=== PATIENT | female | born 1935 | race African-American/Black ===

== ENCOUNTER 2017-12-17 14:36 | Outpatient (CLI) | payer MEDICARE | END 2017-12-17 14:37 | disposition home or self-care (01) | LOC: BICULT 14:36 | PROVIDERS: ATTEND Internal Medicine Geriatric Medicine | DX: R60.0 Localized edema (principal); R06.02 Shortness of breath; I70.0 Atherosclerosis of aorta; I77.819 Aortic ectasia, unspecified site; I82.411 Acute embolism and thrombosis of right femoral vein | CPT/HCPCS: 71046; 93970 ==

== ENCOUNTER 2017-12-17 15:36 | Emergency (ER) | payer MEDICARE ==
[2017-12-17 18:22] LABS: INR-International Normal Ratio 1.1; Prothrombin Time 14.4 SEC (12.0-14.7)
[2017-12-17 18:40] LABS: Chloride 102 mmol/L (98-107); Potassium 4.6 mmol/L (3.5-5.1); Sodium 142 mmol/L (136-145)
[2017-12-17 18:41] LABS: Calcium 9.3 mg/dL (7.8-10.44); Glucose 89 mg/dL (83-110)
[2017-12-17 18:43] LABS: Anion Gap 20 mmol/L (10-20); Carbon Dioxide 25 mmol/L (23-31)
[2017-12-17 18:44] LABS: Calc. Creatinine Clearance 0 mL/min (70-130); Estimated GFR-MDRD 77
[2017-12-17 18:45] LABS: BUN (Urea Nitrogen) 25 mg/dL (9.8-20.1)
[2017-12-17] MEDS ORDERED: Rivaroxaban 15 MG TAB PO SCH (19:30)
== END 2017-12-17 19:51 | disposition home or self-care (01) ==
LOC: ERS 15:36
DX: I82.4Z1 Acute embolism and thrombosis of unspecified deep veins of right distal lower extremity (principal); J44.9 Chronic obstructive pulmonary disease, unspecified; I10 Essential (primary) hypertension; F03.90 Unspecified dementia, unspecified severity, without behavioral disturbance, psychotic disturbance, mood disturbance, and anxiety; E78.00 Pure hypercholesterolemia, unspecified; Z87.891 Personal history of nicotine dependence; Z79.82 Long term (current) use of aspirin; Z79.899 Other long term (current) drug therapy
CPT/HCPCS: 36415; 80048; 81003; 81015; 85610; 87086

== ENCOUNTER 2017-12-18 09:30 | Inpatient (IN) | payer MEDICARE ==
[2017-12-18 09:59] LABS: Bilirubin Negative (Negative); Blood, Urine Large (Negative); Clarity TURBID (Clear); Glucose, Urine (Dipstick) Negative (Negative); Leukocyte Large (Negative); Nitrite Positive (Negative); Protein, Urine (Dipstick) 100 mg/dL (Neg-Trace); Specific Gravity, Urine 1.016 (1.002-1.036); pH, Urine 5.5 (5.0-9.0)
[2017-12-18 10:04] LABS: Bacteria/HPF 4+ HPF (None Seen); Hyaline Casts/LPF 4-6 HYALINE CAST LPF (0-3 Hyaline); Pathc Cast-AUWi Flag 1.87 (0-2.49); Squamous Epithelial 0-3 HPF (0-3)
--- NOTE | 2017-12-18 10:10 | RAD ---
SINGLE VIEW CHEST: Date: 12/18/17 COMPARISON: 12/15/17. HISTORY: Weakness and fever. FINDINGS: Single view of the chest shows a normal sized cardiomediastinal silhouette. Increased interstitial jona ng markings are present. Atelectasis is seen in the lung bases. There is no evidence of consolidation , mass, or pleural effusion. IMPRESSION: Bibasilar atelectasis. POS: [facility]
[2017-12-18 10:23] LABS: #Lymphocytes 0.9 thou/uL (1.20-3.40); #Monocytes 1.1 thou/uL (0.11-0.59); #Neutrophils 10.3 thou/uL (1.40-6.50); %Basophils 0.2 % (0.0-1.0); %Eosinophils 0.1 % (0.0-10.0); %Lymphocytes 7.6 % (21.0-51.0); %Monocytes 8.6 % (0.0-10.0); %Neutrophils 83.5 % (42.0-75.0); Hemoglobin 10.3 g/dL (12.0-16.0); Mean Corpuscular HGB CONC 31.3 g/dL (32.0-36.0); Mean Corpuscular Volume 83.1 fl (81.0-99.0); Mean Platelet Volume 7.7 fL (7.4-10.4); Platelet Count 172 thou/uL (130-400); RBC Distribution Width 13.2 % (11.5-14.5); Red Blood Cell (RBC) Count 3.98 mill/uL (4.20-5.40); White Blood Cell (WBC) Count 12.4 thou/uL (4.8-10.8)
[2017-12-18 10:39] LABS: ALT (SGPT) 20 U/L (8-55); AST (SGOT) 36 U/L (5-34); Albumin 3.2 g/dL (3.4-4.8); Alkaline Phosphatase 71 U/L (40-150); Anion Gap 12 mmol/L (10-20); BUN (Urea Nitrogen) 22 mg/dL (9.8-20.1); Bilirubin, Total 0.9 mg/dL (0.2-1.2); Calc. Creatinine Clearance 0 mL/min (70-130); Calcium 8.5 mg/dL (7.8-10.44); Carbon Dioxide 27 mmol/L (23-31); Chloride 102 mmol/L (98-107); Estimated GFR-MDRD 71; Globulin 3.1 g/dL (2.4-3.5); Glucose 108 mg/dL (83-110); Lipase 13 U/L (8-78); Potassium 3.3 mmol/L (3.5-5.1); Protein, Total 6.3 g/dL (6.0-8.3); Sodium 138 mmol/L (136-145)
[2017-12-18 10:44] LABS: CKMB 1.7 ng/mL (0-6.6); Troponin I 0.162 ng/mL (< 0.028)
[2017-12-18] MEDS ORDERED: ISOVUE-370 76%-LOCM 1 ML ONE (11:07)
[2017-12-18] MEDS ORDERED: Ondansetron ODT 4 MG TAB PO PRN (11:36)
[2017-12-18] MEDS ORDERED: Enoxaparin Sodium 80 MG/0.8 ML SYRINGE ONE (11:47)
--- NOTE | 2017-12-18 12:19 | CT ---
CTA THORAX WITH AND WITHOUT IV CONTRAST WITH 3D REFORMATTED IMAGING: HISTORY: DVT with weakness and altered mental status. The patient had a fever to 100.4. FINDINGS: No cysts or segmental pulmonary embolus is evident. There are small bilateral pleural effusions and a small pericardial effusion. There is bibasilar int erstitial and mild ground glass opacity. There is mild interstitial opacity within the lower lingula . Some of this may be related to accentuated fibrosis, as there is prominent paraseptal and central lobular emphysema throughout the lungs. This could also be related to interstitial edema. Pneumonia within the lower lobes and lingula cannot be entirely excluded. The visualized upper abdomen demons trates calcified granulomas involving the liver and spleen. The left kidney is slightly atrophic com pared to the right. There is diffuse osteopenia. No definite acute osseous abnormality is evident. IMPRESSION: 1. No central or segmental pulmonary embolus demonstrated. 2. Scattered emphysema. 3. Small bilateral pleural effusion and pericardial effusion. 4. Interstitial and mild ground glass opacity involving both lower lobes and lingula may reflect bobby ma or pneumonia. This is likely superimposed on fibrotic change throughout the lungs. 5. Findings of prior granulomatous disease. POS: [facility]
--- NOTE | 2017-12-18 12:37 | HP ---
PRIMARY CARE PHYSICIAN: Dr. Kuo. Referred to the [facility] Service by [facility]. HISTORY OF PRESENT ILLNESS: The patient has had off and on pains in her legs. She is "walking due t o leg discomfort approximately a week ago." Patient has severe dementia and the history was obtained from the daughter, she lives with. Yesterday, she had a venous Doppler in her legs done which I am told by the daughter shows right deep vein thrombosis. I am unfortunately unable to find the report in the computer. She was sent home yesterday on Xarelto. The patient's daughter states she was weak with shortness of breath, decreased activity. She was sent home on Xarelto as mentioned before. Th e prescription was not filled. She got a dose in the ER and has none since. Family called Dr. Alejandre i again today saying she was not doing well. She was sent back to the ER. In the ER found to have p yuria and elevated white count and referred her for admission for sepsis and a urinary tract infectio n. PAST MEDICAL HISTORY: Pertinent for heart failure, unspecified; hypertension; severe dementia. CURRENT MEDICATIONS: Including the Xarelto, which she is not taking; atenolol 25 mg a day; aspirin 8 1 mg a day; Lasix 40 mg a day; losartan 12.5 mg twice a day; olanzapine 5 mg on 1/2 tablet at night; vitamin D3; Keppra 1000 mg twice a day. ALLERGIES: CODEINE and LISINOPRIL. PAST SURGICAL HISTORY: She had a right mastectomy for cancer in 2013, had no radiation or chemothera py. She has had a hysterectomy in the distant past. FAMILY HISTORY: Really pertinent for breast cancer. The patient's mother of breast cancer and her daughter with her has had breast cancer. SOCIAL HISTORY: , quit smoking in 2013. No alcohol. DNR status, has medical directive, disc ussed with daughter. REVIEW OF SYSTEMS: Really not obtainable from the patient. The only thing she says is doing pretty well. PHYSICAL EXAMINATION: GENERAL: Awake, lethargic. VITAL SIGNS: Her vital signs done in the emergency room today: Blood pressure 137/60, pulse 77, res pirations 21, O2 sat 99 on room air, temperature 99. Her emergency room note done yesterday reveals a pulse ranging from 74-115 with blood pressure 188/123, 159/102, 167/92. HEAD, EYES, EARS, NOSE and THROAT: Reveals pupils equal and round. Extraocular movements are intact . Sclerae are white. She has bilateral arcus senilis. Tympanic membranes clear. Nose is clear. O ral mucous membranes are wet. Dental hygiene is good. NECK: No jugular venous distention, adenopathy or thyromegaly. CHEST: Clear to auscultation and percussion. CARDIAC: Heart had an irregular rhythm, split S2 over the left precordial area and a 2/6 systolic mu rmur. ABDOMEN: Soft, bowel sounds normal. No hepatosplenomegaly, no mass, no rebound. EXTREMITIES: Reveal 1+ edema with no definite calf tenderness. PULSES: Carotid, radial, femoral, and dorsalis pedis pulses intact. SKIN: Warm and dry. HEME/LYMPH: Reveals no tender or swollen lymph nodes in axilla, inguinal or cervical area. No petec hial lesions. NEUROLOGICAL: Cranial nerves II-XII are intact. Moves all extremities. Deep tendon reflexes grossl y symmetric. IMAGING: EKG sinus tachycardia with nonspecific ST abnormality. EKG was read by me. Chest x-ray is also read by me. Question of scarring versus infiltrate over the right lower lobe and some increase d markings over the left lower lobe. LABORATORY DATA: Comp metabolic profile: Potassium 3.3, BUN 22, AST 36, otherwise normal. Troponin 9.162. Lactic acid 1.4. White count elevated at 12.4 with a left shift, hemoglobin 10.3, platelet count 172. Urine with too many to count white cells, positive nitrite, large esterase. ADMITTING DIAGNOSES: 1. Pulmonary embolus with tachycardia split S2 and deep vein thrombosis. 2. Deep vein thrombosis by imaging. 3. Evidence for pneumonia with an infiltrate in the right middle lobe area, elevated white count, sh ortness of breath. 4. Urinary tract infection. 5. Hypertension. 6. History of heart failure. 7. Severe dementia. PLAN: 1. Stat CT scan, pulmonary embolus protocol, Lovenox 1 mg/kg q.12 hours has been ordered. 2. Blood cultures. 3. Urine culture. 4. Antibiotics with Rocephin and Zithromax. 5. Selected home medications. The patient will be placed on inpatient basis because of the high deg ree of suspicion for pulmonary emboli and pneumonia. She will need at least 2 overnights for culture s. She will most likely need 5 days of Lovenox before resuming the Xarelto.
[2017-12-18] MEDS: Azithromycin 500 MG in Sodium Chloride 0.9% 250 ML 250 ML IVPB SCH (13:30)
[2017-12-18 13:44] LABS: Troponin I 0.101 ng/mL (< 0.028)
[2017-12-18 16:41] LABS: Troponin I 0.096 ng/mL (< 0.028)
[2017-12-18 19:34] VITALS: BMI 24.9
[2017-12-18] MEDS: Enoxaparin Sodium 80 MG/0.8 ML SYRINGE SC SCH (21:18)
[2017-12-18] MEDS: OLANZapine 5 MG TAB PO SCH (21:19)
[2017-12-18] MEDS: Losartan 25 MG TAB PO SCH (21:19)
[2017-12-18] MEDS: Gabapentin 100 MG CAP PO SCH (21:19)
[2017-12-18] MEDS: levETIRAcetam 500 MG TAB PO SCH (21:20)
[2017-12-19 05:24] LABS: #Eosinphils 0.1 thou/uL (0.0-0.7); #Lymphocytes 1.2 thou/uL (1.20-3.40); #Monocytes 1.1 thou/uL (0.11-0.59); %Basophils 0.4 % (0.0-1.0); %Eosinophils 0.5 % (0.0-10.0); %Lymphocytes 10.5 % (21.0-51.0); %Monocytes 9.9 % (0.0-10.0); %Neutrophils 78.7 % (42.0-75.0); Hemoglobin 10.9 g/dL (12.0-16.0); Mean Corpuscular HGB CONC 31.9 g/dL (32.0-36.0); Mean Corpuscular Hemoglobin 26.4 pg (27.0-31.0); Mean Corpuscular Volume 82.8 fl (81.0-99.0); Mean Platelet Volume 8.1 fL (7.4-10.4); Platelet Count 167 thou/uL (130-400); RBC Distribution Width 13.2 % (11.5-14.5); Red Blood Cell (RBC) Count 4.12 mill/uL (4.20-5.40); White Blood Cell (WBC) Count 11.4 thou/uL (4.8-10.8)
[2017-12-19 05:46] LABS: Anion Gap 10 mmol/L (10-20); BUN (Urea Nitrogen) 17 mg/dL (9.8-20.1); Calc. Creatinine Clearance 62 mL/min (70-130); Calcium 8.2 mg/dL (7.8-10.44); Carbon Dioxide 24 mmol/L (23-31); Chloride 105 mmol/L (98-107); Estimated GFR-MDRD Greater than 90; Glucose 78 mg/dL (83-110); Potassium 3.3 mmol/L (3.5-5.1); Sodium 136 mmol/L (136-145)
[2017-12-19] MEDS ORDERED: Atenolol 25 MG TAB PO SCH (09:00)
[2017-12-19] MEDS: levETIRAcetam 500 MG TAB PO SCH ×2 (10:06→20:52)
[2017-12-19] MEDS: Losartan 25 MG TAB PO SCH ×2 (10:07→20:52)
[2017-12-19] MEDS: Atorvastatin Calcium 20 MG TAB PO SCH (10:07)
[2017-12-19] MEDS: Gabapentin 100 MG CAP PO SCH ×3 (10:07→20:52)
[2017-12-19] MEDS: Acetaminophen 325 MG TAB PO PRN (10:08)
[2017-12-19] MEDS: Enoxaparin Sodium 80 MG/0.8 ML SYRINGE SC SCH (10:10)
--- NOTE | 2017-12-19 10:24 | PDOC.PN ---
- Subjective Encounter Start Date: 12/19/17 Encounter Start Time: 10:23 Subjective: much more alert - Objective Resuscitation Status: Resuscitation Status DNR:Do Not Resuscitate MAR Reviewed: Yes Vital Signs & Weight: Vital Signs (12 hours) Temp Pulse Resp BP Pulse Ox 12/19/17 04:02 99.1 F 84 18 155/73 H 99 Weight Weight 149 lb 14.629 oz I&O: 12/18/17 12/19/17 12/20/17 06:59 06:59 06:59 Intake Total 100 Balance 100 Result Diagrams: 12/19/17 05:06 12/19/17 05:06 Phys Exam - Physical Examination Neck: no nodes scant rales RLL Cardiovascular: RRR, no significant murmur Gastrointestinal: soft, non-tender, positive bowel sounds Musculoskeletal: no edema Dx/Plan (1) DVT (deep venous thrombosis) Code(s): I82.409 - ACUTE EMBOLISM AND THOMBOS UNSP DEEP VN UNSP LOWER EXTREMITY Status: Acute Qualifiers: DVT location: lower extremity Chronicity: acute Laterality: left (2) PNA (pneumonia) Code(s): J18.9 - PNEUMONIA, UNSPECIFIED ORGANISM Status: Acute Qualifiers: Laterality: right Lung location: middle lobe of lung (3) UTI (urinary tract infection), bacterial Code(s): N39.0 - URINARY TRACT INFECTION, SITE NOT SPECIFIED; A49.9 - BACTERIAL INFECTION, UNSPECIFIED Status: Acute (4) HTN (hypertension) Code(s): I10 - ESSENTIAL (PRIMARY) HYPERTENSION Status: Acute - Plan no evedence PE on CT- DC loveox, reinstitute xarelto -: urine C&S E coli -: cont rocephine and zithramax iv -: selected home meds * .
[2017-12-19] MEDS: OLANZapine 5 MG TAB PO SCH ×2 (10:30→20:52)
--- NOTE | 2017-12-19 10:52 | PDOC.EVN ---
Event Note - Event Note Event Note: in atrial fib, will start po metopolol
[2017-12-19 11:15] LABS: Hemoglobin 10.2 g/dL (12.0-16.0); Platelet Count 164 thou/uL (130-400)
[2017-12-19 11:34] LABS: Calc. Creatinine Clearance 65 mL/min (70-130); Estimated GFR-MDRD Greater than 90
--- NOTE | 2017-12-19 11:50 | PQF ---
DATE: 12-19-17 ATTN: DR. LIZ TABARES Please exercise your independent, professional judgment in responding to the clarification form. Clinical indicators are provided on the bottom of this form for your review Please check appropriate box(s) to clarify if the following diagnosis has been ruled in or ruled out: SEPSIS [ ] Ruled in diagnosis [ ] Continue to treat [ ] Resolved [ ] Other diagnosis [ ] Unable to determine In addition, please specify: Present on Admission (POA): [ ] Yes [ ] No [ ] Unable to determine For continuity of documentation, please document condition throughout progress notes and discharge summary. Thank You. CLINICAL INDICATORS - SIGNS / SYMPTOMS / LABS H&P: IN THE ER FOUND TO HAVE PYURIA AND ELEVATED WHITE COUNT AND REFERRED HER FOR ADMISSION FOR SEPSIS AND A URINARY TRACT INFECTION. H&P: PE, DVT, EVIDENCE FOR PNEUMONIA WITH AN INFILTRATE IN THE RIGHT MIDDLE LOBE AREA, ELEVATED WHITE COUNT, SOB, UTI WBC: 12-18-17: 12.4 12-19-17: 11.4 TEMP (ER) : REPORT OF TEMP 100.4 RISK FACTORS: H&P: PE, DVT, EVIDENCE FOR PNEUMONIA WITH AN INFILTRATE IN THE RIGHT MIDDLE LOBE AREA, ELEVATED WHITE COUNT, SOB, UTI (ER): HX OF DEMENTIA, HYPERLIPIDEMIA, HTN, COPD , FORMER SMOKER TREATMENTS: (MAR) ROCEPHIN, ZITHROMAX, (ER) VANCOMYCIN (This form is maintained as a part of the permanent medical record) 2014 [employer]. All Rights Reserved CARSON [email or web address] Office: [phone] [facility]
[2017-12-19] MEDS: cefTRIAXone\\ROCEPHIN 2 GM in Sodium Chloride 0.9% 100 ML IVPB SCH (12:05)
--- NOTE | 2017-12-19 12:07 | PQF ---
DATE: 12-19-17 ATTN : DR. LIZ TABARES Please exercise your independent, professional judgment in responding to the clarification form. Clinical indicators are provided on the bottom of this form for your review Please check appropriate box(s): [ x ] Demand Ischemia [ ] VT (Type: ) [ ] Other diagnosis [ ] Unable to determine In addition, please specify: Present on Admission (POA): [ ] Yes [ ] No [ ] Unable to determine CLINICAL INDICATORS - SIGNS / SYMPTOMS / LABS TROPONIN I: 12-18-17: 0.162 12-18-17: 0.101 12-18-17: 0.096 H&P: PAST MEDICAL HISTORY: PERTINENT FOR HEART FAILURE, UNSPECIFIED, HTN RISKS: H&P: PAST MEDICAL HISTORY: PERTINENT FOR HEART FAILURE, UNSPECIFIED, HTN ER: HX OF HYPERLIPIDEMIA, HTN, COPD, FORMER SMOKER TREATMENTS: H&P: (ER) LOVENOX CARDIAC MONITORING (This form is maintained as a part of the permanent medical record) 2014 [employer] All Rights Reserved CARSON [email or web address] Office: [phone] [facility]ITAL[facility]
[2017-12-19] MEDS: Azithromycin 500 MG in Sodium Chloride 0.9% 250 ML 250 ML IVPB SCH (12:30)
[2017-12-19] MEDS: Metoprolol Tartrate 25 MG TAB PO SCH (20:52)
[2017-12-19] MEDS: Rivaroxaban 15 MG TAB PO SCH (20:52)
[2017-12-20] MEDS: Acetaminophen 325 MG TAB PO PRN (05:25)
[2017-12-20] MEDS: levETIRAcetam 500 MG TAB PO SCH ×2 (08:22→21:16)
[2017-12-20] MEDS: Gabapentin 100 MG CAP PO SCH ×3 (08:22→21:16)
[2017-12-20] MEDS: OLANZapine 5 MG TAB PO SCH ×2 (08:22→21:17)
[2017-12-20] MEDS: Metoprolol Tartrate 25 MG TAB PO SCH ×2 (08:22→21:16)
[2017-12-20] MEDS: Rivaroxaban 15 MG TAB PO SCH ×2 (08:22→21:17)
[2017-12-20] MEDS: Atorvastatin Calcium 20 MG TAB PO SCH (08:22)
[2017-12-20] MEDS: Losartan 25 MG TAB PO SCH ×2 (08:22→21:16)
--- NOTE | 2017-12-20 09:53 | PDOC.PN ---
- Subjective Encounter Start Date: 12/20/17 Encounter Start Time: 09:51 Subjective: alert, stable confusion - Objective Resuscitation Status: Resuscitation Status DNR:Do Not Resuscitate MAR Reviewed: Yes Vital Signs & Weight: Vital Signs (12 hours) Temp Pulse Resp BP Pulse Ox 12/20/17 08:20 98.5 F 89 16 125/58 L 93 L 12/20/17 05:34 98.2 F 67 18 152/67 H 94 L Weight Weight 149 lb 14.629 oz I&O: 12/19/17 12/20/17 12/21/17 06:59 06:59 06:59 Intake Total 100 300 Balance 100 300 Result Diagrams: 12/19/17 11:07 12/19/17 11:07 Phys Exam - Physical Examination Neck: no JVD Respiratory: clear to auscultation bilateral Cardiovascular: RRR, no significant murmur Gastrointestinal: soft, non-tender, positive bowel sounds Musculoskeletal: no edema Dx/Plan (1) DVT (deep venous thrombosis) Code(s): I82.409 - ACUTE EMBOLISM AND THOMBOS UNSP DEEP VN UNSP LOWER EXTREMITY Status: Acute Qualifiers: DVT location: lower extremity Chronicity: acute Laterality: left (2) PNA (pneumonia) Code(s): J18.9 - PNEUMONIA, UNSPECIFIED ORGANISM Status: Acute Qualifiers: Pneumonia type: due to unspecified organism Laterality: right Lung location: middle lobe of lung Qualified Code(s): J18.1 - Lobar pneumonia, unspecified organism (3) UTI (urinary tract infection), bacterial Code(s): N39.0 - URINARY TRACT INFECTION, SITE NOT SPECIFIED; A49.9 - BACTERIAL INFECTION, UNSPECIFIED Status: Acute (4) HTN (hypertension) Code(s): I10 - ESSENTIAL (PRIMARY) HYPERTENSION Status: Chronic Qualifiers: Hypertension type: essential hypertension Qualified Code(s): I10 - Essential (primary) hypertension (5) Atrial fib/flutter, transient Code(s): [id number] - Status: Acute - Plan xarelto for DVT -: uti E coli pansensitive will trasition to po omnicef -: now in RSR , cont metoprolol -: PT consult, rehab screen * .
[2017-12-20] MEDS: cefTRIAXone\\ROCEPHIN 2 GM in Sodium Chloride 0.9% 100 ML IVPB SCH (12:00)
[2017-12-20] MEDS: Azithromycin 500 MG in Sodium Chloride 0.9% 250 ML 250 ML IVPB SCH (12:28)
[2017-12-20] MEDS: Cefdinir 300 MG CAP PO SCH (21:16)
[2017-12-21] MEDS: Acetaminophen 325 MG TAB PO PRN (00:28)
[2017-12-21] MEDS: Cefdinir 300 MG CAP PO SCH ×2 (09:53→21:10)
[2017-12-21] MEDS: levETIRAcetam 500 MG TAB PO SCH ×2 (09:53→21:12)
[2017-12-21] MEDS: Atorvastatin Calcium 20 MG TAB PO SCH (09:53)
[2017-12-21] MEDS: Losartan 25 MG TAB PO SCH ×2 (09:54→21:09)
[2017-12-21] MEDS: Rivaroxaban 15 MG TAB PO SCH ×2 (09:54→21:09)
[2017-12-21] MEDS: Metoprolol Tartrate 25 MG TAB PO SCH ×2 (09:54→21:10)
[2017-12-21] MEDS: Gabapentin 100 MG CAP PO SCH ×3 (09:54→21:09)
[2017-12-21] MEDS: OLANZapine 5 MG TAB PO SCH ×2 (10:26→21:09)
--- NOTE | 2017-12-21 14:56 | PDOC.PN ---
- Subjective Encounter Start Date: 12/21/17 Encounter Start Time: 14:54 Patient seen and examined, no new issues or complaints, no issues overnight per nursing staff. No family at bedside, all questions answered. - Objective Resuscitation Status: Resuscitation Status DNR:Do Not Resuscitate Vital Signs & Weight: Vital Signs (12 hours) Temp Pulse Resp Pulse Ox 12/21/17 07:49 98.6 F 81 18 95 Weight Weight 149 lb 14.629 oz I&O: 12/20/17 12/21/17 12/22/17 06:59 06:59 06:59 Intake Total 300 690 Balance 300 690 Result Diagrams: 12/19/17 11:07 12/19/17 11:07 Phys Exam - Physical Examination Constitutional: NAD HEENT: PERRLA, moist MMs, sclera anicteric Neck: no nodes, no JVD, supple Respiratory: no wheezing, no rales, no rhonchi Cardiovascular: RRR, no significant murmur, no rub Gastrointestinal: soft, non-tender, no distention Musculoskeletal: no edema, pulses present Neurological: non-focal, normal sensation Psychiatric: normal affect Deviation from normal: AAO x person only Dx/Plan (1) Dementia Code(s): F03.90 - UNSPECIFIED DEMENTIA WITHOUT BEHAVIORAL DISTURBANCE Status: Acute (2) Atrial fib/flutter, transient Code(s): OLF8002 - Status: Acute (3) DVT (deep venous thrombosis) Code(s): I82.409 - ACUTE EMBOLISM AND THOMBOS UNSP DEEP VN UNSP LOWER EXTREMITY Status: Acute Qualifiers: DVT location: lower extremity Chronicity: acute Laterality: left (4) PNA (pneumonia) Code(s): J18.9 - PNEUMONIA, UNSPECIFIED ORGANISM Status: Acute Qualifiers: Pneumonia type: due to unspecified organism Laterality: right Lung location: middle lobe of lung Qualified Code(s): J18.1 - Lobar pneumonia, unspecified organism (5) UTI (urinary tract infection), bacterial Code(s): N39.0 - URINARY TRACT INFECTION, SITE NOT SPECIFIED; A49.9 - BACTERIAL INFECTION, UNSPECIFIED Status: Acute (6) HTN (hypertension) Code(s): I10 - ESSENTIAL (PRIMARY) HYPERTENSION Status: Chronic Qualifiers: Hypertension type: essential hypertension Qualified Code(s): I10 - Essential (primary) hypertension - Plan * rehab placement pending * continue current plan of care w/o changes for now * DC to rehab once placement available. * No family at bedisde
[2017-12-21] MEDS ORDERED: Haloperidol Lactate 5 MG/ML VIAL IM SCH (19:45)
[2017-12-22] MEDS: OLANZapine 5 MG TAB PO SCH ×2 (09:14→21:25)
[2017-12-22] MEDS: levETIRAcetam 500 MG TAB PO SCH ×2 (09:15→21:03)
[2017-12-22] MEDS: Metoprolol Tartrate 25 MG TAB PO SCH ×2 (09:15→21:03)
[2017-12-22] MEDS: Losartan 25 MG TAB PO SCH ×2 (09:15→21:03)
[2017-12-22] MEDS: Acetaminophen 325 MG TAB PO PRN ×2 (09:15→15:52)
[2017-12-22] MEDS: Atorvastatin Calcium 20 MG TAB PO SCH (09:16)
[2017-12-22] MEDS: Cefdinir 300 MG CAP PO SCH ×2 (09:16→21:03)
[2017-12-22] MEDS: Gabapentin 100 MG CAP PO SCH ×3 (09:16→21:03)
[2017-12-22] MEDS: Rivaroxaban 15 MG TAB PO SCH ×2 (09:16→21:03)
--- NOTE | 2017-12-22 10:15 | PQF ---
ELIAZAR SOUSA ROHAN MD [id number] [id number] CLINICAL DOCUMENTATION IMPROVEMENT CLARIFICATION FORM: ICD-10 Updated PLEASE DO AN ADDENDUM TO THE PROGRESS NOTE WITH ANY DOCUMENTATION UPDATES OR ADDITIONS AND CARRY THROUGH TO DC SUMMARY. THANK YOU. DATE: 12-19-17 ATTN: DR. LIZ TABARES / DR. MCDOWELL Please exercise your independent, professional judgment in responding to the clarification form. Clinical indicators are provided on the bottom of this form for your review Please check appropriate box(s) to clarify if the following diagnosis has been ruled in or ruled out: SEPSIS [ x ] Ruled in diagnosis [ x ] Continue to treat [ ] Resolved [ ] Other diagnosis [ ] Unable to determine In addition, please specify: Present on Admission (POA): [ x ] Yes [ ] No [ ] Unable to determine For continuity of documentation, please document condition throughout progress notes and discharge summary. Thank You. CLINICAL INDICATORS - SIGNS / SYMPTOMS / LABS H&P: IN THE ER FOUND TO HAVE PYURIA AND ELEVATED WHITE COUNT AND REFERRED HER FOR ADMISSION FOR SEPSIS AND A URINARY TRACT INFECTION. H&P: PE, DVT, EVIDENCE FOR PNEUMONIA WITH AN INFILTRATE IN THE RIGHT MIDDLE LOBE AREA, ELEVATED WHITE COUNT, SOB, UTI WBC: 12-18-17: 12.4 12-19-17: 11.4 TEMP (ER) : REPORT OF TEMP 100.4 RISK FACTORS: H&P: PE, DVT, EVIDENCE FOR PNEUMONIA WITH AN INFILTRATE IN THE RIGHT MIDDLE LOBE AREA, ELEVATED WHITE COUNT, SOB, UTI (ER): HX OF DEMENTIA, HYPERLIPIDEMIA, HTN, COPD, FORMER SMOKER TREATMENTS: (MAR) ROCEPHIN, ZITHROMAX, (ER) VANCOMYCIN THANK YOU, FILI (This form is maintained as a part of the permanent medical record) 2015 [employer]. All Rights Reserved CARSON [email or web address] Office: [phone] [facility]
--- NOTE | 2017-12-22 14:13 | ULT ---
BILATERAL CAROTID DUPLEX ULTRASOUND WITH SPECTRAL ANALYSIS AND COLOR FLOW EVALUATION: Date: 12/22/17 HISTORY: Patient with altered mental status on 12/18/17. Weakness. TIA. Evaluate for possibility of CVA. FINDINGS: Maldonado scale, color flow, Doppler evaluation, and spectral analysis of the bilateral carotid arteries i s performed with 2D imaging. There is calcified atherosclerotic plaque seen within the bilateral common carotid arteries, as well as involving the bilateral internal carotid arteries. There is less than 50% maximal stenosis in the bilateral internal carotid arteries according to the p eak systolic velocities and the ICA/CCA ratios. Peak systolic velocity in the right ICA is 61.6 cm/se cond, with an ICA/CCA ratio of 0.73. Peak systolic velocity in the left ICA is 66.9 cm/second, with a n ICA/CCA ratio of 0.97. Antegrade flow is demonstrated in the left vertebral artery, but there is bidirectional flow present in the right vertebral artery. However, provided Doppler evaluation does not adequately demonstrate t his finding. IMPRESSION: 1. Bidirectional flow in the right vertebral artery. A subclavian steal phenomenon could not be excl uded. CTA exam of the neck may be helpful for further evaluation. 2. Antegrade flow in the left vertebral artery. 3. Atherosclerotic plaque in bilateral internal carotid arteries, but no hemodynamically significant stenosis is present based on velocity measurements. POS: [facility]
--- NOTE | 2017-12-22 14:26 | CT ---
NONCONTRAST CT OF THE BRAIN: Date: 12/22/17 INDICATION: TIA, rule out CVA. COMPARISON: None. FINDINGS: There is generalized cerebral and cerebellar atrophy. Septum pellucidum and third ventricle are midli ne. There is remote lacunar infarction involving both caudate heads and left globus pallidus. There i s mild chronic small vessel white matter ischemic change. No definite acute infarct, hemorrhage, or h ydrocephalus present. IMPRESSION: 1. No acute intracranial abnormality. 2. Chronic ischemic changes. POS: [facility]
--- NOTE | 2017-12-22 14:47 | PDOC.PN ---
- Subjective Encounter Start Date: 12/22/17 Encounter Start Time: 11:00 Patient seen and examined, daughter at bedside, off note patient's PCP informed me today that the patient was admitted for symptoms concerning for stroke. Patient currently is at baseline functional status per daughter, no new issues or concerns, seen and examined at bedside all questions answered. - Objective Resuscitation Status: Resuscitation Status DNR:Do Not Resuscitate Vital Signs & Weight: Vital Signs (12 hours) Temp Pulse Resp BP Pulse Ox 12/22/17 07:37 97.4 F L 91 17 188/85 H 98 12/22/17 06:55 97.6 F 87 18 186/95 H 97 Weight Weight 149 lb 14.629 oz I&O: 12/21/17 12/22/17 12/23/17 06:59 06:59 06:59 Intake Total 690 480 Balance 690 480 Result Diagrams: 12/19/17 11:07 12/19/17 11:07 Phys Exam - Physical Examination Constitutional: NAD HEENT: PERRLA, moist MMs Neck: no nodes, no JVD, supple Respiratory: no wheezing, no rales, no rhonchi Cardiovascular: RRR, no significant murmur, no rub Gastrointestinal: soft, non-tender, no distention Musculoskeletal: pulses present, edema present (trace) Neurological: non-focal, normal sensation, moves all 4 limbs Psychiatric: normal affect Deviation from normal: AAO x person only Skin: no rash, normal turgor, cap refill <2 seconds Dx/Plan (1) Dementia Code(s): F03.90 - UNSPECIFIED DEMENTIA WITHOUT BEHAVIORAL DISTURBANCE Status: Acute (2) Atrial fib/flutter, transient Code(s): VBC0997 - Status: Acute (3) DVT (deep venous thrombosis) Code(s): I82.409 - ACUTE EMBOLISM AND THOMBOS UNSP DEEP VN UNSP LOWER EXTREMITY Status: Acute Qualifiers: DVT location: lower extremity Chronicity: acute Laterality: left (4) PNA (pneumonia) Code(s): J18.9 - PNEUMONIA, UNSPECIFIED ORGANISM Status: Acute Qualifiers: Pneumonia type: due to unspecified organism Laterality: right Lung location: middle lobe of lung Qualified Code(s): J18.1 - Lobar pneumonia, unspecified organism (5) UTI (urinary tract infection), bacterial Code(s): N39.0 - URINARY TRACT INFECTION, SITE NOT SPECIFIED; A49.9 - BACTERIAL INFECTION, UNSPECIFIED Status: Acute (6) HTN (hypertension) Code(s): I10 - ESSENTIAL (PRIMARY) HYPERTENSION Status: Chronic Qualifiers: Hypertension type: essential hypertension Qualified Code(s): I10 - Essential (primary) hypertension - Plan * obtain carotid US and CT head to r/o any possible intracranial abnormality * continue with current plan of care otherwise * case management consult for SNF vs rehab, patient may not be able to do long hours of PT at rehab and may benefit form SNF placement * continue PT/OT * DC plans in AM to SNF vs rehab * case and plan d/w patient's daughter at length, she understands and agrees with this plan
[2017-12-23] MEDS: cloNIDine 0.1 MG TAB PO PRN ×2 (05:41→11:35)
[2017-12-23 05:55] LABS: Hemoglobin 9.1 g/dL (12.0-16.0); Platelet Count 283 thou/uL (130-400)
[2017-12-23 06:19] LABS: Calc. Creatinine Clearance 74 mL/min (70-130); Estimated GFR-MDRD Greater than 90
[2017-12-23] MEDS: Metoprolol Tartrate 25 MG TAB PO SCH ×2 (09:58→20:52)
[2017-12-23] MEDS: Cefdinir 300 MG CAP PO SCH ×2 (09:58→20:50)
[2017-12-23] MEDS: Gabapentin 100 MG CAP PO SCH ×3 (09:58→20:50)
[2017-12-23] MEDS: Losartan 25 MG TAB PO SCH ×2 (09:58→20:51)
[2017-12-23] MEDS: Atorvastatin Calcium 20 MG TAB PO SCH (09:58)
[2017-12-23] MEDS: levETIRAcetam 500 MG TAB PO SCH ×2 (09:58→20:51)
[2017-12-23] MEDS: OLANZapine 5 MG TAB PO SCH ×2 (11:35→20:52)
[2017-12-23] MEDS: Rivaroxaban 15 MG TAB PO SCH ×2 (11:35→20:53)
--- NOTE | 2017-12-23 12:33 | PDOC.PN ---
- Subjective Encounter Start Date: 12/23/17 Encounter Start Time: 12:31 Patient seen and examined, patient requiring sitter as without the sitter yesterday she was becoming agitated. No family at bedside. - Objective Resuscitation Status: Resuscitation Status DNR:Do Not Resuscitate Vital Signs & Weight: Vital Signs (12 hours) Temp Pulse Resp BP BP Pulse Ox 12/23/17 11:35 171/92 H 12/23/17 11:19 97.5 F L 70 16 171/92 H 97 12/23/17 09:00 98.5 F 76 16 157/78 H 95 12/23/17 05:41 186/80 H 12/23/17 04:00 98.3 F 92 18 186/80 H 96 Weight Weight 157 lb 1.6 oz I&O: 12/22/17 12/23/17 12/24/17 06:59 06:59 06:59 Intake Total 480 360 Output Total 300 Balance 480 60 Result Diagrams: 12/23/17 04:56 12/23/17 04:56 Phys Exam - Physical Examination Constitutional: NAD HEENT: PERRLA, moist MMs, sclera anicteric Neck: no nodes, no JVD, supple Respiratory: no wheezing, no rales, no rhonchi Cardiovascular: RRR, no significant murmur, no rub Gastrointestinal: soft, non-tender, no distention, positive bowel sounds Musculoskeletal: pulses present, edema present (trace) Neurological: non-focal, normal sensation, moves all 4 limbs Psychiatric: normal affect Deviation from normal: Following some commands, disoriented Skin: no rash, normal turgor Dx/Plan (1) Dementia Code(s): F03.90 - UNSPECIFIED DEMENTIA WITHOUT BEHAVIORAL DISTURBANCE Status: Acute (2) Atrial fib/flutter, transient Code(s): [id number] - Status: Acute (3) DVT (deep venous thrombosis) Code(s): I82.409 - ACUTE EMBOLISM AND THOMBOS UNSP DEEP VN UNSP LOWER EXTREMITY Status: Acute Qualifiers: DVT location: lower extremity Chronicity: acute Laterality: left (4) PNA (pneumonia) Code(s): J18.9 - PNEUMONIA, UNSPECIFIED ORGANISM Status: Acute Qualifiers: Pneumonia type: due to unspecified organism Laterality: right Lung location: middle lobe of lung Qualified Code(s): J18.1 - Lobar pneumonia, unspecified organism (5) UTI (urinary tract infection), bacterial Code(s): N39.0 - URINARY TRACT INFECTION, SITE NOT SPECIFIED; A49.9 - BACTERIAL INFECTION, UNSPECIFIED Status: Acute (6) HTN (hypertension) Code(s): I10 - ESSENTIAL (PRIMARY) HYPERTENSION Status: Chronic Qualifiers: Hypertension type: essential hypertension Qualified Code(s): I10 - Essential (primary) hypertension - Plan * Continue current plan of care for now * patient requiring sitter, if patient requires sitter she may not qualify for SNF or rehab and may need to pursue home health care * no family at bedside, d/w employment case manager about this issue * DC plans to home with C or SNF/rehab if sitter arranged * no other changes in plan for now
[2017-12-24] MEDS: Acetaminophen 325 MG TAB PO PRN ×2 (00:23→11:50)
[2017-12-24] MEDS: Losartan 25 MG TAB PO SCH ×3 (08:00→20:23)
[2017-12-24] MEDS: Metoprolol Tartrate 25 MG TAB PO SCH ×3 (08:00→20:24)
[2017-12-24] MEDS: Amlodipine 5 MG TAB PO SCH ×2 (08:00→08:05)
[2017-12-24] MEDS: Cefdinir 300 MG CAP PO SCH ×2 (08:01→20:23)
[2017-12-24] MEDS: levETIRAcetam 500 MG TAB PO SCH ×2 (08:01→20:23)
[2017-12-24] MEDS: Atorvastatin Calcium 20 MG TAB PO SCH (08:01)
[2017-12-24] MEDS: Gabapentin 100 MG CAP PO SCH ×3 (08:01→20:23)
[2017-12-24] MEDS: OLANZapine 5 MG TAB PO SCH ×2 (08:28→20:24)
[2017-12-24] MEDS: Rivaroxaban 15 MG TAB PO SCH ×2 (08:28→20:24)
--- NOTE | 2017-12-24 14:06 | PDOC.PN ---
- Subjective Encounter Start Date: 12/24/17 Encounter Start Time: 14:04 Patient seen and examined, daughter not at bedside, requiring sitter still, no other issues. - Objective Resuscitation Status: Resuscitation Status DNR:Do Not Resuscitate Vital Signs & Weight: Vital Signs (12 hours) Temp Pulse Resp BP BP Pulse Ox 12/24/17 08:05 87 147/78 H 12/24/17 08:00 97.8 F 87 16 95 12/24/17 07:50 97.8 F 87 16 147/78 H 95 12/24/17 04:00 97.9 F 84 16 150/74 H 97 Weight Weight 157 lb 1.6 oz I&O: 12/23/17 12/24/17 12/25/17 06:59 06:59 06:59 Intake Total 360 340 Output Total 300 Balance 60 340 Result Diagrams: 12/23/17 04:56 12/23/17 04:56 Phys Exam - Physical Examination Constitutional: NAD HEENT: PERRLA, moist MMs, sclera anicteric, oral pharynx no lesions Neck: no nodes, no JVD, supple Respiratory: no wheezing, no rales, no rhonchi Cardiovascular: RRR, no significant murmur, no rub Gastrointestinal: soft, non-tender, no distention, positive bowel sounds Musculoskeletal: no edema, pulses present Neurological: non-focal, normal sensation Deviation from normal: disoriented Skin: no rash, normal turgor Dx/Plan (1) Dementia Code(s): F03.90 - UNSPECIFIED DEMENTIA WITHOUT BEHAVIORAL DISTURBANCE Status: Acute (2) Atrial fib/flutter, transient Code(s): WQH7135 - Status: Acute (3) DVT (deep venous thrombosis) Code(s): I82.409 - ACUTE EMBOLISM AND THOMBOS UNSP DEEP VN UNSP LOWER EXTREMITY Status: Acute Qualifiers: DVT location: lower extremity Chronicity: acute Laterality: left (4) PNA (pneumonia) Code(s): J18.9 - PNEUMONIA, UNSPECIFIED ORGANISM Status: Acute Qualifiers: Pneumonia type: due to unspecified organism Laterality: right Lung location: middle lobe of lung Qualified Code(s): J18.1 - Lobar pneumonia, unspecified organism (5) UTI (urinary tract infection), bacterial Code(s): N39.0 - URINARY TRACT INFECTION, SITE NOT SPECIFIED; A49.9 - BACTERIAL INFECTION, UNSPECIFIED Status: Acute (6) HTN (hypertension) Code(s): I10 - ESSENTIAL (PRIMARY) HYPERTENSION Status: Chronic Qualifiers: Hypertension type: essential hypertension Qualified Code(s): I10 - Essential (primary) hypertension - Plan * pending placeent * continue PT * no other changes in plan * DC once placement arranged, patient still requiring sitter. * The patient daughter was not at bedside, if patient requires a sitter then the patient will need to either go home with home health care or the family will need to find some way to pay for a sitter at a SNF/rehab, disease case manager following as well
[2017-12-25 04:38] LABS: Hemoglobin 8.2 g/dL (12.0-16.0); Platelet Count 338 thou/uL (130-400)
[2017-12-25 04:46] LABS: Calc. Creatinine Clearance 81 mL/min (70-130); Estimated GFR-MDRD Greater than 90
[2017-12-25] MEDS: levETIRAcetam 500 MG TAB PO SCH (08:43)
[2017-12-25] MEDS: Cefdinir 300 MG CAP PO SCH (08:44)
[2017-12-25] MEDS: Atorvastatin Calcium 20 MG TAB PO SCH (08:44)
[2017-12-25] MEDS: Losartan 25 MG TAB PO SCH (08:44)
[2017-12-25] MEDS: Metoprolol Tartrate 25 MG TAB PO SCH (08:45)
[2017-12-25] MEDS: Gabapentin 100 MG CAP PO SCH ×2 (08:45→14:13)
[2017-12-25] MEDS: Rivaroxaban 15 MG TAB PO SCH (08:45)
[2017-12-25] MEDS: Amlodipine 5 MG TAB PO SCH (08:45)
[2017-12-25] MEDS: OLANZapine 5 MG TAB PO SCH (08:46)
[2017-12-25] MEDS: Acetaminophen 325 MG TAB PO PRN (11:19)
--- NOTE | 2017-12-25 13:39 | PDOC.PN ---
- Subjective Encounter Start Date: 12/25/17 Encounter Start Time: 10:20 Patient seen and examined, no new issues, no changes in last 24 hours. No family at bedside. - Objective Resuscitation Status: Resuscitation Status DNR:Do Not Resuscitate Vital Signs & Weight: Vital Signs (12 hours) Temp Pulse Resp BP BP Pulse Ox 12/25/17 08:45 87 149/68 H 12/25/17 08:00 98.0 F 87 20 12/25/17 07:42 98.0 F 87 20 149/68 H 96 Weight Weight 157 lb 1.6 oz I&O: 12/24/17 12/25/17 12/26/17 06:59 06:59 06:59 Intake Total 340 360 360 Balance 340 360 360 Result Diagrams: 12/25/17 03:50 12/25/17 03:50 Phys Exam - Physical Examination Constitutional: NAD HEENT: PERRLA, moist MMs, sclera anicteric Neck: no nodes, no JVD, supple, full ROM Respiratory: no wheezing, no rales, no rhonchi Cardiovascular: RRR, no significant murmur, no rub Gastrointestinal: soft, non-tender, no distention, positive bowel sounds Musculoskeletal: no edema, pulses present Neurological: non-focal, normal sensation Deviation from normal: confused, disoriented Skin: no rash, normal turgor Dx/Plan (1) Dementia Code(s): F03.90 - UNSPECIFIED DEMENTIA WITHOUT BEHAVIORAL DISTURBANCE Status: Acute (2) Atrial fib/flutter, transient Code(s): PNR2601 - Status: Acute (3) DVT (deep venous thrombosis) Code(s): I82.409 - ACUTE EMBOLISM AND THOMBOS UNSP DEEP VN UNSP LOWER EXTREMITY Status: Acute Qualifiers: DVT location: lower extremity Chronicity: acute Laterality: left (4) PNA (pneumonia) Code(s): J18.9 - PNEUMONIA, UNSPECIFIED ORGANISM Status: Acute Qualifiers: Pneumonia type: due to unspecified organism Laterality: right Lung location: middle lobe of lung Qualified Code(s): J18.1 - Lobar pneumonia, unspecified organism (5) UTI (urinary tract infection), bacterial Code(s): N39.0 - URINARY TRACT INFECTION, SITE NOT SPECIFIED; A49.9 - BACTERIAL INFECTION, UNSPECIFIED Status: Acute (6) HTN (hypertension) Code(s): I10 - ESSENTIAL (PRIMARY) HYPERTENSION Status: Chronic Qualifiers: Hypertension type: essential hypertension Qualified Code(s): I10 - Essential (primary) hypertension - Plan * pending placement * no changes in plan otherwise * DC plans once placement arranged.
--- NOTE | 2017-12-25 14:24 | PDOC.EVN ---
Event Note - Event Note Event Note: DC SUMMARY #[id number]
[2017-12-25 18:40] VITALS: BP 144/73; TEMP 98.9
--- NOTE | 2017-12-26 01:53 | DIS ---
DATE OF ADMISSION: 12/18/2017 DATE OF DISCHARGE: 12/25/2017 ADMITTING COMPLAINT: Leg pain and antalgic gait. ADMITTING DIAGNOSES: 1. Leg pain. 2. History of dementia. 3. History of heart failure. 4. History of hypertension. 5. History of anxiety. DISCHARGE DIAGNOSES: 1. Pulmonary embolus with deep vein thrombosis. 2. History of heart failure, stable. 3. History of hypertension, stable. 4. History of dementia, stable. 4. History of anxiety, stable. HOSPITAL COURSE: This is an 82-year-old female who was admitted to the hospital because of leg pain, was admitted to Internal Medicine team, had imaging studies done, was found to have a DVT. The harmony ent was followed very closely by Internal Medicine team throughout her hospitalization stay; was star tavia on Xarelto 15 mg to be taken p.o. b.i.d., also had her seizure medications adjusted. The patient was deemed stable for discharge from medical perspective. At point in time of discharge, the patifallon t was back to her baseline, was to be discharged to a facility. telephonic nurse case manager had worked closely with the daughter to be able to get to her . The patient at point in time of discharge did have a b ed confirmed by the sample case porter, was back to her baseline. No complaints from her family. The harmony ent did have dementia, so review of systems at point in time of discharge was not very possible to be done; however, daughter states that the patient appeared to be back at her baseline minus the diffic ulty walking; however, she probably will get into physical therapy at the facility that she is going to. Dispositions to an outside facility mentioned earlier. Follow up with PCP within 1 week. MEDICATIONS: See MAR. ACTIVITY: As tolerated with assistance as needed as appropriate. DIET: Low fat, low calorie, high fiber diet. CONDITION: Stable. PROGNOSIS: Guarded. Case and plan discussed with daughter at length. She understands and agrees with this plan.
== END 2017-12-25 17:30 | DRG 299 ==
LOC: ERS 09:30 → 2NO 11:10 → T4-B 12-23 09:12
PROVIDERS: ADMIT Internal Medicine; ATTEND Internal Medicine
DX: I82.402 Acute embolism and thrombosis of unspecified deep veins of left lower extremity (principal); A41.9 Sepsis, unspecified organism; I26.99 Other pulmonary embolism without acute cor pulmonale; J18.9 Pneumonia, unspecified organism; N39.0 Urinary tract infection, site not specified; I24.8 Other forms of acute ischemic heart disease; F03.90 Unspecified dementia, unspecified severity, without behavioral disturbance, psychotic disturbance, mood disturbance, and anxiety; F41.9 Anxiety disorder, unspecified; Z79.01 Long term (current) use of anticoagulants; Z79.82 Long term (current) use of aspirin; Z88.5 Allergy status to narcotic agent; Z88.8 Allergy status to other drugs, medicaments and biological substances; Z90.11 Acquired absence of right breast and nipple; Z90.710 Acquired absence of both cervix and uterus; Z87.891 Personal history of nicotine dependence; Z66 Do not resuscitate; I48.91 Unspecified atrial fibrillation; B96.20 Unspecified Escherichia coli [E. coli] as the cause of diseases classified elsewhere; E78.5 Hyperlipidemia, unspecified; J44.9 Chronic obstructive pulmonary disease, unspecified; I11.0 Hypertensive heart disease with heart failure; I50.9 Heart failure, unspecified
CPT/HCPCS: 36415; 51701; 70450; 71045; 71275; 80048; 80053; 80177; 81003; 81015; 82553; 82565; 83605; 83690; 83880; 84443; 84484; 85014; 85018; 85025; 85049; 85610; 87040; 87077; 87086; 87186; 93005; 93880; 96365; 96372; 96375; 99284; A4353; G8978-GP-CM; G8979-GP-CK; G8987-GO-CL; G8988-GO-CJ; J0456; J0696; J1630; J1650; J3370; J7050

== ENCOUNTER 2018-01-02 15:52 | Emergency (ER) | payer MEDICARE ==
[2018-01-02 17:10] LABS: #Eosinphils 0.2 thou/uL (0.0-0.7); #Lymphocytes 1.7 thou/uL (1.20-3.40); #Monocytes 0.4 thou/uL (0.11-0.59); #Neutrophils 4.4 thou/uL (1.40-6.50); %Basophils 0.1 % (0.0-1.0); %Eosinophils 2.6 % (0.0-10.0); %Lymphocytes 25.4 % (21.0-51.0); %Monocytes 6.5 % (0.0-10.0); %Neutrophils 65.3 % (42.0-75.0); Hemoglobin 8.1 g/dL (12.0-16.0); Mean Corpuscular HGB CONC 31.2 g/dL (32.0-36.0); Mean Corpuscular Volume 83.4 fl (81.0-99.0); Mean Platelet Volume 6.1 fL (7.4-10.4); Platelet Count 494 thou/uL (130-400); RBC Distribution Width 14.7 % (11.5-14.5); Red Blood Cell (RBC) Count 3.12 mill/uL (4.20-5.40); White Blood Cell (WBC) Count 6.8 thou/uL (4.8-10.8)
[2018-01-02 17:16] LABS: INR-International Normal Ratio 1.7; PTT 35.4 SEC (22.9-36.1); Prothrombin Time 20.5 SEC (12.0-14.7)
[2018-01-02 17:26] LABS: ALT (SGPT) 13 U/L (8-55); AST (SGOT) 12 U/L (5-34); Albumin 3.6 g/dL (3.4-4.8); Alkaline Phosphatase 74 U/L (40-150); Anion Gap 12 mmol/L (10-20); BUN (Urea Nitrogen) 18 mg/dL (9.8-20.1); Bilirubin, Total 0.5 mg/dL (0.2-1.2); Calc. Creatinine Clearance 0 mL/min (70-130); Calcium 8.7 mg/dL (7.8-10.44); Carbon Dioxide 26 mmol/L (23-31); Chloride 105 mmol/L (98-107); Estimated GFR-MDRD 82; Globulin 3.4 g/dL (2.4-3.5); Glucose 107 mg/dL (83-110); Potassium 4.1 mmol/L (3.5-5.1); Sodium 139 mmol/L (136-145)
== END 2018-01-02 19:17 | disposition home or self-care (01) ==
LOC: ERS 15:52
DX: R79.89 Other specified abnormal findings of blood chemistry (principal); E78.5 Hyperlipidemia, unspecified; I10 Essential (primary) hypertension; J44.9 Chronic obstructive pulmonary disease, unspecified; F03.90 Unspecified dementia, unspecified severity, without behavioral disturbance, psychotic disturbance, mood disturbance, and anxiety; Z87.891 Personal history of nicotine dependence
CPT/HCPCS: 36415; 80053; 85025; 85610; 85730; 86850; 86900; 86901; 93005

== ENCOUNTER 2018-03-08 08:58 | Inpatient (IN) | payer MEDICARE ==
[2018-03-08 10:06] LABS: INR-International Normal Ratio 1.7; PTT 29.7 SEC (22.9-36.1); Prothrombin Time 20.2 SEC (12.0-14.7)
[2018-03-08 10:18] LABS: ALT (SGPT) 21 U/L (8-55); AST (SGOT) 16 U/L (5-34); Albumin 3.6 g/dL (3.4-4.8); Alkaline Phosphatase 68 U/L (40-150); Anion Gap 13 mmol/L (10-20); BUN (Urea Nitrogen) 27 mg/dL (9.8-20.1); Bilirubin, Total 0.4 mg/dL (0.2-1.2); CK (CPK) 82 U/L (29-168); Calc. Creatinine Clearance 0 mL/min (70-130); Calcium 8.6 mg/dL (7.8-10.44); Carbon Dioxide 24 mmol/L (23-31); Chloride 109 mmol/L (98-107); Estimated GFR-MDRD 77; Globulin 2.5 g/dL (2.4-3.5); Glucose 119 mg/dL (83-110); Potassium 3.2 mmol/L (3.5-5.1); Protein, Total 6.1 g/dL (6.0-8.3); Sodium 143 mmol/L (136-145)
[2018-03-08 10:21] LABS: Hemoglobin 4.3 g/dL (12.0-16.0); Mean Corpuscular HGB CONC 29.5 g/dL (32.0-36.0); Mean Corpuscular Hemoglobin 20.9 pg (27.0-31.0); Mean Corpuscular Volume 70.8 fL (78.0-98.0); Mean Platelet Volume 8.3 fL (7.4-10.4); Platelet Count 278 thou/uL (130-400); RBC Distribution Width 18.8 % (11.5-14.5); Red Blood Cell (RBC) Count 2.06 mill/uL (4.20-5.40); White Blood Cell (WBC) Count 6.2 thou/uL (4.8-10.8)
[2018-03-08 10:23] LABS: CKMB 1.7 ng/mL (0-6.6); Troponin I 0.234 ng/mL (< 0.028)
[2018-03-08 10:43] LABS: Acanthocytes SLIGHT = 1-5 cells (100X) (None Seen); Burr Cells SLIGHT = 2-5 cells (100X) (0-1/hpf); Hypochromia MODERATE=16-30 cells (100X) (0-5/hpf); Lymphocytes 22 % (21-51); MDiff Complete? YES; Microcytosis SLIGHT = 6-15 cells (100X) (0-5/hpf); Monocytes 8 % (0-10); Neutrophil 70 % (42-75); Nucleated RBC 1 % (0); PLT Morphology Comment Appears Adequate; Polychromasia MODERATE = 3-4 cells (100X) (0-2/hpf); Target Cells SLIGHT = 2-5 cells (100X) (0-1/hpf)
--- NOTE | 2018-03-08 11:29 | RAD ---
CHEST 1 VIEW: HISTORY: An 82-year-old female with a history of dyspnea, prior DVT, now with shortness of breath and bilatera l leg swelling. FINDINGS: Heart size is minimally enlarged. Linear and interstitial increased markings bilaterally with some r eticulonodular parenchymal changes more prominent in the bases but stable from 12/18/17. No new confl uent process. No significant pleural effusion. IMPRESSION: Stable chronic-appearing interstitial and reticulonodular parenchymal changes, particularly in the ba ses. Atherosclerosis of the aorta with ectasia. No new process. POS: [facility]
[2018-03-08 11:46] LABS: Bilirubin Negative (Negative); Blood, Urine Large (Negative); Clarity CLOUDY (Clear); Glucose, Urine (Dipstick) Negative (Negative); Leukocyte Small (Negative); Nitrite Negative (Negative); Protein, Urine (Dipstick) 30 mg/dL (Neg-Trace); Specific Gravity, Urine 1.016 (1.002-1.036); Urobilinogen 0.2 mg/dL (0.2-1.0); pH, Urine 5.5 (5.0-9.0)
[2018-03-08 11:47] LABS: Bacteria/HPF None Seen HPF (None Seen); Hyaline Casts/LPF 4-6 HYALINE CAST LPF (0-3 Hyaline); Pathc Cast-AUWi Flag 1.29 (0-2.49); RBC/HPF GREATER THAN 50-TNTC HPF (0-3); Squamous Epithelial 0-3 HPF (0-3)
--- NOTE | 2018-03-08 12:34 | ULT ---
BILATERAL LOWER EXTREMITY VENOUS DUPLEX ULTRASOUND INCLUDING COLOR AND SPECTRAL DOPPLER IMAGING: HISTORY: An 82-year-old female with a history of prior deep venous thrombosis in the right lower extremity. T he patient is on Xarelto. FINDINGS: Right left lower extremities are evaluated from groin to ankle including visualized greater saphenous , common femoral, superficial femoral, profunda femoral, popliteal, trifurcation, and posterior tibia l vein regions. There is phasic flow at all levels with normal compressibility and normal augmentati on. No intraluminal thrombus. IMPRESSION: No evidence for deep venous thrombosis. No evidence for a significant residual thrombus. POS: [facility]
[2018-03-08 13:46] LABS: Troponin I 0.209 ng/mL (< 0.028)
[2018-03-08] MEDS ORDERED: Lorazepam 2 MG/ML VIAL ONE (14:19)
[2018-03-08 15:08] LABS: #Basophils 0.1 thou/uL (0.0-0.2); #Eosinphils 0.1 thou/uL (0.0-0.7); #Lymphocytes 1.6 thou/uL (1.20-3.40); #Monocytes 0.5 thou/uL (0.11-0.59); #Neutrophils 4.8 thou/uL (1.40-6.50); %Basophils 1.1 % (0.0-1.0); %Eosinophils 0.8 % (0.0-10.0); %Lymphocytes 23.2 % (21.0-51.0); %Monocytes 6.7 % (0.0-10.0); %Neutrophils 68.2 % (42.0-75.0); Hemoglobin 5.4 g/dL (12.0-16.0); Mean Corpuscular HGB CONC 31.2 g/dL (32.0-36.0); Mean Corpuscular Hemoglobin 23.2 pg (27.0-31.0); Mean Corpuscular Volume 74.4 fL (78.0-98.0); Mean Platelet Volume 7.9 fL (7.4-10.4); Platelet Count 290 thou/uL (130-400); RBC Distribution Width 19.7 % (11.5-14.5); Red Blood Cell (RBC) Count 2.33 mill/uL (4.20-5.40); White Blood Cell (WBC) Count 7.1 thou/uL (4.8-10.8)
[2018-03-08 15:40] LABS: Troponin I 0.184 ng/mL (< 0.028)
[2018-03-08] MEDS ORDERED: Furosemide 40 MG/4 ML VIAL ONE (18:41)
[2018-03-08 19:50] VITALS: BMI 22.1
--- NOTE | 2018-03-08 20:05 | HP ---
CHIEF COMPLAINT: Shortness of breath. HISTORY OF PRESENT ILLNESS: The patient is an 82-year-old female who was previously admitted to this facility in the middle of December. At that time, the patient had been diagnosed with lower extremity DV T as an outpatient with report coming from the [facility]. The patient was subsequent ly started on Eliquis and was discharged to home. The patient was apparently doing well at home unti l she began experiencing increasing shortness of breath and was subsequently [facility] by family members. The patient has some history of dementia and tells me right now she cannot remember why she actually came in to the hospital. The information is obtained from the E R staff who states that was the primary driving force for her to come in. It is unknown if the patie nt has been having any melena or hematochezia. Unfortunately, the family members are not here at the moment; however, ER records indicate that the patient's daughter reports that the patient was having some generalized weakness with difficulty getting up to the bathroom where as in the past she has be en able to do that fairly normally. They also report that she had been having some emesis for 1 week , but no related diarrhea. REVIEW OF SYSTEMS: Not possible given the patient's dementia. PAST MEDICAL HISTORY: Notable for the above-mentioned Alzheimer type dementia and the previously ricardo gnosed DVT. She also has a history of heart failure and hypertension. PAST SURGICAL HISTORY: Includes right mastectomy for cancer in 2013 with no XRT or chemo and a remot e history of hysterectomy. FAMILY HISTORY: Pertinent for breast cancer. Mother of breast cancer and her daughter has had breast cancer as well. SOCIAL HISTORY: The patient is a . Quit smoking in 2013. No alcohol use. She has been made D NR previously. ALLERGIES: CODEINE AND LISINOPRIL. MEDICATIONS: Keppra 1000 mg b.i.d., Xarelto 15 b.i.d., Zyprexa 10 mg q.a.m. and 5 mg at bedtime, Lop ressor 25 b.i.d., losartan 12.5 b.i.d., gabapentin 100 t.i.d., Lasix 40 daily, calcium with vitamin D 1 p.o. b.i.d., and aspirin 81 mg every day. PHYSICAL EXAMINATION: VITAL SIGNS: BP 140/70, pulse 102, respirations 22, temperature 97.4, O2 sat 100% on room air. GENERAL APPEARANCE: Age appropriate female. She is in no distress. She is awake, alert, pleasant, and cooperative. She is somewhat confused and is not fully aware of the situation or have any memory of why she is here. HEENT: PERRL. She has no OP lesions, but her oral mucosa is very pale. NECK: Supple, without lymphadenopathy. CARDIOVASCULAR: Has a 1-2/6 holosystolic murmur heard best at the right upper sternal border. Regul ar rhythm; however. LUNGS: Clear bilaterally with the exception of very faint crackles at the very bases. ABDOMEN: Soft, nontender, nondistended, positive bowel sounds, no masses, no organomegaly. EXTREMITIES: Warm and dry with trace to 1+ pretibial pitting edema. LABORATORY DATA: White count 6.2, hemoglobin 4.3, MCV is 70.8. RDW is 18.8. She has smattering of hypochromia, polychromasia, microcytosis, target cells, damaris cells and acanthocytes. PT is 28.2, INR 1.7, PTT 27.9. Sodium 143, potassium 3.2, chloride 109, CO2 of 24, BUN 27, creatinine 0.85, glucose 119. Liver function normal. Troponin 0.23. BNP 797. Urinalysis shows 7-10 white cells, greater t mercer 50 red cells. Stool occult blood is positive. Lower extremity venogram is negative. Chest x-ra y shows chronic appearing interstitial and reticular nodular parenchymal changes, particularly at the bases with atherosclerosis of the aorta with ectasia, but no new processes. ASSESSMENT AND PLAN: 1. Severe anemia. This patient presented with weakness and shortness of breath. Two months after arin hughes started on anticoagulation for a DVT, she now has a substantial drop in her hemoglobin, which is profoundly low. She was given an initial unit of red blood cells. The ER physician initially hesit ated on the 2nd, given her evidence of heart failure, but I believe this is high output failure mandyon suzanne to the anemia and recommended a second dose, which has been ordered. The Xarelto will be discon tinued as the patient is almost 2-1/2 months into her treatment and now is having evidence of some GI bleeding with severe anemia. 2. Gastrointestinal bleed. The patient's stool was positive and she has microcytic indices, suggest ing that she has had a fairly steady loss which would almost surely be attributable to the GI tract. We will consult GI. We will have the patient on a PPI. 3. Alzheimer's type dementia. We will discuss further with the patient's daughter, which she return s which I believe will be soon. 4. Hypertension. We will continue the patient's usual home medication regimen once her medications have been entered into the system.
[2018-03-08] MEDS ORDERED: Furosemide 40 MG/4 ML VIAL SLOW IVP SCH (20:15)
[2018-03-08 20:25] LABS: Hemoglobin 7.1 g/dL (12.0-16.0)
[2018-03-09] MEDS: Lorazepam 2 MG/ML VIAL SLOW IVP PRN (01:29)
[2018-03-09 06:22] LABS: Anion Gap 14 mmol/L (10-20); BUN (Urea Nitrogen) 17 mg/dL (9.8-20.1); Calc. Creatinine Clearance 61 mL/min (70-130); Calcium 8.5 mg/dL (7.8-10.44); Carbon Dioxide 24 mmol/L (23-31); Chloride 107 mmol/L (98-107); Estimated GFR-MDRD Greater than 90; Glucose 113 mg/dL (83-110); Sodium 142 mmol/L (136-145)
[2018-03-09 07:07] LABS: Hemoglobin 6.6 g/dL (12.0-16.0); Mean Corpuscular HGB CONC 32.1 g/dL (32.0-36.0); Mean Corpuscular Hemoglobin 23.9 pg (27.0-31.0); Mean Corpuscular Volume 74.3 fL (78.0-98.0); Mean Platelet Volume 9.6 fL (7.4-10.4); Platelet Count 241 thou/uL (130-400); RBC Distribution Width 20.1 % (11.5-14.5); Red Blood Cell (RBC) Count 2.77 mill/uL (4.20-5.40)
[2018-03-09] MEDS: Atenolol 25 MG TAB PO SCH (08:30)
[2018-03-09] MEDS: Losartan 25 MG TAB PO SCH ×2 (08:31→20:35)
[2018-03-09] MEDS: Furosemide 40 MG TAB PO SCH (08:32)
--- NOTE | 2018-03-09 08:37 | PDOC.PN ---
- Subjective Encounter Start Date: 03/09/18 Encounter Start Time: 08:35 Sleeping, but awakens easily. Says she still feels sleepy. No other complaint. - Objective Resuscitation Status: Resuscitation Status DNR:Do Not Resuscitate Vital Signs & Weight: Vital Signs (12 hours) Temp Pulse Resp BP BP BP Pulse Ox 03/09/18 08:30 125 H 121/78 03/09/18 08:00 99.7 F H 22 H 121/78 100 03/09/18 04:00 98.6 F 125 H 20 150/89 H 100 03/09/18 00:00 98.5 F 99 20 138/78 95 03/08/18 21:00 97.6 F 95 20 2 L I&O: 03/08/18 03/09/18 03/10/18 06:59 06:59 06:59 Intake Total 650 0 Balance 650 0 Result Diagrams: 03/09/18 05:35 03/09/18 05:35 Phys Exam - Physical Examination A little somnolent, but appears appropriate when awakened. Neck: no JVD Mild tachypnea. Scattered rales. End expiratory wheezes. Tachycardic. Sounds irregular more than resp variation. Gastrointestinal: soft, non-tender, no distention 1+ pretib edema. Dx/Plan (1) Anemia Code(s): D64.9 - ANEMIA, UNSPECIFIED Status: Acute Qualifiers: Anemia type: iron deficiency Iron deficiency anemia type: chronic blood loss Qualified Code(s): D50.0 - Iron deficiency anemia secondary to blood loss (chronic) Comment: Has had two units PRBC's. Still at 6.6. Additional two units. (2) GIB (gastrointestinal bleeding) Code(s): K92.2 - GASTROINTESTINAL HEMORRHAGE, UNSPECIFIED Status: Acute Comment: Microcytic anemia, heme positive. GI consulted. PPI. (3) Dementia Code(s): F03.90 - UNSPECIFIED DEMENTIA WITHOUT BEHAVIORAL DISTURBANCE Status: Acute Qualifiers: Dementia type: Alzheimer's disease Alzheimer's disease onset: late-onset (4) HTN (hypertension) Code(s): I10 - ESSENTIAL (PRIMARY) HYPERTENSION Status: Chronic Qualifiers: Hypertension type: essential hypertension Qualified Code(s): I10 - Essential (primary) hypertension (5) Atrial fib/flutter, transient Code(s): XRQ9423 - Status: Acute Comment: Sounds like she is back in afib. Will obtain EKG to confirm. Will need rate control. (6) Interstitial lung disease Code(s): J84.9 - INTERSTITIAL PULMONARY DISEASE, UNSPECIFIED Status: Acute Comment: Appears to have chronic interstitial lung disease on CXR. Has some wheezing. Also had evidence of CHF. Will repeat CXR. Continue nebs, oxygen. (7) CHF (congestive heart failure) Code(s): I50.9 - HEART FAILURE, UNSPECIFIED Status: Acute Comment: Suspect high output failure due to the anemia. Had lasix yesterday. Repeat CXR. (8) Elevated troponin Code(s): R74.8 - ABNORMAL LEVELS OF OTHER SERUM ENZYMES Status: Acute Comment: Demand ischemia related to the severe anemia. Stable. - Plan * .
[2018-03-09] MEDS ORDERED: levETIRAcetam 500 MG TAB PO SCH (09:00)
[2018-03-09 09:24] LABS: Anisocytosis SLIGHT = 6-15 cells (100X) (0-5/hpf); Band 1 % (5-11); Elliptocytes SLIGHT = 2-5 cells (100X) (0-1/hpf); Hypochromia SLIGHT = 6-15 cells (100X) (0-5/hpf); Lymphocytes 13 % (21-51); MDiff Complete? YES; Microcytosis SLIGHT = 6-15 cells (100X) (0-5/hpf); Monocytes 10 % (0-10); Neutrophil 76 % (42-75); PLT Morphology Comment Appears Adequate; Polychromasia MODERATE = 3-4 cells (100X) (0-2/hpf)
[2018-03-09] MEDS ORDERED: Furosemide 40 MG/4 ML VIAL SLOW IVP SCH ×2 (09:45→15:30)
--- NOTE | 2018-03-09 09:45 | PDOC.EVN ---
Event Note - Event Note Event Note: EKG confirms aflutter with RVR. BP remains stable. CXR looks like worsening pulmonary edema. Sats are good on 2-4 liters. She is on atenolol at home, but her daughter reports she did not get her meds yesterday. It was reordered here. Will give additional IV lasix now. Will continue with transfusion. Transfer to tele and give IV Cardizem for better rate control. May not need gtt if the po atenolol works.
--- NOTE | 2018-03-09 10:59 | RAD ---
PORTABLE UPRIGHT CHEST ONE VIEW: History: 82-year-old female with history of hypoxia and tachycardia. Comparison: 03-08-18 FINDINGS: Poor inspiratory effort, decreased from the prior study, with interval development of bilateral inter stitial and reticular nodular and diffuse alveolar parenchymal changes concerning for pulmonary edema or bilateral atypical pneumonia or pneumonitis. More chronic appearing linear changes in the bases w ith slight blunting of the costophrenic angles. Bony demineralization. IMPRESSION: Interval development of fairly extensive bilateral interstitial and reticular nodule parenchymal soto ges, evidence for bilateral pulmonary edema versus symmetric atypical pneumonia or pneumonitis. Darrion nued short term follow up for clearing or stability. Atherosclerosis of the aorta with ectasia. POS: [facility]
[2018-03-09] MEDS ORDERED: Amiodarone HCl 150 MG, Admixture Fee 1 EACH in Dextrose 5% in Water 100 ML IVPB SCH (12:45)
[2018-03-09 13:08] LABS: Hemoglobin 8.4 g/dL (12.0-16.0)
[2018-03-09] MEDS: Potassium Chloride 20 MEQ in Premix Bag 1 BAG IVPB SCH ×2 (13:24→15:29)
[2018-03-09 13:58] LABS: ALT (SGPT) 17 U/L (8-55); AST (SGOT) 13 U/L (5-34); Albumin 3.7 g/dL (3.4-4.8); Alkaline Phosphatase 82 U/L (40-150); Bilirubin, Direct 0.7 mg/dL (0.1-0.3); Bilirubin, Total 1.6 mg/dL (0.2-1.2); Magnesium 2.2 mg/dL (1.6-2.6); Protein, Total 6.3 g/dL (6.0-8.3)
[2018-03-09] MEDS: Amiodarone HCl 450 MG, Admixture Fee 1 EACH in Dextrose 5% in Water 250 ML IVPB SCH ×2 (14:45→23:01)
[2018-03-09] MEDS: levETIRAcetam 500 MG TAB PO SCH (20:35)
[2018-03-09] MEDS: OLANZapine 5 MG TAB PO SCH (20:35)
--- NOTE | 2018-03-09 22:38 | EKG ---
Test Reason : Blood Pressure : / mmHG Vent. Rate : 130 BPM Atrial Rate : 322 BPM P-R Int : 000 ms QRS Dur : 094 ms QT Int : 324 ms P-R-T Axes : 000 018 -35 degrees QTc Int : 476 ms Atrial flutter with variable A-V block Nonspecific ST and T wave abnormality Abnormal ECG When compared with ECG of 08-MAR-2018 10:52, (Unconfirmed) Atrial flutter has replaced Sinus rhythm Vent. rate has increased BY 52 BPM Confirmed by Pasha TAI ([id number]) on 03/09/2018 10:37:49 PM Referred By: BRIDGER Confirmed By:Pasha TAI
--- NOTE | 2018-03-09 22:47 | PDOC.EVN ---
Event Note - Event Note Event Note: Patient responded to the diuresis and addition of amiodarone. Respiratory status improved and HR improved. No anticoagulation added for Aflutter because of the GIB. Hgb >8. Will not give more blood at this time. Check levels in am. Time spent in critical care 40 min.
--- NOTE | 2018-03-10 05:21 | CON ---
DATE OF CONSULTATION: 03/09/2018 REFERRING PHYSICIAN: Dr. Scott Hardy, [facility]. REASON FOR CONSULTATION: Severe anemia, occult gastrointestinal bleeding. HISTORY OF PRESENT ILLNESS: Ms. Carl is an -[place]namese female hospitalized yesterday with acut e shortness of breath and generalized weakness and not able to walk for now. The patient was brought to the ER by the family because of difficulty breathing. In the ER, the patient had a CBC done and was found to have severe anemia. She was here in 12/2017 and at that time, she had normal hemoglobin of 12.8. When last time she came to the ER, her blood count was 4.3. Since admission, the patient was transfused. She was given 2 units of packed RBCs yesterday and 1 unit today. The patient is res tless and trying to get out of bed. She is moaning at the same time. The patient's daughter tells m e that she is actually better today than how she was yesterday. Her daughter tells me that she has b een having some dark stools for several days. There is no history of nausea or vomiting. No history of hematochezia, but stools are very dark. Her history is somewhat confusing as the patient's daugh ter tells me that she has had this black stool for a long time. The patient is also restless and try ing to get out of bed. Upon questioning, she says that she is having and apparently she said she has had abdominal pain. However, on palpation of abdomen, she is really nontender. The patient has had no stool today. The patient had no vomiting today. The patient is basically n.p.o. She got Xarelt o on Friday, but she has no Xarelto on yesterday and today. A stool guaiac done came back positive for occult blood. The patient never had a colonoscopy or EGD in the past. No prior history of pept ic ulcer or any GI disorder. No relevant history. ALLERGIES: CODEINE, LISINOPRIL. SOCIAL HISTORY: Patient is a . She quit smoking in 2013. No alcohol or drug abuse. The patie ricardo lives with her daughter. MEDICAL ILLNESSES: 1. Alzheimer dementia. 2. DVT in 12/2017 and was on Xarelto. 3. Hypertension. 4. Heart failure. SURGERIES: 1. Status post left mastectomy for breast cancer. 2. Status post hysterectomy. FAMILY HISTORY: Mother of breast cancer and a daughter has had breast cancer. HOME MEDICATIONS: Include; 1. Keppra 1000 mg twice a day. 2. Xarelto 50 mg p.o. twice a day. 3. Zyprexa 10 mg in a.m. and 5 mg at bedtime. 4. Lopressor 25 mg p.o. twice a day. 5. Losartan 12.5 mg twice a day. 6. Gabapentin 100 mg p.o. 3 times a day. 7. Lasix 40 once a day. 8. Calcium with vitamin D supplements. 9. Aspirin. REVIEW OF SYSTEMS: Unobtainable as the patient was moaning and groaning and cannot get any system re view. PHYSICAL EXAMINATION: GENERAL: Patient is restless and trying to get out of bed. Does complain of abdominal pain, but abd omen is very benign on examination. VITAL SIGNS: Temperature 98.3 degrees Fahrenheit, pulse is 125, blood pressure 137/88. HEENT: Conjunctivae clear. NECK: Supple. No adenitis or thyromegaly noted. CARDIOVASCULAR: First and second heart sounds normal. The patient has a systolic murmur. LUNGS: She has a basilar rales and expiratory wheezing. ABDOMEN: Soft. Abdomen is nondistended. Abdomen is nontender. No organomegaly or masses. EXTREMITIES: Reveal no edema. LABORATORY DATA: Shows a profound anemia on admission with hemoglobin of 4.3, hematocrit 14.6, MCV 7 0.8, platelet count 258,000, polymorphs 70, lymphocytes 22, monocytes 8. The most recent blood count after transfusion is 8.4, hematocrit 27.5. The chemistry panel shows sodium 142, potassium 3, chlor nayely 107, bicarbonate 24, BUN is 17, creatinine 0.72, glucose 113, calcium 8.5, magnesium 2.2, bilirub in 1.6. Her direct bilirubin 0.7, AST 13, ALT 17, alkaline phosphatase 82. Troponin on admission wa s slightly high at 0.209. The stool guaiac came back positive for occult blood. CLINICAL IMPRESSION: 1. An 82-year-old -Vietnamese female with and placed on Xarelto. A recent venogram done yesterday showed no more blood clots. The patient, however, is severely anemic. While admission, he r WBC count was 6200, her hemoglobin 4.3, hematocrit 14.6, MCV 70.8. After transfusion came up to 8. 4 hemoglobin and hematocrit 27.5. Her BUN is slightly at 27. The patient appears to have microcytic anemia, indicator of chronic blood loss. However, she has normal CBC in 12/2017. I believe she has acute blood loss anemia most likely from the anticoagulation. She was on Xarelto and aspirin. She is not actively bleeding at the present time. 2. Dementia. 3. Hypertension. No history of heart failure. Mastectomy for breast cancer before. I had a long talk with the livan queen's daughter and I explained to her that she probably has some medicine study. restless or emmanuel tated, I would probably hold off anything until hopefully tomorrow or day after tomorrow. An IV Jessie scan has been ordered and she just got IV Lasix yesterday. She appears to have fluid overload, possi edgar congestive heart failure. RECOMMENDATIONS: 1. Diuresis. 2. Follow up H&H. 3. Possible EGD tomorrow or Friday. I will reassess the patient again tomorrow morning.
[2018-03-10 06:27] LABS: #Eosinphils 0.1 thou/uL (0.0-0.7); #Lymphocytes 1.4 thou/uL (1.20-3.40); #Monocytes 0.8 thou/uL (0.11-0.59); #Neutrophils 5.6 thou/uL (1.40-6.50); %Basophils 0.2 % (0.0-1.0); %Eosinophils 0.9 % (0.0-10.0); %Lymphocytes 17.8 % (21.0-51.0); %Neutrophils 71.2 % (42.0-75.0); Hemoglobin 6.9 g/dL (12.0-16.0); Mean Corpuscular HGB CONC 32.7 g/dL (32.0-36.0); Mean Corpuscular Hemoglobin 25.1 pg (27.0-31.0); Mean Corpuscular Volume 76.7 fL (78.0-98.0); Mean Platelet Volume 8.7 fL (7.4-10.4); Platelet Count 233 thou/uL (130-400); RBC Distribution Width 20.1 % (11.5-14.5); Red Blood Cell (RBC) Count 2.75 mill/uL (4.20-5.40); White Blood Cell (WBC) Count 7.8 thou/uL (4.8-10.8)
[2018-03-10 06:44] LABS: Anion Gap 11 mmol/L (10-20); BUN (Urea Nitrogen) 12 mg/dL (9.8-20.1); Calc. Creatinine Clearance 63 mL/min (70-130); Calcium 8.4 mg/dL (7.8-10.44); Carbon Dioxide 31 mmol/L (23-31); Chloride 103 mmol/L (98-107); Estimated GFR-MDRD Greater than 90; Glucose 117 mg/dL (83-110); Sodium 142 mmol/L (136-145)
[2018-03-10 06:47] LABS: Potassium 2.9 mmol/L (3.5-5.1)
[2018-03-10] MEDS ORDERED: Potassium Chloride 20 MEQ TAB PO SCH (07:15)
--- NOTE | 2018-03-10 07:45 | CON ---
DATE OF CONSULTATION: 03/09/2018 HISTORY: The patient is an 82-year-old woman who was admitted with a GI hemorrhage and found to have a rapid irregular heart rate. The patient has suffered from severe dementia. She is unable to give any coherent history. The patient was recently diagnosed with deep venous thrombosis. She was plac ed on Xarelto. The patient presented with marked weakness and dyspnea. She was found to be severely anemic and admitted for further evaluation. The patient today developed a rapid irregular heart rat e. The patient at this time is unable to give any coherent history. PAST MEDICAL HISTORY: 1. Dementia. 2. Deep venous thrombosis. 3. Hypertension. PAST SURGICAL HISTORY: 1. Mastectomy. 2. Hysterectomy. FAMILY HISTORY: SOCIAL HISTORY: ALLERGIES: She is allergic to CODEINE and LISINOPRIL. MEDICATIONS: See nursing list. REVIEW OF SYSTEMS: Not obtainable. PHYSICAL EXAMINATION: GENERAL: This is an ill-appearing woman who is confused. VITAL SIGNS: Blood pressure 121/78, heart rate 120, irregular. NECK: Showed no jugular venous distention. LUNGS: Coarse breath sounds bilateral. HEART: Irregular rate and rhythm, normal S1, S2. ABDOMEN: Nondistended. EXTREMITIES: Showed trace edema. LABORATORY RESULTS: Sodium 142, potassium 3.0, chloride 107, bicarbonate 24, BUN 17, creatinine 0.72 . Her white blood cell count was 10.0, hemoglobin 8.4, hematocrit 27.5, platelets 241. EKG revealed atrial fibrillation with a rapid ventricular response with a nonspecific ST abnormality. IMPRESSION: 1. New onset paroxysmal atrial fibrillation. 2. Gastrointestinal bleed. 3. History of deep venous thrombosis. 4. Hypertension. 5. Dementia. This is an unfortunate woman with severe dementia, developed rapid atrial fibrillation. The patient will be treated with IV amiodarone. This will hopefully convert her back to normal sinus rhythm. Th e patient will be unable to be anticoagulated with her GI hemorrhage. We will follow this patient wi th you through her hospitalization.
[2018-03-10] MEDS: Furosemide 40 MG TAB PO SCH (09:19)
[2018-03-10] MEDS: Atenolol 25 MG TAB PO SCH (09:19)
[2018-03-10] MEDS: levETIRAcetam 500 MG TAB PO SCH ×2 (09:20→22:48)
[2018-03-10] MEDS: Losartan 25 MG TAB PO SCH ×2 (09:20→22:48)
--- NOTE | 2018-03-10 09:54 | RAD ---
PORTABLE UPRIGHT FRONTAL CHEST RADIOGRAPH: 03/10/2018 HISTORY: Pulmonary edema. COMPARISON: 03/09/2018 FINDINGS: There is no pneumothorax. Mild blunting of bilateral costophrenic angles noted. Mild pulmonary vasc ular congestion present. There is mild increased linear interstitial density in the perihilar regions, the right upper lobe re gion, and both lung bases, similar when compared to 03/09/2018. IMPRESSION: Nonspecific stable increased linear interstitial density. This may be chronic in nature but superimp osed inflammatory interstitial opacity or mild interstitial edema is a possibility. POS: [facility]
--- NOTE | 2018-03-10 11:00 | PDOC.PN ---
- Subjective Encounter Start Date: 03/10/18 Encounter Start Time: 10:58 Patient seen and examined, family at bedside, no major changes in last 24 hours. All questions answered. - Objective Resuscitation Status: Resuscitation Status DNR:Do Not Resuscitate Vital Signs & Weight: Vital Signs (12 hours) Temp Pulse Resp BP Pulse Ox 03/10/18 09:19 83 03/10/18 08:05 97.3 F L 83 22 H 03/10/18 07:56 97.3 F L 83 22 H 119/59 L 98 03/10/18 04:20 98.4 F 83 18 123/58 L 97 03/10/18 00:20 111 H 20 103/59 L 97 Weight Weight 148 lb 1.6 oz Most Recent Monitor Data NIBP 137/88 I&O: 03/09/18 03/10/18 03/11/18 06:59 06:59 06:59 Intake Total 650 697 Output Total 2150 Balance 650 -1453 Result Diagrams: 03/10/18 05:24 03/10/18 05:24 Phys Exam - Physical Examination Constitutional: NAD HEENT: PERRLA, moist MMs, sclera anicteric Neck: no nodes, no JVD, supple Respiratory: no wheezing, no rales, no rhonchi Cardiovascular: RRR, no rub systolic ejection murmur appreciated Gastrointestinal: soft, non-tender, no distention Musculoskeletal: no edema, pulses present Dx/Plan (1) Anemia Code(s): D64.9 - ANEMIA, UNSPECIFIED Status: Acute Qualifiers: Anemia type: iron deficiency Iron deficiency anemia type: chronic blood loss Qualified Code(s): D50.0 - Iron deficiency anemia secondary to blood loss (chronic) Comment: Has had two units PRBC's. Still at 6.6. Additional two units. (2) CHF (congestive heart failure) Code(s): I50.9 - HEART FAILURE, UNSPECIFIED Status: Acute Comment: Suspect high output failure due to the anemia. Had lasix yesterday. Repeat CXR. (3) GIB (gastrointestinal bleeding) Code(s): K92.2 - GASTROINTESTINAL HEMORRHAGE, UNSPECIFIED Status: Acute Comment: Microcytic anemia, heme positive. GI consulted. PPI. (4) Atrial fib/flutter, transient Code(s): [id number] - Status: Acute Comment: Sounds like she is back in afib. Will obtain EKG to confirm. Will need rate control. (5) Dementia Code(s): F03.90 - UNSPECIFIED DEMENTIA WITHOUT BEHAVIORAL DISTURBANCE Status: Acute Qualifiers: Dementia type: Alzheimer's disease Alzheimer's disease onset: late-onset - Plan * Hgb dropped to 6.9 from 8.4, will transfuse 2 more units of blood * GI following, likely to get EGD today or tmrw * D/W family that if EGD is negative and culprit bleeding vessel is not found that they would benefit from hospice care as the patient is a very poor candidate for any further surgical intervention * no other changes in plan for now, labs q12hrs x 4 * case and plan d/w patient's family at length, they understand and agree with this plan
[2018-03-10] MEDS ORDERED: PROPOFOL 200 MG/20 ML VIAL ONE (13:07)
[2018-03-10] MEDS ORDERED: Lidocaine 1% PF 5 ML VIAL ONE (13:07)
--- NOTE | 2018-03-10 13:42 | PRG ---
DATE OF SERVICE: 03/10/2018 HISTORY OF PRESENT ILLNESS: This is an 82-year-old black female hospitalized with severe anemia and history of black tarry stool. She has been transfused. She was found to be in CHF and was diuresed. Yesterday she was very restless, agitated. Today, she appears very comfortable. She is not short- winded. However, she is not eating anything. She has had no stool since admission. However, her bl ood count is drifting down. After transfusion, her hemoglobin came up to 8.4, hematocrit 27.5. Toda y hemoglobin dropping to 6.9, hematocrit 21.1. The family does say she has had no nausea or vomiting , no melena stool. PHYSICAL EXAMINATION: GENERAL: She appears very comfortable in no distress. She is not short of breath. VITAL SIGNS: Afebrile. Pulse is 89, blood pressure 100/52. CARDIOVASCULAR: First and second heart sounds normal. LUNGS: Clear to auscultation. ABDOMEN: The abdomen is soft. Abdomen is nontender. ASSESSMENT AND PLAN: I discussed with the patient's family and they are willing for the patient to u ndergo an EGD. I will keep her n.p.o. now and plan for an EGD later on this evening.
[2018-03-10] MEDS: D5 1/2 NS w/20 mEq KCL 1,000 ML IV SCH (13:53)
--- NOTE | 2018-03-10 14:32 | PQF ---
CLINICAL DOCUMENTATION IMPROVEMENT CLARIFICATION FORM: ICD-10 Updated PLEASE DO AN ADDENDUM TO THE PROGRESS NOTE WITH ANY DOCUMENTATION UPDATES OR ADDITIONS AND CARRY THROUGH TO DC SUMMARY. THANK YOU. DATE: 03/10/18 ATTN: Dr. Jefferson Please exercise your independent, professional judgment in responding to the clarification form. Clinical indicators are provided on the bottom of this form for your review Please check appropriate box(s): Conflicting documentation was noted in the Medical Record, please clarify if patient is being treated/monitored for: [ ] Iron deficiency anemia secondary to chronic blood loss. [ ] Acute blood loss anemia most likely from the anticoagulation. [ x ] Other diagnosis ____acute blood loss anemia secondary to GI bleed [ ] Unable to determine In addition, please specify: Present on Admission (POA): [ ] Yes [ ] No [ x ] Unable to determine For continuity of documentation, please document condition throughout progress notes and discharge summary. Thank You. CLINICAL INDICATORS - SIGNS / SYMPTOMS/ LABS PN 03/10: IRON DEFICIENCY ANEMIA SECONDARY TO BLOOD LOSS (CHRONIC) GI CONSULT 03/09: HEMOGLOBIN 4.3, HEMATOCRIT 14.6, MCV 70.8 I BELIEVE SHE HAS ACUTE BLOOD LOSS ANEMIA MOST LIKELY FROM THE ANTICOAGULATION. SHE WAS ON XARELTO & ASPIRIN. RISKS: H&P 03/08: SEVERE ANEMIA. TWO MONTHS AFTER BEING STARTED ON ANTICOAGULATION FOR A DVT. TREATMENT: CPOE 03/09: TRANSFUSE 2 UNITS PRBC'S Thank you, Delicia (This form is maintained as a part of the permanent medical record) 2014 [employer] All Rights Reserved Delicia Spence RN, BSN [email or web address] Office: [phone] [facility]
[2018-03-10] MEDS ORDERED: D5 1/2 NS w/20 mEq KCL 1,000 ML ONE (18:47)
[2018-03-10 19:53] LABS: Hemoglobin 8.9 g/dL (12.0-16.0)
[2018-03-10] MEDS: Amiodarone 200 MG TAB PO SCH (22:47)
[2018-03-10] MEDS: OLANZapine 5 MG TAB PO SCH (22:48)
--- NOTE | 2018-03-11 03:40 | OP ---
DATE OF PROCEDURE: 03/10/2018 OPERATIVE PROCEDURES: 1. Esophagogastroduodenoscopy. 2. Balloon dilation of the pyloric stenosis with I believe a balloon dilator size of 15-18 mm. PREOPERATIVE DIAGNOSES: Anemia, history of melena, occult gastrointestinal bleeding. POSTOPERATIVE DIAGNOSES: 1. Esophagitis, distal esophagus. 2. Small hiatus hernia. 3. Gastric atrophy with prominent submucosal veins in the proximal stomach and gastric body. 4. Gastric erosions, gastric antrum. 5. Pyloric stenosis. The scope could not be advanced passed the pyloric opening. After balloon dilation to 15 mm, the scope advanced into descending duodenum. No pathology seen. PROCEDURE IN DETAIL: The patient was placed on her left lateral position and the throat was anesthet ized with Cetacaine spray and the patient was given sedation by the Anesthesia Department. A Pentax video gastroscope under direct vision was passed down the oropharynx, past the GE junction, into the stomach and subsequently into gastric antrum. The patient had couple of erosions over the distal eso phagus. She also had a hiatus hernia, small. Retroflexion failed to show any pathology in the fundu s, cardia. The patient had gastric atrophy . The gastric antrum shows few erosions which I bel ieve is shallow and superficial. The pylorus was very tight and the scope could not be advanced pass ed into the duodenal bulb. A ball balloon size 15-18 mm placed over the GI pyloric opening . A fter dilation, I was able to advance the scope into the duodenal bulb, descending duodenum. There is no pathology seen. The stomach decompressed and the scope removed. RECOMMENDATIONS: 1. Serial H&H. 2. Transfuse. 3. PPI. 4. Diet: As tolerated. I did speak to the patient's family about the colonoscopy and it does not appear that the patient lito l be able to take the GoLYTELY. One option is doing a tagged RBC scan to see if she continues to bl eed.
[2018-03-11] MEDS: D5 1/2 NS w/20 mEq KCL 1,000 ML IV SCH ×2 (08:27→17:25)
[2018-03-11] MEDS: levETIRAcetam 500 MG TAB PO SCH ×2 (08:28→20:20)
[2018-03-11] MEDS: Amiodarone 200 MG TAB PO SCH ×2 (08:28→20:20)
[2018-03-11] MEDS: Losartan 25 MG TAB PO SCH ×2 (08:29→20:21)
--- NOTE | 2018-03-11 09:24 | PDOC.PN ---
- Subjective Encounter Start Date: 03/11/18 Encounter Start Time: 09:25 Subjective: Complaining of abd pain - Objective Resuscitation Status: Resuscitation Status DNR:Do Not Resuscitate MAR Reviewed: Yes Vital Signs & Weight: Vital Signs (12 hours) Temp Pulse Resp BP Pulse Ox 03/11/18 07:55 98.2 F 78 18 149/68 H 96 03/11/18 04:32 98.3 F 75 16 170/74 H 97 03/11/18 00:00 98.2 F 73 23 H 141/67 H 98 Weight Weight 148 lb 1.6 oz Most Recent Monitor Data NIBP 137/88 I&O: 03/10/18 03/11/18 03/12/18 06:59 06:59 06:59 Intake Total 697 1460 Output Total 2150 150 Balance -1453 1310 Result Diagrams: 03/11/18 11:57 03/11/18 11:57 Phys Exam - Physical Examination HEENT: PERRLA, moist MMs, sclera anicteric, TM's clear, oral pharynx no lesions , 2+ tonsils Neck: no nodes, no JVD, supple, full ROM Respiratory: no wheezing, no rales, no rhonchi, wheezing present, clear to auscultation bilateral Cardiovascular: RRR, no significant murmur, no rub, gallop, irregular Gastrointestinal: soft, no distention, positive bowel sounds + Epigastric tenderness Musculoskeletal: no edema, pulses present Dx/Plan (1) Acute GI bleeding Code(s): K92.2 - GASTROINTESTINAL HEMORRHAGE, UNSPECIFIED Status: Acute (2) GIB (gastrointestinal bleeding) Code(s): K92.2 - GASTROINTESTINAL HEMORRHAGE, UNSPECIFIED Status: Acute Qualifiers: GI bleed type/associated pathology: unspecified gastrointestinal hemorrhage type Qualified Code(s): K92.2 - Gastrointestinal hemorrhage, unspecified Comment: Microcytic anemia, heme positive. GI consulted. PPI. s/p egd WITH EROSIVE GASTRITIS and esophagitis. Colonoscopy deferred as patient will not tolerate [place]. (3) Anemia Code(s): D64.9 - ANEMIA, UNSPECIFIED Status: Acute Qualifiers: Anemia type: other cause Other causes of anemia: acute posthemorrhagic Qualified Code(s): D62 - Acute posthemorrhagic anemia Comment: Total of 4 units of blood. Stopped Xarelto and aspirn due to GI Bleed. Hb is stable now (4) Dementia Code(s): F03.90 - UNSPECIFIED DEMENTIA WITHOUT BEHAVIORAL DISTURBANCE Status: Acute Qualifiers: Dementia type: Alzheimer's disease Alzheimer's disease onset: late-onset (5) Atrial fib/flutter, transient Code(s): [id number] - Status: Acute Comment: Patient in Sinus now (6) DVT (deep venous thrombosis) Code(s): I82.409 - ACUTE EMBOLISM AND THOMBOS UNSP DEEP VN UNSP LOWER EXTREMITY Status: Acute Qualifiers: DVT location: lower extremity Chronicity: acute Laterality: left Plan: DVT 2 months ago. Will hold Xarelto and Aspirin due to acute GI Bleed Comment: DVT 2 months ago. Will hold Xarelto and Aspirin due to acute GI Bleed - Plan cont current plan of care (Ready for DC either Hospice or homehealth, unable to reach family member) * .
[2018-03-11 12:16] LABS: Hemoglobin 9.5 g/dL (12.0-16.0)
[2018-03-11 12:22] LABS: Potassium 3.8 mmol/L (3.5-5.1)
--- NOTE | 2018-03-11 16:13 | PQF ---
CLINICAL DOCUMENTATION IMPROVEMENT CLARIFICATION FORM: ICD-10 Updated PLEASE DO AN ADDENDUM TO THE PROGRESS NOTE WITH ANY DOCUMENTATION UPDATES OR ADDITIONS AND CARRY THROUGH TO DC SUMMARY. THANK YOU. DATE: 03/11/18; 03/12/18 ATTN: Dr. Newton/ Dr. Sharp Please exercise your independent, professional judgment in responding to the clarification form. Clinical indicators are provided on the bottom of this form for your review Please check appropriate box(s): HEART FAILURE: A. TYPE: [ ] Systolic / HFrEF [ ] Diastolic / HFpEF [ ] Combined Systolic / Diastolic [ ] Other diagnosis [ x ] Unable to determine In addition, please specify: Present on Admission (POA): [ ] Yes [ ] No [ x ] Unable to determine For continuity of documentation, please document condition throughout progress notes and discharge summary. Thank You. CLINICAL INDICATORS - SIGNS / SYMPTOMS / LABS H&P 03/08: BNP 797 ECHO 03/10: EF 37.6% PN 03/09-: CHF. ACUTE . SUSPECT HIGH OUTPUT FAILURE D/T THE ANEMIA. EVENT NOTE 03/09 0946: CXR LOOKS LIKE WORSENING PULMONARY EDEMA. WILL GIVE ADDITIONAL IV LASIX NOW RISKS: H&P 03/08: SHE HAS A HISTORY OF HEART FAILURE AND HYPERTENSION. TREATMENT: ECHO ORDERED 03/10 CPOE 03/09: LASIX 40 MG IV @ 1109 CPOE 03/09: LASIX 40 MG IV NOW @ 1819 Thank you, Delicia (This form is maintained as a part of the permanent medical record) 2015 [employer] All Rights Reserved Delicia Spence RN, BSN [email or web address] Office: [phone] [facility]
[2018-03-11] MEDS: Acetaminophen 325 MG TAB PO PRN (18:46)
[2018-03-11] MEDS: OLANZapine 5 MG TAB PO SCH (20:20)
--- NOTE | 2018-03-11 22:20 | PRG ---
DATE OF SERVICE: 03/11/2018 This is an 82-year-old female hospitalized because of profound anemia, which is symp tomatic. She underwent an EGD yesterday, which revealed hiatus hernia, esophagitis and gastric erosi on. No active bleeding seen. She has been transfused 4 units of packed RBCs. This morning, the blo od count is back to almost close to being normal. The CBC done today this morning shows hemoglobin 1 0, hematocrit 31.5. The patient has no recurrence of bleeding. Clinically, she is much better. She is awake, alert, and communicative. She is not short-winded. Offers no complaints. OBJECTIVE: VITAL SIGNS: Temperature 98.5 degrees Fahrenheit, pulse is 86, blood pressure 137/63. LUNGS: Within normal limits. CARDIOVASCULAR: Within normal limits. ABDOMEN: Soft. No organomegaly. No tenderness. No masses. ADMITTING DIAGNOSES: History of melena, anemia due to blood loss. The EGD showed very minimal findi ngs. The patient has dementia and I believe she GoLYTELY. RECOMMENDATIONS: 1. Continue PPI. 2. Follow up H&H. 3. We will sign off from today and if new problems, please call me back.
[2018-03-11 22:56] LABS: Hemoglobin 9.2 g/dL (12.0-16.0)
[2018-03-12] MEDS: Amiodarone 200 MG TAB PO SCH ×2 (08:53→20:56)
[2018-03-12] MEDS: Losartan 25 MG TAB PO SCH ×2 (08:53→20:55)
[2018-03-12] MEDS: levETIRAcetam 500 MG TAB PO SCH ×2 (08:53→20:55)
--- NOTE | 2018-03-12 12:14 | PDOC.PN ---
- Subjective Encounter Start Date: 03/12/18 Encounter Start Time: 12:00 Subjective: f/u for GI bleed and acute anemia with 4u PRBC's. Pt denies any new -: complaints but grimacing and stating her back is stiff. - Objective Resuscitation Status: Resuscitation Status DNR:Do Not Resuscitate MAR Reviewed: Yes Vital Signs & Weight: Vital Signs (12 hours) Temp Pulse Resp BP BP Pulse Ox 03/12/18 11:50 97.6 F 75 18 169/83 H 95 03/12/18 08:15 97.8 F 98 18 03/12/18 03:44 97.8 F 98 18 158/78 H 92 L Weight Weight 153 lb Most Recent Monitor Data NIBP 137/88 I&O: 03/11/18 03/12/18 03/13/18 06:59 06:59 06:59 Intake Total 1460 840 Output Total 150 875 Balance 1310 -35 Result Diagrams: 03/11/18 22:48 03/11/18 11:57 Additional Labs: Laboratory Tests 03/08/18 03/08/18 03/08/18 09:48 09:48 09:48 Hgb Potassium 3.2 L Troponin I 0.234 H B-Natriuretic Peptide 979.1 H 03/08/18 03/08/18 03/09/18 13:02 14:59 13:01 Hgb 8.4 L Potassium Troponin I 0.209 H 0.184 H B-Natriuretic Peptide 03/10/18 03/10/18 03/10/18 05:24 19:46 22:53 Hgb 6.9 L 8.9 L 10.0 L Potassium Troponin I B-Natriuretic Peptide 03/11/18 11:57 Hgb 9.5 L Potassium Troponin I B-Natriuretic Peptide Radiology Reviewed by me: Yes (2D echo - EF 30-35%, diast dysfxn, mod-severe TR) EKG Reviewed by me: Yes (Tele - SR) Phys Exam - Physical Examination mild-mod distress, moaning HEENT: PERRLA, sclera anicteric, oral pharynx no lesions Neck: no nodes, no JVD, supple, full ROM Respiratory: no wheezing, no rales, no rhonchi, clear to auscultation bilateral S1, S2 Cardiovascular: RRR, no significant murmur, no rub, gallop Gastrointestinal: soft, non-tender, no distention, positive bowel sounds Musculoskeletal: no edema, pulses present Neurological: moves all 4 limbs A X O X 1 Skin: no rash, normal turgor, cap refill <2 seconds Dx/Plan (1) Acute GI bleeding Code(s): K92.2 - GASTROINTESTINAL HEMORRHAGE, UNSPECIFIED Status: Acute Comment: s/p EGD showing erosive gastritis/esophagitis on current PPI, continue supportive mgmt, off anticoagulation (2) Anemia due to blood loss, acute Code(s): D62 - ACUTE POSTHEMORRHAGIC ANEMIA Status: Acute Comment: s/p 4u PRBC's, serial H/H stable (3) Atrial fib/flutter, transient Code(s): [id number] - Status: Acute Comment: SR currently, continue Amiodarone (4) DVT (deep venous thrombosis) Code(s): I82.409 - ACUTE EMBOLISM AND THOMBOS UNSP DEEP VN UNSP LOWER EXTREMITY Status: Acute Qualifiers: DVT location: lower extremity Chronicity: acute Laterality: left Comment: DVT 2 months ago. Will hold Xarelto and Aspirin due to acute GI Bleed (5) Dementia Code(s): F03.90 - UNSPECIFIED DEMENTIA WITHOUT BEHAVIORAL DISTURBANCE Status: Chronic Qualifiers: Dementia type: Alzheimer's disease Alzheimer's disease onset: late-onset Comment: Continue supportive mgmt, Seroquel and Zyprexa - Plan plan discussed w/ family, PT/OT, social work assistant, DVT proph w/SCDs Stable overall -: PT evaluation for functional assessment -: Decrease Keppra 1000mg BID -: Code status DNR -: Continue Protonix 40mg daily * Hold Xarelto and ASA * CM for SNF options * AM lab: H/H with platelets
[2018-03-12] MEDS: Acetaminophen 325 MG TAB PO PRN (18:32)
[2018-03-12] MEDS: OLANZapine 5 MG TAB PO SCH (21:00)
[2018-03-13 04:00] LABS: Hemoglobin 9.1 g/dL (12.0-16.0); Platelet Count 251 thou/uL (130-400)
[2018-03-13] MEDS: Losartan 25 MG TAB PO SCH ×2 (09:08→20:00)
[2018-03-13] MEDS: Amiodarone 200 MG TAB PO SCH ×2 (09:09→20:00)
[2018-03-13] MEDS: levETIRAcetam 500 MG TAB PO SCH ×2 (09:09→20:00)
--- NOTE | 2018-03-13 16:17 | PDOC.PN ---
- Subjective Encounter Start Date: 03/13/18 Encounter Start Time: 15:55 Subjective: f/u GI bleed s/p 4u PRBC's and somnolence. Feeling ok. No new complaints. -: Nsg reports no new issues. - Objective Resuscitation Status: Resuscitation Status DNR:Do Not Resuscitate MAR Reviewed: Yes Vital Signs & Weight: Vital Signs (12 hours) Temp Pulse Resp BP Pulse Ox 03/13/18 08:00 97.6 F 78 18 97 03/13/18 07:51 97.6 F 78 18 164/87 H 97 Weight Weight 140 lb 9 oz Most Recent Monitor Data NIBP 137/88 I&O: 03/12/18 03/13/18 03/14/18 06:59 06:59 06:59 Intake Total 840 210 Output Total 875 250 Balance -35 -40 Result Diagrams: 03/13/18 03:16 03/11/18 11:57 Additional Labs: Laboratory Tests 03/08/18 03/08/18 03/08/18 09:48 09:48 09:48 Hgb Potassium 3.2 L Troponin I 0.234 H B-Natriuretic Peptide 979.1 H 03/08/18 03/08/18 03/09/18 13:02 14:59 13:01 Hgb 8.4 L Potassium Troponin I 0.209 H 0.184 H B-Natriuretic Peptide 03/10/18 03/10/18 03/10/18 05:24 19:46 22:53 Hgb 6.9 L 8.9 L 10.0 L Potassium Troponin I B-Natriuretic Peptide 03/11/18 11:57 Hgb 9.5 L Potassium Troponin I B-Natriuretic Peptide Phys Exam - Physical Examination Constitutional: NAD HEENT: PERRLA, sclera anicteric, oral pharynx no lesions Neck: no nodes, no JVD, supple, full ROM Respiratory: no wheezing, no rales, no rhonchi, clear to auscultation bilateral S1, S2 Cardiovascular: RRR, no significant murmur, no rub, gallop Gastrointestinal: soft, non-tender, no distention, positive bowel sounds Musculoskeletal: no edema, pulses present A x O x 1 Skin: no rash, normal turgor, cap refill <2 seconds Deviation from normal: Bautista with gia urine Dx/Plan (1) Acute GI bleeding Code(s): K92.2 - GASTROINTESTINAL HEMORRHAGE, UNSPECIFIED Status: Acute Comment: s/p EGD showing erosive gastritis/esophagitis on current PPI, continue supportive mgmt, off anticoagulation (2) Anemia due to blood loss, acute Code(s): D62 - ACUTE POSTHEMORRHAGIC ANEMIA Status: Acute Comment: s/p 4u PRBC's, serial H/H stable (3) Atrial fib/flutter, transient Code(s): [id number] - Status: Acute Comment: SR currently, continue Amiodarone (4) DVT (deep venous thrombosis) Code(s): I82.409 - ACUTE EMBOLISM AND THOMBOS UNSP DEEP VN UNSP LOWER EXTREMITY Status: Acute Qualifiers: DVT location: lower extremity Chronicity: acute Laterality: left Comment: DVT 2 months ago. Will hold Xarelto and Aspirin due to acute GI Bleed (5) Dementia Code(s): F03.90 - UNSPECIFIED DEMENTIA WITHOUT BEHAVIORAL DISTURBANCE Status: Chronic Qualifiers: Dementia type: Alzheimer's disease Alzheimer's disease onset: late-onset Comment: Continue supportive mgmt, Seroquel and Zyprexa (6) Physical deconditioning Code(s): R53.81 - OTHER MALAISE Status: Chronic Comment: PT for mobilization , SNF options - Plan PT/OT, social work nurse, DVT proph w/SCDs Stable overall -: Hold all anticoagulation -: CM for SNF options -: Continue Amiodarone 400mg BID -: AM lab: H/H * .
[2018-03-13] MEDS: OLANZapine 5 MG TAB PO SCH (20:00)
[2018-03-14] MEDS: levETIRAcetam 500 MG TAB PO SCH ×2 (08:32→20:06)
[2018-03-14] MEDS: Losartan 25 MG TAB PO SCH ×2 (08:33→20:07)
[2018-03-14] MEDS: Amiodarone 200 MG TAB PO SCH ×2 (08:33→20:07)
[2018-03-14] MEDS: Lorazepam 2 MG/ML VIAL SLOW IVP PRN (08:34)
--- NOTE | 2018-03-14 12:59 | PDOC.PN ---
- Subjective Encounter Start Date: 03/14/18 Encounter Start Time: 12:58 - Objective Resuscitation Status: Resuscitation Status DNR:Do Not Resuscitate MAR Reviewed: Yes Vital Signs & Weight: Vital Signs (12 hours) Temp Pulse Resp BP BP Pulse Ox 03/14/18 12:00 98.4 F 91 18 131/75 99 03/14/18 08:00 98.7 F 90 18 96 03/14/18 07:32 98.7 F 90 18 157/88 H 96 03/14/18 04:20 98.3 F 93 18 125/77 95 Weight Weight 141 lb 4.8 oz Most Recent Monitor Data NIBP 137/88 I&O: 03/13/18 03/14/18 03/15/18 06:59 06:59 06:59 Intake Total 210 1150 Output Total 250 775 Balance -40 375 Result Diagrams: 03/13/18 03:16 03/11/18 11:57 Phys Exam - Physical Examination Constitutional: NAD HEENT: sclera anicteric Neck: supple Respiratory: no wheezing, no rales Gastrointestinal: soft Musculoskeletal: no edema Neurological: non-focal, moves all 4 limbs Psychiatric: normal affect Deviation from normal: lethargic somnolent Skin: no rash Dx/Plan (1) Acute GI bleeding Code(s): K92.2 - GASTROINTESTINAL HEMORRHAGE, UNSPECIFIED Status: Acute Comment: s/p EGD showing erosive gastritis/esophagitis on current PPI, continue supportive mgmt, off anticoagulation (2) Anemia Code(s): D64.9 - ANEMIA, UNSPECIFIED Status: Acute Qualifiers: Anemia type: other cause Other causes of anemia: acute posthemorrhagic Qualified Code(s): D62 - Acute posthemorrhagic anemia Comment: Total of 4 units of blood. Stopped Xarelto and aspirn due to GI Bleed. Hb is stable now (3) CHF (congestive heart failure) Code(s): I50.9 - HEART FAILURE, UNSPECIFIED Status: Acute Comment: Suspect high output failure due to the anemia. Had lasix yesterday. Repeat CXR. (4) Physical deconditioning Code(s): R53.81 - OTHER MALAISE Status: Chronic Comment: PT for mobilization , SNF options (5) Atrial fib/flutter, transient Code(s): NWC9476 - Status: Acute Comment: SR currently, continue Amiodarone (6) DVT (deep venous thrombosis) Code(s): I82.409 - ACUTE EMBOLISM AND THOMBOS UNSP DEEP VN UNSP LOWER EXTREMITY Status: Acute Qualifiers: DVT location: lower extremity Chronicity: acute Laterality: left Comment: DVT 2 months ago. Will hold Xarelto and Aspirin due to acute GI Bleed (7) Dementia Code(s): F03.90 - UNSPECIFIED DEMENTIA WITHOUT BEHAVIORAL DISTURBANCE Status: Chronic Qualifiers: Dementia type: Alzheimer's disease Alzheimer's disease onset: late-onset Comment: Continue supportive mgmt, Seroquel and Zyprexa (8) HTN (hypertension) Code(s): I10 - ESSENTIAL (PRIMARY) HYPERTENSION Status: Chronic Qualifiers: Hypertension type: essential hypertension Qualified Code(s): I10 - Essential (primary) hypertension - Plan cont current plan of care * . continue amiodarone per cardiology Monitor H&H f/u with CM for placement AM labs.
[2018-03-14] MEDS: Acetaminophen 325 MG TAB PO PRN ×2 (16:43→20:06)
[2018-03-14] MEDS: OLANZapine 5 MG TAB PO SCH (20:06)
[2018-03-15] MEDS: Losartan 25 MG TAB PO SCH ×2 (08:54→20:00)
[2018-03-15] MEDS: levETIRAcetam 500 MG TAB PO SCH ×2 (08:54→20:01)
[2018-03-15] MEDS: Amiodarone 200 MG TAB PO SCH ×2 (08:55→20:01)
[2018-03-15] MEDS: Lorazepam 2 MG/ML VIAL SLOW IVP PRN (08:56)
--- NOTE | 2018-03-15 14:04 | PDOC.PN ---
- Subjective Encounter Start Date: 03/15/18 Encounter Start Time: 14:01 Patient is emotional about something related to her grandmother. Confused. Denies specific complaints. - Objective Resuscitation Status: Resuscitation Status DNR:Do Not Resuscitate Vital Signs & Weight: Vital Signs (12 hours) Temp Pulse Resp BP BP Pulse Ox 03/15/18 11:03 97.7 F 82 30 H 165/93 H 96 03/15/18 08:42 98.0 F 81 20 162/82 H 97 03/15/18 08:00 98.0 F 81 20 97 03/15/18 04:03 98.5 F 83 18 156/69 H 96 Weight Weight 141 lb 1.6 oz Most Recent Monitor Data NIBP 137/88 I&O: 03/14/18 03/15/18 03/16/18 06:59 06:59 06:59 Intake Total 1150 1420 Output Total 775 250 Balance 375 1170 Result Diagrams: 03/13/18 03:16 03/11/18 11:57 Phys Exam - Physical Examination Constitutional: NAD Respiratory: no wheezing, no rales, no rhonchi, clear to auscultation bilateral Cardiovascular: no significant murmur Irreg Gastrointestinal: soft, non-tender, no distention, positive bowel sounds Musculoskeletal: no edema Deviation from normal: Tearful. Confused Dx/Plan (1) Anemia Code(s): D64.9 - ANEMIA, UNSPECIFIED Status: Acute Qualifiers: Anemia type: other cause Other causes of anemia: acute posthemorrhagic Qualified Code(s): D62 - Acute posthemorrhagic anemia Comment: Total of 4 units of blood. Stopped Xarelto and aspirn due to GI Bleed. Hb is stable now (2) GIB (gastrointestinal bleeding) Code(s): K92.2 - GASTROINTESTINAL HEMORRHAGE, UNSPECIFIED Status: Acute Qualifiers: GI bleed type/associated pathology: unspecified gastrointestinal hemorrhage type Qualified Code(s): K92.2 - Gastrointestinal hemorrhage, unspecified Comment: s/p egd WITH EROSIVE GASTRITIS and esophagitis. (3) Dementia Code(s): F03.90 - UNSPECIFIED DEMENTIA WITHOUT BEHAVIORAL DISTURBANCE Status: Chronic Qualifiers: Dementia type: Alzheimer's disease Alzheimer's disease onset: late-onset Comment: Continue supportive mgmt, Seroquel and Zyprexa (4) HTN (hypertension) Code(s): I10 - ESSENTIAL (PRIMARY) HYPERTENSION Status: Chronic Qualifiers: Hypertension type: essential hypertension Qualified Code(s): I10 - Essential (primary) hypertension (5) Atrial fib/flutter, transient Code(s): [id number] - Status: Acute Comment: SR currently, continue Amiodarone (6) Interstitial lung disease Code(s): J84.9 - INTERSTITIAL PULMONARY DISEASE, UNSPECIFIED Status: Acute Comment: Appears to have chronic interstitial lung disease on CXR. (7) CHF (congestive heart failure) Code(s): I50.9 - HEART FAILURE, UNSPECIFIED Status: Acute Comment: Stable and compensated. (8) Elevated troponin Code(s): R74.8 - ABNORMAL LEVELS OF OTHER SERUM ENZYMES Status: Acute Comment: Demand ischemia related to the severe anemia. Stable. - Plan * Stable on current regimen. Working on placement. * DC Bautista catheter.
[2018-03-15] MEDS: Acetaminophen 325 MG TAB PO PRN (20:01)
[2018-03-15] MEDS: OLANZapine 5 MG TAB PO SCH (20:01)
[2018-03-16] MEDS: Amiodarone 200 MG TAB PO SCH ×2 (08:23→19:56)
[2018-03-16] MEDS: levETIRAcetam 500 MG TAB PO SCH ×2 (08:24→19:57)
[2018-03-16] MEDS: Losartan 25 MG TAB PO SCH ×2 (08:24→19:58)
[2018-03-16 08:31] LABS: Anion Gap 14 mmol/L (10-20); BUN (Urea Nitrogen) 10 mg/dL (9.8-20.1); Calc. Creatinine Clearance 61 mL/min (70-130); Calcium 8.7 mg/dL (7.8-10.44); Carbon Dioxide 25 mmol/L (23-31); Chloride 105 mmol/L (98-107); Estimated GFR-MDRD Greater than 90; Glucose 115 mg/dL (83-110); Potassium 3.4 mmol/L (3.5-5.1); Sodium 141 mmol/L (136-145)
[2018-03-16 10:23] LABS: #Eosinphils 0.2 thou/uL (0.0-0.7); #Lymphocytes 0.9 thou/uL (1.20-3.40); #Monocytes 0.5 thou/uL (0.11-0.59); #Neutrophils 7.3 thou/uL (1.40-6.50); %Basophils 0.3 % (0.0-1.0); %Eosinophils 2.1 % (0.0-10.0); %Lymphocytes 9.8 % (21.0-51.0); %Monocytes 5.6 % (0.0-10.0); %Neutrophils 82.2 % (42.0-75.0); Hemoglobin 10.9 g/dL (12.0-16.0); Mean Corpuscular HGB CONC 30.4 g/dL (32.0-36.0); Mean Corpuscular Hemoglobin 23.9 pg (27.0-31.0); Mean Corpuscular Volume 78.7 fL (78.0-98.0); Mean Platelet Volume 10.4 fL (7.4-10.4); Platelet Count 274 thou/uL (130-400); RBC Distribution Width 21.8 % (11.5-14.5); Red Blood Cell (RBC) Count 4.55 mill/uL (4.20-5.40); White Blood Cell (WBC) Count 8.9 thou/uL (4.8-10.8)
[2018-03-16] MEDS: Lorazepam 2 MG/ML VIAL SLOW IVP PRN (17:14)
[2018-03-16] MEDS: OLANZapine 5 MG TAB PO SCH (19:58)
[2018-03-16] MEDS: Acetaminophen 325 MG TAB PO PRN (22:07)
--- NOTE | 2018-03-16 22:18 | PDOC.PN ---
- Subjective Encounter Start Date: 03/16/18 Encounter Start Time: 16:00 Patient is upset that she cannot get up and around like she wants. - Objective Resuscitation Status: Resuscitation Status DNR:Do Not Resuscitate Vital Signs & Weight: Vital Signs (12 hours) Temp Pulse Resp BP Pulse Ox 03/16/18 20:00 98.5 F 89 18 98 03/16/18 19:51 98.5 F 89 18 162/81 H 98 Weight Weight 138 lb 4.8 oz Most Recent Monitor Data NIBP 137/88 I&O: 03/15/18 03/16/18 03/17/18 06:59 06:59 06:59 Intake Total 1420 1720 1220 Output Total 250 950 Balance 0856 483 7378 Result Diagrams: 03/16/18 10:08 03/16/18 07:53 Phys Exam - Physical Examination Constitutional: NAD Tearful at times. Neck: no JVD, supple Respiratory: no wheezing, no rales, no rhonchi, clear to auscultation bilateral Cardiovascular: RRR, no significant murmur Gastrointestinal: soft, non-tender, no distention, positive bowel sounds Musculoskeletal: no edema Dx/Plan (1) Anemia Code(s): D64.9 - ANEMIA, UNSPECIFIED Status: Acute Qualifiers: Anemia type: other cause Other causes of anemia: acute posthemorrhagic Qualified Code(s): D62 - Acute posthemorrhagic anemia Comment: Total of 4 units of blood. Stopped Xarelto and aspirn due to GI Bleed. Hb is stable now (2) GIB (gastrointestinal bleeding) Code(s): K92.2 - GASTROINTESTINAL HEMORRHAGE, UNSPECIFIED Status: Acute Qualifiers: GI bleed type/associated pathology: unspecified gastrointestinal hemorrhage type Qualified Code(s): K92.2 - Gastrointestinal hemorrhage, unspecified Comment: s/p egd WITH EROSIVE GASTRITIS and esophagitis. (3) Dementia Code(s): F03.90 - UNSPECIFIED DEMENTIA WITHOUT BEHAVIORAL DISTURBANCE Status: Chronic Qualifiers: Dementia type: Alzheimer's disease Alzheimer's disease onset: late-onset Comment: Continue supportive mgmt, Seroquel and Zyprexa (4) HTN (hypertension) Code(s): I10 - ESSENTIAL (PRIMARY) HYPERTENSION Status: Chronic Qualifiers: Hypertension type: essential hypertension Qualified Code(s): I10 - Essential (primary) hypertension (5) Atrial fib/flutter, transient Code(s): SSD2054 - Status: Acute Comment: SR currently, continue Amiodarone. Anticoagulation held. (6) Interstitial lung disease Code(s): J84.9 - INTERSTITIAL PULMONARY DISEASE, UNSPECIFIED Status: Acute Comment: Appears to have chronic interstitial lung disease on CXR. (7) CHF (congestive heart failure) Code(s): I50.9 - HEART FAILURE, UNSPECIFIED Status: Acute Comment: Stable and compensated. (8) Elevated troponin Code(s): R74.8 - ABNORMAL LEVELS OF OTHER SERUM ENZYMES Status: Resolved Comment: Demand ischemia related to the severe anemia. Stable. - Plan * Working on placement. Stable for discharge when obtained.
[2018-03-17] MEDS: levETIRAcetam 500 MG TAB PO SCH (08:27)
[2018-03-17] MEDS: Amiodarone 200 MG TAB PO SCH (08:27)
[2018-03-17] MEDS: Losartan 25 MG TAB PO SCH (08:28)
[2018-03-17 11:29] VITALS: BP 155/95; TEMP 97.5
--- NOTE | 2018-03-18 11:30 | DIS ---
DATE OF ADMISSION: 03/08/2018 DATE OF DISCHARGE: 03/17/2018 DISCHARGE DIAGNOSES: 1. Severe anemia secondary to acute blood loss. 2. Gastrointestinal bleeding. 3. Atrial fibrillation/flutter with rapid ventricular response. 4. Diastolic dysfunction. 5. Left ventricular ejection fraction of 30-35%. 6. [id number] tricuspid regurgitation. 7. Esophagitis. 8. Gastric erosions. 9. Pyloric stenosis. 10. Dementia. 11. Recent deep vein thrombosis. 12. Hypertension. HISTORY OF PRESENT ILLNESS: This patient is an 82-year-old female who had recently been in the [facility] with a DVT. The patient had been placed on Xarelto to treat the DVT and subsequently presented b k to the emergency department from home, complaining of shortness of breath and significant dyspnea on exertion. At that time, the patient was found to have hemoglobin of 4.3 with MCV of 70.8. She h ad hypochromia, polychromasia and microcytosis. Her BUN was 27, creatinine was 0.85 and troponin was 0.23. Her stool was positive for blood. Her chest x-ray showed some chronic appearing interstitial changes with reticular-nodular parenchymal changes at the bases, but nothing that appeared acute. HOSPITAL COURSE: The patient was admitted for acute severe anemia secondary to gastrointestinal blee ding related to Xarelto given for the prior DVT. The patient also had some underlying dementia and h er daughter was her caregiver and spokesperson. The patient was admitted to the medical floor and wa s given transfusion of red blood cells. Fairly quickly, the patient appeared to be going into some v olume overload likely felt to be due to diastolic dysfunction and high output failure from anemia. T he patient was subsequently moved to the telemetry floor and was seen in consultation by Cardiology a khoi she quickly had gone into atrial fibrillation with flutter and a rapid ventricular response. The p atient received some diuresis and her initial dyspnea started to improve somewhat. She was ultimatel y loaded with amiodarone IV and she responded well. The patient had an echocardiogram performed, [facility] revealed diastolic dysfunction, left ventricular dysfunction with an EF of 30-35% with moderate-to -severe tricuspid regurgitation and a slightly dilated IVC. Once the patient was stabilized from a c ardiac perspective, she was seen in consultation by GI. A GI physician performed an endoscopy, which revealed esophagitis in the distal esophagus with some gastric erosions and pyloric stenosis, requir ing balloon dilatation of the pylorus. Subsequently, he was able to pass the scope beyond to the low er portion of the duodenum. The patient's anticoagulation with Xarelto, aspirin had been held and bipin verma was started on a PPI. Once the patient's hemoglobin had stabilized and she appeared to have no further active bleeding and her heart rate was controlled. She was felt to be stable for discharge to home. Unfortunately, the patient was somewhat weak after this event and the patient's daughter wa s unsure that she can care for her adequately at home. Case management was consulted and placement o ptions were started. It took several days for the patient's insurance, the patient and her daughter to come to an ultimate conclusion on placement options hence once this was accomplished, the patient was felt to be stable for discharge. PHYSICAL EXAMINATION: VITAL SIGNS: On the day of discharge, temperature is 97.5, pulse of 87, respirations 18, O2 sat 94% on room air, BP is 155/95. GENERAL: The patient was alert, awake, but in no distress. LUNGS: Clear to auscultation bilaterally. HEART: Regular without murmurs. ABDOMEN: Benign. EXTREMITIES: Warm and dry. DISCHARGE MEDICATIONS: The patient is discharged to senior living facility. She will be on a regu lar diet. She will have consultation with Occupational Therapy and Physical Therapy. Her medication s are acetaminophen 650 q.4 hours p.r.n., amiodarone 400 mg p.o. b.i.d. for another 7-14 days at [facility] time it needs to be tapered, DuoNeb 3 mL q.4 hours as needed, Keppra 1000 mg b.i.d., pantoprazole 4 0 mg every day, Seroquel 25 mg at bedtime, losartan 12.5 mg b.i.d., Zyprexa 5 mg at bedtime, aspirin 81 mg every day. She will have her Lasix held, Xarelto held, atenolol held, and vitamin D3 was also held. The patient is to be on a regular diet and her activity level as per therapy. She should retu rn to the emergency department should she have any problems prior to follow up.
== END 2018-03-17 14:50 | DRG 377 ==
LOC: ERS 08:58 → ERHOLD 12:44 → T4-A 17:19 → 2SW 03-09 10:52 → 2NO 03-10 19:18 → T4-B 03-12 16:30
PROVIDERS: ADMIT Internal Medicine; ATTEND Internal Medicine
PROC: 30233N1 Transfusion of Nonautologous Red Blood Cells into Peripheral Vein, Percutaneous Approach (ICD-10-PCS; 2018-03-08)
PROC: 0D778ZZ Dilation of Stomach, Pylorus, Via Natural or Artificial Opening Endoscopic (ICD-10-PCS; principal; 2018-03-10)
DX: K92.2 Gastrointestinal hemorrhage, unspecified (principal); I50.31 Acute diastolic (congestive) heart failure; K31.1 Adult hypertrophic pyloric stenosis; D62 Acute posthemorrhagic anemia; J84.9 Interstitial pulmonary disease, unspecified; I82.402 Acute embolism and thrombosis of unspecified deep veins of left lower extremity; I48.92 Unspecified atrial flutter; I11.0 Hypertensive heart disease with heart failure; G30.9 Alzheimer's disease, unspecified; F02.80 Dementia in other diseases classified elsewhere, unspecified severity, without behavioral disturbance, psychotic disturbance, mood disturbance, and anxiety; K20.9 Esophagitis, unspecified; K44.9 Diaphragmatic hernia without obstruction or gangrene; K29.40 Chronic atrophic gastritis without bleeding; K25.9 Gastric ulcer, unspecified as acute or chronic, without hemorrhage or perforation; I48.0 Paroxysmal atrial fibrillation; Z66 Do not resuscitate; Z79.82 Long term (current) use of aspirin; Z79.01 Long term (current) use of anticoagulants; Z88.5 Allergy status to narcotic agent; Z85.3 Personal history of malignant neoplasm of breast; Z87.891 Personal history of nicotine dependence; Z80.3 Family history of malignant neoplasm of breast; I07.1 Rheumatic tricuspid insufficiency
CPT/HCPCS: 36415; 36430; 51701; 71045; 80048; 80053; 80076; 81003; 81015; 82274; 82553; 83735; 83880; 84132; 84443; 84484; 85014; 85018; 85025; 85049; 85610; 85730; 86850; 86900; 86901; 87086; 93005; 93010; 93306; 93970; 94640; 96374; A4216; A4353; G8978-GP-CM; G8979-GP-CK; J0282; J1940; J2001; J2060; J2704; J3490; J7070; J7620; P9016

== ENCOUNTER 2018-06-06 07:32 | Inpatient (IN) | payer MEDICARE ==
[2018-06-06 08:43] LABS: ALT (SGPT) 93 U/L (8-55); AST (SGOT) 62 U/L (5-34); Albumin 3.8 g/dL (3.4-4.8); Alkaline Phosphatase 95 U/L (40-150); Anion Gap 16 mmol/L (10-20); BUN (Urea Nitrogen) 19 mg/dL (9.8-20.1); Bilirubin, Total 0.5 mg/dL (0.2-1.2); CK (CPK) 62 U/L (29-168); Calc. Creatinine Clearance 0 mL/min (70-130); Calcium 8.8 mg/dL (7.8-10.44); Carbon Dioxide 22 mmol/L (23-31); Chloride 106 mmol/L (98-107); Estimated GFR-MDRD 79; Globulin 3.8 g/dL (2.4-3.5); Glucose 90 mg/dL (83-110); Potassium 4.6 mmol/L (3.5-5.1); Protein, Total 7.6 g/dL (6.0-8.3); Sodium 139 mmol/L (136-145)
[2018-06-06 08:45] LABS: #Eosinphils 0.1 thou/uL (0.0-0.7); #Monocytes 0.5 thou/uL (0.11-0.59); #Neutrophils 4.9 thou/uL (1.40-6.50); %Basophils 0.2 % (0.0-1.0); %Eosinophils 0.9 % (0.0-10.0); %Lymphocytes 14.9 % (21.0-51.0); Anisocytosis SLIGHT = 6-15 cells (100X) (0-5/hpf); Hemoglobin 11.1 g/dL (12.0-16.0); Hypochromia SLIGHT = 6-15 cells (100X) (0-5/hpf); MDiff Complete? YES; Mean Corpuscular HGB CONC 29.5 g/dL (32.0-36.0); Mean Corpuscular Hemoglobin 22.3 pg (27.0-31.0); Mean Corpuscular Volume 75.5 fL (78.0-98.0); Mean Platelet Volume 5.5 fL (7.4-10.4); Platelet Count 190 thou/uL (130-400); Poikilocytosis SLIGHT = 6-15 cells (100X) (0-5/hpf); RBC Distribution Width 23.3 % (11.5-14.5); Red Blood Cell (RBC) Count 4.98 mill/uL (4.20-5.40); White Blood Cell (WBC) Count 6.4 thou/uL (4.8-10.8)
[2018-06-06 08:48] LABS: CKMB 1.3 ng/mL (0-6.6); Troponin I Less than 0.010 ng/mL (< 0.028)
--- NOTE | 2018-06-06 08:48 | RAD ---
PORTABLE CHEST: Date: 06/06/18 HISTORY: Weakness. COMPARISON: 03/10/18. FINDINGS: Mild cardiomegaly. Mild vascular engorgement. Streaky infiltrate or atelectasis in the right lung bas e has similar appearance to the prior study, which may indicate some chronic change. I cannot exclude an element of acute inflammatory infiltrate. There are interstitial markings increasing both lower l ungs, which appear stable and chronic. Nodular density in the right lower lung is stable and may be c alcified. IMPRESSION: Chronic lung findings. Streaky density in the right lower lung has similar appearance to the prior st udy as described. POS: [facility]
[2018-06-06 09:04] LABS: Bilirubin Negative (Negative); Blood, Urine Trace (Negative); Clarity TURBID (Clear); Glucose, Urine (Dipstick) Negative (Negative); Leukocyte Large (Negative); Nitrite Positive (Negative); Protein, Urine (Dipstick) 30 mg/dL (Neg-Trace); Specific Gravity, Urine 1.019 (1.002-1.036)
[2018-06-06 09:06] LABS: Bacteria/HPF 4+ HPF (None Seen); Hyaline Casts/LPF 0-3 HYALINE CAST LPF (0-3 Hyaline); Pathc Cast-AUWi Flag 0.58 (0-2.49); RBC/HPF 0-3 HPF (0-3); Squamous Epithelial 0-3 HPF (0-3)
[2018-06-06] MEDS ORDERED: Sodium Chloride 0.9% 100 ML ONE (09:24)
[2018-06-06] MEDS ORDERED: cefTRIAXone\\ROCEPHIN 1 GM VIAL ONE (09:24)
[2018-06-06] MEDS ORDERED: Lorazepam 2 MG/ML VIAL SLOW IVP SCH (13:45)
[2018-06-06 16:13] VITALS: BMI 24.9
--- NOTE | 2018-06-06 17:46 | HP ---
CHIEF COMPLAINT: Altered mental status. HISTORY OF PRESENT ILLNESS: This patient is an 82-year-old female who has a history of some underlying dementia, who presented to the Emergency Department with family, indicating that she has not been acting herself. She seems to be much more withdrawn and lethargic over the last 24 hours. The patient's daughter was concerned that the patient might actually have a urinary tract infection. They are unaware of any fevers or chills. They are also unaware of any urinary tract symptoms. The patient has been experiencing a cough, which sounds somewhat wet to the patient's daughter. REVIEW OF SYSTEMS: Unobtainable due to the patient's dementia. Daughter is unaware of any other issues. PAST MEDICAL HISTORY: Notable for advanced dementia, history of gastrointestinal bleeding secondary to gastric erosions and esophagitis, pyloric stenosis was dilated, atrial fibrillation with rapid ventricular response, diastolic dysfunction, chronic systolic dysfunction with cardiomyopathy and an ejection fraction of 30%-35%, [id number] tricuspid regurgitation, history of DVT, and hypertension as well as prior urinary tract infections. PAST SURGICAL HISTORY: Right mastectomy for breast cancer in 2013 with no radiation therapy or chemo. Also, remote history of hysterectomy. FAMILY HISTORY: Pertinent for breast cancer. Mother of breast cancer. Daughter also has had breast cancer. SOCIAL HISTORY: The patient is a . Quit smoking in 2013. Denies alcohol use. She has been made DNR in the past. Her daughter would like for her to remain DNR at this time and her daughter is her surrogate decision maker. ALLERGIES: CODEINE AND LISINOPRIL. CURRENT MEDICATIONS: Atenolol 25 mg every day, aspirin 81 mg every day, Lasix 40 mg every day, losartan 25 mg 0.5 tablet p.o. b.i.d., olanzapine 10 mg one- half tablet at bedtime, vitamin D 1000 units every day, Keppra 1000 mg b.i.d., Xarelto 15 mg b.i.d. PHYSICAL EXAMINATION: VITAL SIGNS: BP 172/83, pulse 76, respirations 16, temperature 98.8, O2 sat 98 % on room air. GENERAL APPEARANCE: Age-appropriate female. She is a little confused and borderline agitated, but in no distress. HEENT: PERRL. No OP lesions. HEART: Regular with 2/6 murmur at the left upper sternal border. LUNGS: Clear to auscultation bilaterally with good chest wall expansion and air exchange. ABDOMEN: Soft, nontender, nondistended with positive bowel sounds. No masses or organomegaly. EXTREMITIES: Reveal 1+ pitting edema at the left ankle, trace on the right. Pulses are diminished. LABORATORY DATA: White count 6.4, hemoglobin 11.1, platelets 190. Sodium 139, potassium 4.6, chloride 106, CO2 is 22, BUN 19, creatinine 0.83, AST 62, ALT 93 , alkaline phosphatase 95. Troponin is less than 0.01. Urinalysis positive for nitrites, large leukocyte esterase, greater than 50 white cells, 4+ bacteria. Chest x-ray shows chronic lung findings with streaky density in the right lower lung field, unchanged from prior studies. IMPRESSION AND PLAN: 1. Urinary tract infection. Continue with Rocephin and follow up on cultures. 2. Acute metabolic encephalopathy likely secondary to the acute urinary tract infection overlying chronic dementia. The patient is already perked up a little bit since she has been on the floor and has had some borderline agitation. 3. Chronic dementia, stable. 4. History of deep venous thrombosis. Appears to be continued on Xarelto, but need to confirm that. 5. History of hypertension. Continue with atenolol, losartan. 6. History of some diastolic and systolic dysfunction, it is chronic, well compensated. Continue with the Lasix. 7. History of neurologic issues. She is on Keppra. We will need to clarify that with the patient's daughter when she returns. 8. Productive cough may be viral, should be covered reasonably well with Rocephin if it is bacterial. MTDD
[2018-06-06] MEDS: Lorazepam 2 MG/ML VIAL SLOW IVP PRN (22:13)
[2018-06-07 06:51] LABS: #Eosinphils 0.2 thou/uL (0.0-0.7); #Lymphocytes 0.9 thou/uL (1.20-3.40); #Monocytes 0.4 thou/uL (0.11-0.59); #Neutrophils 4.4 thou/uL (1.40-6.50); %Basophils 0.6 % (0.0-1.0); %Eosinophils 2.8 % (0.0-10.0); %Monocytes 7.3 % (0.0-10.0); %Neutrophils 74.3 % (42.0-75.0); Hemoglobin 11.1 g/dL (12.0-16.0); Mean Corpuscular HGB CONC 30.2 g/dL (32.0-36.0); Mean Corpuscular Hemoglobin 22.9 pg (27.0-31.0); Mean Corpuscular Volume 75.8 fL (78.0-98.0); Mean Platelet Volume 5.7 fL (7.4-10.4); Platelet Count 172 thou/uL (130-400); RBC Distribution Width 22.9 % (11.5-14.5); Red Blood Cell (RBC) Count 4.86 mill/uL (4.20-5.40); White Blood Cell (WBC) Count 5.9 thou/uL (4.8-10.8)
[2018-06-07 07:02] LABS: Anion Gap 10 mmol/L (10-20); BUN (Urea Nitrogen) 11 mg/dL (9.8-20.1); Calc. Creatinine Clearance 68 mL/min (70-130); Calcium 8.4 mg/dL (7.8-10.44); Carbon Dioxide 26 mmol/L (23-31); Chloride 106 mmol/L (98-107); Estimated GFR-MDRD Greater than 90; Glucose 68 mg/dL (83-110); Potassium 3.4 mmol/L (3.5-5.1); Sodium 139 mmol/L (136-145)
[2018-06-07] MEDS ORDERED: Acetaminophen 325 MG TAB PO PRN (08:47)
[2018-06-07] MEDS ORDERED: Prevnar 13-Val Conj/PF 0.5 ML SYRINGE IM ONE (09:00)
[2018-06-07] MEDS: NS 0.9% w/ 20 MEQ KCL 1,000 ML/1,000 ML BAG IV SCH ×2 (11:31→20:39)
[2018-06-07] MEDS: levETIRAcetam 500 MG TAB PO SCH (11:39)
[2018-06-07] MEDS: Amiodarone 200 MG TAB PO SCH (11:39)
[2018-06-07] MEDS: Aspirin 81 mg Enteric Coated Tablet PO SCH (11:40)
[2018-06-07] MEDS: Losartan 25 MG TAB PO SCH ×2 (11:40→20:44)
[2018-06-07] MEDS: Furosemide 40 MG TAB PO SCH (11:40)
[2018-06-07] MEDS: Spironolactone 25 MG TAB PO SCH (11:40)
[2018-06-07] MEDS: cefTRIAXone\\ROCEPHIN 1 GM in Sodium Chloride 0.9% 100 ML IVPB SCH (12:22)
[2018-06-07] MEDS: OLANZapine 5 MG TAB PO SCH ×2 (13:10→20:44)
--- NOTE | 2018-06-07 14:15 | PDOC.PN ---
- Subjective Encounter Start Date: 06/07/18 Encounter Start Time: 09:20 Pt seen for followup re: UTI. Pt is nonverbal, unable to complete ROS - Objective Resuscitation Status: Resuscitation Status DNR:Do Not Resuscitate MAR Reviewed: Yes Vital Signs & Weight: Vital Signs (12 hours) Temp Pulse Resp BP Pulse Ox 06/07/18 10:57 98.3 F 93 20 191/98 H 92 L 06/07/18 08:00 93 L 06/07/18 07:19 98.3 F 90 20 167/90 H 93 L Weight Weight 149 lb 14.4 oz I&O: 06/06/18 06/07/18 06/08/18 06:59 06:59 06:59 Intake Total 502 Balance 502 Result Diagrams: 06/08/18 04:54 06/08/18 04:54 Additional Labs: labs reviewed by me Phys Exam - Physical Examination Constitutional: NAD HEENT: sclera anicteric, oral pharynx no lesions, 2+ tonsils Dry mucosae Neck: no nodes, no JVD, supple, full ROM Respiratory: no wheezing, no rales, no rhonchi, clear to auscultation bilateral Cardiovascular: no rub, irregular S1, S2 Gastrointestinal: soft, non-tender, no distention, positive bowel sounds Neurological: moves all 4 limbs Deviation from normal: Unable to assess affect or orientation to person, place or time Dx/Plan (1) UTI (urinary tract infection), bacterial Code(s): N39.0 - URINARY TRACT INFECTION, SITE NOT SPECIFIED; A49.9 - BACTERIAL INFECTION, UNSPECIFIED Status: Acute Comment: continue IV ceftriaxone, follow urine culture (2) Hypokalemia Code(s): E87.6 - HYPOKALEMIA Status: Acute Comment: replace potassium (3) Dehydration Code(s): E86.0 - DEHYDRATION Status: Acute Comment: start IV fluids (4) Dementia Code(s): F03.90 - UNSPECIFIED DEMENTIA WITHOUT BEHAVIORAL DISTURBANCE Status: Chronic Qualifiers: Dementia type: Alzheimer's disease Alzheimer's disease onset: late-onset Comment: stable (5) HTN (hypertension) Code(s): I10 - ESSENTIAL (PRIMARY) HYPERTENSION Status: Chronic Qualifiers: Hypertension type: essential hypertension Qualified Code(s): I10 - Essential (primary) hypertension Comment: start PRN IV hydralazine (6) Afib Code(s): I48.91 - UNSPECIFIED ATRIAL FIBRILLATION Status: Chronic Comment: Pt not on anticoagulation due to bleeding (7) H/O deep venous thrombosis Code(s): Z86.718 - PERSONAL HISTORY OF OTHER VENOUS THROMBOSIS AND EMBOLISM Status: Chronic Comment: Pt not on anticoagulation due to bleeding - Plan * . Review of Systems - Medications/Allergies Allergies/Adverse Reactions: Allergies Allergy/AdvReac Type Severity Reaction Status Date / Time codeine Allergy Verified 03/08/18 20:08 lisinopril Allergy Verified 03/08/18 20:08 Medications: Current Medications Acetaminophen (Tylenol) 650 mg PO Q4H PRN PRN Reason: Headache/Fever or Pain Albuterol/Ipratropium (Duoneb) 3 ml NEB Q4H PRN PRN Reason: SOB &/or Wheezing Amiodarone HCl (Cordarone) 200 mg PO DAILY [facility] Last Admin: 06/07/18 11:39 Dose: 200 mg Aspirin (Ecotrin) 81 mg PO DAILY [facility] Last Admin: 06/07/18 11:40 Dose: 81 mg Furosemide (Lasix) 40 mg PO DAILY [facility] Last Admin: 06/07/18 11:40 Dose: 40 mg Ceftriaxone Sodium 1 gm/ (Sodium Chloride) 100 mls @ 200 mls/hr IVPB Q24HR [facility] Last Admin: 06/07/18 12:22 Dose: 100 mls Potassium Chloride/Sodium Chloride (Ns 0.9% W/ 20 Meq Kcl) 1,000 ml in 1,000 mls @ 75 mls/hr IV .[id number] [facility] Last Admin: 06/07/18 11:31 Dose: 1,000 mls Levetiracetam (Keppra) 1,000 mg PO QAM [facility] Last Admin: 06/07/18 11:39 Dose: 1,000 mg Levetiracetam (Keppra) 1,000 mg PO QPM [facility] Lorazepam (Ativan) 0.5 mg SLOW IVP Q8H PRN PRN Reason: Aggitation Last Admin: 06/06/18 22:13 Dose: 0.5 mg Losartan Potassium (Cozaar) 25 mg PO BID [facility] Last Admin: 06/07/18 11:40 Dose: 25 mg Olanzapine (Zyprexa) 10 mg PO BID [facility] Last Admin: 06/07/18 13:10 Dose: 10 mg Pantoprazole Sodium (Protonix) 40 mg PO DAILY [facility] Last Admin: 06/07/18 11:40 Dose: 40 mg Spironolactone (Aldactone) 25 mg PO DAILY [facility] Last Admin: 06/07/18 11:40 Dose: 25 mg
[2018-06-07] MEDS ORDERED: hydrALAZINE 20 MG/ML VIAL SLOW IVP PRN (14:21)
[2018-06-07] MEDS ORDERED: levETIRAcetam 500 MG TAB PO SCH (21:00)
[2018-06-08 05:53] LABS: Anion Gap 15 mmol/L (10-20); BUN (Urea Nitrogen) 13 mg/dL (9.8-20.1); Calc. Creatinine Clearance 62 mL/min (70-130); Calcium 8.6 mg/dL (7.8-10.44); Carbon Dioxide 22 mmol/L (23-31); Chloride 104 mmol/L (98-107); Estimated GFR-MDRD Greater than 90; Glucose 74 mg/dL (83-110); Potassium 4.1 mmol/L (3.5-5.1); Sodium 137 mmol/L (136-145)
[2018-06-08 06:29] LABS: #Eosinphils 0.1 thou/uL (0.0-0.7); #Monocytes 0.7 thou/uL (0.11-0.59); #Neutrophils 4.4 thou/uL (1.40-6.50); %Basophils 0.1 % (0.0-1.0); %Eosinophils 1.6 % (0.0-10.0); %Lymphocytes 16.7 % (21.0-51.0); %Monocytes 10.6 % (0.0-10.0); Anisocytosis SLIGHT = 6-15 cells (100X) (0-5/hpf); Elliptocytes SLIGHT = 2-5 cells (100X) (0-1/hpf); Hemoglobin 12.9 g/dL (12.0-16.0); MDiff Complete? YES; Mean Corpuscular HGB CONC 30.1 g/dL (32.0-36.0); Mean Corpuscular Hemoglobin 22.9 pg (27.0-31.0); Mean Corpuscular Volume 76.2 fL (78.0-98.0); Mean Platelet Volume 6.3 fL (7.4-10.4); Platelet Count 161 thou/uL (130-400); RBC Distribution Width 23.1 % (11.5-14.5); Red Blood Cell (RBC) Count 5.63 mill/uL (4.20-5.40); Target Cells SLIGHT = 2-5 cells (100X) (0-1/hpf); White Blood Cell (WBC) Count 6.2 thou/uL (4.8-10.8)
[2018-06-08] MEDS: Furosemide 40 MG TAB PO SCH ×3 (10:08→11:31)
[2018-06-08] MEDS: Losartan 25 MG TAB PO SCH ×4 (10:08→20:28)
[2018-06-08] MEDS: Aspirin 81 mg Enteric Coated Tablet PO SCH ×3 (10:08→11:32)
[2018-06-08] MEDS: levETIRAcetam 500 MG TAB PO SCH ×3 (10:08→11:30)
[2018-06-08] MEDS: Amiodarone 200 MG TAB PO SCH ×3 (10:09→11:31)
[2018-06-08] MEDS: Spironolactone 25 MG TAB PO SCH ×3 (10:09→11:31)
[2018-06-08] MEDS: OLANZapine 5 MG TAB PO SCH ×3 (10:09→20:28)
[2018-06-08] MEDS: NS 0.9% w/ 20 MEQ KCL 1,000 ML/1,000 ML BAG IV SCH (10:23)
[2018-06-08] MEDS: cefTRIAXone\\ROCEPHIN 1 GM in Sodium Chloride 0.9% 100 ML IVPB SCH (11:28)
[2018-06-08] MEDS ORDERED: Meropenem 1 GM in Sodium Chloride 0.9% 100 ML IVPB SCH (14:00)
--- NOTE | 2018-06-08 15:42 | PDOC.PN ---
- Subjective Encounter Start Date: 06/08/18 Encounter Start Time: 09:00 Pt seen for followup re: UTI. Pt is lethargic, not answering questions, unable to complete ROS. - Objective Resuscitation Status: Resuscitation Status DNR:Do Not Resuscitate MAR Reviewed: Yes Vital Signs & Weight: Vital Signs (12 hours) Temp Pulse Resp BP Pulse Ox 06/08/18 08:00 98.0 F 86 16 171/84 H 91 L 06/08/18 07:19 98.0 F 86 16 171/84 H 91 L Weight Weight 149 lb 14.4 oz I&O: 06/07/18 06/08/18 06/09/18 06:59 06:59 06:59 Intake Total 502 674 Balance 502 674 Result Diagrams: 06/08/18 04:54 06/08/18 04:54 Additional Labs: Labs reviewed by me Phys Exam - Physical Examination Constitutional: NAD HEENT: moist MMs Neck: supple Respiratory: clear to auscultation bilateral Cardiovascular: RRR Gastrointestinal: soft Neurological: moves all 4 limbs Deviation from normal: Unable to assess Dx/Plan (1) Acute metabolic encephalopathy Code(s): G93.41 - METABOLIC ENCEPHALOPATHY Status: Acute Comment: likely secondary to UTI (2) UTI (urinary tract infection), bacterial Code(s): N39.0 - URINARY TRACT INFECTION, SITE NOT SPECIFIED; A49.9 - BACTERIAL INFECTION, UNSPECIFIED Status: Acute Comment: swithc to IV meropenem due to poor clinical rsponse so far, follow urine culture (3) Dehydration Code(s): E86.0 - DEHYDRATION Status: Acute Comment: Improved (4) Dementia Code(s): F03.90 - UNSPECIFIED DEMENTIA WITHOUT BEHAVIORAL DISTURBANCE Status: Chronic Qualifiers: Dementia type: Alzheimer's disease Alzheimer's disease onset: late-onset Comment: stable (5) HTN (hypertension) Code(s): I10 - ESSENTIAL (PRIMARY) HYPERTENSION Status: Chronic Qualifiers: Hypertension type: essential hypertension Qualified Code(s): I10 - Essential (primary) hypertension Comment: on PRN IV hydralazine (6) Afib Code(s): I48.91 - UNSPECIFIED ATRIAL FIBRILLATION Status: Chronic Comment: Pt not on anticoagulation due to bleeding (7) H/O deep venous thrombosis Code(s): Z86.718 - PERSONAL HISTORY OF OTHER VENOUS THROMBOSIS AND EMBOLISM Status: Chronic Comment: Pt not on anticoagulation due to bleeding (8) Hypokalemia Code(s): E87.6 - HYPOKALEMIA Status: Resolved - Plan * . Review of Systems - Medications/Allergies Allergies/Adverse Reactions: Allergies Allergy/AdvReac Type Severity Reaction Status Date / Time codeine Allergy Verified 03/08/18 20:08 lisinopril Allergy Verified 03/08/18 20:08 Medications: Current Medications Acetaminophen (Tylenol) 650 mg PO Q4H PRN PRN Reason: Headache/Fever or Pain Last Admin: 06/08/18 11:29 Dose: 650 mg Albuterol/Ipratropium (Duoneb) 3 ml NEB Q4H PRN PRN Reason: SOB &/or Wheezing Amiodarone HCl (Cordarone) 200 mg PO DAILY [facility] Last Admin: 06/08/18 11:31 Dose: 200 mg Aspirin (Ecotrin) 81 mg PO DAILY [facility] Last Admin: 06/08/18 11:32 Dose: 81 mg Furosemide (Lasix) 40 mg PO DAILY [facility] Last Admin: 06/08/18 11:31 Dose: 40 mg Hydralazine HCl (Apresoline) 10 mg SLOW IVP Q6H PRN PRN Reason: SBP Greater Than 170 Potassium Chloride/Sodium Chloride (Ns 0.9% W/ 20 Meq Kcl) 1,000 ml in 1,000 mls @ 75 mls/hr IV .[id number] [facility] Last Admin: 06/08/18 10:23 Dose: 1,000 mls Meropenem 1 gm/ Device 50 mls @ 100 mls/hr IVPB Q8HR [facility] Levetiracetam (Keppra) 1,000 mg PO QAM [facility] Last Admin: 06/08/18 11:30 Dose: 1,000 mg Levetiracetam (Keppra) 1,000 mg PO QPM [facility] Last Admin: 06/07/18 20:44 Dose: Not Given Lorazepam (Ativan) 0.5 mg SLOW IVP Q8H PRN PRN Reason: Aggitation Last Admin: 06/06/18 22:13 Dose: 0.5 mg Losartan Potassium (Cozaar) 25 mg PO BID [facility] Last Admin: 06/08/18 11:32 Dose: 25 mg Olanzapine (Zyprexa) 10 mg PO BID [facility] Last Admin: 06/08/18 10:37 Dose: Not Given Pantoprazole Sodium (Protonix) 40 mg PO DAILY [facility] Last Admin: 06/08/18 10:37 Dose: Not Given Sodium Chloride (Flush - Normal Saline) 10 ml IVF Q12HR [facility] Sodium Chloride (Flush - Normal Saline) 10 ml IVF PRN PRN PRN Reason: Saline Flush Spironolactone (Aldactone) 25 mg PO DAILY [facility] Last Admin: 06/08/18 11:31 Dose: 25 mg
[2018-06-08] MEDS: MEROPENEM 1 GM/50 ML 1 GM in Premix Bag 1 BAG IVPB SCH ×2 (16:48→20:29)
[2018-06-08] MEDS: levETIRAcetam In NaCl (Iso-Os) 1,000 MG in Premix Bag 1 BAG IVPB SCH (20:28)
[2018-06-09] MEDS: NS 0.9% w/ 20 MEQ KCL 1,000 ML/1,000 ML BAG IV SCH ×4 (02:30→21:12)
[2018-06-09] MEDS: Lorazepam 2 MG/ML VIAL SLOW IVP PRN ×3 (04:16→20:25)
[2018-06-09] MEDS: MEROPENEM 1 GM/50 ML 1 GM in Premix Bag 1 BAG IVPB SCH ×3 (05:25→21:12)
[2018-06-09] MEDS: Aspirin 81 mg Enteric Coated Tablet PO SCH (08:40)
[2018-06-09] MEDS: Amiodarone 200 MG TAB PO SCH (08:40)
[2018-06-09] MEDS: Losartan 25 MG TAB PO SCH ×2 (08:41→19:39)
[2018-06-09] MEDS: OLANZapine 5 MG TAB PO SCH ×2 (08:41→19:40)
[2018-06-09] MEDS: Furosemide 20 MG/2 ML VIAL SLOW IVP SCH (08:41)
[2018-06-09] MEDS: Spironolactone 25 MG TAB PO SCH (08:41)
[2018-06-09] MEDS: Pantoprazole 40 MG VIAL IVP SCH (08:41)
[2018-06-09] MEDS: Acetaminophen 650 MG/20.3 ML UDCUP PO PRN (08:46)
[2018-06-09] MEDS: levETIRAcetam In NaCl (Iso-Os) 1,000 MG in Premix Bag 1 BAG IVPB SCH ×2 (09:10→19:39)
--- NOTE | 2018-06-09 17:30 | PDOC.PN ---
- Subjective Encounter Start Date: 06/09/18 Encounter Start Time: 08:20 Pt seen for followup re: acute metabolic encephalopathy. Awake and alert, answering questions. Says she is in a school and is here to study. - Objective Resuscitation Status: Resuscitation Status DNR:Do Not Resuscitate MAR Reviewed: Yes Vital Signs & Weight: Vital Signs (12 hours) Temp Pulse Resp BP Pulse Ox 06/09/18 16:00 98.0 F 78 16 166/96 H 95 06/09/18 11:19 97.5 F L 78 16 161/87 H 95 06/09/18 08:00 92 L 06/09/18 07:28 98.1 F 63 16 187/96 H 92 L Weight Weight 149 lb 14.4 oz I&O: 06/08/18 06/09/18 06/10/18 06:59 06:59 06:59 Intake Total 674 900 Output Total 250 Balance 674 650 Result Diagrams: 06/08/18 04:54 06/08/18 04:54 Additional Labs: Labs reviewed by me Phys Exam - Physical Examination Constitutional: NAD HEENT: moist MMs Neck: supple Respiratory: clear to auscultation bilateral Cardiovascular: RRR Gastrointestinal: soft Neurological: moves all 4 limbs Psychiatric: normal affect Dx/Plan (1) Acute metabolic encephalopathy Code(s): G93.41 - METABOLIC ENCEPHALOPATHY Status: Acute Comment: Improving , likely secondary to UTI (2) UTI (urinary tract infection), bacterial Code(s): N39.0 - URINARY TRACT INFECTION, SITE NOT SPECIFIED; A49.9 - BACTERIAL INFECTION, UNSPECIFIED Status: Acute Comment: Pt improved after switching to IV meropenem. Continue meropenem for now, await (repeat) urine culture. If negative, switch to oral antibiotics and observe. First urine culture contaminated. (3) Dehydration Code(s): E86.0 - DEHYDRATION Status: Acute Comment: Improved (4) Dementia Code(s): F03.90 - UNSPECIFIED DEMENTIA WITHOUT BEHAVIORAL DISTURBANCE Status: Chronic Qualifiers: Dementia type: Alzheimer's disease Alzheimer's disease onset: late-onset Comment: stable (5) HTN (hypertension) Code(s): I10 - ESSENTIAL (PRIMARY) HYPERTENSION Status: Chronic Qualifiers: Hypertension type: essential hypertension Qualified Code(s): I10 - Essential (primary) hypertension Comment: continue PRN IV hydralazine (6) Afib Code(s): I48.91 - UNSPECIFIED ATRIAL FIBRILLATION Status: Chronic Comment: No anticoagulation due to bleeding (7) H/O deep venous thrombosis Code(s): Z86.718 - PERSONAL HISTORY OF OTHER VENOUS THROMBOSIS AND EMBOLISM Status: Chronic Comment: No anticoagulation due to bleeding (8) Hypokalemia Code(s): E87.6 - HYPOKALEMIA Status: Resolved - Plan * . Review of Systems - Review of Systems Cardiovascular: negative: chest pain, palpitations, orthopnea, paroxysmal nocturnal dyspnea, edema, light headedness Gastrointestinal: negative: Nausea, Vomiting, Abdominal Pain, Diarrhea, Constipation, Melena, Hematochezia - Medications/Allergies Allergies/Adverse Reactions: Allergies Allergy/AdvReac Type Severity Reaction Status Date / Time codeine Allergy Verified 03/08/18 20:08 lisinopril Allergy Verified 03/08/18 20:08 Medications: Current Medications Acetaminophen (Tylenol Elixir) 650 mg PO Q4H PRN PRN Reason: Headache/Fever or Pain Last Admin: 06/09/18 08:46 Dose: 650 mg Albuterol/Ipratropium (Duoneb) 3 ml NEB Q4H PRN PRN Reason: SOB &/or Wheezing Amiodarone HCl (Cordarone) 200 mg PO DAILY [facility] Last Admin: 06/09/18 08:40 Dose: 200 mg Aspirin (Ecotrin) 81 mg PO DAILY [facility] Last Admin: 06/09/18 08:40 Dose: 81 mg Furosemide (Lasix) 20 mg SLOW IVP QAM [facility] Last Admin: 06/09/18 08:41 Dose: 20 mg Hydralazine HCl (Apresoline) 10 mg SLOW IVP Q6H PRN PRN Reason: SBP Greater Than 170 Potassium Chloride/Sodium Chloride (Ns 0.9% W/ 20 Meq Kcl) 1,000 ml in 1,000 mls @ 75 mls/hr IV .[id number] [facility] Last Admin: 06/09/18 15:05 Dose: Not Given Meropenem 1 gm/ Device 50 mls @ 100 mls/hr IVPB Q8HR [facility] Last Admin: 06/09/18 14:03 Dose: 50 mls Levetiracetam 1,000 mg/ Device 100 mls @ 200 mls/hr IVPB BID [facility] Last Admin: 06/09/18 09:10 Dose: 100 mls Lorazepam (Ativan) 0.5 mg SLOW IVP Q8H PRN PRN Reason: Aggitation Last Admin: 06/09/18 12:07 Dose: 0.5 mg Losartan Potassium (Cozaar) 25 mg PO BID [facility] Last Admin: 06/09/18 08:41 Dose: 25 mg Olanzapine (Zyprexa) 10 mg PO BID [facility] Last Admin: 06/09/18 08:41 Dose: 10 mg Pantoprazole Sodium (Protonix) 40 mg IVP QAM [facility] Last Admin: 06/09/18 08:41 Dose: 40 mg Sodium Chloride (Flush - Normal Saline) 10 ml IVF Q12HR [facility] Last Admin: 06/09/18 08:41 Dose: 10 ml Sodium Chloride (Flush - Normal Saline) 10 ml IVF PRN PRN PRN Reason: Saline Flush Spironolactone (Aldactone) 25 mg PO DAILY [facility] Last Admin: 06/09/18 08:41 Dose: 25 mg
[2018-06-10] MEDS: MEROPENEM 1 GM/50 ML 1 GM in Premix Bag 1 BAG IVPB SCH ×3 (05:59→21:23)
[2018-06-10] MEDS: Aspirin 81 mg Enteric Coated Tablet PO SCH (08:29)
[2018-06-10] MEDS: Furosemide 20 MG/2 ML VIAL SLOW IVP SCH (08:29)
[2018-06-10] MEDS: Amiodarone 200 MG TAB PO SCH (08:29)
[2018-06-10] MEDS: Pantoprazole 40 MG VIAL IVP SCH (08:30)
[2018-06-10] MEDS: OLANZapine 5 MG TAB PO SCH ×2 (08:30→20:42)
[2018-06-10] MEDS: Losartan 25 MG TAB PO SCH ×2 (08:30→20:42)
[2018-06-10] MEDS: Spironolactone 25 MG TAB PO SCH (08:31)
[2018-06-10] MEDS: levETIRAcetam In NaCl (Iso-Os) 1,000 MG in Premix Bag 1 BAG IVPB SCH ×2 (10:30→20:40)
[2018-06-10] MEDS: Lorazepam 2 MG/ML VIAL SLOW IVP PRN ×2 (10:39→20:44)
--- NOTE | 2018-06-10 15:59 | PDOC.PN ---
- Subjective Encounter Start Date: 06/10/18 Encounter Start Time: 15:57 Subjective: pt somnolent & does not engage in conversation -: care discussed w RN - Objective Resuscitation Status: Resuscitation Status DNR:Do Not Resuscitate MAR Reviewed: Yes Vital Signs & Weight: Vital Signs (12 hours) Temp Pulse Resp BP Pulse Ox 06/10/18 11:19 97.6 F 76 16 151/81 H 91 L 06/10/18 08:46 98.4 F 82 14 180/83 H 95 06/10/18 08:00 95 06/10/18 07:23 97.5 F L 79 16 173/96 H 90 L Weight Weight 149 lb 14.4 oz I&O: 06/09/18 06/10/18 06/11/18 06:59 06:59 06:59 Intake Total 900 3176 Output Total 250 Balance 650 3176 Result Diagrams: 06/08/18 04:54 06/08/18 04:54 Additional Labs: Microbiology 06/08/18 18:30 Urine jung catheter Urine Culture - Final NO GROWTH AT 48 HOURS 06/06/18 08:51 Urine clean catch Urine Culture - Final 06/08/18 18:30 Urine jung catheter Urine Culture - Preliminary NO GROWTH AT 24 HOURS Laboratory Tests 03/08/18 03/09/18 03/13/18 09:48 05:35 03:16 Hgb 4.3 L* 6.6 L 9.1 L 04/10/18 06/06/18 06/07/18 11:06 08:10 06:20 Hgb 9.4 L 11.1 L 11.1 L 06/08/18 04:54 Hgb 12.9 Phys Exam - Physical Examination Constitutional: NAD HEENT: PERRLA, moist MMs, sclera anicteric, oral pharynx no lesions Neck: no nodes, no JVD, supple, full ROM Respiratory: no wheezing, no rales, no rhonchi, clear to auscultation bilateral Cardiovascular: RRR, no significant murmur Gastrointestinal: soft, non-tender, no distention, positive bowel sounds Musculoskeletal: no edema, pulses present Neurological: non-focal, normal sensation, moves all 4 limbs Psychiatric: normal affect, A&O x 3 Skin: no rash Dx/Plan (1) Acute metabolic encephalopathy Code(s): G93.41 - METABOLIC ENCEPHALOPATHY Status: Acute Comment: Improving , likely secondary to UTI (2) UTI (urinary tract infection), bacterial Code(s): N39.0 - URINARY TRACT INFECTION, SITE NOT SPECIFIED; A49.9 - BACTERIAL INFECTION, UNSPECIFIED Status: Acute Comment: Pt improved after switching to IV meropenem. Continue meropenem for now, await (repeat) urine culture. If negative, switch to oral antibiotics and observe. First urine culture contaminated. (3) Afib Code(s): I48.91 - UNSPECIFIED ATRIAL FIBRILLATION Status: Chronic Comment: No anticoagulation due to bleeding (4) CHF (congestive heart failure) Code(s): I50.9 - HEART FAILURE, UNSPECIFIED Status: Chronic Qualifiers: Heart failure type: combined systolic and diastolic Comment: Stable and compensated. (5) DVT (deep venous thrombosis) Code(s): I82.409 - ACUTE EMBOLISM AND THOMBOS UNSP DEEP VN UNSP LOWER EXTREMITY Status: Acute Qualifiers: DVT location: lower extremity Chronicity: acute Laterality: left Comment: H/O DVT.Off of Xarelto and Aspirin due to h/o GI Bleed (6) Dementia Code(s): F03.90 - UNSPECIFIED DEMENTIA WITHOUT BEHAVIORAL DISTURBANCE Status: Chronic Qualifiers: Dementia type: Alzheimer's disease Alzheimer's disease onset: late-onset Comment: stable (7) HTN (hypertension) Code(s): I10 - ESSENTIAL (PRIMARY) HYPERTENSION Status: Chronic Qualifiers: Hypertension type: essential hypertension Qualified Code(s): I10 - Essential (primary) hypertension Comment: continue PRN IV hydralazine - Plan continue antibiotics, PT/OT, out of bed/ambulate, DVT proph w/SCDs cont meropenam.if Cx remain negative,will stop -: likely DC to NH tomorrow if stable -: HD stable -: BP still high.monitor * . Review of Systems - Review of Systems Eyes: negative: Pain, Vision Change, Conjunctivae Inflammation, Eyelid Inflammation, Redness, Other Other: No ROS as pt remained sleepy - Medications/Allergies Allergies/Adverse Reactions: Allergies Allergy/AdvReac Type Severity Reaction Status Date / Time codeine Allergy Verified 03/08/18 20:08 lisinopril Allergy Verified 03/08/18 20:08 Medications: Current Medications Acetaminophen (Tylenol Elixir) 650 mg PO Q4H PRN PRN Reason: Headache/Fever or Pain Last Admin: 06/09/18 08:46 Dose: 650 mg Albuterol/Ipratropium (Duoneb) 3 ml NEB Q4H PRN PRN Reason: SOB &/or Wheezing Amiodarone HCl (Cordarone) 200 mg PO DAILY [facility] Last Admin: 06/10/18 08:29 Dose: 200 mg Aspirin (Ecotrin) 81 mg PO DAILY [facility] Last Admin: 06/10/18 08:29 Dose: 81 mg Furosemide (Lasix) 20 mg SLOW IVP QAM [facility] Last Admin: 06/10/18 08:29 Dose: 20 mg Hydralazine HCl (Apresoline) 10 mg SLOW IVP Q6H PRN PRN Reason: SBP Greater Than 170 Potassium Chloride/Sodium Chloride (Ns 0.9% W/ 20 Meq Kcl) 1,000 ml in 1,000 mls @ 75 mls/hr IV .[id number] [facility] Last Admin: 06/09/18 21:12 Dose: 1,000 mls Meropenem 1 gm/ Device 50 mls @ 100 mls/hr IVPB Q8HR [facility] Last Admin: 06/10/18 14:23 Dose: 50 mls Levetiracetam 1,000 mg/ Device 100 mls @ 200 mls/hr IVPB BID [facility] Last Admin: 06/10/18 10:30 Dose: 100 mls Lorazepam (Ativan) 0.5 mg SLOW IVP Q8H PRN PRN Reason: Aggitation Last Admin: 06/10/18 10:39 Dose: 0.5 mg Losartan Potassium (Cozaar) 25 mg PO BID [facility] Last Admin: 06/10/18 08:30 Dose: 25 mg Olanzapine (Zyprexa) 10 mg PO BID [facility] Last Admin: 06/10/18 08:30 Dose: 10 mg Pantoprazole Sodium (Protonix) 40 mg PO QAM [facility] Sodium Chloride (Flush - Normal Saline) 10 ml IVF Q12HR [facility] Last Admin: 06/10/18 08:31 Dose: 10 ml Sodium Chloride (Flush - Normal Saline) 10 ml IVF PRN PRN PRN Reason: Saline Flush Spironolactone (Aldactone) 25 mg PO DAILY [facility] Last Admin: 06/10/18 08:31 Dose: 25 mg
[2018-06-10] MEDS: NS 0.9% w/ 20 MEQ KCL 1,000 ML/1,000 ML BAG IV SCH ×2 (19:20→20:43)
[2018-06-11] MEDS: MEROPENEM 1 GM/50 ML 1 GM in Premix Bag 1 BAG IVPB SCH ×3 (05:27→22:10)
[2018-06-11] MEDS: Amiodarone 200 MG TAB PO SCH (08:05)
[2018-06-11] MEDS: Furosemide 20 MG/2 ML VIAL SLOW IVP SCH (08:05)
[2018-06-11] MEDS: OLANZapine 5 MG TAB PO SCH ×2 (08:05→21:16)
[2018-06-11] MEDS: Aspirin 81 mg Enteric Coated Tablet PO SCH (08:05)
[2018-06-11] MEDS: Losartan 25 MG TAB PO SCH ×2 (08:05→21:16)
[2018-06-11] MEDS: Spironolactone 25 MG TAB PO SCH (08:06)
[2018-06-11] MEDS ORDERED: Amlodipine 5 MG TAB PO SCH (09:00)
[2018-06-11] MEDS: Amlodipine 10 MG TAB PO SCH (09:52)
[2018-06-11] MEDS: Acetaminophen 650 MG/20.3 ML UDCUP PO PRN ×2 (09:52→16:55)
[2018-06-11] MEDS: levETIRAcetam In NaCl (Iso-Os) 1,000 MG in Premix Bag 1 BAG IVPB SCH ×2 (09:52→21:11)
--- NOTE | 2018-06-11 14:00 | PDOC.PN ---
- Subjective Encounter Start Date: 06/11/18 Encounter Start Time: 13:58 Subjective: pt barely awake and not eating much.aggressive w Nursing staff - Objective Resuscitation Status: Resuscitation Status DNR:Do Not Resuscitate MAR Reviewed: Yes Vital Signs & Weight: Vital Signs (12 hours) Temp Pulse Pulse Resp BP BP BP 06/11/18 11:16 97.4 F L 76 18 143/87 H 06/11/18 09:52 86 148/92 H 06/11/18 09:12 72 142/92 H 06/11/18 08:00 06/11/18 07:24 97.6 F 86 18 182/90 H Pulse Ox Pulse Ox 06/11/18 11:16 97 06/11/18 09:52 06/11/18 09:12 93 L 06/11/18 08:00 95 06/11/18 07:24 95 Weight Weight 149 lb 14.4 oz I&O: 06/10/18 06/11/18 06/12/18 06:59 06:59 06:59 Intake Total 3176 2800 Balance 3176 2800 Result Diagrams: 06/08/18 04:54 06/08/18 04:54 Additional Labs: Microbiology 06/08/18 18:30 Urine jung catheter Urine Culture - Final NO GROWTH AT 48 HOURS 06/06/18 08:51 Urine clean catch Urine Culture - Final Phys Exam - Physical Examination Constitutional: NAD difficult to wake up HEENT: PERRLA, moist MMs, sclera anicteric, oral pharynx no lesions Respiratory: no wheezing, no rales, no rhonchi Cardiovascular: RRR, no significant murmur Gastrointestinal: soft, non-tender, no distention, positive bowel sounds Musculoskeletal: no edema, pulses present can not be examined due to somnolence Dx/Plan (1) Acute metabolic encephalopathy Code(s): G93.41 - METABOLIC ENCEPHALOPATHY Status: Acute Comment: ? likely secondary to UTI (2) UTI (urinary tract infection), bacterial Code(s): N39.0 - URINARY TRACT INFECTION, SITE NOT SPECIFIED; A49.9 - BACTERIAL INFECTION, UNSPECIFIED Status: Acute Comment: Pt improved after switching to IV meropenem. Continue meropenem for now, await (repeat) urine culture. If negative, switch to oral antibiotics and observe. First urine culture contaminated. (3) Afib Code(s): I48.91 - UNSPECIFIED ATRIAL FIBRILLATION Status: Chronic Comment: No anticoagulation due to bleeding (4) CHF (congestive heart failure) Code(s): I50.9 - HEART FAILURE, UNSPECIFIED Status: Chronic Qualifiers: Heart failure type: combined systolic and diastolic Comment: Stable and compensated. (5) DVT (deep venous thrombosis) Code(s): I82.409 - ACUTE EMBOLISM AND THOMBOS UNSP DEEP VN UNSP LOWER EXTREMITY Status: Acute Qualifiers: DVT location: lower extremity Chronicity: acute Laterality: left Comment: H/O DVT.Off of Xarelto and Aspirin due to h/o GI Bleed (6) Dementia Code(s): F03.90 - UNSPECIFIED DEMENTIA WITHOUT BEHAVIORAL DISTURBANCE Status: Chronic Qualifiers: Dementia type: Alzheimer's disease Alzheimer's disease onset: late-onset Comment: stable (7) HTN (hypertension) Code(s): I10 - ESSENTIAL (PRIMARY) HYPERTENSION Status: Chronic Qualifiers: Hypertension type: essential hypertension Qualified Code(s): I10 - Essential (primary) hypertension Comment: continue PRN IV hydralazine - Plan DVT proph w/SCDs Pt not safe to DC home due to advanced dementia and metabolic encephalopath -: daughter has expressed wishes for SNIF.will arrnage -: cont meropenam for now.Urine Cx negative so far -: check lytes in am -: BP still high-will add amlodipine.rest as below * . Review of Systems - Review of Systems Other: can not be obtained due to somnolence - Medications/Allergies Allergies/Adverse Reactions: Allergies Allergy/AdvReac Type Severity Reaction Status Date / Time codeine Allergy Verified 03/08/18 20:08 lisinopril Allergy Verified 03/08/18 20:08 Medications: Current Medications Acetaminophen (Tylenol Elixir) 650 mg PO Q4H PRN PRN Reason: Headache/Fever or Pain Last Admin: 06/11/18 09:52 Dose: 650 mg Albuterol/Ipratropium (Duoneb) 3 ml NEB Q4H PRN PRN Reason: SOB &/or Wheezing Amiodarone HCl (Cordarone) 200 mg PO DAILY [facility] Last Admin: 06/11/18 08:05 Dose: 200 mg Amlodipine Besylate (Norvasc) 10 mg PO DAILY [facility] Last Admin: 06/11/18 09:52 Dose: 10 mg Aspirin (Ecotrin) 81 mg PO DAILY [facility] Last Admin: 06/11/18 08:05 Dose: 81 mg Furosemide (Lasix) 20 mg SLOW IVP QAM [facility] Last Admin: 06/11/18 08:05 Dose: 20 mg Hydralazine HCl (Apresoline) 10 mg SLOW IVP Q6H PRN PRN Reason: SBP Greater Than 170 Potassium Chloride/Sodium Chloride (Ns 0.9% W/ 20 Meq Kcl) 1,000 ml in 1,000 mls @ 75 mls/hr IV .[id number] [facility] Last Admin: 06/10/18 20:43 Dose: 1,000 mls Meropenem 1 gm/ Device 50 mls @ 100 mls/hr IVPB Q8HR [facility] Last Admin: 06/11/18 13:02 Dose: 50 mls Levetiracetam 1,000 mg/ Device 100 mls @ 200 mls/hr IVPB BID [facility] Last Admin: 06/11/18 09:52 Dose: 100 mls Lorazepam (Ativan) 0.5 mg SLOW IVP Q8H PRN PRN Reason: Aggitation Last Admin: 06/10/18 20:44 Dose: 0.5 mg Losartan Potassium (Cozaar) 25 mg PO BID [facility] Last Admin: 06/11/18 08:05 Dose: 25 mg Olanzapine (Zyprexa) 10 mg PO BID [facility] Last Admin: 06/11/18 08:05 Dose: 10 mg Pantoprazole Sodium (Protonix) 40 mg PO QAM [facility] Last Admin: 06/11/18 08:06 Dose: 40 mg Sodium Chloride (Flush - Normal Saline) 10 ml IVF Q12HR [facility] Last Admin: 06/11/18 08:07 Dose: 10 ml Sodium Chloride (Flush - Normal Saline) 10 ml IVF PRN PRN PRN Reason: Saline Flush Spironolactone (Aldactone) 25 mg PO DAILY [facility] Last Admin: 06/11/18 08:06 Dose: 25 mg
[2018-06-11 15:06] LABS: Anion Gap 9 mmol/L (10-20); BUN (Urea Nitrogen) 10 mg/dL (9.8-20.1); Calc. Creatinine Clearance 64 mL/min (70-130); Calcium 8.6 mg/dL (7.8-10.44); Carbon Dioxide 28 mmol/L (23-31); Chloride 105 mmol/L (98-107); Estimated GFR-MDRD Greater than 90; Glucose 76 mg/dL (83-110); Potassium 4.3 mmol/L (3.5-5.1); Sodium 138 mmol/L (136-145)
[2018-06-11] MEDS: NS 0.9% w/ 20 MEQ KCL 1,000 ML/1,000 ML BAG IV SCH ×2 (15:27→20:01)
[2018-06-11] MEDS: Lorazepam 2 MG/ML VIAL SLOW IVP PRN (21:16)
[2018-06-12 04:24] LABS: #Eosinphils 0.3 thou/uL (0.0-0.7); #Lymphocytes 1.7 thou/uL (1.20-3.40); #Monocytes 0.6 thou/uL (0.11-0.59); #Neutrophils 2.6 thou/uL (1.40-6.50); %Basophils 0.5 % (0.0-1.0); %Eosinophils 5.6 % (0.0-10.0); %Lymphocytes 32.9 % (21.0-51.0); %Monocytes 11.7 % (0.0-10.0); %Neutrophils 49.4 % (42.0-75.0); Hemoglobin 11.2 g/dL (12.0-16.0); Mean Corpuscular HGB CONC 29.5 g/dL (32.0-36.0); Mean Corpuscular Hemoglobin 22.3 pg (27.0-31.0); Mean Corpuscular Volume 75.6 fL (78.0-98.0); Mean Platelet Volume 6.3 fL (7.4-10.4); Platelet Count 190 thou/uL (130-400); RBC Distribution Width 22.4 % (11.5-14.5); Red Blood Cell (RBC) Count 5.04 mill/uL (4.20-5.40); White Blood Cell (WBC) Count 5.3 thou/uL (4.8-10.8)
[2018-06-12] MEDS: MEROPENEM 1 GM/50 ML 1 GM in Premix Bag 1 BAG IVPB SCH (06:25)
[2018-06-12] MEDS: NS 0.9% w/ 20 MEQ KCL 1,000 ML/1,000 ML BAG IV SCH (06:53)
[2018-06-12 07:17] VITALS: BP 154/83; TEMP 96.8
[2018-06-12] MEDS: OLANZapine 5 MG TAB PO SCH (08:23)
[2018-06-12] MEDS: Amlodipine 10 MG TAB PO SCH (08:23)
[2018-06-12] MEDS: Losartan 25 MG TAB PO SCH (08:24)
[2018-06-12] MEDS: Amiodarone 200 MG TAB PO SCH (08:24)
[2018-06-12] MEDS: Furosemide 20 MG/2 ML VIAL SLOW IVP SCH (08:24)
[2018-06-12] MEDS: Spironolactone 25 MG TAB PO SCH (08:24)
[2018-06-12] MEDS: Aspirin 81 mg Enteric Coated Tablet PO SCH (08:24)
[2018-06-12] MEDS: levETIRAcetam In NaCl (Iso-Os) 1,000 MG in Premix Bag 1 BAG IVPB SCH (10:18)
--- NOTE | 2018-06-12 23:45 | DIS ---
DATE OF ADMISSION: 06/06/2018 DATE OF DISCHARGE: 06/12/2018 CONDITION AT THE TIME OF DISCHARGE: Stable and improved. DISCHARGE DISPOSITION: [facility]. DISCHARGE DIAGNOSES: 1. Toxic metabolic encephalopathy. 2. Urinary tract infection. 3. Dementia. 4. Chronic atrial fibrillation, not anticoagulation candidate due to history of bleeding. 5. Chronic combined congestive heart failure, NYHA stage 2. 6. History of deep venous thrombosis off anticoagulation and aspirin due to history of gastrointesti nal bleed. 7. Hypertension. DISCHARGE MEDICATIONS: Resume home medications as follows, DuoNebs p.r.n., aspirin 81 mg daily, Kepp ra 1000 mg b.i.d., Aldactone 25 mg daily, Lasix 40 mg daily, amiodarone 200 mg daily, Zyprexa 10 mg p .o. b.i.d., Cozaar 25 mg p.o. b.i.d., Protonix 40 mg daily. The patient has been treated with IV ant ibiotics for almost 5 days in the hospital and these are stopped at the time of discharge as all of h er cultures remain negative. Please note that aspirin has been restarted, as patient has not demonstrated any bleeding while in [facility]. Xarelto was not prescribed. PRIMARY CARE PHYSICIAN: Dr. Loyda Kuo. INHOUSE CONSULTATION: None. PROCEDURES: Chest x-ray upon presentation, which is unremarkable. HISTORY OF PRESENT ILLNESS: Ms. Carl is an 82-year-old female with known history of dementia, hyper tension, and GI bleed as with paroxysmal atrial fibrillation, who presented to the emergency room wit h complaints of altered mental status. She was brought in from home by her daughter. She was found to have urinary tract infection in the emergency room. She was otherwise hemodynamically stable upon presentation. Chest x-ray showed chronic lung findings. She was found to have acute metabolic ence phalopathy likely secondary to urinary tract infection and dementia. Please see admission history an d physical for further details. Patient was started on IV antibiotics and IV fluids and cultures wer e sent. HOSPITAL COURSE: The patient's culture remained negative. Her antibiotics were adjusted, given her history of resistant UTI in the past. She was changed from Rocephin to meropenem and tolerated it ve ry well. She had on and off symptoms of vague fullness and somnolence. She remained otherwise hemod ynamically stable throughout the hospitalization. She demonstrated poor p.o. intake and required hel p with most of her meals. As of this morning, the patient is seemingly back to her normal self. She is awake, alert, and orien tavia to self and place. She is following commands and eating a little bit better. Her urine cultures are negative, so she will finish the meropenem in the hospital and no antibiotics will be prescribed . Her daughter requested a usp facility placement and this was arranged. She is being d ischarged to [facility]. PHYSICAL EXAMINATION: She was seen and examined prior to discharge. VITAL SIGNS: This morning, temperature 96.8, heart rate 85, respirations 18, saturating 92% on room air, blood pressure 154/83. GENERAL: No acute distress. CHEST: Clear to auscultation bilaterally. HEART: Rate and rhythm is regular. LABORATORY DATA: CBC unremarkable. Hemoglobin 11.2. Serum chemistries unremarkable. Magnesium 1.8 . Urine culture negative x2. She will be discharged shortly. She will finish a dose of antibiotic in the hospital today. Total time spent in the discharge 32 minutes. I doubt her daughter was notified for discharge by [facility] management.
--- NOTE | 2018-06-13 23:07 | EKG ---
Test Reason : Blood Pressure : / mmHG Vent. Rate : 081 BPM Atrial Rate : 081 BPM P-R Int : 184 ms QRS Dur : 096 ms QT Int : 410 ms P-R-T Axes : 006 -33 035 degrees QTc Int : 476 ms Normal sinus rhythm Possible Left atrial enlargement Left axis deviation Left ventricular hypertrophy Nonspecific T wave abnormality Prolonged QT Abnormal ECG Confirmed by KARINA TIDWELL ([id number]), web editor BLANCA LOYA ([id number]) on 06/13/2018 11:06:45 PM Referred By: Confirmed By:KARINA TIDWELL
== END 2018-06-12 15:15 | DRG 689 ==
LOC: ERS 07:32 → T4-B 11:16
PROVIDERS: ADMIT Internal Medicine; ATTEND Internal Medicine
DX: N39.0 Urinary tract infection, site not specified (principal); G92 Toxic encephalopathy; I42.9 Cardiomyopathy, unspecified; I50.42 Chronic combined systolic (congestive) and diastolic (congestive) heart failure; I36.1 Nonrheumatic tricuspid (valve) insufficiency; Z66 Do not resuscitate; R05 Cough; I11.0 Hypertensive heart disease with heart failure; I48.2 Chronic atrial fibrillation; E87.6 Hypokalemia; E86.0 Dehydration; G30.1 Alzheimer's disease with late onset; F02.80 Dementia in other diseases classified elsewhere, unspecified severity, without behavioral disturbance, psychotic disturbance, mood disturbance, and anxiety; Z79.82 Long term (current) use of aspirin; Z87.891 Personal history of nicotine dependence; Z86.718 Personal history of other venous thrombosis and embolism; Z85.3 Personal history of malignant neoplasm of breast; Z90.11 Acquired absence of right breast and nipple; Z80.3 Family history of malignant neoplasm of breast
CPT/HCPCS: 36415; 51701; 71045; 80048; 80053; 81003; 81015; 82550; 82553; 83735; 84484; 85025; 87086; 93005; 96365; A4353; C9113; G8978-GP-CM; G8979-GP-CL; G8987-GO-CN; G8988-GO-CJ; J0360; J0696; J1940; J1953; J2060; J2185; J7050

== ENCOUNTER 2018-07-16 08:23 | Emergency (ER) | payer MEDICARE ==
[2018-07-16 10:08] LABS: ALT (SGPT) 26 U/L (8-55); AST (SGOT) 25 U/L (5-34); Albumin 3.2 g/dL (3.4-4.8); Alkaline Phosphatase 86 U/L (40-150); Anion Gap 13 mmol/L (10-20); BUN (Urea Nitrogen) 22 mg/dL (9.8-20.1); Bilirubin, Total 0.6 mg/dL (0.2-1.2); Calc. Creatinine Clearance 0 mL/min (70-130); Calcium 8.9 mg/dL (7.8-10.44); Carbon Dioxide 22 mmol/L (23-31); Chloride 107 mmol/L (98-107); Estimated GFR-MDRD 79; Glucose 90 mg/dL (83-110); Potassium 4.8 mmol/L (3.5-5.1); Protein, Total 7.2 g/dL (6.0-8.3); Sodium 137 mmol/L (136-145)
--- NOTE | 2018-07-16 10:36 | CT ---
HEAD CT WITHOUT CONTRAST: COMPARISON: 12/22/2017. HISTORY: Seizure this morning. The patient does take Keppra. FINDINGS: No parenchymal hemorrhage. NO extraaxial hematoma. No midline shift. Basilar cisterns are patent. Age appropriate atrophy. Cortical fisher-white matter differentiation is preserved. Other etiologies cannot be excluded. No evidence of hydrocephalus. 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 Adequate aeration of the sinuses and mastoid air cells. Calvarium is intact. There is cavernous car otid atherosclerosis. IMPRESSION: No acute intracranial process. POS: [facility]
--- NOTE | 2018-07-18 13:54 | EKG ---
Test Reason : Blood Pressure : / mmHG Vent. Rate : 061 BPM Atrial Rate : 061 BPM P-R Int : 186 ms QRS Dur : 102 ms QT Int : 450 ms P-R-T Axes : 000 199 157 degrees QTc Int : 453 ms Normal sinus rhythm Right superior axis deviation Nonspecific T wave abnormality Abnormal ECG Confirmed by KARINA TIDWELL ([id number]), editor newspaper ODESSA AGUIRRE ([id number]) on 07/18/2018 1:54:15 PM Referred By: Confirmed By:KARINA TIDWELL
== END 2018-07-16 11:30 | disposition home or self-care (01) ==
LOC: ERS 08:23
DX: R56.9 Unspecified convulsions (principal); E78.5 Hyperlipidemia, unspecified; F03.90 Unspecified dementia, unspecified severity, without behavioral disturbance, psychotic disturbance, mood disturbance, and anxiety; I10 Essential (primary) hypertension; J44.9 Chronic obstructive pulmonary disease, unspecified; Z87.891 Personal history of nicotine dependence; Z85.3 Personal history of malignant neoplasm of breast; Z79.82 Long term (current) use of aspirin; Z79.899 Other long term (current) drug therapy
CPT/HCPCS: 36415; 70450; 80053; 93005

== ENCOUNTER 2018-11-14 12:42 | Inpatient (IN) | payer MEDICARE ==
--- NOTE | 2018-11-14 13:31 | RAD ---
FPortable chest radiograph: 11/14/2018 COMPARISON: 06/06/2018 HISTORY:Weakness, bilateral lower extremity swelling FINDINGS: Heart and mediastinal contours are stable. There is atherosclerotic calcification of the ao rtic arch. Axillary atherosclerotic calcifications are noted bilaterally. No pneumothorax is seen. Coarse increased linear interstitial density noted in the perihilar regions, left greater than right, and bilateral lung bases. No lobar consolidation or alveolar edema is seen. IMPRESSION: Coarse increased linear interstitial densities, stable. No acute findings.
[2018-11-14 14:06] LABS: #Lymphocytes 0.3 thou/uL (1.20-3.40); #Monocytes 0.9 thou/uL (0.11-0.59); %Basophils 0.3 % (0.0-1.0); %Eosinophils 0.1 % (0.0-10.0); %Lymphocytes 2.7 % (21.0-51.0); %Monocytes 8.7 % (0.0-10.0); %Neutrophils 88.3 % (42.0-75.0); Hemoglobin 9.8 g/dL (12.0-16.0); Mean Corpuscular HGB CONC 30.5 g/dL (32.0-36.0); Mean Corpuscular Hemoglobin 22.8 pg (27.0-31.0); Mean Corpuscular Volume 74.6 fL (78.0-98.0); Mean Platelet Volume 10.4 fL (7.4-10.4); Platelet Count 185 thou/uL (130-400); RBC Distribution Width 16.7 % (11.5-14.5); Red Blood Cell (RBC) Count 4.29 mill/uL (4.20-5.40); White Blood Cell (WBC) Count 10.1 thou/uL (4.8-10.8)
[2018-11-14] MEDS ORDERED: Acetaminophen 500 MG TAB ONE (14:13)
[2018-11-14 14:18] LABS: Anisocytosis SLIGHT = 6-15 cells (100X) (0-5/hpf); Hypochromia SLIGHT = 6-15 cells (100X) (0-5/hpf); MDiff Complete? YES; Microcytosis SLIGHT = 6-15 cells (100X) (0-5/hpf); Platelet Morphology Comment Appears Adequate; Polychromasia SLIGHT = 2-3 cells (100X) (0-2/hpf)
[2018-11-14 14:24] LABS: ALT (SGPT) 20 U/L (8-55); AST (SGOT) 20 U/L (5-34); Albumin 3.7 g/dL (3.4-4.8); Alkaline Phosphatase 88 U/L (40-150); Anion Gap 14 mmol/L (10-20); BUN (Urea Nitrogen) 28 mg/dL (9.8-20.1); Bilirubin, Total 0.9 mg/dL (0.2-1.2); Calc. Creatinine Clearance 0 mL/min (70-130); Calcium 9.1 mg/dL (7.8-10.44); Carbon Dioxide 26 mmol/L (23-31); Chloride 104 mmol/L (98-107); Estimated GFR-MDRD 77; Globulin 3.4 g/dL (2.4-3.5); Glucose 98 mg/dL (83-110); Potassium 3.5 mmol/L (3.5-5.1); Protein, Total 7.1 g/dL (6.0-8.3); Sodium 140 mmol/L (136-145)
[2018-11-14 14:37] LABS: Bilirubin Negative (Negative); Blood, Urine Large (Negative); Clarity CLOUDY (Clear); Glucose, Urine (Dipstick) Negative (Negative); Leukocyte Negative (Negative); Nitrite Negative (Negative); Protein, Urine (Dipstick) 30 mg/dL (Neg-Trace); Specific Gravity, Urine 1.017 (1.002-1.036); pH, Urine 6.5 (5.0-9.0)
[2018-11-14 14:41] LABS: Bacteria/HPF None Seen HPF (None Seen); Hyaline Casts/LPF 4-6 HYALINE CAST LPF (0-3 Hyaline); Pathc Cast-AUWi Flag 1.36 (0-2.49); RBC/HPF GREATER THAN 50-TNTC HPF (0-3); Squamous Epithelial 0-3 HPF (0-3); WBC/HPF 0-3 HPF (0-3)
--- NOTE | 2018-11-14 15:33 | CT ---
FCT brain noncontrast: 11/14/2018 HISTORY: 83-year-old female with fever and altered mental status. COMPARISON: 07/16/2018 FINDINGS: Old lacunar infarction of left basal ganglia and left caudate head. Chronic ischemic white matter angelica nges. Diffuse brain parenchymal volume loss. Tiny old lacunar infarctions at right caudate head and l eft basal ganglia. No acute calvarial fracture. No mass effect, midline shift, extra-axial fluid patsy ection, or acute intracranial hemorrhage. No interval change overall. IMPRESSION: 1. No acute intracranial findings. 2. Old lacunar infarctions of corpora striata bilaterally, left greater than right. 3. Involutional changes and chronic ischemic white matter changes.
[2018-11-14] MEDS ORDERED: Piperacillin/Tazobactam 4.5 GM VIAL ONE (15:38)
[2018-11-14] MEDS ORDERED: Sodium Chloride 0.9% 100 ML ONE (15:38)
--- NOTE | 2018-11-14 17:15 | ULT ---
FUltrasound Doppler duplex venous bilateral lower extremities: 11/04/2018 HISTORY: Bilateral lower extremity edema. The brooch and bracelet maker notified nurse Kaley of the positive result of DVT.. TECHNIQUE: Grayscale, color-flow, and spectral analysis, of major veins of bilateral lower extremities. FINDINGS: There is thrombus in the left popliteal vein causing noncompressibility. There is decreased blood saul w within this vein. All other veins of the bilateral lower extremities demonstrate no thrombosis. The re is soft tissue edema bilaterally, especially in the calves. IMPRESSION: 1. Positive for nonocclusive deep venous thrombosis of left popliteal vein. 2. Soft tissue edema of the bilateral lower extremities, especially distal to the knees.
[2018-11-14] MEDS ORDERED: Acetaminophen 650 MG Suppository PR PRN (18:26)
[2018-11-14] MEDS ORDERED: Bisacodyl 5 MG TAB PO PRN (18:26)
[2018-11-14 18:41] LABS: Lactic Acid 1.7 mmol/L (0.5-2.2)
--- NOTE | 2018-11-14 19:33 | HP ---
PRIMARY CARE PROVIDER: Loyda Kuo MD CHIEF COMPLAINT: Altered mental status. HISTORY OF PRESENT ILLNESS: Ms. Carl is a pleasant 83-year-old lady, who was seen at [facility] on November 14, 2018. The patient is unable to provide any history secondary to dementia. Her daughter is by the bedside and is able to provide history. Ms. Carl lives with her daughter. Over the last 3 to 4 days, she has been confused. She also is having difficulty walking. At baseline, she ambulates with a walker. Over the last couple of days, it looks like she was not maintaining balance while walking and has been hanging onto victor and furniture to walk. She also has a cough for the last 3 days, but is unable to bring up any sputum. She also had a temperature of 102.6 degrees Fahrenheit in the emergency room. There is no history of diarrhea. There is no history of nausea or vomiting. No sick contacts. REVIEW OF SYSTEMS: All other systems reviewed and found to be negative. PAST MEDICAL HISTORY: Alzheimer's dementia; gastrointestinal bleeding secondary to gastric erosions and esophagitis; pyloric stenosis, status post dilatation; atrial fibrillation, on anticoagulation; diastolic dysfunction; cardiomyopathy, ejection fraction of 30% to 35%; [id number] tricuspid regurgitation; deep vein thrombosis; hypertension; and urinary tract infection. PAST SURGICAL HISTORY: Right mastectomy for breast cancer in 2013 and hysterectomy. FAMILY HISTORY: Father from myocardial infarction. Her mother of breast cancer. SOCIAL HISTORY: No history of tobacco use, alcohol use, or recreational drug use. CODE STATUS: I discussed her code status, she is DNAR. ALLERGIES: CODEINE AND LISINOPRIL. CURRENT MEDICATIONS: 1. Atenolol 25 mg daily. 2. Aspirin 81 mg daily. 3. Vitamin D3 1000 units daily. 4. Keppra 1000 mg 2 times a day. 5. Rivaroxaban 15 mg 2 times a day. 6. Amiodarone 200 mg daily. 7. Protonix 40 mg daily. 8. Furosemide 40 mg daily. 9. Olanzapine 10 mg daily. 10. Losartan 25 mg 2 times a day. 11. Spironolactone 25 mg daily. 12. Escitalopram 5 mg daily. 13. Senna p.r.n. PHYSICAL EXAMINATION: GENERAL: On examination, Ms. Carl is awake and alert, not in acute distress. VITAL SIGNS: Blood pressure is 126/56, pulse 85, respiratory rate 21, and oxygen saturation 96% on room air. When she presented to the emergency room, she had pulse of 100, respiratory rate of 22, and temperature of 102.6 degrees Fahrenheit. HEENT: Eyes; no scleral icterus, no conjunctival pallor. ENT, dry mucosal membranes. No oropharyngeal erythema or exudates. NECK: Supple. Nontender. Trachea is midline. RESPIRATORY: Accessory muscles of breathing are not active. Chest wall movements are symmetric bilaterally. Lungs are clear to auscultation without wheeze, rhonchi, or crepitations. CARDIOVASCULAR: S1 and S2 are heard, regular. Peripheral pulses palpable. No carotid bruit. No pericardial rub. ABDOMEN: Soft. Nontender. Bowel sounds heard. No hepatomegaly. No splenomegaly. SKIN: No rashes or subcutaneous nodules. She is status post right mastectomy. LYMPHATIC: No cervical lymphadenopathy. NEUROLOGIC: Cranial nerves 2 through 12 intact. Deep tendon reflexes 2+. PSYCHIATRIC: Unable to assess mood, affect, or orientation to person, place, or time. DIAGNOSTIC STUDIES: Ms. Carl's labs and investigations were reviewed. I reviewed her electrocardiogram, which shows normal sinus rhythm. No ST changes to suggest an acute coronary syndrome. I also reviewed her chest x-ray, which does not show any pulmonary infiltrates. Urinalysis is negative for nitrite and leukocyte esterase. Influenza screen is negative. She has normal white count, microcytic anemia with hemoglobin 9.8. Normal platelet count. Normal electrolytes. Elevated blood urea nitrogen of 28. Normal creatinine. Lactic acid initially elevated at 2.3, subsequently trending down into the normal range at 1.7. Unremarkable liver profile. ASSESSMENT AND PLAN: Ms. Carl is a pleasant 83-year-old lady, who was seen at [facility] on November 14, 2018. Her problem list includes: 1. Sepsis: Ms. Carl is presenting with sepsis, source unknown. She will be admitted to the hospital for further management including intravenous fluids and antibiotics. We will treat her with Zosyn and vancomycin until blood cultures are available. 2. Deep vein thrombosis: Ms. Carl has bilateral lower extremity swelling. Venogram of both lower extremities was positive for nonocclusive deep venous thrombosis of the left popliteal vein. She is already on anticoagulation in the form of rivaroxaban. We will consult Oncology Service for opinion and help with management. 3. Hypertension: We will continue home medications, monitor vital signs, and titrate antihypertensives as needed. 4. Atrial fibrillation: The patient is currently in sinus rhythm. We will continue her home medications. 5. History of congestive heart failure: We will provide gentle hydration for sepsis. 6. History of gastrointestinal bleed: We will monitor blood counts. Many thanks for allowing me to participate in your patient's care. Please feel free to contact me with any questions or concerns. LEVEL OF RISK: High. LEVEL OF COMPLEXITY: High. Job ID: [id number] MTDD
[2018-11-14 21:35] VITALS: BMI 25.9
[2018-11-14] MEDS ORDERED: levETIRAcetam 500 MG TAB PO SCH (22:45)
[2018-11-14] MEDS: Sodium Chloride 0.9% 1,000 ML IV SCH (23:44)
[2018-11-14] MEDS: Piperacillin/Tazobactam 4.5 GM in Sodium Chloride 0.9% 100 ML IVPB SCH (23:44)
[2018-11-15] MEDS ORDERED: Lorazepam 2 MG/ML VIAL SLOW IVP SCH (02:45)
[2018-11-15 07:02] LABS: #Lymphocytes 1.2 thou/uL (1.20-3.40); #Monocytes 1.2 thou/uL (0.11-0.59); #Neutrophils 16.6 thou/uL (1.40-6.50); %Basophils 0.2 % (0.0-1.0); %Eosinophils 0.2 % (0.0-10.0); %Lymphocytes 6.3 % (21.0-51.0); %Monocytes 6.2 % (0.0-10.0); %Neutrophils 87.1 % (42.0-75.0); Hemoglobin 8.6 g/dL (12.0-16.0); Mean Corpuscular HGB CONC 29.7 g/dL (32.0-36.0); Mean Corpuscular Hemoglobin 22.3 pg (27.0-31.0); Mean Corpuscular Volume 75.1 fL (78.0-98.0); Mean Platelet Volume 10.5 fL (7.4-10.4); Platelet Count 162 thou/uL (130-400); RBC Distribution Width 16.8 % (11.5-14.5); Red Blood Cell (RBC) Count 3.83 mill/uL (4.20-5.40)
[2018-11-15 07:14] LABS: Anion Gap 9 mmol/L (10-20); BUN (Urea Nitrogen) 26 mg/dL (9.8-20.1); Calc. Creatinine Clearance 59 mL/min (70-130); Calcium 8.2 mg/dL (7.8-10.44); Carbon Dioxide 28 mmol/L (23-31); Chloride 105 mmol/L (98-107); Estimated GFR-MDRD 81; Glucose 66 mg/dL (83-110); Potassium 3.2 mmol/L (3.5-5.1); Sodium 139 mmol/L (136-145)
[2018-11-15] MEDS: Piperacillin/Tazobactam 4.5 GM in Sodium Chloride 0.9% 100 ML IVPB SCH ×3 (07:52→23:23)
[2018-11-15] MEDS ORDERED: Potassium Chloride 20 MEQ TAB PO SCH (08:30)
[2018-11-15] MEDS: Acetaminophen 325 MG TAB PO PRN (08:34)
[2018-11-15] MEDS: Lorazepam 2 MG/ML VIAL SLOW IVP PRN ×3 (09:18→22:43)
[2018-11-15] MEDS: Vancomycin HCl 1.5 GM in Sodium Chloride 0.9% 250 ML 300 ML IVPB SCH (11:59)
[2018-11-15] MEDS: Sodium Chloride 0.9% 1,000 ML IV SCH (14:10)
--- NOTE | 2018-11-15 17:17 | PDOC.PN ---
- Subjective Encounter Start Date: 11/15/18 Encounter Start Time: 17:14 Pt seen for followup re:sepsis. says she feels well, unable to provide any history, unable to complete ROS. - Objective Resuscitation Status - Order Detail: 11/14/18 18:26 Resuscitation Status Routine Resuscitation Status: DNAR: NO Resuscitation Discussed with: daughter CHEO Reviewed: Yes Vital Signs & Weight: Vital Signs (12 hours) Temp Pulse Resp BP Pulse Ox 11/15/18 11:59 98.5 F 72 20 103/62 91 L 11/15/18 11:12 94 L 11/15/18 08:00 98.4 F 87 18 131/64 93 L Weight Weight 160 lb 14.4 oz I&O: 11/14/18 11/15/18 11/16/18 06:59 06:59 06:59 Intake Total 985 480 Balance 985 480 Result Diagrams: 11/15/18 06:20 11/15/18 06:20 Additional Labs: Labs reviewed by me Phys Exam - Physical Examination Constitutional: NAD HEENT: moist MMs Neck: supple Respiratory: clear to auscultation bilateral Cardiovascular: RRR Gastrointestinal: soft Neurological: moves all 4 limbs Psychiatric: normal affect Dx/Plan (1) Sepsis Code(s): A41.9 - SEPSIS, UNSPECIFIED ORGANISM Status: Acute Comment: continue IV antibiotics as below, follow cultures (2) DVT (deep venous thrombosis) Code(s): I82.409 - ACUTE EMBOLISM AND THOMBOS UNSP DEEP VN UNSP LOWER EXTREMITY Status: Acute Comment: Recurrent DVT. Pt was on anticoagulation in the past but had GI bleed and hematuria in the past. d/w daughter and Dr Hensley, plan to followup in office in 2 weeks and repeat Dopplers to decide whether pt needs IVC filter. d/w Dr. hensley. (3) Hypokalemia Code(s): E87.6 - HYPOKALEMIA Status: Acute Comment: replace potassium (4) H/O atrial fibrillation without current medication Code(s): Z86.79 - PERSONAL HISTORY OF OTHER DISEASES OF THE CIRCULATORY SYSTEM Status: Chronic Comment: not on anticoagulation due to h/o bleeding (5) Dementia Code(s): F03.90 - UNSPECIFIED DEMENTIA WITHOUT BEHAVIORAL DISTURBANCE Status: Chronic Qualifiers: Dementia type: Alzheimer's disease Alzheimer's disease onset: late-onset Comment: stable (6) HTN (hypertension) Code(s): I10 - ESSENTIAL (PRIMARY) HYPERTENSION Status: Chronic Qualifiers: Hypertension type: essential hypertension Qualified Code(s): I10 - Essential (primary) hypertension Comment: controlled - Plan plan discussed w/ family, continue antibiotics, out of bed/ambulate * . Review of Systems - Medications/Allergies Allergies/Adverse Reactions: Allergies Allergy/AdvReac Type Severity Reaction Status Date / Time codeine Allergy Verified 11/14/18 21:36 lisinopril Allergy Verified 11/14/18 21:36 Medications: Current Medications Acetaminophen (Tylenol) 650 mg PO Q4H PRN PRN Reason: Headache/Fever/Mild Pain (1-3) Last Admin: 11/15/18 08:34 Dose: 650 mg Acetaminophen (Tylenol) 650 mg WI Q4H PRN PRN Reason: Headache/Fever/Mild Pain (1-3) Bisacodyl (Dulcolax) 10 mg PO DAILYPRN PRN PRN Reason: Constipation Enoxaparin Sodium (Lovenox) 40 mg SC 2100 [facility] Vancomycin HCl 1.5 gm/ Sodium (Chloride) 300 mls @ 200 mls/hr IVPB Q24HR [facility] Last Admin: 11/15/18 11:59 Dose: 300 mls Piperacillin Sod/Tazobactam (Sod 4.5 gm/ Sodium Chloride) 100 mls @ 200 mls/hr IVPB 0800,1600,2359 [facility] Last Admin: 11/15/18 15:53 Dose: 100 mls Sodium Chloride (Normal Saline 0.9%) 1,000 mls @ 50 mls/hr IV .Q20H [facility] Last Admin: 11/15/18 14:10 Dose: Not Given Lorazepam (Ativan) 0.5 mg SLOW IVP Q8H PRN PRN Reason: Anxiety/Agitation Last Admin: 11/15/18 16:58 Dose: 0.5 mg Miscellaneous Medication (Pharmacy To Dose) 1 each IVPB PRN PRN PRN Reason: Pharmacy to dose Sodium Chloride (Flush - Normal Saline) 10 ml IVF Q12HR [facility] Last Admin: 11/15/18 07:53 Dose: Not Given Sodium Chloride (Flush - Normal Saline) 10 ml IVF PRN PRN PRN Reason: Saline Flush
--- NOTE | 2018-11-15 19:25 | CON ---
DATE OF CONSULTATION: HISTORY OF PRESENT ILLNESS: This is an 83-year-old lady, admitted for altered mental status, weakness, and fever. During her hospital evaluation, she has undergone a chest x-ray, which I have reviewed suggesting bilateral infiltrates. However, on review of prior chest x-rays and CT scans, these may be chronic findings of chronic bronchitis or lung disease. Additionally, she was noted to have 102 fever and has a white count of 19,000 today. She has a history of DVT and the left popliteal vein. She also has a history of atrial fibrillation and has been on Xarelto for this. Due to some bilateral lower extremity swelling, she had an ultrasound today showing a nonocclusive thrombus in the right popliteal vein. History is really based on hospital records as there is no family present and the patient answers only with yes or no answers and mostly does not respond, but prefers to just lay in the bed, curled up, sleeping. She does have a diagnosis of dementia. She has a history of atrial fibrillation as mentioned with cardiomyopathy on anticoagulation. She has a history of hypertension and prior urinary tract infection. She does tell me that she is a nonsmoker. PAST SURGICAL HISTORY: Recorded as hysterectomy and mastectomy. PHYSICAL EXAMINATION: GENERAL: On examination, she is an elderly lady in no distress, who is resting comfortably. She does have a productive cough. NECK: Her carotid exams are without bruits. Her neck veins are prominent, but she is mostly in the supine position. LUNGS: Her lungs have bilateral rhonchi with no wheezes. HEART: Her cardiac exam reveals distant heart sounds with no murmur. GI: Her abdomen is soft, although she does flinch with examination. She has no guarding. EXTREMITIES: Her extremities at the present time are without edema. I am unable to palpate pedal pulses. She does not appear to be tender on examination or palpation. At this time, the patient with nonocclusive popliteal vein thrombosis on Xarelto. Whether or not a different NOAC is indicated, it is not clear to me. However, I would not recommend IVC filter placement for this popliteal vein finding. Either continuing the Xarelto or changing to another NOAC, should be adequate for minimizing the risk of progression or pulmonary embolus. Risk benefit ratio for IVC filter in this particular lady does not seem favorable. Job ID: [id number]
[2018-11-15] MEDS: Enoxaparin Sodium 40 MG/0.4 ML SYRINGE SC SCH (21:04)
[2018-11-16] MEDS: Lorazepam 2 MG/ML VIAL SLOW IVP PRN ×3 (05:29→21:40)
[2018-11-16] MEDS: Sodium Chloride 0.9% 1,000 ML IV SCH (05:32)
[2018-11-16] MEDS: Piperacillin/Tazobactam 4.5 GM in Sodium Chloride 0.9% 100 ML IVPB SCH ×3 (08:20→23:36)
--- NOTE | 2018-11-16 09:17 | CON ---
DATE OF CONSULTATION: ADDENDUM: Addendum to consultation/progress note. After discussion with the hospitalist, the patient has not been on anticoagulation for DVT or atrial fibrillation for at least several months related to some GI problems. Because of this GI bleeding, all anticoagulation was stopped. I talked to Raymundo, her daughter, with whom she lives and Raymundo tells me that the patient has had dementia for several years, dating back to when they lived in [place] 3 years ago. She is not able to carry out daily activities and does require assistance with getting dressed. Some days, she can carry on a conversation of sorts and an another day she does not know who she is. Because of the small nonocclusive DVT in the popliteal vein on the left, I have suggested conservative management without IVC filter placement at this time. I have suggested a followup ultrasound in 1 to 2 weeks with her primary care doctor and assuming no significant change in the findings, then no further treatment would be recommended. Raymundo is agreeable with this conservative approach, and I will follow up with her by phone in about 2 weeks to make sure the ultrasound was done. Job ID: [id number]
[2018-11-16 13:36] LABS: Vancomycin, Trough 8.8 ug/mL
[2018-11-16] MEDS ORDERED: Acetaminophen 325 MG TAB PO PRN (14:50)
[2018-11-16] MEDS ORDERED: hydrALAZINE 20 MG/ML VIAL SLOW IVP PRN (14:52)
[2018-11-16] MEDS: Vancomycin HCl 1.5 GM in Sodium Chloride 0.9% 250 ML 300 ML IVPB SCH (15:49)
--- NOTE | 2018-11-16 15:58 | RAD ---
Radiograph chest one view: 11/16/2018 at 3:43 PM HISTORY: 83-year-old female with dyspnea and cough COMPARISON: 11/14/2018 FINDINGS: There is interval worsening of alveolar infiltrates in the left lung, previously confined to left low er lobe, but now extending superiorly to involve the left perihilar mid to upper lung zone. Coarse tr ansversely oriented densities at the right lung base are consistent with chronic scarring, present as far back as 03/08/2018. There is cardiomegaly. Pulmonary venous congestion is new or worse. There is a questionable noncalcified 1.5 x 1 cm left upper lobe nodular density. No large pneumothorax. Minima l blunting of lateral costophrenic angles bilaterally are suggestive of small pleural effusions.. IMPRESSION: 1. Worsening of findings representing congestive heart failure. 2. Infiltrates involving most of the left lung could represent pneumonia or pulmonary edema, or combi nation of both. 3. Questionable left upper lobe pulmonary nodule. 4. Recommend continued follow-up.
[2018-11-16 16:37] LABS: ALT (SGPT) 61 U/L (8-55); AST (SGOT) 36 U/L (5-34); Albumin 3.3 g/dL (3.4-4.8); Alkaline Phosphatase 76 U/L (40-150); Anion Gap 16 mmol/L (10-20); BUN (Urea Nitrogen) 17 mg/dL (9.8-20.1); Bilirubin, Total 0.8 mg/dL (0.2-1.2); CRP (Inflammatory) 15.92 mg/dL (= or < 0.5); Calc. Creatinine Clearance 59 mL/min (70-130); Calcium 8.6 mg/dL (7.8-10.44); Carbon Dioxide 21 mmol/L (23-31); Chloride 108 mmol/L (98-107); Estimated GFR-MDRD 81; Globulin 3.6 g/dL (2.4-3.5); Glucose 88 mg/dL (83-110); Magnesium 2.2 mg/dL (1.6-2.6); Phosphorus 2.6 mg/dL (2.3-4.7); Potassium 3.8 mmol/L (3.5-5.1); Protein, Total 6.9 g/dL (6.0-8.3); Sodium 141 mmol/L (136-145)
[2018-11-16 16:55] LABS: Mean Corpuscular HGB CONC 29.3 g/dL (32.0-36.0); Mean Corpuscular Hemoglobin 22.2 pg (27.0-31.0); Mean Corpuscular Volume 75.7 fL (78.0-98.0); Mean Platelet Volume 10.6 fL (7.4-10.4); Platelet Count 178 thou/uL (130-400); RBC Distribution Width 16.7 % (11.5-14.5); White Blood Cell (WBC) Count 22.4 thou/uL (4.8-10.8)
[2018-11-16 17:35] LABS: Anisocytosis SLIGHT = 6-15 cells (100X) (0-5/hpf); Band 8 % (5-11); Hypochromia SLIGHT = 6-15 cells (100X) (0-5/hpf); Lymphocytes 8 % (21-51); MDiff Complete? YES; Microcytosis SLIGHT = 6-15 cells (100X) (0-5/hpf); Monocytes 3 % (0-10); Neutrophil 81 % (42-75); Platelet Morphology Comment Appears Adequate; Polychromasia SLIGHT = 2-3 cells (100X) (0-2/hpf); Schistocytes SLIGHT = 2-5 cells (100X) (0-1/hpf)
--- NOTE | 2018-11-16 17:42 | PRG ---
DATE OF SERVICE: 11/16/2018 SUBJECTIVE: The patient denies any new complaints. No chest pain, shortness of breath, or palpitations. No overnight events. REVIEW OF SYSTEMS: No nausea, vomiting, or diarrhea. The patient denies any chest pain, shortness of breath, or palpitations. All other review of systems was reviewed and was found negative. OBJECTIVE: VITAL SIGNS: Temperature 98.4, pulse 87, blood pressure 151/68, respirations of 20, O2 saturation of 91% to 93% on room air. GENERAL: An 83-year-old female in no apparent distress. LUNGS: Showed bibasilar rales with scattered wheezing and rhonchi. No significant accessory muscle use. HEART: S1 and S2 present. Regular rate and rhythm. No rubs or gallops. ABDOMEN: Soft, nontender. Bowel sounds present. No guarding or rigidity. EXTREMITIES: No edema or calf tenderness. NEUROLOGY: Grossly nonfocal. Moves all four extremities. LABORATORY FINDINGS: WBC of 22.4, hemoglobin 10, hematocrit 34.1, platelet of 178. Chemistry showed sodium 141, potassium 3.8, chloride 108, bicarb 21, BUN 17, creatinine 0.81. CRP 15.9, albumin 3.3. Blood culture one of two was positive for Strep pneumoniae. Urine culture negative. Influenza testing negative. Chest x-ray by my review showed left lung infiltrate. IMPRESSION: 1. Sepsis with acute organ dysfunction secondary to pneumococcal pneumonia, rule out aspiration. 2. Left lower extremity deep venous thrombosis. 3. Lactic acidosis, improved. 4. Chronic systolic and diastolic heart failure, ejection fraction 30% to 35%. 5. Moderate to severe tricuspid regurgitation. 6. Hypokalemia. 7. Chronic kidney disease, stage 2. 8. Seizure disorder. 9. Alzheimer dementia. 10. Hypertension. 11. Paroxysmal atrial fibrillation, not an anticoagulation candidate. 12. History of deep venous thrombosis in the past. 13. History of gastrointestinal bleeding. PLAN: The patient will be monitored on the medical floor. IV fluids will be discontinued. We will continue Zosyn. Discontinue vancomycin. We will resume all of her home medications including Lasix, Keppra, losartan, Zyprexa, Protonix, and Aldactone. We will recheck labs in a.m. We will consult Infectious Disease, Dr. Vargas. We will consult Physical Therapy and Speech Therapy. Continue amiodarone. Plan of care was discussed with the patient. CODE STATUS: Do not resuscitate. ALLERGIES: THE PATIENT IS ALLERGIC TO LISINOPRIL AND CODEINE. Job ID: [id number]
[2018-11-16] MEDS ORDERED: Furosemide 40 MG/4 ML VIAL SLOW IVP SCH (20:30)
[2018-11-16] MEDS: levETIRAcetam 500 MG TAB PO SCH (20:42)
[2018-11-16] MEDS: Enoxaparin Sodium 40 MG/0.4 ML SYRINGE SC SCH (20:42)
[2018-11-16] MEDS: Losartan 25 MG TAB PO SCH (20:42)
[2018-11-16] MEDS: Acetaminophen 325 MG TAB PO PRN (21:39)
[2018-11-17 07:37] LABS: #Lymphocytes 1.6 thou/uL (1.20-3.40); #Monocytes 0.8 thou/uL (0.11-0.59); #Neutrophils 13.1 thou/uL (1.40-6.50); %Basophils 0.1 % (0.0-1.0); %Eosinophils 0.2 % (0.0-10.0); %Lymphocytes 10.1 % (21.0-51.0); %Monocytes 5.3 % (0.0-10.0); %Neutrophils 84.4 % (42.0-75.0); Hemoglobin 9.5 g/dL (12.0-16.0); Mean Corpuscular HGB CONC 30.4 g/dL (32.0-36.0); Mean Corpuscular Hemoglobin 22.4 pg (27.0-31.0); Mean Corpuscular Volume 73.6 fL (78.0-98.0); Mean Platelet Volume 10.3 fL (7.4-10.4); Platelet Count 201 thou/uL (130-400); RBC Distribution Width 16.7 % (11.5-14.5); Red Blood Cell (RBC) Count 4.24 mill/uL (4.20-5.40); White Blood Cell (WBC) Count 15.5 thou/uL (4.8-10.8)
[2018-11-17 07:49] LABS: Anion Gap 12 mmol/L (10-20); BUN (Urea Nitrogen) 12 mg/dL (9.8-20.1); Calc. Creatinine Clearance 66 mL/min (70-130); Calcium 8.4 mg/dL (7.8-10.44); Carbon Dioxide 26 mmol/L (23-31); Chloride 105 mmol/L (98-107); Estimated GFR-MDRD Greater than 90; Glucose 101 mg/dL (83-110); Potassium 3.2 mmol/L (3.5-5.1); Sodium 140 mmol/L (136-145)
[2018-11-17] MEDS: Piperacillin/Tazobactam 4.5 GM in Sodium Chloride 0.9% 100 ML IVPB SCH (07:55)
[2018-11-17] MEDS: Losartan 25 MG TAB PO SCH ×2 (07:56→20:15)
[2018-11-17] MEDS: Amiodarone 200 MG TAB PO SCH (07:56)
[2018-11-17] MEDS: Furosemide 40 MG TAB PO SCH (07:56)
[2018-11-17] MEDS: levETIRAcetam 500 MG TAB PO SCH ×2 (07:56→20:15)
[2018-11-17] MEDS: Spironolactone 25 MG TAB PO SCH (07:56)
[2018-11-17 08:08] LABS: MDiff Complete? YES; Microcytosis SLIGHT = 6-15 cells (100X) (0-5/hpf); Polychromasia SLIGHT = 2-3 cells (100X) (0-2/hpf)
[2018-11-17] MEDS ORDERED: Doxycycline 100 MG CAP PO SCH ×2 (09:15→21:00)
[2018-11-17] MEDS: OLANZapine 5 MG TAB PO SCH (12:25)
--- NOTE | 2018-11-17 14:04 | CON ---
DATE OF CONSULTATION: 11/17/2018 REASON FOR CONSULTATION: Bacteremia. HISTORY OF PRESENT ILLNESS: An 83-year-old who has been admitted 3 times last year to [facility], the first time with a history of dementia, pulmonary embolism, DVT as well as heart failure, and the second time in March with anemia due to acute blood loss associated with gastrointestinal bleeding, esophagitis, gastric erosions as well as pyloric stenosis. Finally, in June last year, the patient was treated for UTI, dementia. At this time, she was brought to the hospital with altered mental status. She lives with her daughter and developed increasing confusion and difficulty with ambulation and was having trouble walking with trying to hold onto to the victor and furniture to walk. She also had a temperature of 102.6, was brought to the hospital and admitted. Initial findings showed a BP 126/56, pulse 85, respirations 21, O2 saturation 96%, and the lungs were described as clear to auscultation. The heart examination with normal findings. Abdomen was not tender. The skin was normal. She was described as being awake, alert, and in no acute distress. Initial chest x-ray demonstrated increased interstitial densities. She had a repeat x-ray 2 days later with worsening of alveolar infiltrates in the left lung, extending superiorly to involve the left perihilar mid to upper lung zone, and densities in the right lung base as well. Initial white cell count was 10.1, went up to 22.4 with a predominance of neutrophils. The creatinine was normal, and the initial liver profile was within normal limits. Urinalysis with 0 to 3 wbc's. Microbiology with 1 out of 2 sets of blood cultures with Streptococcus pneumoniae with broader susceptibility profile. Currently, Ms. Carl is receiving doxycycline, piperacillin, and she is obtunded. She will arouse when her name is called, and certain simple questions, she will answer them such as for example, if she was having abdominal pain, she would answer no, but could not tell me where she was or the date. Did not open her eyes and did not establish eye contact. I could not get her to follow simple commands. PAST MEDICAL HISTORY: Includes dementia, atrial fibrillation, CHF with systolic dysfunction, upper GI bleed after anticoagulation was started and the EGD showed gastric erosions, esophagitis, pyloric stenosis which underwent dilation. Also, history of hypertension, UTI, prior DVT with pulmonary embolism. PAST SURGICAL HISTORY: Mastectomy, breast cancer in 2014, hysterectomy. FAMILY HISTORY: [place], breast cancer. SOCIAL HISTORY: Never smoker. Lives with daughter. CURRENT MEDICATIONS: 1. DuoNeb. 2. Cordarone. 3. Dulcolax. 4. Vibramycin. 5. Lovenox. 6. Zosyn. PHYSICAL EXAMINATION: VITAL SIGNS: T-max 100.7, BP 170/78, pulse 91, respirations 22, O2 saturation 95%. SKIN: Shows no areas of skin breakdown. The patient is voiding in the diaper and she has a peripheral IV access. LYMPH: There is no lymphadenopathy. HEENT: She keeps her eyes closed. I was able to evaluate the orbits, and sclerae are white. Pupils are about 2 mm and reactive. Conjunctivae normal. Nasal passages are patent. Oral cavity, still quite a few teeth in place with gum disease and quite a bit of decay as expected. NECK: Supple. No jugular vein distention. LUNGS: Scattered rhonchi, particularly in the bases, and more prominent in the left side. No wheezing. During the exam, she is coughing frequently and is obviously having some difficulty in clearing her secretions. She does have quite a bit of secretions in the upper airway. HEART: S1 and S2. Regular rate with a soft aortic murmur. No S3. ABDOMEN: Soft, not distended, not tender. No bladder distention. No organomegaly or ascites. EXTREMITIES: The pulses are 1+ in dorsalis pedis, popliteal as well. Trace edema, lower extremities. She has onychodystrophy and toenails. She seems to be able to move extremities, but she is diffusely weak. Plantar responses are indifferent on the left side. There is no clonus. NEUROLOGIC: She is obtunded, but will reply to certain questions. Does not follow some simple commands and keeps her eyes closed. LABORATORY DATA: White cell count is down to 15,000, hemoglobin 9.5, platelets 84. Sodium 140, creatinine 0.72, AST 36, ALT 61, CRP 15, albumin 3.3. Urinalysis with greater than 50 rbc's. ASSESSMENT: 1. Dementia probably vascular dementia. 2. Atrial fibrillation. 3. Prior deep vein thrombosis with pulmonary embolism. 4. Upper gastrointestinal bleed, which led to discontinuation of anticoagulants. 5. Change in mental status, neutrophilia, and streptococcus pneumoniae bacteremia with abnormal lung findings on chest x-ray. DISCUSSION: The differential diagnosis includes the most likely scenario, which is pneumococcal pneumonia, community-acquired. I do not think there is clinical evidence to suggest TRAINING LE[employer] infection at this point in time. The bacteremia is transient, so endocarditis is not likely. Other areas of dissemination to bone and joints, the spine is not apparent at this time, and I do not think she has evidence to suggest pulmonary complications such as empyema. Switch her to Rocephin. Discontinue other antimicrobials eventually given the discharge planning with a beta-lactam. She will get vaccination with Prevnar upon discharge as well as influenza vaccine. Job ID: [id number] [email or web address]
[2018-11-17 14:48] LABS: ALV-art Gradient 35.155 (0-20); Actual Bicarbonate (HCO3a) 29.1 mEq/L (22-28); Base Excess (BEa) 5.3 mEq/L (-2.0 to +3.0); CO2 Tension 39.1 mmHg (35.0-45.0); Hemoglobin (Hb) 9.8 g/dL (12.0-16.0); O2 Tension (PaO2) 65.7 mmHg (> 60.0); Potassium - ABG Lab 3.09 mmol/L (3.70-5.30); Puncture Site RRA; pH, Arterial 7.49 (7.35-7.45)
[2018-11-17] MEDS: cefTRIAXone\\ROCEPHIN 2 GM in Sodium Chloride 0.9% 100 ML IVPB SCH (15:52)
[2018-11-17] MEDS: Enoxaparin Sodium 40 MG/0.4 ML SYRINGE SC SCH (20:15)
--- NOTE | 2018-11-17 22:14 | PDOC.PN ---
- Subjective Encounter Start Date: 11/17/18 Encounter Start Time: 14:15 Patient seen and examined for Sepsis. Somnolent today. No new complaints. No overnight events - Objective Resuscitation Status - Order Detail: 11/14/18 18:26 Resuscitation Status Routine Resuscitation Status: DNAR: NO Resuscitation Discussed with: daughter CHEO Reviewed: Yes Vital Signs & Weight: Vital Signs (12 hours) Temp Pulse Resp BP BP Pulse Ox 11/17/18 20:00 96 11/17/18 19:49 98.0 F 99 20 105/59 L 100 11/17/18 13:52 103 H 20 93 L 11/17/18 12:00 98.3 F 94 22 H 144/81 H 95 11/17/18 10:40 110 H 18 94 L Weight Weight 160 lb 14.4 oz I&O: 11/16/18 11/17/18 11/18/18 06:59 06:59 06:59 Intake Total 3410 1390 800 Balance 3410 1390 800 Result Diagrams: 11/17/18 07:20 11/17/18 07:20 Radiology Reviewed by me: Yes (CXR - Pneumonia) Phys Exam - Physical Examination Constitutional: NAD Respiratory: no wheezing Bibasilar rales/rhonchi Cardiovascular: RRR, no rub Gastrointestinal: soft, non-tender, positive bowel sounds Musculoskeletal: no edema Dx/Plan - Plan plan discussed w/ family, DVT proph w/lovenox, DVT proph w/SCDs 1. Sepsis with acute organ dysfunction secondary to pneumococcal pneumonia 2. Left lower extremity deep venous thrombosis - Patient will f/u with Dr Hensley for ?IVC filter 3. Lactic acidosis, improved. 4. Chronic systolic and diastolic heart failure, ejection fraction 30% to 35%. 5. Moderate to severe tricuspid regurgitation. 6. Hypokalemia. 7. Chronic kidney disease, stage 2. 8. Seizure disorder. 9. Alzheimer dementia. 10. Hypertension. 11. Paroxysmal atrial fibrillation, not an anticoagulation candidate. 12. History of deep venous thrombosis in the past. 13. History of gastrointestinal bleeding. 14. Seizure disorder 15. Swallow dysfunction - on modified diet PLAN: Cont current Atbx Cont current meds as below AM labs ABGs reviewed Replace Potassium Review of Systems - Review of Systems Other: Cannot be reliably obtained due to current mentation - Medications/Allergies Allergies/Adverse Reactions: Allergies Allergy/AdvReac Type Severity Reaction Status Date / Time codeine Allergy Verified 11/14/18 21:36 lisinopril Allergy Verified 11/14/18 21:36 Medications: Current Medications Acetaminophen (Tylenol) 650 mg PO Q4H PRN PRN Reason: Headache/Fever/Mild Pain (1-3) Last Admin: 11/16/18 21:39 Dose: 650 mg Acetaminophen (Tylenol) 650 mg AL Q4H PRN PRN Reason: Headache/Fever/Mild Pain (1-3) Albuterol/Ipratropium (Duoneb) 3 ml NEB Q4H PRN PRN Reason: SOB &/or Wheezing Last Admin: 11/17/18 13:52 Dose: 3 ml Amiodarone HCl (Cordarone) 200 mg PO DAILY [facility] Last Admin: 11/17/18 07:56 Dose: 200 mg Bisacodyl (Dulcolax) 10 mg PO DAILYPRN PRN PRN Reason: Constipation Enoxaparin Sodium (Lovenox) 40 mg SC 2100 [facility] Last Admin: 11/17/18 20:15 Dose: 40 mg Furosemide (Lasix) 40 mg PO DAILY-AC [facility] Last Admin: 11/17/18 07:56 Dose: 40 mg Hydralazine HCl (Apresoline) 10 mg SLOW IVP Q4H PRN PRN Reason: SBP Greater Than 180 Last Admin: 11/16/18 20:40 Dose: 10 mg Ceftriaxone Sodium 2 gm/ (Sodium Chloride) 100 mls @ 200 mls/hr IVPB Q24HR [facility] Last Admin: 11/17/18 15:52 Dose: 100 mls Levetiracetam (Keppra) 1,000 mg PO QAM [facility] Last Admin: 11/17/18 07:56 Dose: 1,000 mg Levetiracetam (Keppra) 1,000 mg PO QPM [facility] Last Admin: 11/17/18 20:15 Dose: 1,000 mg Lorazepam (Ativan) 0.5 mg SLOW IVP Q6H PRN PRN Reason: Anxiety/Agitation Last Admin: 11/16/18 21:40 Dose: 0.5 mg Losartan Potassium (Cozaar) 25 mg PO BID [facility] Last Admin: 11/17/18 20:15 Dose: 25 mg Olanzapine (Zyprexa) 10 mg PO 1200 [facility] Last Admin: 11/17/18 12:25 Dose: 10 mg Pantoprazole Sodium (Protonix) 40 mg PO DAILY [facility] Last Admin: 11/17/18 07:56 Dose: 40 mg Potassium Chloride (Klor-Con) 20 meq PO BID-[facility] Last Admin: 11/17/18 17:46 Dose: 20 meq Saccharomyces Boulardii (Florastor) 250 mg PO DAILY [facility] Sodium Chloride (Flush - Normal Saline) 10 ml IVF Q12HR [facility] Last Admin: 11/17/18 20:15 Dose: Not Given Sodium Chloride (Flush - Normal Saline) 10 ml IVF PRN PRN PRN Reason: Saline Flush Spironolactone (Aldactone) 25 mg PO DAILY [facility] Last Admin: 11/17/18 07:56 Dose: 25 mg
[2018-11-18 05:40] LABS: #Eosinphils 0.1 thou/uL (0.0-0.7); #Lymphocytes 1.1 thou/uL (1.20-3.40); #Monocytes 0.7 thou/uL (0.11-0.59); #Neutrophils 7.4 thou/uL (1.40-6.50); %Basophils 0.3 % (0.0-1.0); %Eosinophils 1.1 % (0.0-10.0); %Lymphocytes 11.9 % (21.0-51.0); %Monocytes 7.9 % (0.0-10.0); %Neutrophils 78.9 % (42.0-75.0); Hemoglobin 8.9 g/dL (12.0-16.0); Mean Corpuscular HGB CONC 30.7 g/dL (32.0-36.0); Mean Corpuscular Volume 74.7 fL (78.0-98.0); Mean Platelet Volume 10.4 fL (7.4-10.4); Platelet Count 195 thou/uL (130-400); RBC Distribution Width 16.6 % (11.5-14.5); Red Blood Cell (RBC) Count 3.88 mill/uL (4.20-5.40); White Blood Cell (WBC) Count 9.3 thou/uL (4.8-10.8)
[2018-11-18 05:50] LABS: Anion Gap 11 mmol/L (10-20); BUN (Urea Nitrogen) 13 mg/dL (9.8-20.1); Calc. Creatinine Clearance 65 mL/min (70-130); Calcium 8.4 mg/dL (7.8-10.44); Carbon Dioxide 28 mmol/L (23-31); Chloride 106 mmol/L (98-107); Estimated GFR-MDRD Greater than 90; Glucose 74 mg/dL (83-110); Potassium 3.5 mmol/L (3.5-5.1); Sodium 141 mmol/L (136-145)
[2018-11-18] MEDS: levETIRAcetam 500 MG TAB PO SCH (08:26)
[2018-11-18] MEDS: Amiodarone 200 MG TAB PO SCH (08:27)
[2018-11-18] MEDS: Saccharomyces boulardii 250 MG CAP PO SCH (08:27)
[2018-11-18] MEDS: Spironolactone 25 MG TAB PO SCH (08:27)
[2018-11-18] MEDS: Furosemide 40 MG TAB PO SCH (08:27)
[2018-11-18] MEDS: Losartan 25 MG TAB PO SCH ×2 (08:27→19:51)
[2018-11-18] MEDS: OLANZapine 5 MG TAB PO SCH (12:23)
[2018-11-18] MEDS: Acetaminophen 325 MG TAB PO PRN (12:26)
--- NOTE | 2018-11-18 13:03 | PDOC.PN ---
- Subjective Encounter Start Date: 11/18/18 Encounter Start Time: 08:45 -: old records requested/rev Patient seen and examined. No new complaints. No overnight events pt is very weak, has cough - Objective Resuscitation Status - Order Detail: 11/14/18 18:26 Resuscitation Status Routine Resuscitation Status: DNAR: NO Resuscitation Discussed with: daughter CHEO Reviewed: Yes Vital Signs & Weight: Vital Signs (12 hours) Temp Pulse Resp BP Pulse Ox 11/18/18 12:03 99.9 F H 84 22 H 165/88 H 97 11/18/18 08:00 92 L 11/18/18 07:38 99.5 F 89 24 H 159/73 H 92 L Weight Weight 160 lb 14.4 oz I&O: 11/17/18 11/18/18 11/19/18 06:59 06:59 06:59 Intake Total 1390 1050 Balance 1390 1050 Result Diagrams: 11/18/18 04:59 11/18/18 04:59 Phys Exam - Physical Examination Constitutional: NAD HEENT: PERRLA, moist MMs, sclera anicteric Neck: no JVD, supple Respiratory: no wheezing, no rhonchi scattered rales+ Cardiovascular: RRR, no significant murmur, no rub Gastrointestinal: soft, non-tender, no distention, positive bowel sounds Musculoskeletal: no edema, pulses present Neurological: non-focal, normal sensation Lymphatic: no nodes Psychiatric: normal affect Skin: no rash, normal turgor Dx/Plan (1) Bacteremia due to Streptococcus pneumoniae Code(s): R78.81 - BACTEREMIA Status: Acute (2) DVT (deep venous thrombosis) Code(s): I82.409 - ACUTE EMBOLISM AND THOMBOS UNSP DEEP VN UNSP LOWER EXTREMITY Status: Acute Qualifiers: DVT location: lower extremity Chronicity: acute Laterality: left Comment: H/O DVT.Off of Xarelto and Aspirin due to h/o GI Bleed currently has left popliteal DVT non occlusive (3) Sepsis with acute organ dysfunction Code(s): A41.9 - SEPSIS, UNSPECIFIED ORGANISM; R65.20 - SEVERE SEPSIS WITHOUT SEPTIC SHOCK Status: Acute (4) Streptococcal pneumonia Code(s): J15.4 - PNEUMONIA DUE TO OTHER STREPTOCOCCI Status: Acute (5) Chronic combined systolic (congestive) and diastolic (congestive) heart failure Code(s): I50.42 - CHRONIC COMBINED SYSTOLIC AND DIASTOLIC HRT FAIL Status: Chronic (6) Dementia Code(s): F03.90 - UNSPECIFIED DEMENTIA WITHOUT BEHAVIORAL DISTURBANCE Status: Chronic Qualifiers: Dementia type: Alzheimer's disease Alzheimer's disease onset: late-onset Comment: stable (7) H/O: GI bleed Code(s): Z87.19 - PERSONAL HISTORY OF OTHER DISEASES OF THE DIGESTIVE SYSTEM Status: Chronic (8) HTN (hypertension) Code(s): I10 - ESSENTIAL (PRIMARY) HYPERTENSION Status: Chronic Qualifiers: Hypertension type: essential hypertension Qualified Code(s): I10 - Essential (primary) hypertension Comment: controlled (9) PAF (paroxysmal atrial fibrillation) Code(s): I48.0 - PAROXYSMAL ATRIAL FIBRILLATION Status: Chronic (10) Physical deconditioning Code(s): R53.81 - OTHER MALAISE Status: Chronic Comment: (11) Seizure disorder Code(s): G40.909 - EPILEPSY, UNSP, NOT INTRACTABLE, WITHOUT STATUS EPILEPTICUS Status: Chronic (12) Severe tricuspid regurgitation by prior echocardiogram Code(s): I07.1 - RHEUMATIC TRICUSPID INSUFFICIENCY Status: Chronic (13) Hypokalemia Code(s): E87.6 - HYPOKALEMIA Status: Resolved Comment: - Plan cont current plan of care, plan discussed w/ family, continue antibiotics, PT/OT , social services technician * continue rocephin * add mucinex * pillowcase sewer for SNU evaluation * medication reviewed as below * symptomatic treatment. Review of Systems - Review of Systems Constitutional: weakness. negative: fever, chills, sweats, malaise, other ENT: negative: Ear Pain, Ear Discharge, Nose Pain, Nose Discharge, Nose Congestion, Mouth Pain, Mouth Swelling, Throat Pain, Throat Swelling, Other Respiratory: Cough, SOB with Excertion, Sputum. negative: Dry, Shortness of Breath, Hemoptysis, Pleuritic Pain, Wheezing Cardiovascular: negative: chest pain, palpitations, orthopnea, paroxysmal nocturnal dyspnea, edema, light headedness, other Gastrointestinal: negative: Nausea, Vomiting, Abdominal Pain, Diarrhea, Constipation, Melena, Hematochezia, Other Genitourinary: negative: Dysuria, Frequency, Incontinence, Hematuria, Retention , Other Musculoskeletal: negative: Neck Pain, Shoulder Pain, Arm Pain, Back Pain, Hand Pain, Leg Pain, Foot Pain, Other Skin: negative: Rash, Lesions, Avery, Bruising, Other - Medications/Allergies Allergies/Adverse Reactions: Allergies Allergy/AdvReac Type Severity Reaction Status Date / Time codeine Allergy Verified 11/14/18 21:36 lisinopril Allergy Verified 11/14/18 21:36 Medications: Current Medications Acetaminophen (Tylenol) 650 mg PO Q4H PRN PRN Reason: Headache/Fever/Mild Pain (1-3) Last Admin: 11/18/18 12:26 Dose: 650 mg Acetaminophen (Tylenol) 650 mg SD Q4H PRN PRN Reason: Headache/Fever/Mild Pain (1-3) Albuterol/Ipratropium (Duoneb) 3 ml NEB Q4H PRN PRN Reason: SOB &/or Wheezing Last Admin: 11/17/18 13:52 Dose: 3 ml Amiodarone HCl (Cordarone) 200 mg PO DAILY [facility] Last Admin: 11/18/18 08:27 Dose: 200 mg Bisacodyl (Dulcolax) 10 mg PO DAILYPRN PRN PRN Reason: Constipation Enoxaparin Sodium (Lovenox) 40 mg SC 2100 [facility] Last Admin: 11/17/18 20:15 Dose: 40 mg Furosemide (Lasix) 40 mg PO DAILY-AC [facility] Last Admin: 11/18/18 08:27 Dose: 40 mg Hydralazine HCl (Apresoline) 10 mg SLOW IVP Q4H PRN PRN Reason: SBP Greater Than 180 Last Admin: 11/16/18 20:40 Dose: 10 mg Ceftriaxone Sodium 2 gm/ (Sodium Chloride) 100 mls @ 200 mls/hr IVPB Q24HR [facility] Last Admin: 11/17/18 15:52 Dose: 100 mls Levetiracetam (Keppra Oral Solution) 1,000 mg PO QAM [facility] Levetiracetam (Keppra Oral Solution) 1,000 mg PO QPM [facility] Lorazepam (Ativan) 0.5 mg SLOW IVP Q6H PRN PRN Reason: Anxiety/Agitation Last Admin: 11/16/18 21:40 Dose: 0.5 mg Losartan Potassium (Cozaar) 25 mg PO BID [facility] Last Admin: 11/18/18 08:27 Dose: 25 mg Olanzapine (Zyprexa) 10 mg PO 1200 [facility] Last Admin: 11/18/18 12:23 Dose: 10 mg Pantoprazole Sodium (Protonix) 40 mg PO DAILY [facility] Last Admin: 11/18/18 08:26 Dose: 40 mg Potassium Chloride (Klor-Con) 20 meq PO BID-[facility] Last Admin: 11/18/18 08:26 Dose: 20 meq Saccharomyces Boulardii (Florastor) 250 mg PO DAILY [facility] Last Admin: 11/18/18 08:27 Dose: 250 mg Sodium Chloride (Flush - Normal Saline) 10 ml IVF Q12HR [facility] Last Admin: 11/18/18 08:27 Dose: Not Given Sodium Chloride (Flush - Normal Saline) 10 ml IVF PRN PRN PRN Reason: Saline Flush Spironolactone (Aldactone) 25 mg PO DAILY [facility] Last Admin: 11/18/18 08:27 Dose: 25 mg
[2018-11-18] MEDS ORDERED: guaiFENesin ER 600 MG TAB PO SCH (13:15)
[2018-11-18] MEDS: Lorazepam 2 MG/ML VIAL SLOW IVP PRN (14:54)
[2018-11-18] MEDS: cefTRIAXone\\ROCEPHIN 2 GM in Sodium Chloride 0.9% 100 ML IVPB SCH (14:58)
[2018-11-18] MEDS: guaiFENesin ER 600 MG TAB PO SCH (17:20)
[2018-11-18] MEDS: Enoxaparin Sodium 40 MG/0.4 ML SYRINGE SC SCH (19:51)
[2018-11-18] MEDS: levETIRAcetam 500 mg/5 ml Oral Solution PO SCH (19:51)
[2018-11-19] MEDS: guaiFENesin ER 600 MG TAB PO SCH ×5 (00:09→23:39)
[2018-11-19] MEDS: Spironolactone 25 MG TAB PO SCH (08:11)
[2018-11-19] MEDS: Saccharomyces boulardii 250 MG CAP PO SCH (08:11)
[2018-11-19] MEDS: Losartan 25 MG TAB PO SCH ×2 (08:11→19:59)
[2018-11-19] MEDS: Furosemide 40 MG TAB PO SCH (08:11)
[2018-11-19] MEDS: Amiodarone 200 MG TAB PO SCH (08:11)
[2018-11-19] MEDS: levETIRAcetam 500 mg/5 ml Oral Solution PO SCH ×2 (10:28→19:59)
[2018-11-19] MEDS: OLANZapine 5 MG TAB PO SCH (12:12)
--- NOTE | 2018-11-19 13:15 | PDOC.PN ---
- Subjective Encounter Start Date: 11/19/18 Encounter Start Time: 08:15 Patient seen and examined. No new complaints. No overnight events - Objective Resuscitation Status - Order Detail: 11/14/18 18:26 Resuscitation Status Routine Resuscitation Status: DNAR: NO Resuscitation Discussed with: daughter CHEO Reviewed: Yes Vital Signs & Weight: Vital Signs (12 hours) Temp Pulse Resp BP Pulse Ox 11/19/18 08:11 96 11/19/18 07:34 98.2 F 86 22 H 153/74 H 96 11/19/18 04:15 98.5 F 86 20 158/74 H 93 L 11/19/18 02:23 95 Weight Weight 160 lb 14.4 oz I&O: 11/18/18 11/19/18 11/20/18 06:59 06:59 06:59 Intake Total 1050 976 Output Total 3 Balance 1050 973 Result Diagrams: 11/18/18 04:59 11/18/18 04:59 Phys Exam - Physical Examination Constitutional: NAD HEENT: PERRLA, moist MMs, sclera anicteric Neck: no JVD, supple Respiratory: no wheezing, no rales, no rhonchi Cardiovascular: RRR, no significant murmur, no rub Gastrointestinal: soft, non-tender, no distention, positive bowel sounds Musculoskeletal: no edema, pulses present Neurological: non-focal, normal sensation Lymphatic: no nodes Psychiatric: normal affect Skin: no rash, normal turgor Dx/Plan (1) Bacteremia due to Streptococcus pneumoniae Code(s): R78.81 - BACTEREMIA Status: Acute (2) DVT (deep venous thrombosis) Code(s): I82.409 - ACUTE EMBOLISM AND THOMBOS UNSP DEEP VN UNSP LOWER EXTREMITY Status: Acute Qualifiers: DVT location: lower extremity Chronicity: acute Laterality: left Comment: H/O DVT.Off of Xarelto and Aspirin due to h/o GI Bleed currently has left popliteal DVT non occlusive (3) Sepsis with acute organ dysfunction Code(s): A41.9 - SEPSIS, UNSPECIFIED ORGANISM; R65.20 - SEVERE SEPSIS WITHOUT SEPTIC SHOCK Status: Acute (4) Streptococcal pneumonia Code(s): J15.4 - PNEUMONIA DUE TO OTHER STREPTOCOCCI Status: Acute (5) Chronic combined systolic (congestive) and diastolic (congestive) heart failure Code(s): I50.42 - CHRONIC COMBINED SYSTOLIC AND DIASTOLIC HRT FAIL Status: Chronic (6) Dementia Code(s): F03.90 - UNSPECIFIED DEMENTIA WITHOUT BEHAVIORAL DISTURBANCE Status: Chronic Qualifiers: Dementia type: Alzheimer's disease Alzheimer's disease onset: late-onset Comment: stable (7) H/O: GI bleed Code(s): Z87.19 - PERSONAL HISTORY OF OTHER DISEASES OF THE DIGESTIVE SYSTEM Status: Chronic (8) HTN (hypertension) Code(s): I10 - ESSENTIAL (PRIMARY) HYPERTENSION Status: Chronic Qualifiers: Hypertension type: essential hypertension Qualified Code(s): I10 - Essential (primary) hypertension Comment: controlled (9) PAF (paroxysmal atrial fibrillation) Code(s): I48.0 - PAROXYSMAL ATRIAL FIBRILLATION Status: Chronic (10) Physical deconditioning Code(s): R53.81 - OTHER MALAISE Status: Chronic Comment: (11) Seizure disorder Code(s): G40.909 - EPILEPSY, UNSP, NOT INTRACTABLE, WITHOUT STATUS EPILEPTICUS Status: Chronic (12) Severe tricuspid regurgitation by prior echocardiogram Code(s): I07.1 - RHEUMATIC TRICUSPID INSUFFICIENCY Status: Chronic (13) Hypokalemia Code(s): E87.6 - HYPOKALEMIA Status: Resolved Comment: - Plan cont current plan of care, continue antibiotics, social worker * continue rocephin * bilingual patient support caseworker for discharge planning * medication reviewed as below * symptomatic treatment. Review of Systems - Review of Systems Other: not reliable due to dementia - Medications/Allergies Allergies/Adverse Reactions: Allergies Allergy/AdvReac Type Severity Reaction Status Date / Time codeine Allergy Verified 11/14/18 21:36 lisinopril Allergy Verified 11/14/18 21:36 Medications: Current Medications Acetaminophen (Tylenol) 650 mg PO Q4H PRN PRN Reason: Headache/Fever/Mild Pain (1-3) Last Admin: 11/18/18 12:26 Dose: 650 mg Acetaminophen (Tylenol) 650 mg [place] Q4H PRN PRN Reason: Headache/Fever/Mild Pain (1-3) Albuterol/Ipratropium (Duoneb) 3 ml NEB Q4H PRN PRN Reason: SOB &/or Wheezing Last Admin: 11/17/18 13:52 Dose: 3 ml Amiodarone HCl (Cordarone) 200 mg PO DAILY [facility] Last Admin: 11/19/18 08:11 Dose: 200 mg Bisacodyl (Dulcolax) 10 mg PO DAILYPRN PRN PRN Reason: Constipation Enoxaparin Sodium (Lovenox) 40 mg SC 2100 [facility] Last Admin: 11/18/18 19:51 Dose: 40 mg Furosemide (Lasix) 40 mg PO DAILY-AC [facility] Last Admin: 11/19/18 08:11 Dose: 40 mg Guaifenesin (Mucinex) 600 mg PO Q6HR [facility] Last Admin: 11/19/18 12:13 Dose: 600 mg Hydralazine HCl (Apresoline) 10 mg SLOW IVP Q4H PRN PRN Reason: SBP Greater Than 180 Last Admin: 11/16/18 20:40 Dose: 10 mg Ceftriaxone Sodium 2 gm/ (Sodium Chloride) 100 mls @ 200 mls/hr IVPB Q24HR [facility] Last Admin: 11/18/18 14:58 Dose: 100 mls Levetiracetam (Keppra Oral Solution) 1,000 mg PO QAM [facility] Last Admin: 11/19/18 10:28 Dose: 1,000 mg Levetiracetam (Keppra Oral Solution) 1,000 mg PO QPM [facility] Last Admin: 11/18/18 19:51 Dose: 1,000 mg Lorazepam (Ativan) 0.5 mg SLOW IVP Q6H PRN PRN Reason: Anxiety/Agitation Last Admin: 11/18/18 14:54 Dose: 0.5 mg Losartan Potassium (Cozaar) 25 mg PO BID [facility] Last Admin: 11/19/18 08:11 Dose: 25 mg Olanzapine (Zyprexa) 10 mg PO 1200 [facility] Last Admin: 11/19/18 12:12 Dose: 10 mg Pantoprazole Sodium (Protonix) 40 mg PO DAILY [facility] Last Admin: 11/19/18 08:11 Dose: 40 mg Potassium Chloride (Klor-Con) 20 meq PO BID-[facility] Last Admin: 11/19/18 08:11 Dose: 20 meq Saccharomyces Boulardii (Florastor) 250 mg PO DAILY [facility] Last Admin: 11/19/18 08:11 Dose: 250 mg Sodium Chloride (Flush - Normal Saline) 10 ml IVF Q12HR [facility] Last Admin: 11/19/18 08:12 Dose: 10 ml Sodium Chloride (Flush - Normal Saline) 10 ml IVF PRN PRN PRN Reason: Saline Flush Spironolactone (Aldactone) 25 mg PO DAILY [facility] Last Admin: 11/19/18 08:11 Dose: 25 mg
[2018-11-19] MEDS: cefTRIAXone\\ROCEPHIN 2 GM in Sodium Chloride 0.9% 100 ML IVPB SCH (14:25)
[2018-11-19] MEDS: Lorazepam 2 MG/ML VIAL SLOW IVP PRN (14:26)
[2018-11-19] MEDS: Enoxaparin Sodium 40 MG/0.4 ML SYRINGE SC SCH (19:59)
[2018-11-19] MEDS: Acetaminophen 325 MG TAB PO PRN (20:01)
[2018-11-19] MEDS ORDERED: Melatonin 3 MG TAB PO PRN (21:44)
[2018-11-20] MEDS: Acetaminophen 325 MG TAB PO PRN (04:54)
[2018-11-20] MEDS: guaiFENesin ER 600 MG TAB PO SCH ×3 (04:55→11:45)
[2018-11-20] MEDS: Amiodarone 200 MG TAB PO SCH (07:38)
[2018-11-20] MEDS: Spironolactone 25 MG TAB PO SCH (07:38)
[2018-11-20] MEDS: Furosemide 40 MG TAB PO SCH (07:38)
[2018-11-20] MEDS: Losartan 25 MG TAB PO SCH (07:38)
[2018-11-20] MEDS: Saccharomyces boulardii 250 MG CAP PO SCH (07:38)
[2018-11-20] MEDS: Lorazepam 2 MG/ML VIAL SLOW IVP PRN (07:44)
[2018-11-20] MEDS: levETIRAcetam 500 mg/5 ml Oral Solution PO SCH (08:27)
--- NOTE | 2018-11-20 11:35 | DIS ---
DATE OF ADMISSION: 11/14/2018 DATE OF DISCHARGE: 11/20/2018 PRIMARY CARE PHYSICIAN: [facility] Call Admission. DISCHARGE DISPOSITION: Swing bed. PRIMARY DISCHARGE DIAGNOSES: Bacteremia due to streptococcal pneumonia, sepsis with acute organ dysfunction, streptococcal pneumonia, and hypokalemia. SECONDARY DISCHARGE DIAGNOSES: Severe tricuspid regurgitation, seizure disorder, physical deconditioning, paroxysmal atrial fibrillation, hypertension, history of gastrointestinal bleed, dementia, chronic combined systolic and diastolic heart failure, and history of deep venous thrombosis. PRIMARY PROCEDURE/OPERATION: None. RADIOLOGICAL INVESTIGATION: Chest x-ray showed pneumonia. CT brain negative for any acute intracranial process. Ultrasound positive for DVT. Repeat chest x-ray showed no acute process. SIGNIFICANT LABORATORY DATA: WBC 9.3, hemoglobin 8.9, and platelets 195. Sodium 141 and creatinine 0.73. Blood culture was positive for Streptococcus pneumoniae. Urine culture negative. Influenza negative. DISCHARGE MEDICATIONS: 1. Amiodarone 200 mg p.o. daily. 2. Lasix 40 mg daily. 3. Losartan 25 mg b.i.d. 4. Zyprexa 10 mg daily. 5. Aldactone 25 mg daily. 6. Mucinex 600 mg twice daily for 10 days. 7. Augmentin 875 mg twice daily for 10 days. 8. DuoNeb q.4 hourly p.r.n. 9. Keppra 1000 mg p.o. daily. 10. Protonix 40 mg p.o. daily. 11. Florastor 250 mg p.o. daily for 10 days. CONTRAINDICATION: None. CODE STATUS: DNR. INPATIENT CALENDER WIND UP TENDER: Dr. Vargas was following while in the hospital. TEST RESULT PENDING ON DISCHARGE: None. ALLERGIES: CODEINE AND LISINOPRIL. DISCHARGE PLAN: Posthospital, the patient will follow up with primary care physician. HOSPITAL COURSE: An 83-year-old female with above-mentioned medical problem, who was admitted by Dr. Ulloa, please see his H and P for further details. The patient was having respiratory symptoms with altered mental status. She was found with pneumonia. Her blood culture was positive for Streptococcus pneumoniae. The patient was treated while in hospital with Rocephin, and subsequently, antibiotic therapy changed to Augmentin on discharge. Dr. Vargas was following while in hospital. The patient was having significant physical weakness and that is why family member requested placement, and with the help of corrections caseworker, we arranged snf home placement. The patient was seen and examined at bedside today. REVIEW OF SYSTEMS: All review of systems reviewed with her and negative. PHYSICAL EXAMINATION: VITAL SIGNS: Currently, temperature 98.1, pulse 73, respiratory rate 20, saturation 99%, and blood pressure 153/85. Weight 160 pounds. GENERAL: The patient is currently alert, awake, follows simple commands. No obvious acute distress. HEENT: Head, normocephalic and atraumatic. Eyes, pupils round and reactive to light. Extraocular muscle intact. ENT, oropharynx within normal limits. Moist mucous membranes. No oral lesion. No pharyngeal erythema. No exudate. NECK: Supple. No JVD. LUNGS: Clear without any rhonchi. CARDIAC: S1 and S2 regular without any murmur. ABDOMEN: Soft and benign. EXTREMITIES: No edema. NEUROLOGIC: Nonfocal examination. Paperwork for discharge done and discharge medication reconciliation done. Total time spent on discharge day, 31 minutes. Job ID: [id number]
[2018-11-20] MEDS: OLANZapine 5 MG TAB PO SCH (11:45)
[2018-11-20 11:57] VITALS: BP 125/75; TEMP 97.6
--- NOTE | 2018-11-21 10:18 | EKG ---
Test Reason : Blood Pressure : / mmHG Vent. Rate : 099 BPM Atrial Rate : 099 BPM P-R Int : 160 ms QRS Dur : 088 ms QT Int : 348 ms P-R-T Axes : 034 -27 066 degrees QTc Int : 446 ms Normal sinus rhythm Possible Left atrial enlargement Left ventricular hypertrophy Nonspecific T wave abnormality Abnormal ECG Confirmed by SONIA SALAMANCA DO ([id number]), clinical editor ODESSA AGUIRRE ([id number]) on 11/21/2018 10:17:32 AM Referred By: Confirmed By:SONIA SALAMANCA DO
== END 2018-11-20 13:12 | DRG 871 ==
LOC: ERS 12:42 → T4-A 18:22 → OBSVTOIN 18:22 → T4-A 18:34
PROVIDERS: ADMIT Internal Medicine; ATTEND Internal Medicine
DX: A40.3 Sepsis due to Streptococcus pneumoniae (principal); J13 Pneumonia due to Streptococcus pneumoniae; R65.20 Severe sepsis without septic shock; I82.432 Acute embolism and thrombosis of left popliteal vein; I50.42 Chronic combined systolic (congestive) and diastolic (congestive) heart failure; I13.0 Hypertensive heart and chronic kidney disease with heart failure and stage 1 through stage 4 chronic kidney disease, or unspecified chronic kidney disease; Z66 Do not resuscitate; G30.9 Alzheimer's disease, unspecified; F02.80 Dementia in other diseases classified elsewhere, unspecified severity, without behavioral disturbance, psychotic disturbance, mood disturbance, and anxiety; E87.6 Hypokalemia; I07.1 Rheumatic tricuspid insufficiency; N18.2 Chronic kidney disease, stage 2 (mild); I48.0 Paroxysmal atrial fibrillation; G40.909 Epilepsy, unspecified, not intractable, without status epilepticus; Z90.11 Acquired absence of right breast and nipple; Z88.5 Allergy status to narcotic agent; Z85.3 Personal history of malignant neoplasm of breast; Z90.710 Acquired absence of both cervix and uterus; Z79.82 Long term (current) use of aspirin; Z79.899 Other long term (current) drug therapy; Z88.8 Allergy status to other drugs, medicaments and biological substances
CPT/HCPCS: 36415; 51701; 70450; 71045; 80048; 80053; 80202; 81003; 81015; 82805; 83605; 83735; 84100; 85025; 86140; 87040; 87077; 87086; 87149; 87186; 87804; 93005; 93970; 94640; 96361; 96365; 96366; 96367; A4353; J0360; J0696; J1650; J1940; J2060; J2543; J3370; J3490; J7050; J7620

== ENCOUNTER 2018-12-06 21:55 | Emergency (ER) | payer MEDICARE ==
[2018-12-06 22:44] LABS: Bilirubin Negative (Negative); Blood, Urine Moderate (Negative); Clarity CLEAR (Clear); Glucose, Urine (Dipstick) Negative (Negative); Leukocyte Small (Negative); Nitrite Negative (Negative); Protein, Urine (Dipstick) Negative (Neg-Trace); Specific Gravity, Urine 1.016 (1.002-1.036); pH, Urine 6.5 (5.0-9.0)
--- NOTE | 2018-12-06 22:45 | RAD ---
LEFT HIP TWO VIEWS: History: Fall, left hip pain. FINDINGS/IMPRESSION: Degenerative changes are present. No acute fracture or dislocation is identified in the left hip. POS: JONO
[2018-12-06 22:46] LABS: Bacteria/HPF None Seen HPF (None Seen); Pathc Cast-AUWi Flag 4.08 (0-2.49); RBC/HPF 21-50 HPF (0-3)
[2018-12-06 22:47] LABS: Hyaline Casts/LPF 0-3 HYALINE CAST LPF (0-3 Hyaline)
--- NOTE | 2018-12-06 22:52 | RAD ---
RIGHT KNEE FOUR VIEWS: History: Fall, right knee pain. FINDINGS/IMPRESSION: There are degenerative changes. No fracture or dislocation is identified. POS: IVANA
--- NOTE | 2018-12-06 22:54 | RAD ---
RIGHT HIP THREE VIEWS: History: Fall, right hip pain. FINDINGS/IMPRESSION: Degenerative changes are present. No acute fracture or dislocation is identified. POS: IVANA
--- NOTE | 2018-12-06 22:54 | RAD ---
LEFT KNEE FOUR VIEWS: History: Fall, left knee pain. FINDINGS/IMPRESSION: Degenerative changes are present. No acute fracture or dislocation is seen. There is an enchondroma v ersus old infarct in the proximal tibia. There are vascular calcifications. POS: JONO
== END 2018-12-06 23:42 ==
LOC: ERS 21:55
DX: N39.0 Urinary tract infection, site not specified (principal); E78.5 Hyperlipidemia, unspecified; I10 Essential (primary) hypertension; J44.9 Chronic obstructive pulmonary disease, unspecified; Z87.891 Personal history of nicotine dependence; Z79.899 Other long term (current) drug therapy; W19.XXXA Unspecified fall, initial encounter
CPT/HCPCS: 51701; 81003; 81015; A4353

== ENCOUNTER 2019-06-07 17:55 | Inpatient (IN) | payer MEDICARE ==
[2019-06-07] MEDS ORDERED: HYDROcodone/Acetaminophen 5/325 mg Tablet ONE (21:15)
--- NOTE | 2019-06-07 22:06 | CT ---
EXAM: CT Lumbar Spine WO Con DATE: 06/07/2019 12:00 AM INDICATION: Fall with back pain COMPARISON: None. FINDING: There is diffuse osteopenia. There is ankylosis of L5-S1. There is grade 1 anterolisthesis of L4: L5 with vacuum disc phenomenon within the L4-L5 facet joints and intervertebral disc. There is grade 1 anterolisthesis of L3 on L4 which is also likely degenerative. There is bibasilar emphysem a. There are scattered vascular calcifications. The left kidney is atrophic. Left kidney is mildly lobulated. IMPRESSION:No acute fracture or subluxation demonstrated. Moderate to severe lumbar spondylosis.
--- NOTE | 2019-06-07 22:11 | CT ---
CT OF THE PELVIS WITH IV CONTRAST INDICATION: Fall with pelvic pain COMPARISON: None FINDINGS: Pelvis: Small and large bowel: There is a moderate amount retained stool within the rectum and visualized col on. Appendix:Normal Bladder: There is a 5.2 cm left and 3.4 cm right cystic abnormality is seen along both aspects of the bladder which may reflect bladder diverticula or possibly bilateral adnexal cysts. Rectal and perirectal soft tissues:There is moderate amount of retained stool within the rectum Reproductive structures: Not definitely visualized. There are bilateral cystic abnormalities seen yaniv r the expected region of the adnexa. This are also along the posterior lateral aspect of the bladder bilaterally. These may reflect bladder diverticula or adnexal cysts. Free fluid in pelvis: No free fluid is evident. Lymphadenopathy pelvis: No lymphadenopathy is evident. Osseous structures: No acute osseous abnormality. No destructive osteolytic or osteoblastic lesion i s identified. There is scattered degenerative and osteoarthritic changes. Soft tissues:There is muscular atrophy of the hip girdle musculature. IMPRESSION: 1. No acute fracture or subluxation demonstrated. Diffuse osteopenia. 2. Cystic abnormalities seen along the posterior lateral aspect of the bladder may reflect adnexal cy sts or bladder diverticula. Recommend correlation with patient's surgical history for possible bilateral oophorectomy. The uterus is not visualized and presumed to be surgically absent. 3. Moderate amount of retained stool within the colon.
[2019-06-08] MEDS ORDERED: FLU VACC TS2019-20(65YR UP)/PF 180 MCG/0.5 ML SYRINGE IM ONE (02:45)
[2019-06-08] MEDS: HYDROcodone/Acetaminophen 5/325 mg Tablet PO PRN ×2 (02:55→08:15)
[2019-06-08] MEDS ORDERED: Prevnar 13-Val Conj/PF 0.5 ML SYRINGE IM ONE (09:00)
[2019-06-08] MEDS ORDERED: Acetaminophen 325 MG TAB PO PRN (11:53)
[2019-06-08] MEDS ORDERED: Lorazepam 2 MG/ML VIAL SLOW IVP PRN (11:58)
[2019-06-08] MEDS ORDERED: hydrALAZINE 20 MG/ML VIAL SLOW IVP PRN (11:58)
[2019-06-08] MEDS: Acetaminophen 325 MG TAB PO SCH ×3 (12:22→20:34)
[2019-06-08] MEDS ORDERED: levETIRAcetam 500 mg/5 ml Oral Solution PO SCH (12:30)
[2019-06-08 13:47] LABS: #Eosinphils 0.1 thou/uL (0.0-0.7); #Lymphocytes 1.7 thou/uL (1.20-3.40); #Monocytes 0.7 thou/uL (0.11-0.59); #Neutrophils 6.3 thou/uL (1.40-6.50); %Basophils 0.3 % (0.0-1.0); %Eosinophils 1.5 % (0.0-10.0); %Monocytes 7.9 % (0.0-10.0); %Neutrophils 71.3 % (42.0-75.0); Hemoglobin 11.1 g/dL (12.0-16.0); Mean Corpuscular HGB CONC 31.2 g/dL (32.0-36.0); Mean Corpuscular Hemoglobin 24.5 pg (27.0-31.0); Mean Corpuscular Volume 78.6 fL (78.0-98.0); Mean Platelet Volume 8.5 fL (7.4-10.4); Platelet Count 221 thou/uL (130-400); RBC Distribution Width 15.9 % (11.5-14.5); Red Blood Cell (RBC) Count 4.52 mill/uL (4.20-5.40); White Blood Cell (WBC) Count 8.8 thou/uL (4.8-10.8)
[2019-06-08 14:00] LABS: ALT (SGPT) 150 U/L (8-55); AST (SGOT) 84 U/L (5-34); Albumin 3.4 g/dL (3.4-4.8); Alkaline Phosphatase 85 U/L (40-110); Anion Gap 13 mmol/L (10-20); BUN (Urea Nitrogen) 20 mg/dL (9.8-20.1); Bilirubin, Total 0.6 mg/dL (0.2-1.2); Calc. Creatinine Clearance 53 mL/min (70-130); Calcium 8.4 mg/dL (7.8-10.44); Carbon Dioxide 28 mmol/L (23-31); Chloride 102 mmol/L (98-107); Estimated GFR-MDRD 81; Globulin 3.7 g/dL (2.4-3.5); Glucose 86 mg/dL (83-110); Magnesium 2.4 mg/dL (1.6-2.6); Potassium 3.8 mmol/L (3.5-5.1); Protein, Total 7.1 g/dL (6.0-8.3); Sodium 139 mmol/L (136-145)
--- NOTE | 2019-06-08 14:33 | HP ---
This patient is a left over from last night PRIMARY CARE PHYSICIAN: Ravin Chamberlain MD CHIEF COMPLAINT: Low back pain. HISTORY OF PRESENT ILLNESS: The patient is an 83-year-old female with Alzheimer dementia, who presented to the emergency room after an episode of fall. The patient currently lives at home with her daughter. She was last admitted at this facility 5-6 months ago for sepsis secondary to pneumonia with bacteremia. She has Alzheimer dementia. She ambulates with the help of a walker. She is alert, awake, oriented x1 at baseline. She is on mechanical soft with thin liquids. She is occasionally incontinent. She refuses to wear effective glasses. She has home health care once a week. The fall occurred the day prior to admission. The daughter caught her while she was falling. She landed on her low back. Next day, she started complaining of low back pain. There is no head injury reported. No fever, chills, recent immobilization travel reported. She has dry cough on and off for last 1 week or so. Not much information is available from the patient. History obtained from the Ms. Dani FINE over the phone. The patient is full code. PAST MEDICAL HISTORY: 1. Alzheimer's dementia. 2. Chronic diastolic heart failure. 3. Chronic systolic and diastolic heart failure, ejection fraction 30% to 35%. 4. History of DVT, not anticoagulation candidate. 5. History of GI bleed secondary to esophagitis and gastric erosion. 6. Pyloric stenosis, status post dilatation. 7. Hypertension. 8. History of UTI. 9. History of sepsis with bacteremia due to streptococcal pneumonia in November of 2018. 10. Severe tricuspid regurgitation. 11. Seizure disorder. 12. Physical deconditioning. PAST SURGICAL HISTORY: 1. Dilatation for pyloric stenosis. 2. EGD. 3. Right mastectomy for breast cancer in 2013. 4. Hysterectomy. ALLERGIES: THE PATIENT IS ALLERGIC TO CODEINE AND LISINOPRIL. CURRENT HOME MEDICATIONS: The daughter will bring the accurate list of medications from home. Medications will be verified. She is on Keppra 1000 mg b.i.d. per nursing record. SOCIAL HISTORY: As discussed above. The code status is full code according to the daughter. No current use of tobacco, alcohol, or drug use. FAMILY HISTORY: Heart disease runs in her family. Mother had breast cancer. REVIEW OF SYSTEMS: Cannot be obtained from the patient due to current mentation. PHYSICAL EXAMINATION: VITAL SIGNS: Temperature 99, respirations of 18, pulse rate of 82, blood pressure of 119/61, O2 saturation of 95% on room air. GENERAL: An 83-year-old female, in distress due to significant pain. HEENT: Head, atraumatic and normocephalic. Sclerae anicteric. Moist mucous membrane. No oral lesion. NECK: Supple. No JVD. No carotid bruit. LUNGS: Clear to auscultation bilaterally with scattered rales at bases. There was no accessory muscle use. Percussion was in normal range. HEART: S1, S2 present. Regular rate and rhythm 2/6 systolic murmur over the mitral area. ABDOMEN: Soft, nontender. Bowel sounds present. EXTREMITIES: No edema, calf tenderness. NEUROLOGY: Grossly nonfocal based on limited examination. Power was 5/5 in all extremities. PSYCHIATRY: Alert, awake, oriented x3. LYMPH NODES: No palpable lymph nodes in the neck. MUSCULOSKELETAL: No joint swelling, tenderness. There is some tenderness on palpation in the lower back. LABORATORY FINDINGS: CBC showed WBC 8.8 with hemoglobin 11.1, hematocrit 35.5, platelet of 221. Chemistries are pending at this time. Pelvic CT was negative for acute fractures. There was moderate amount of retained stool within the colon. CT of the lumbar spine was negative. IMPRESSION: 1. Intractable low back pain that started after a fall. Imaging negative for acute fractures. 2. Physical deconditioning. 3. Alzheimer dementia. 4. Chronic systolic and diastolic heart failure. 5. Ocqkyqit-sq-apfjpn tricuspid regurgitation. 6. History of deep venous thrombosis, not anticoagulation candidate. 7. Hypertension. 8. History of gastrointestinal bleeding. 9. Chronic anemia. 10. Chronic kidney disease stage 3. Creatinine last month was 1.01. 11. History of vitamin D deficiency. PLAN: The patient will be monitored on the medical floor. Physical Therapy has been consulted. We will rule out pneumonia and UTI. A consult has been sent for inpatient rehabilitation. We will resume selected home medications based on last discharge summary. We will resume Lasix probably tomorrow. Basic metabolic profile is still pending at this time. Plan of care was discussed with the daughter over the phone, she stated understanding. Job ID: [id number]
[2019-06-08] MEDS: traMADol HCl 50 MG TAB PO PRN (14:54)
[2019-06-08] MEDS: Lorazepam 0.5 MG TAB PO PRN ×2 (16:19→20:40)
[2019-06-08] MEDS: Calcium Carbonate + Vit D 1 TAB PO SCH (17:59)
--- NOTE | 2019-06-08 19:16 | RAD ---
Chest one view HISTORY: Cough. COMPARISON: 11/16/2018. FINDINGS: Cardiac silhouette is magnified by projection. Pulmonary vasculature upper limits of normal . Coarsened interstitium throughout each lung, worse at the bases, is more pronounced than on the prior study. Mediastinum is midline with aortic calcification. No lobar consolidation or evidence of pneumothorax. Degenerative changes of the shoulders. IMPRESSION: Interval worsening of widespread interstitial thickening. Possibly related to chronic int erstitial disease or interstitial inflammation. Atherosclerosis.
[2019-06-08] MEDS: Losartan 25 MG TAB PO SCH (20:33)
[2019-06-08] MEDS: Senokot S 8.6-50 MG TAB PO SCH (20:33)
[2019-06-08] MEDS: Enoxaparin Sodium 30 MG/0.3 ML SYRINGE SC SCH (20:33)
[2019-06-09] MEDS: Lorazepam 0.5 MG TAB PO PRN ×3 (07:39→21:20)
[2019-06-09] MEDS: Acetaminophen 325 MG TAB PO SCH ×3 (07:40→20:08)
[2019-06-09] MEDS: Calcium Carbonate + Vit D 1 TAB PO SCH ×2 (07:45→15:46)
[2019-06-09] MEDS: Amiodarone 200 MG TAB PO SCH (08:03)
[2019-06-09] MEDS: Folic Acid 1 MG TAB PO SCH (08:03)
[2019-06-09] MEDS: Senokot S 8.6-50 MG TAB PO SCH ×2 (08:03→20:08)
[2019-06-09] MEDS: Losartan 25 MG TAB PO SCH ×2 (08:03→20:08)
[2019-06-09] MEDS: Spironolactone 25 MG TAB PO SCH (08:03)
[2019-06-09] MEDS: Polyethylene Glycol 3350 17 GM Packet PO SCH (08:04)
[2019-06-09] MEDS ORDERED: levETIRAcetam 100 mg/ml Oral Solution PO SCH (09:00)
[2019-06-09 10:02] LABS: ALT (SGPT) 117 U/L (8-55); AST (SGOT) 55 U/L (5-34); Albumin 3.2 g/dL (3.4-4.8); Alkaline Phosphatase 82 U/L (40-110); Anion Gap 11 mmol/L (10-20); BUN (Urea Nitrogen) 15 mg/dL (9.8-20.1); Bilirubin, Total 0.6 mg/dL (0.2-1.2); Calc. Creatinine Clearance 60 mL/min (70-130); Calcium 8.3 mg/dL (7.8-10.44); Carbon Dioxide 29 mmol/L (23-31); Chloride 101 mmol/L (98-107); Estimated GFR-MDRD Greater than 90; Globulin 3.4 g/dL (2.4-3.5); Glucose 97 mg/dL (83-110); Potassium 3.5 mmol/L (3.5-5.1); Protein, Total 6.6 g/dL (6.0-8.3); Sodium 137 mmol/L (136-145)
[2019-06-09] MEDS: levETIRAcetam 500 mg/5 ml Oral Solution PO SCH (10:06)
[2019-06-09] MEDS ORDERED: Furosemide 40 MG TAB PO SCH (12:00)
[2019-06-09] MEDS: traMADol HCl 50 MG TAB PO PRN (12:47)
[2019-06-09 13:45] LABS: Bacteria/HPF 4+ HPF (None Seen); Bilirubin Negative (Negative); Blood, Urine Trace (Negative); Clarity Turbid (Clear); Glucose, Urine (Dipstick) Normal (Negative); Leukocyte 500 Leu/uL (Negative); Nitrite Negative (Negative); Protein, Urine (Dipstick) 20 mg/dL (Neg-Trace); Squamous Epithelial None Seen HPF (0-3); WBC/HPF Greater than 50 HPF (0-3)
[2019-06-09] MEDS ORDERED: Cefdinir 300 MG CAP PO SCH ×2 (15:00→21:00)
--- NOTE | 2019-06-09 15:03 | PDOC.HOSPP ---
- Subjective Encounter Date: 06/09/19 Encounter Time: 15:01 non-verbal Subjective: Patient seen and examined for intractable back pain with confusion. Remains confused. Required chemical restraint. Overnight events noted. - Objective Vital Signs & Weight: Vital Signs (12 hours) Temp Pulse Resp BP Pulse Ox 06/09/19 08:00 80 06/09/19 07:53 97.4 F L 65 22 H 169/80 H 96 Weight Admit Weight 145 lb 9.6 oz Weight 145 lb Result Diagrams: 06/08/19 13:36 06/09/19 09:36 Additional Labs: Laboratory Tests 06/08/19 06/09/19 06/09/19 13:36 09:36 12:52 AST 84 H 55 H ALT 150 H 117 H Urine WBC Greater than 50 A Urine Bacteria 4+ A Radiology Reviewed by me: Yes (CXR - no infiltrate) Hospitalist ROS - Review of Systems ROS unobtainable: due to mental status - Medication Medications: Active Medications Generic Name Dose Route Start Last Admin Trade Name Freq PRN Reason Stop Dose Admin Acetaminophen 650 mg 06/09/19 09:00 06/09/19 07:40 Tylenol PO 650 mg TID ELMER Administration Amiodarone HCl 200 mg 06/09/19 09:00 06/09/19 08:03 Cordarone PO 200 mg DAILY ELMER Administration Calcium/Vitamin D 1 tab 06/08/19 17:00 06/09/19 07:45 Caltrate 600 + Vit D PO 1 tab BID-WM ELMER Administration Enoxaparin Sodium 30 mg 06/08/19 21:00 06/08/19 20:33 Lovenox SC 30 mg 2100 ELMER Administration Folic Acid 1 mg 06/09/19 09:00 06/09/19 08:03 Folvite PO 1 mg DAILY ELMER Administration Furosemide 40 mg 06/09/19 12:00 06/09/19 12:47 Lasix PO 40 mg 1200 ELMER Administration Levetiracetam 1,000 mg 06/09/19 09:00 06/09/19 10:06 Keppra Oral Solution PO Not Given DAILY ELMER Lorazepam 0.5 mg 06/08/19 16:03 06/09/19 13:37 Ativan PO 0.5 mg Q4H PRN Administration Agitation Losartan Potassium 25 mg 06/08/19 21:00 06/09/19 08:03 Cozaar PO 25 mg BID ELMER Administration Pantoprazole Sodium 40 mg 06/09/19 09:00 06/09/19 08:03 Protonix PO 40 mg DAILY ELMER Administration Polyethylene Glycol 17 gm 06/09/19 09:00 06/09/19 08:04 Miralax PO 17 gm DAILY ELMER Administration Senna/Docusate Sodium 2 tab 06/08/19 21:00 06/09/19 08:03 Senokot S PO 2 tab BID ELMER Administration Sodium Chloride 10 ml 06/08/19 21:00 06/09/19 08:04 Flush - Normal Saline IVF Not Given Q12HR ELMER Spironolactone 25 mg 06/09/19 09:00 06/09/19 08:03 Aldactone PO 25 mg DAILY ELMER Administration Tramadol HCl 50 mg 06/08/19 11:52 06/09/19 12:47 Ultram PO 50 mg Q6H PRN Administration Moderate Pain (4-6) - Exam General Appearance: NAD (confused) Heart: RRR, no gallops, no rubs, normal peripheral pulses Respiratory: CTAB, no wheezes, no rales, rhonchi (scat) Gastrointestinal: soft, non-tender, non-distended, normal bowel sounds Extremities: no cyanosis, no clubbing, no edema Psychiatric: not oriented Hosp A/P - Plan DVT proph w/lovenox, DVT proph w/SCDs Intractable low back pain that started after a fall. Toxic Metabolic Encephalopathy due to UTI. Abn LFTs of unclear etiology - improving Physical deconditioning. Alzheimer dementia. Chronic systolic and diastolic heart failure. Ubtlqowf-[id number] tricuspid regurgitation. History of deep venous thrombosis, not anticoagulation candidate. Hypertension. History of gastrointestinal bleeding. Chronic anemia. Chronic kidney disease stage 3. History of vitamin D deficiency. PLAN: Start IV Ceftriaxone Cont Restraints PRN Cont Pain control with scheduled Acetamnophen and PRN Tramadol Cont other meds Will start gentle IV hydration if remains confused/unable to eat AM labs Hold Lasix for now
[2019-06-09] MEDS: cefTRIAXone\\ROCEPHIN 1 GM in Sodium Chloride 0.9% 100 ML IVPB SCH (15:56)
[2019-06-09] MEDS: Enoxaparin Sodium 30 MG/0.3 ML SYRINGE SC SCH (20:17)
[2019-06-10 06:20] LABS: #Eosinphils 0.2 thou/uL (0.0-0.7); #Lymphocytes 1.2 thou/uL (1.20-3.40); #Monocytes 0.3 thou/uL (0.11-0.59); #Neutrophils 4.2 thou/uL (1.40-6.50); %Basophils 0.4 % (0.0-1.0); %Eosinophils 3.1 % (0.0-10.0); %Monocytes 4.7 % (0.0-10.0); %Neutrophils 71.7 % (42.0-75.0); Hemoglobin 10.9 g/dL (12.0-16.0); Mean Corpuscular Hemoglobin 24.7 pg (27.0-31.0); Mean Corpuscular Volume 79.7 fL (78.0-98.0); Mean Platelet Volume 8.3 fL (7.4-10.4); Platelet Count 231 thou/uL (130-400); RBC Distribution Width 15.7 % (11.5-14.5); Red Blood Cell (RBC) Count 4.43 mill/uL (4.20-5.40); White Blood Cell (WBC) Count 5.9 thou/uL (4.8-10.8)
[2019-06-10 06:44] LABS: ALT (SGPT) 90 U/L (8-55); AST (SGOT) 31 U/L (5-34); Albumin 3.1 g/dL (3.4-4.8); Alkaline Phosphatase 82 U/L (40-110); Anion Gap 12 mmol/L (10-20); BUN (Urea Nitrogen) 13 mg/dL (9.8-20.1); Bilirubin, Total 0.3 mg/dL (0.2-1.2); Calc. Creatinine Clearance 53 mL/min (70-130); Calcium 8.3 mg/dL (7.8-10.44); Carbon Dioxide 27 mmol/L (23-31); Chloride 101 mmol/L (98-107); Estimated GFR-MDRD 82; Globulin 3.5 g/dL (2.4-3.5); Glucose 105 mg/dL (83-110); Potassium 3.8 mmol/L (3.5-5.1); Protein, Total 6.6 g/dL (6.0-8.3); Sodium 136 mmol/L (136-145)
[2019-06-10] MEDS: Acetaminophen 325 MG TAB PO SCH ×3 (08:13→19:34)
[2019-06-10] MEDS: Losartan 25 MG TAB PO SCH ×2 (08:14→19:49)
[2019-06-10] MEDS: Folic Acid 1 MG TAB PO SCH (08:14)
[2019-06-10] MEDS: Senokot S 8.6-50 MG TAB PO SCH ×2 (08:14→19:34)
[2019-06-10] MEDS: Calcium Carbonate + Vit D 1 TAB PO SCH ×2 (08:14→17:17)
[2019-06-10] MEDS: Amiodarone 200 MG TAB PO SCH (08:14)
[2019-06-10] MEDS: Spironolactone 25 MG TAB PO SCH (08:14)
[2019-06-10] MEDS: Polyethylene Glycol 3350 17 GM Packet PO SCH (08:15)
[2019-06-10] MEDS: levETIRAcetam 500 mg/5 ml Oral Solution PO SCH (08:15)
--- NOTE | 2019-06-10 08:41 | PDOC.HOSPP ---
- Subjective Encounter Date: 06/10/19 Encounter Time: 08:00 Subjective: Patient seen and examined for AMS. Mentation improving. No new complaints. No overnight events - Objective Vital Signs & Weight: Weight Admit Weight 145 lb 9.6 oz Weight 145 lb Result Diagrams: 06/10/19 05:32 06/10/19 05:32 Hospitalist ROS - Review of Systems ROS unobtainable: due to mental status - Medication Medications: Active Medications Generic Name Dose Route Start Last Admin Trade Name Freq PRN Reason Stop Dose Admin Acetaminophen 650 mg 06/09/19 09:00 06/10/19 08:13 Tylenol PO Not Given TID ELMER Amiodarone HCl 200 mg 06/09/19 09:00 06/10/19 08:14 Cordarone PO 200 mg DAILY ELMER Administration Calcium/Vitamin D 1 tab 06/08/19 17:00 06/10/19 08:14 Caltrate 600 + Vit D PO Not Given BID-WM ELMER Enoxaparin Sodium 30 mg 06/08/19 21:00 06/09/19 20:17 Lovenox SC Not Given 2100 ELMER Folic Acid 1 mg 06/09/19 09:00 06/10/19 08:14 Folvite PO 1 mg DAILY ELMER Administration Furosemide 40 mg 06/09/19 12:00 06/09/19 12:47 Lasix PO 40 mg 1200 EMLER Administration Ceftriaxone Sodium 1 gm/ 100 mls @ 200 mls/hr 06/09/19 16:00 06/09/19 15:56 Sodium Chloride IVPB 100 mls Q24HR ELMER Administration Levetiracetam 1,000 mg 06/09/19 09:00 06/10/19 08:15 Keppra Oral Solution PO 1,000 mg DAILY ELMER Administration Lorazepam 0.5 mg 06/08/19 16:03 06/09/19 21:20 Ativan PO 0.5 mg Q4H PRN Administration Agitation Losartan Potassium 25 mg 06/08/19 21:00 06/10/19 08:14 Cozaar PO 25 mg BID ELMER Administration Pantoprazole Sodium 40 mg 06/09/19 09:00 06/10/19 08:14 Protonix PO 40 mg DAILY ELMER Administration Polyethylene Glycol 17 gm 06/09/19 09:00 06/10/19 08:15 Miralax PO 17 gm DAILY ELMER Administration Senna/Docusate Sodium 2 tab 06/08/19 21:00 06/10/19 08:14 Senokot S PO Not Given BID ELMER Sodium Chloride 10 ml 06/08/19 21:00 06/10/19 08:16 Flush - Normal Saline IVF 10 ml Q12HR ELMER Administration Spironolactone 25 mg 06/09/19 09:00 06/10/19 08:14 Aldactone PO 25 mg DAILY ELMER Administration Tramadol HCl 50 mg 06/08/19 11:52 06/09/19 12:47 Ultram PO 50 mg Q6H PRN Administration Moderate Pain (4-6) - Exam General Appearance: NAD Heart: RRR, no gallops Respiratory: CTAB, no wheezes, no rales Gastrointestinal: soft, non-tender, non-distended, normal bowel sounds Extremities: no edema Hosp A/P - Plan DVT proph w/SCDs Intractable low back pain that started after a fall. Toxic Metabolic Encephalopathy due to UTI. Abn LFTs of unclear etiology - improving Physical deconditioning. Alzheimer dementia. Chronic systolic and diastolic heart failure. [id number] tricuspid regurgitation. History of deep venous thrombosis, not anticoagulation candidate. Hypertension. History of gastrointestinal bleeding. Chronic anemia. Chronic kidney disease stage 3. History of vitamin D deficiency. PLAN: Cont IV Ceftriaxone Await urine culture Await Rehab eval Cont Pain control with scheduled Acetamnophen and PRN Tramadol Lasix on hold
[2019-06-10] MEDS: traMADol HCl 50 MG TAB PO PRN (11:36)
[2019-06-10 14:25] VITALS: BMI 22.7
[2019-06-10] MEDS: cefTRIAXone\\ROCEPHIN 1 GM in Sodium Chloride 0.9% 100 ML IVPB SCH (15:16)
[2019-06-10] MEDS: Enoxaparin Sodium 30 MG/0.3 ML SYRINGE SC SCH (19:29)
[2019-06-10] MEDS: Lorazepam 0.5 MG TAB PO PRN (19:53)
[2019-06-11] MEDS ORDERED: Clopidogrel Bisulfate 75 MG TAB ONE (07:58)
[2019-06-11] MEDS: Losartan 25 MG TAB PO SCH (08:15)
[2019-06-11] MEDS: Spironolactone 25 MG TAB PO SCH (08:16)
[2019-06-11] MEDS: Folic Acid 1 MG TAB PO SCH (08:16)
[2019-06-11] MEDS: Amiodarone 200 MG TAB PO SCH (08:16)
[2019-06-11] MEDS: Polyethylene Glycol 3350 17 GM Packet PO SCH (08:18)
[2019-06-11] MEDS: traMADol HCl 50 MG TAB PO PRN (08:18)
[2019-06-11] MEDS: levETIRAcetam 500 mg/5 ml Oral Solution PO SCH (08:19)
[2019-06-11] MEDS: Senokot S 8.6-50 MG TAB PO SCH (08:20)
[2019-06-11] MEDS: Acetaminophen 325 MG TAB PO SCH (08:25)
[2019-06-11] MEDS: Calcium Carbonate + Vit D 1 TAB PO SCH (08:25)
[2019-06-11 08:26] VITALS: BP 153/77; TEMP 97.1
--- NOTE | 2019-06-11 13:21 | DIS ---
DATE OF ADMISSION: 06/08/2019 DATE OF DISCHARGE: 06/11/2019 DISCHARGE DISPOSITION: Home. Home health care will be resumed. The patient was seen and examined on the day of discharge. Denies any new complaints. No chest pain, shortness of breath, or palpitations reported. The patient ambulated more than 100 feet earlier today. DISCHARGE MEDICATIONS: Omnicef 300 mg twice daily for three more days. All other home medications were left unchanged. ALLERGIES: THE PATIENT IS ALLERGIC TO CODEINE AND LISINOPRIL. SIGNIFICANT LABORATORY DATA: Urinalysis showed greater than 50 wbc's with 4+ bacteria. WBC on admission 8.8 with hemoglobin 11.1, hematocrit 35.5. BUN 20 and creatinine 0.81. ALT on admission was 150, at discharge is 90. AST on admission was 84, at discharge is 31. Lumbar spine CT was negative for acute fractures or subluxation. It showed [id number] lumbar spondylosis. Pelvis CT was negative for acute fractures. It showed some abnormality in the lateral aspect of the bladder, which may reflect bladder diverticula or adnexal cyst. There was also moderate amount of retained stool within the colon. BRIEF HOSPITAL COURSE: The patient is an 83-year-old female with Alzheimer dementia and several other comorbidities, presented to the hospital with a low back pain that started after an episode of fall. Please refer to the history and physical for further details. The patient was admitted to the hospital with a diagnosis of intractable low back pain with altered mentation. She was found to have a UTI as well. Urine culture showed 10,000 to 25,000 mixed skin candace. Her mentation has significantly improved. She also required temporary chemical and physical restraints due to significant altered mentation. She is almost back to her baseline. She had slightly abnormal LFTs on admission that has improved. The pain was controlled with Tylenol only with intermittent tramadol. She appears stable for discharge. FINAL DIAGNOSES: 1. Intractable low back pain secondary to fall. There were no acute fractures or dislocation. 2. Toxic metabolic encephalopathy secondary to urinary tract infection. 3. Abnormal LFTs of unclear etiology, improving. The patient can continue low-dose of Tylenol. 4. Physical deconditioning. 5. Alzheimer dementia. 6. Chronic systolic and diastolic heart failure. Not a candidate for beta blockers due to amiodarone use. 7. History of deep venous thrombosis, not an anticoagulation candidate. 8. Xnngmqfl-jh-nlisvq tricuspid regurgitation. 9. Hypertension. 10. History of gastrointestinal bleeding. 11. Chronic anemia. 12. Chronic kidney disease, stage 3. 13. History of vitamin D deficiency. 14. Constipation on the CT. 15. Cystic abnormality along the posterior lateral aspect of the bladder on the CT. Primary care physician advised to follow. PLAN: Plan of care was discussed with the patient. The family has been updated. Job ID: [id number]
== END 2019-06-11 15:10 | disposition home health service (06) | DRG 689 ==
LOC: ERS 17:55 → OBSVTOIN 06-08 00:10 → T4-B 06-08 00:10
PROVIDERS: ADMIT Internal Medicine; ATTEND Internal Medicine
DX: N39.0 Urinary tract infection, site not specified (principal); G92 Toxic encephalopathy; I50.42 Chronic combined systolic (congestive) and diastolic (congestive) heart failure; I13.0 Hypertensive heart and chronic kidney disease with heart failure and stage 1 through stage 4 chronic kidney disease, or unspecified chronic kidney disease; G30.9 Alzheimer's disease, unspecified; F02.80 Dementia in other diseases classified elsewhere, unspecified severity, without behavioral disturbance, psychotic disturbance, mood disturbance, and anxiety; G40.909 Epilepsy, unspecified, not intractable, without status epilepticus; G89.11 Acute pain due to trauma; M54.5 Low back pain; I07.1 Rheumatic tricuspid insufficiency; N18.3 Chronic kidney disease, stage 3 (moderate); D63.1 Anemia in chronic kidney disease; Z28.21 Immunization not carried out because of patient refusal; Z85.3 Personal history of malignant neoplasm of breast; Z90.11 Acquired absence of right breast and nipple; Z90.710 Acquired absence of both cervix and uterus; Z86.718 Personal history of other venous thrombosis and embolism; Z88.5 Allergy status to narcotic agent; Z88.8 Allergy status to other drugs, medicaments and biological substances; Z78.1 Physical restraint status
CPT/HCPCS: 36415; 71045; 72131; 72192; 80053; 81001; 83735; 85025; 87086; J0696; J1650; J3490

== ENCOUNTER 2019-09-21 07:00 | Emergency (ER) | payer MEDICARE ==
[2019-09-21 07:42] LABS: #Eosinphils 0.1 thou/uL (0.0-0.7); #Lymphocytes 1.3 thou/uL (1.20-3.40); #Monocytes 0.4 thou/uL (0.11-0.59); #Neutrophils 4.4 thou/uL (1.40-6.50); %Basophils 0.4 % (0.0-1.0); %Eosinophils 1.3 % (0.0-10.0); %Monocytes 6.1 % (0.0-10.0); %Neutrophils 71.3 % (42.0-75.0); Hemoglobin 10.9 g/dL (12.0-16.0); Mean Corpuscular HGB CONC 31.2 g/dL (32.0-36.0); Mean Corpuscular Hemoglobin 25.5 pg (27.0-31.0); Mean Corpuscular Volume 81.7 fL (78.0-98.0); Mean Platelet Volume 8.7 fL (7.4-10.4); Platelet Count 176 thou/uL (130-400); RBC Distribution Width 15.7 % (11.5-14.5); Red Blood Cell (RBC) Count 4.28 mill/uL (4.20-5.40); White Blood Cell (WBC) Count 6.1 thou/uL (4.8-10.8)
--- NOTE | 2019-09-21 07:53 | RAD ---
XR Knee Rt 4 View STANDARD HISTORY: Right knee pain FINDINGS: No fracture or dislocation is identified. Degenerative changes are present similar to those seen on . There are vascular calcifications.
--- NOTE | 2019-09-21 07:54 | RAD ---
XR Chest 1 View Portable HISTORY: Syncope COMPARISON: 06/08/2019 FINDINGS: The heart size is normal. The aorta is tortuous. Chronic changes again seen. The lungs are well expanded without focal areas of consolidation, pneumothorax or pleural effusions. IMPRESSION: No radiographic evidence of acute cardiopulmonary process.
--- NOTE | 2019-09-21 07:55 | RAD ---
XR Pelvis AP STANDARD HISTORY: Syncope. Pelvic pain FINDINGS: No fracture or dislocation is identified. There are degenerative changes in the hip joints.
[2019-09-21 07:58] LABS: Bilirubin Negative (Negative); Blood, Urine Negative (Negative); Clarity Clear (Clear); Glucose, Urine (Dipstick) Normal (Negative); Leukocyte 75 Leu/uL (Negative); Nitrite Negative (Negative); Protein, Urine (Dipstick) 20 mg/dL (Neg-Trace); RBC/HPF 0-3 HPF (0-3); Squamous Epithelial 0-3 HPF (0-3)
[2019-09-21 08:03] LABS: ALT (SGPT) 13 U/L (8-55); AST (SGOT) 12 U/L (5-34); Albumin 3.4 g/dL (3.4-4.8); Alkaline Phosphatase 90 U/L (40-110); Anion Gap 10 mmol/L (10-20); BUN (Urea Nitrogen) 20 mg/dL (9.8-20.1); Bilirubin, Total 0.6 mg/dL (0.2-1.2); Calc. Creatinine Clearance 0 mL/min (70-130); Calcium 8.8 mg/dL (7.8-10.44); Carbon Dioxide 28 mmol/L (23-31); Chloride 105 mmol/L (98-107); Estimated GFR-MDRD 78; Globulin 3.1 g/dL (2.4-3.5); Glucose 96 mg/dL (83-110); Potassium 3.8 mmol/L (3.5-5.1); Protein, Total 6.5 g/dL (6.0-8.3); Sodium 139 mmol/L (136-145)
[2019-09-21 08:15] LABS: Bacteria/HPF Rare-Few HPF (None Seen)
== END 2019-09-21 09:19 | disposition home or self-care (01) ==
LOC: ERS 07:00
DX: R55 Syncope and collapse (principal); F03.90 Unspecified dementia, unspecified severity, without behavioral disturbance, psychotic disturbance, mood disturbance, and anxiety; E78.5 Hyperlipidemia, unspecified; E78.00 Pure hypercholesterolemia, unspecified; I10 Essential (primary) hypertension; J44.9 Chronic obstructive pulmonary disease, unspecified; Z87.891 Personal history of nicotine dependence; W19.XXXA Unspecified fall, initial encounter
CPT/HCPCS: 36415; 51701; 71045; 72170; 80053; 81003; 81015; 84484; 85025; 93005; A4353

== ENCOUNTER 2019-10-05 07:05 | Inpatient (IN) | payer MEDICARE ==
[2019-10-05 07:22] LABS: #Eosinphils 0.1 thou/uL (0.0-0.7); #Lymphocytes 2.9 thou/uL (1.20-3.40); #Monocytes 0.5 thou/uL (0.11-0.59); #Neutrophils 5.7 thou/uL (1.40-6.50); %Basophils 0.4 % (0.0-1.0); %Lymphocytes 31.5 % (21.0-51.0); %Monocytes 5.8 % (0.0-10.0); %Neutrophils 61.3 % (42.0-75.0); Hemoglobin 10.9 g/dL (12.0-16.0); Mean Corpuscular HGB CONC 30.8 g/dL (32.0-36.0); Mean Corpuscular Hemoglobin 25.3 pg (27.0-31.0); Mean Corpuscular Volume 82.2 fL (78.0-98.0); Mean Platelet Volume 8.5 fL (7.4-10.4); Platelet Count 212 thou/uL (130-400); RBC Distribution Width 15.2 % (11.5-14.5); Red Blood Cell (RBC) Count 4.33 mill/uL (4.20-5.40); White Blood Cell (WBC) Count 9.3 thou/uL (4.8-10.8)
[2019-10-05 07:28] LABS: Base Excess-Venous 1.8 mmol/L (-2.0 to 3.0); Bicarbonate (HCO3v) 27.6 mmol/L (22.0-28.0); CO2 Tension (PvCO2) 47.2 mmHg (40.0-50.0); Chloride 103 mmol/L (98-107); Hemoglobin - Calc 12.2 g/dL (12.0-16.0); Potassium 3.8 mmol/L (3.5-5.1); Sodium 141 mmol/L (138-145); T. Carbon Dioxide 29.1 mmol/L (22.0-28.0); vO2 Saturation-calc 55.3 % (60.0-85.0)
--- NOTE | 2019-10-05 07:46 | CT ---
CT Brain WO Con: 10/05/2019 7:14 AM CLINICAL HISTORY: Fall with headache. IMAGING TECHNIQUE: Multiple CT images were obtained of the brain without IV contrast. COMPARISON: November 14, 2018 CT brain without contrast FINDINGS: Brain: No acute infarct or hemorrhage is evident. No midline shift. There is moderate chronic small vessel white matter ischemic change. There are remote lacunar infarcts involving the basal ganglia bilaterally. Ventricles: Normal. No hydrocephalus. Skull: Intact. Visualized Paranasal sinuses: Clear. Mastoid air cells:Clear. Extracranial soft tissues:Normal. IMPRESSION: No acute intracranial abnormality.
--- NOTE | 2019-10-05 07:47 | RAD ---
Chest AP view INDICATION: Chest pain after fall COMPARISON: Prior exam dated September 21, 2019 FINDINGS: Lungs: Severe emphysema and fibrotic changes stable. Calcified granuloma in the right lower lobe is stable. Cardiac silhouette: Shxp-ul-kylwroct cardiomegaly is stable. Pulmonary vasculature: Normal Pleural spaces: No pleural effusion or pneumothorax is demonstrated. Upper abdomen: No abnormality seen. Osseous structures: No acute fracture or subluxation demonstrated. Diffuse osteopenia. Additional findings: None. IMPRESSION: No acute cardiopulmonary abnormality.
--- NOTE | 2019-10-05 07:49 | CT ---
CT Cervical Spine WO Con Indication: Fall with neck pain COMPARISON: None. FINDINGS: Fracture: None. Spinal alignment: No acute malalignment. Craniocervical junction: Within normal limits. Vertebral body heights: Maintained. Cervical spine degenerative change: There is moderate multilevel cervical spondylosis. Osseous centra l canal appears relatively well-maintained. Lung apices: There is paraseptal emphysema involving both lung apices. Prevertebral soft tissues: There is a multinodular goiter IMPRESSION: No acute osseous abnormality.
[2019-10-05 07:51] LABS: ALT (SGPT) 15 U/L (8-55); AST (SGOT) 19 U/L (5-34); Albumin 3.5 g/dL (3.4-4.8); Alkaline Phosphatase 98 U/L (40-110); Anion Gap 11 mmol/L (10-20); BUN (Urea Nitrogen) 28 mg/dL (9.8-20.1); Bilirubin, Total 0.6 mg/dL (0.2-1.2); CK (CPK) 51 U/L (29-168); Calc. Creatinine Clearance 0 mL/min (70-130); Calcium 8.9 mg/dL (7.8-10.44); Carbon Dioxide 28 mmol/L (23-31); Chloride 105 mmol/L (98-107); Estimated GFR-MDRD 65; Globulin 3.2 g/dL (2.4-3.5); Glucose 118 mg/dL (83-110); Potassium 3.9 mmol/L (3.5-5.1); Protein, Total 6.7 g/dL (6.0-8.3); Sodium 140 mmol/L (136-145)
[2019-10-05 09:20] LABS: Bacteria/HPF 4+ HPF (None Seen); Bilirubin Negative (Negative); Blood, Urine 1+ (Negative); Clarity Turbid (Clear); Glucose, Urine (Dipstick) Normal (Negative); Leukocyte 500 Leu/uL (Negative); Nitrite Negative (Negative); Protein, Urine (Dipstick) 30 mg/dL (Neg-Trace); Squamous Epithelial 0-3 HPF (0-3); Urobilinogen Normal mg/dL (Less than 2); WBC/HPF Greater than 50 HPF (0-3)
[2019-10-05] MEDS ORDERED: cefTRIAXone\\ROCEPHIN 1 GM VIAL ONE (10:08)
[2019-10-05] MEDS ORDERED: Ondansetron PF 4 MG/2 ML Vial IVP PRN (10:27)
[2019-10-05] MEDS ORDERED: Senokot S 8.6-50 MG TAB PO PRN (10:27)
[2019-10-05] MEDS ORDERED: Ondansetron ODT 4 MG TAB PO PRN (10:27)
[2019-10-05 17:31] VITALS: BMI 23.1
[2019-10-05] MEDS: Acetaminophen 325 MG TAB PO PRN (17:42)
[2019-10-05] MEDS: Calcium Carbonate 600 MG + Vit D TAB PO SCH (17:50)
[2019-10-05] MEDS: Losartan 25 MG TAB PO SCH (20:38)
[2019-10-05] MEDS: Docusate 100 MG CAP PO SCH (20:48)
[2019-10-06] MEDS: Acetaminophen 325 MG TAB PO PRN ×2 (02:58→16:43)
[2019-10-06] MEDS ORDERED: levETIRAcetam 100 mg/ml Oral Solution PO SCH (09:00)
[2019-10-06] MEDS ORDERED: FLU VACC TS2019-20(65YR UP)/PF 180 MCG/0.5 ML SYRINGE IM ONE (09:00)
[2019-10-06] MEDS: Folic Acid 1 MG TAB PO SCH ×2 (09:05→09:22)
[2019-10-06] MEDS: Docusate 100 MG CAP PO SCH ×3 (09:05→20:58)
[2019-10-06] MEDS: levETIRAcetam 500 mg/5 ml Oral Solution PO SCH ×2 (09:06→09:22)
[2019-10-06] MEDS: Spironolactone 25 MG TAB PO SCH ×2 (09:06→09:23)
[2019-10-06] MEDS: Amiodarone 200 MG TAB PO SCH ×2 (09:06→09:21)
[2019-10-06] MEDS: Losartan 25 MG TAB PO SCH ×3 (09:06→20:57)
[2019-10-06] MEDS: Multivit, Therapeutic 1 TAB PO SCH ×2 (09:06→09:22)
[2019-10-06] MEDS: Calcium Carbonate 600 MG + Vit D TAB PO SCH ×3 (09:06→16:43)
[2019-10-06] MEDS ORDERED: cefTRIAXone\\ROCEPHIN 1 GM in Sodium Chloride 0.9% 100 ML IVPB SCH (10:00)
--- NOTE | 2019-10-06 10:10 | HP ---
CHIEF COMPLAINT: Fall. HISTORY OF PRESENT ILLNESS: An 83-year-old female with multiple medical problems including Alzheimer dementia, was brought in by EMS after family called for her. The patient had a fall which was unwitnessed. When EMS evaluated, she had a blood pressure of 70/40 and heart rate of 48. Atropine and 1 L of bolus improved her blood pressure to systolic 150. Initial imaging studies including chest x-ray, CT head, CT cervical spine are negative. Her urinalysis showed UTI. The patient will be admitted for further workup. Her last hospitalization was on 06/08, for low back pain and altered mentation. The patient denied having any elevated white count. Her high blood pressure currently improved. During my exam, there is a sitter close by for fall risk. The patient is pleasantly confused and alert, oriented x1 only. She is able to have conversation, but not meaningful. REVIEW OF SYSTEMS: Not obtainable from the patient. PAST MEDICAL HISTORY: 1. Overall physical conditioning. 2. Alzheimer dementia. 3. Chronic systolic and diastolic heart failure and on amiodarone. 4. History of DVT without anticoagulation. 5. Severe tricuspid regurgitation. 6. Hypertension. 7. History of GI bleed. 8. Chronic kidney disease stage 3. 9. Chronic anemia of kidney disease. 10. Vitamin D deficiency. 11. History of seizure. HOME MEDICATIONS: 1. Keppra 1000 mg daily. 2. Spironolactone 25 mg p.o. daily. 3. Protonix 50 mg p.o. daily. 4. Losartan 25 mg twice a day. 5. Lasix 40 mg daily. 6. Folic acid 1 mg daily. 7. Colace 100 mg twice a day. 8. Caltrate one tablet twice a day. 9. Amiodarone 200 mg daily. 10. Omnicef 300 mg twice a day. SOCIAL HISTORY: Not obtainable. The patient lives with family. FAMILY HISTORY: Unknown. PHYSICAL EXAMINATION: GENERAL: She is afebrile. She is not in any acute distress. Pleasantly confused. CARDIOVASCULAR: Regular rate and rhythm without murmurs, rubs, or gallops. LUNGS: Clear to auscultation bilaterally without wheezing, rales, or rhonchi. ABDOMEN: Soft, nontender, nondistended. Good bowel sounds. EXTREMITIES: Without any pitting edema. No rash. I have examined her extremities closely and I do not see any skin operations or bony abnormalities. She has a diaper. NEURO: Complete neuro exam not performed as she is quite confused. LABORATORY DATA: Her CMP looks in the normal range. Troponin 0.013. Creatine kinase 51. Her CBC was in normal range. Her CBC in the normal range. Chest x-ray negative for intrathoracic abnormalities. CT head negative. Cervical CT spine negative. UA shows quite turbid, bacteria as well as pyuria. IMPRESSION AND PLAN: 1. This is an 83-year-old female with a history of underlying Alzheimer dementia , had a fall unwitnessed. Family called EMS. No fractures. She was admitted for treatment of urinary tract infection. She has been admitted frequently, admissions for urinary tract infection in 2019 alone, for urinary tract infection in May 2019 as well as in February 2018. Cultures did not grow any organisms during those times. It also appears that she has some posterior lateral aspect cystic abnormality noted on the CT scan and to be followed by primary care physician, it was done in 2018. It is unclear whether any workup has been done and also may be a trigger for her recurrent urinary tract infection. We will follow with the culture and titrate the antibiotics accordingly. 2. Metabolic encephalopathy with underling history of Alzheimer's. She does not appear toxic. Follow fall and seizure precautions. 3. Alzheimer dementia. Supportive measures. 4. Continue her current home regimen for other chronic medical conditions. I will follow the clinical course. Job ID: [id number] MTDD
[2019-10-06] MEDS ORDERED: Haloperidol Lactate 5 MG/ML VIAL IM SCH (10:30)
[2019-10-06] MEDS: cefTRIAXone\\ROCEPHIN 1 GM in Sodium Chloride 0.9% 100 ML IVPB SCH (12:42)
[2019-10-06] MEDS: Lorazepam 2 MG/ML VIAL SLOW IVP PRN (12:42)
--- NOTE | 2019-10-06 15:13 | PDOC.HOSPP ---
- Subjective Encounter Date: 10/06/19 Encounter Time: 14:50 non-verbal Subjective: pt was quite agitated this am, hitting and pulling things - restraints placed, sitter nearby; dtr visiting her. i had extenesive talk w.. dtr. pt lives w.. dtr. pt appearing calm now and AOX1. her dtr is mother for her and dtr states that her mother sometimes call her like that. - Objective Vital Signs & Weight: Vital Signs (12 hours) Temp Pulse Resp BP Pulse Ox 10/06/19 11:20 98.0 F 93 24 H 177/80 H 97 10/06/19 08:03 97.8 F 81 16 141/82 H 96 10/06/19 04:15 71 16 140/67 97 Weight Weight 139 lb 4.8 oz Result Diagrams: 10/05/19 07:08 10/05/19 07:08 Hospitalist ROS - Medication Medications: Active Medications Generic Name Dose Route Start Last Admin Trade Name Freq PRN Reason Stop Dose Admin Acetaminophen 650 mg 10/05/19 10:27 10/06/19 02:58 Tylenol PO 650 mg Q4H PRN Administration Headache/Fever/Mild Pain (1-3) Amiodarone HCl 200 mg 10/06/19 09:00 10/06/19 09:21 Cordarone PO Not Given DAILY [facility] Calcium/Vitamin D 1 tab 10/05/19 17:00 10/06/19 09:21 Caltrate 600 + Vit D PO Not Given BID-WM [facility] Docusate Sodium 100 mg 10/05/19 21:00 10/06/19 09:18 Colace PO Not Given BID [facility] Folic Acid 1 mg 10/06/19 09:00 10/06/19 09:22 Folvite PO Not Given DAILY [facility] Ceftriaxone Sodium 1 gm/ 100 mls @ 200 mls/hr 10/06/19 13:00 10/06/19 12:42 Sodium Chloride IVPB 100 mls 1300 EL[facility] Administration Levetiracetam 1,000 mg 10/06/19 09:00 10/06/19 09:22 Keppra Oral Solution PO Not Given DAILY [facility] Lorazepam 1 mg 10/06/19 10:27 10/06/19 12:42 Ativan SLOW IVP 1 mg Q8H PRN Administration AGITATION Losartan Potassium 25 mg 10/05/19 21:00 10/06/19 09:22 Cozaar PO Not Given BID [facility] Multivitamins 1 tab 10/06/19 09:00 10/06/19 09:22 Theragran PO Not Given DAILY [facility] Pantoprazole Sodium 40 mg 10/06/19 09:00 10/06/19 09:22 Protonix PO Not Given DAILY [facility] Sodium Chloride 10 ml 10/06/19 10:26 10/06/19 12:42 Flush - Normal Saline IVF 10 ml PRN PRN Administration Saline Flush Spironolactone 25 mg 10/06/19 09:00 10/06/19 09:23 Aldactone PO Not Given DAILY ELMER - Exam Eye: PERRL ENT: normocephalic atraumatic Neck: supple Heart: RRR Respiratory: CTAB, normal chest expansion Gastrointestinal: soft Neurological: cranial nerve grossly intact, no focal deficits Neurological - other findings: confused - prob at baseline Hosp A/P - Plan Fall prior hx of UTI and hospitaliziation x 4 in the last year Metabolic encephalopathy with pre-existing alzhimers. -she is still quite disoriented requring sitter and soft restraints. - u cx - no growth Blood culute 1 set GPC -likely contamination -repeating for follow up Alzhimer's dementia -d/w dtr at length -- --pt had intermittent confusion, started few weeks prior, and not this extent in the past --once stable, prefer to take her home, as pt has family and her own room. --fw on lab workup-tsh, b12, folate etc...
[2019-10-07] MEDS ORDERED: Propylthiouracil 50 MG TAB PO SCH (09:30)
[2019-10-07] MEDS: levETIRAcetam 500 mg/5 ml Oral Solution PO SCH (10:56)
[2019-10-07] MEDS: Multivit, Therapeutic 1 TAB PO SCH (10:57)
[2019-10-07] MEDS: Amiodarone 200 MG TAB PO SCH (10:57)
[2019-10-07] MEDS: Spironolactone 25 MG TAB PO SCH (10:57)
[2019-10-07] MEDS: Losartan 25 MG TAB PO SCH ×2 (10:58→21:08)
[2019-10-07] MEDS: Calcium Carbonate 600 MG + Vit D TAB PO SCH ×2 (10:58→16:10)
[2019-10-07] MEDS: Folic Acid 1 MG TAB PO SCH (10:58)
[2019-10-07] MEDS: Docusate 100 MG CAP PO SCH ×2 (10:58→21:08)
--- NOTE | 2019-10-07 10:59 | ULT ---
EXAM: US Thyroid STANDARD PROVIDED CLINICAL HISTORY: Low TSH COMPARISON: None FINDINGS: Right thyroid lobe measures about 6.7 x 4.4 x 3.4 cm and demonstrates multiple nodules, largest at in ferior pole measuring about 1.7 cm. Left thyroid lobe measures about 7 x 3.5 x 4.4 cm and demonstrates multiple nodules, largest at the m idportion measuring about 2.7 cm. IMPRESSION: Multinodular goiter.
--- NOTE | 2019-10-07 12:38 | PDOC.HOSPP ---
- Subjective Encounter Date: 10/07/19 Encounter Time: 09:30 Subjective: she is more calm today, sitter at bedside, TSH is too low, US MNG. awaiting for Ft4. - Objective Vital Signs & Weight: Vital Signs (12 hours) Temp Pulse Resp BP Pulse Ox 10/07/19 08:57 98.8 F 84 18 128/61 99 10/07/19 04:00 97.7 F 93 16 152/72 H 98 Weight Weight 133 lb 4.8 oz I&O: 10/06/19 10/07/19 10/08/19 06:59 06:59 06:59 Intake Total 1914 Balance 1914 Result Diagrams: 10/05/19 07:08 10/05/19 07:08 Hospitalist ROS - Medication Medications: Active Medications Generic Name Dose Route Start Last Admin Trade Name Freq PRN Reason Stop Dose Admin Acetaminophen 650 mg 10/05/19 10:27 10/06/19 16:43 Tylenol PO 650 mg Q4H PRN Administration Headache/Fever/Mild Pain (1-3) Amiodarone HCl 200 mg 10/06/19 09:00 10/07/19 10:57 Cordarone PO 200 mg DAILY ELMER Administration Calcium/Vitamin D 1 tab 10/05/19 17:00 10/07/19 10:58 Caltrate 600 + Vit D PO 1 tab BID-WM ELMER Administration Docusate Sodium 100 mg 10/05/19 21:00 10/07/19 10:58 Colace PO Not Given BID ELMER Folic Acid 1 mg 10/06/19 09:00 10/07/19 10:58 Folvite PO 1 mg DAILY ELMER Administration Ceftriaxone Sodium 1 gm/ 100 mls @ 200 mls/hr 10/06/19 13:00 10/06/19 12:42 Sodium Chloride IVPB 100 mls 1300 ELMER Administration Levetiracetam 1,000 mg 10/06/19 09:00 10/07/19 10:56 Keppra Oral Solution PO 1,000 mg DAILY [facility] Administration Lorazepam 1 mg 10/06/19 10:27 10/06/19 12:42 Ativan SLOW IVP 1 mg Q8H PRN Administration AGITATION Losartan Potassium 25 mg 10/05/19 21:00 10/07/19 10:58 Cozaar PO 25 mg BID ELMER Administration Multivitamins 1 tab 10/06/19 09:00 10/07/19 10:57 Theragran PO 1 tab DAILY [facility] Administration Pantoprazole Sodium 40 mg 10/06/19 09:00 10/07/19 10:57 Protonix PO 40 mg DAILY EL[facility] Administration Sodium Chloride 10 ml 10/06/19 21:00 10/07/19 10:58 Flush - Normal Saline IVF 10 ml Q12HR ELMER Administration Sodium Chloride 10 ml 10/06/19 10:26 10/06/19 12:42 Flush - Normal Saline IVF 10 ml PRN PRN Administration Saline Flush Spironolactone 25 mg 10/06/19 09:00 10/07/19 10:57 Aldactone PO 25 mg DAILY ELMER Administration - Exam General Appearance: NAD, awake alert Eye: PERRL ENT: normocephalic atraumatic Neck: supple Heart: RRR Respiratory: CTAB Gastrointestinal: normal bowel sounds Extremities: no cyanosis Hosp A/P - Plan Fall prior hx of UTI and hospitaliziation x 4 in the last year Metabolic encephalopathy with pre-existing alzhimers. -she is still quite disoriented requring sitter and soft restraints. - u cx - no growth Blood culute 1 set GPC -likely contamination -repeating for follow up Alzhimer's dementia -d/w dtr at length -- --pt had intermittent confusion, started few weeks prior, and not this extent in the past --once stable, prefer to take her home, as pt has family and her own room. --fw on lab workup-tsh, b12, folate etc... Multinodular goiter ALso amio iduced hyperthyroidism --wait for FT4 -need PTU vs. methimazole. this hyperthyroidism could also be another factor for more agitation of few weeks at home?
[2019-10-07] MEDS: cefTRIAXone\\ROCEPHIN 1 GM in Sodium Chloride 0.9% 100 ML IVPB SCH (13:53)
[2019-10-07 16:48] LABS: Free T4 (Free Thyroxine) 1.53 ng/dL (0.70-1.48)
[2019-10-07 16:49] LABS: Vitamin D, 25 Hydroxy 24.1 ng/ml (> 30.0)
[2019-10-08] MEDS: Propylthiouracil 50 MG TAB PO SCH (08:41)
[2019-10-08] MEDS: Folic Acid 1 MG TAB PO SCH (08:42)
[2019-10-08] MEDS: Multivit, Therapeutic 1 TAB PO SCH (08:42)
[2019-10-08] MEDS: Amiodarone 200 MG TAB PO SCH (08:42)
[2019-10-08] MEDS: Docusate 100 MG CAP PO SCH ×2 (08:42→21:21)
[2019-10-08] MEDS: Losartan 25 MG TAB PO SCH ×2 (08:42→21:21)
[2019-10-08] MEDS: Calcium Carbonate 600 MG + Vit D TAB PO SCH ×2 (08:42→17:29)
[2019-10-08] MEDS: Spironolactone 25 MG TAB PO SCH (08:42)
[2019-10-08] MEDS: levETIRAcetam 500 mg/5 ml Oral Solution PO SCH (08:42)
[2019-10-08] MEDS: cefTRIAXone\\ROCEPHIN 1 GM in Sodium Chloride 0.9% 100 ML IVPB SCH (12:40)
--- NOTE | 2019-10-08 15:16 | PDOC.HOSPP ---
- Subjective Encounter Date: 10/08/19 Encounter Time: 12:50 Subjective: pt is doing well, some cramps or pain in her legs. sitter at bedside - Objective Vital Signs & Weight: Vital Signs (12 hours) Temp Pulse Resp BP BP BP Pulse Ox 10/08/19 14:00 144/89 H 148/68 H 10/08/19 11:55 98.1 F 87 18 114/59 L 99 10/08/19 08:00 96.8 F L 77 17 160/74 H 95 10/08/19 04:00 98.0 F 79 18 172/80 H 98 Weight Weight 133 lb 4.8 oz I&O: 10/07/19 10/08/19 10/09/19 06:59 06:59 06:59 Intake Total 1914 300 Balance 191 300 Result Diagrams: 10/05/19 07:08 10/05/19 07:08 Hospitalist ROS - Medication Medications: Active Medications Generic Name Dose Route Start Last Admin Trade Name Freq PRN Reason Stop Dose Admin Acetaminophen 650 mg 10/05/19 10:27 10/06/19 16:43 Tylenol PO 650 mg Q4H PRN Administration Headache/Fever/Mild Pain (1-3) Amiodarone HCl 200 mg 10/06/19 09:00 10/08/19 08:42 Cordarone PO 200 mg DAILY ELMER Administration Calcium/Vitamin D 1 tab 10/05/19 17:00 10/08/19 08:42 Caltrate 600 + Vit D PO 1 tab BID-WM EL[facility] Administration Docusate Sodium 100 mg 10/05/19 21:00 10/08/19 08:42 Colace PO 100 mg BID ELMER Administration Folic Acid 1 mg 10/06/19 09:00 10/08/19 08:42 Folvite PO 1 mg DAILY [facility] Administration Ceftriaxone Sodium 1 gm/ 100 mls @ 200 mls/hr 10/06/19 13:00 10/08/19 12:40 Sodium Chloride IVPB 100 mls 1300 ELMER Administration Levetiracetam 1,000 mg 10/06/19 09:00 10/08/19 08:42 Keppra Oral Solution PO 1,000 mg DAILY [facility] Administration Lorazepam 1 mg 10/06/19 10:27 10/06/19 12:42 Ativan SLOW IVP 1 mg Q8H PRN Administration AGITATION Losartan Potassium 25 mg 10/05/19 21:00 10/08/19 08:42 Cozaar PO 25 mg BID ELMER Administration Multivitamins 1 tab 10/06/19 09:00 10/08/19 08:42 Theragran PO 1 tab DAILY [facility] Administration Pantoprazole Sodium 40 mg 10/06/19 09:00 10/08/19 08:42 Protonix PO 40 mg DAILY [facility] Administration Propylthiouracil 25 mg 10/08/19 09:00 10/08/19 08:41 Propylthiouracil PO 25 mg DAILY [facility] Administration Sodium Chloride 10 ml 10/06/19 21:00 10/08/19 08:42 Flush - Normal Saline IVF 10 ml Q12HR ELMER Administration Sodium Chloride 10 ml 10/06/19 10:26 10/06/19 12:42 Flush - Normal Saline IVF 10 ml PRN PRN Administration Saline Flush Spironolactone 25 mg 10/06/19 09:00 10/08/19 08:42 Aldactone PO 25 mg DAILY [facility] Administration - Exam General Appearance: NAD, awake alert Eye: PERRL ENT: normocephalic atraumatic Heart: RRR Respiratory: CTAB Gastrointestinal: normal bowel sounds Neurological: cranial nerve grossly intact, no focal deficits Hosp A/P - Plan Fall prior hx of UTI and hospitaliziation x 4 in the last year Metabolic encephalopathy with pre-existing alzhimers. -she is still quite disoriented requring sitter and soft restraints. - u cx - no growth Blood culute 1 set GPC -likely contamination -repeating for follow up Alzhimer's dementia -d/w dtr at length -- --pt had intermittent confusion, started few weeks prior, and not this extent in the past --once stable, prefer to take her home, as pt has family and her own room. --fw on lab workup-tsh, b12, folate etc... Multinodular goiter ALso amio iduced hyperthyroidism --wait for FT4---------?also high -need PTU vs. methimazole. ----------->started on PTU on this hyperthyroidism could also be another factor for more agitation of few weeks at home? pt lives w.. dtr and i talk to dtr and once we are ready to discharge her, she can go home.option of SNF/rehab d/w dtr and prefer home discharge.
[2019-10-08] MEDS: Acetaminophen 325 MG TAB PO PRN ×2 (17:28→21:21)
[2019-10-09] MEDS: Acetaminophen 325 MG TAB PO PRN (02:46)
[2019-10-09] MEDS: Amiodarone 200 MG TAB PO SCH (08:51)
[2019-10-09] MEDS: Calcium Carbonate 600 MG + Vit D TAB PO SCH ×3 (08:51→17:36)
[2019-10-09] MEDS: Losartan 25 MG TAB PO SCH ×2 (08:51→19:26)
[2019-10-09] MEDS: Spironolactone 25 MG TAB PO SCH (08:51)
[2019-10-09] MEDS: levETIRAcetam 500 mg/5 ml Oral Solution PO SCH (08:51)
[2019-10-09] MEDS: Folic Acid 1 MG TAB PO SCH (08:52)
[2019-10-09] MEDS: Multivit, Therapeutic 1 TAB PO SCH (08:52)
[2019-10-09] MEDS: Propylthiouracil 50 MG TAB PO SCH ×3 (08:52→08:54)
[2019-10-09] MEDS: Docusate 100 MG CAP PO SCH ×2 (08:54→19:24)
[2019-10-09] MEDS: cefTRIAXone\\ROCEPHIN 1 GM in Sodium Chloride 0.9% 100 ML IVPB SCH (13:47)
[2019-10-09] MEDS: Lorazepam 2 MG/ML VIAL SLOW IVP PRN (14:29)
--- NOTE | 2019-10-09 17:20 | PDOC.HOSPP ---
- Subjective Encounter Date: 10/09/19 Encounter Time: 17:05 Subjective: f/u AMS and suspected UTI but Ucx negative and receiving Rocephin. Remains agitated per nursing and has a sitter for monitoring. - Objective Vital Signs & Weight: Vital Signs (12 hours) Temp Pulse Resp BP Pulse Ox 10/09/19 16:47 97.4 F L 72 20 169/81 H 97 10/09/19 11:45 100 10/09/19 10:45 97.6 F 68 18 160/76 H 100 10/09/19 07:52 97.9 F 70 20 148/67 H 98 Weight Weight 130 lb 6.4 oz I&O: 10/08/19 10/09/19 10/10/19 06:59 06:59 06:59 Intake Total 300 820 Balance 300 820 Result Diagrams: 10/05/19 07:08 10/05/19 07:08 Additional Labs: Accuchecks 10/08/19 16:59 POC Glucose 96 Microbiology 10/05/19 08:54 Urine Straight Catheter Urine Culture - Final NO GROWTH AT 48 HOURS 10/05/19 07:14 Venous blood - Right Hand Blood Culture - Final Coagulase Neg Staphylococcus 10/06/19 16:28 Venous blood - Right Arm Blood Culture - Preliminary NO GROWTH AT 48 HOURS 10/06/19 16:19 Venous blood - Left Hand Blood Culture - Preliminary NO GROWTH AT 48 HOURS 10/05/19 07:08 Venous blood - Right Arm Blood Culture - Preliminary NO GROWTH AT 48 HOURS Laboratory Tests 10/06/19 10/07/19 10/07/19 16:28 15:56 15:56 Vitamin B12 630 25-OH Vitamin D Total 24.1 L Folate 34.60 H Free T4 1.53 H TSH 3rd Generation 0.0038 L Radiology Reviewed by me: Yes (Thyroid sono - multinodular goiter) Hospitalist ROS - Medication Medications: Active Medications Generic Name Dose Route Start Last Admin Trade Name Freq PRN Reason Stop Dose Admin Acetaminophen 650 mg 10/05/19 10:27 10/09/19 02:46 Tylenol PO 650 mg Q4H PRN Administration Headache/Fever/Mild Pain (1-3) Amiodarone HCl 200 mg 10/06/19 09:00 10/09/19 08:51 Cordarone PO 200 mg DAILY ELMER Administration Calcium/Vitamin D 1 tab 10/05/19 17:00 10/09/19 16:54 Caltrate 600 + Vit D PO 1 tab BID-WM ELMER Administration Docusate Sodium 100 mg 10/05/19 21:00 10/09/19 08:54 Colace PO Not Given BID ELMER Folic Acid 1 mg 10/06/19 09:00 10/09/19 08:52 Folvite PO 1 mg DAILY ELMER Administration Ceftriaxone Sodium 1 gm/ 100 mls @ 200 mls/hr 10/06/19 13:00 10/09/19 13:47 Sodium Chloride IVPB 100 mls 1300 ELMER Administration Levetiracetam 1,000 mg 10/06/19 09:00 10/09/19 08:51 Keppra Oral Solution PO 1,000 mg DAILY ELMER Administration Lorazepam 1 mg 10/06/19 10:27 10/09/19 14:29 Ativan SLOW IVP 1 mg Q8H PRN Administration AGITATION Losartan Potassium 25 mg 10/05/19 21:00 10/09/19 08:51 Cozaar PO 25 mg BID ELMER Administration Multivitamins 1 tab 10/06/19 09:00 10/09/19 08:52 Theragran PO 1 tab DAILY [facility]MER Administration Pantoprazole Sodium 40 mg 10/06/19 09:00 10/09/19 08:52 Protonix PO 40 mg DAILY ELMER Administration Propylthiouracil 25 mg 10/08/19 09:00 10/09/19 08:53 Propylthiouracil PO 25 mg DAILY ELMER Administration Propylthiouracil 25 mg 10/09/19 09:00 10/09/19 08:54 Propylthiouracil PO 25 mg DAILY ELMER Administration Sodium Chloride 10 ml 10/06/19 21:00 10/09/19 08:53 Flush - Normal Saline IVF 10 ml Q12HR ELMER Administration Sodium Chloride 10 ml 10/06/19 10:26 10/06/19 12:42 Flush - Normal Saline IVF 10 ml PRN PRN Administration Saline Flush Spironolactone 25 mg 10/06/19 09:00 10/09/19 08:51 Aldactone PO 25 mg DAILY ELMER Administration - Exam General Appearance: NAD, awake alert Eye: PERRL, anicteric sclera ENT: normocephalic atraumatic, no oropharyngeal lesions Neck: supple, symmetric, no JVD, no thyromegaly Heart: RRR, no murmur, no gallops, no rubs, normal peripheral pulses Respiratory: CTAB, no wheezes, no rales, no ronchi, normal chest expansion Gastrointestinal: soft, non-tender, non-distended, normal bowel sounds, no palpable masses Extremities: no cyanosis, no clubbing, no edema Skin: normal turgor, no lesions Neurological: cranial nerve grossly intact, no new deficit Musculoskeletal: normal tone, generalized weakness Psychiatric: oriented to person Hosp A/P (1) Acute metabolic encephalopathy Code(s): G93.41 - METABOLIC ENCEPHALOPATHY Status: Acute Plan: Likely multifactorial including advanced dementia and metabolic component, supportive mgmt, sitter for observation (2) Multinodular goiter (nontoxic) Code(s): E04.2 - NONTOXIC MULTINODULAR GOITER Status: Chronic Plan: PTU initiated, follow up for outpt TSH (3) Alzheimer's dementia Code(s): G30.9 - ALZHEIMER'S DISEASE, UNSPECIFIED; F02.80 - DEMENTIA IN OTH DISEASES CLASSD ELSWHR W/O BEHAVRL DISTURB Status: Chronic Plan: Supportive mgmt, sitter for observation, home with family after d/c (4) Normocytic anemia Code(s): D64.9 - ANEMIA, UNSPECIFIED Status: Chronic Plan: Chronic, no evidence of blood loss, serial monitoring - Plan continue antibiotics, PT/OT, social media editor, DVT proph w/SCDs Stable currently Continue supportive care Continue Rocephin another 24h then d/c Continue PTU 25mg daily Likely home in 24h
--- NOTE | 2019-10-10 01:42 | EKG ---
Test Reason : Blood Pressure : / mmHG Vent. Rate : 069 BPM Atrial Rate : 069 BPM P-R Int : 146 ms QRS Dur : 094 ms QT Int : 378 ms P-R-T Axes : 000 -28 057 degrees QTc Int : 405 ms Normal sinus rhythm Moderate voltage criteria for LVH, may be normal variant Nonspecific T wave abnormality Abnormal ECG Confirmed by HAZEL WAYNE ([id number]), newspaper or periodical editor BLANCA LOYA ([id number]) on 10/10/2019 1:42:08 AM Referred By: ROCKY OBRIEN Confirmed By:HAZEL Velazco
[2019-10-10 07:22] VITALS: BP 124/71; TEMP 97.2
[2019-10-10] MEDS: Amiodarone 200 MG TAB PO SCH (09:56)
[2019-10-10] MEDS: Spironolactone 25 MG TAB PO SCH (09:56)
[2019-10-10] MEDS: Losartan 25 MG TAB PO SCH (09:56)
[2019-10-10] MEDS: levETIRAcetam 500 mg/5 ml Oral Solution PO SCH (09:56)
[2019-10-10] MEDS: Folic Acid 1 MG TAB PO SCH (09:56)
[2019-10-10] MEDS: Calcium Carbonate 600 MG + Vit D TAB PO SCH (09:56)
[2019-10-10] MEDS: Docusate 100 MG CAP PO SCH (09:56)
[2019-10-10] MEDS: Multivit, Therapeutic 1 TAB PO SCH (09:56)
[2019-10-10] MEDS: Propylthiouracil 50 MG TAB PO SCH (09:59)
--- NOTE | 2019-10-11 16:06 | DIS ---
DATE OF ADMISSION: 10/05/2019 DATE OF DISCHARGE: 10/10/2019 DISCHARGE DIAGNOSES: 1. Acute metabolic encephalopathy, multifactorial. 2. Urinary tract infection, suspected. 3. Multinodular goiter, initiated on PTU therapy. 4. Advanced Alzheimer dementia. 5. Deconditioning, status post fall. 6. Normocytic anemia, chronic and stable. 7. Hypertension, stable. 8. Chronic kidney disease, stage 3. 9. Vitamin D deficiency, chronic. CONSULTATIONS: None. PERTINENT LABORATORY AND X-RAY FINDINGS: Creatinine 0.99, estimated GFR 65, vitamin D 25-hydroxylated level 24.1, folate 34.6, free T4 of 1.53, TSH 0.0038. Magnesium level 2.0. CBC showed a hemoglobin of 11, hematocrit 36, platelet count 212. Urinalysis, positive for leukocyte esterase and greater than 50 to pzo-ywxazyur-do-count wbc's per high-power field. Urine culture dated 10/05/2019 showed no growth at 48 hours. Blood cultures x2 dated 10/06/2019 showed no growth at 48 hours. Portable chest x-ray dated 10/05/2019 showed no acute cardiopulmonary process. CT of the brain without contrast dated 10/05/2019 showed no acute intracranial process. CT of the cervical spine dated 10/05/2019 showed no acute process. Thyroid ultrasound dated 10/07/2019 showed multinodular goiter. HOSPITAL COURSE: The patient was initially admitted after presenting status post fall with prior history of falls in the context of advanced Alzheimer dementia. The patient was initially noted with hypotension and bradycardia, and initiated on IV fluids and atropine. The patient had overall improvement in systolic blood pressure and heart rate with fluid resuscitation. The patient was also treated for suspected urinary tract infection and with IV Rocephin; however, urine culture did not show a dominant organism. The patient was noted with agitation and required chemical and short-term restraints due to altered mental status in the context of dementia. The patient achieved baseline functional status prior to discharge and was tolerating regular oral intake. The patient was also noted with hyperthyroidism with thyroid ultrasound showing multinodular goiter. The patient was initiated on propylthiouracil therapy at 25 mg daily with recommendations for repeat TSH evaluation 2 weeks after discharge. Overall, the patient had baseline functional and mental status prior to discharge. I have examined the patient and discussed disposition planning. The patient ready for discharge on 10/10/2019. DISCHARGE MEDICATIONS: 1. Omnicef 300 mg p.o. b.i.d. x5 days. 2. Amiodarone 200 mg p.o. daily. 3. Lasix 40 mg p.o. daily. 4. Keppra 1000 mg p.o. b.i.d. 5. Cozaar 25 mg p.o. b.i.d. 6. Spironolactone 25 mg p.o. daily. 7. Protonix 40 mg p.o. daily. 8. Propylthiouracil 25 mg p.o. daily. FOLLOWUP: The patient may follow up with her primary care provider, Dr. Loyda Kuo within 7 days of discharge. CONDITION ON DISCHARGE: Fair. ACTIVITY: Ad lata, rolling walker with contact guard assistance. High fall risk precautions. DIET: Regular. CODE STATUS: Full. DISPOSITION: Home with [facility] on 10/10/2019. TIME SPENT: Total time preparing and coordinating discharge, 33 minutes. Job ID: [id number]
--- NOTE | 2019-10-12 02:09 | PQF ---
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 Clinical indicators are provided on the bottom of this form for your review Can you please further clarify the etiology of Metabolic encephalopathy? Please check appropriate box(s): [ x ] Metabolic Encephalopathy due to UTI [ ] Metabolic Encephalopathy due to Alzheimer dementia [ ] Metabolic Encephalopathy due Hyperparathyroidism [ ] Metabolic Encephalopathy of unknown etiology [ ] Other diagnosis please specify [ ] Unable to determine In addition, please specify: Present on Admission (POA): [ x ] Yes [ ] No [ ] Unable to determine For continuity of documentation, please document condition throughout progress notes and discharge summary. Thank You. CLINICAL INDICATORS - SIGNS / SYMPTOMS / LABS PN p6 Dr Sharp Acute Metabolic Encephalopathy Likely multifactorial including advanced dementia and metabolic component DS p1 10/09 Dr Sharp The patient was noted with agitation and required chemical and short-term restraints due to altered mental status in the context of dementia. PN p5 10/08 Dr Stanley this hyperthyroidism could also be another factor for more agitation RISK FACTORS H&P p1 10/05 Alzheimer dementia H&P p1 10/05 Vitamin D deficiency H&P p1 10/05 83 years old H&P p1 10/05 UTI TREATMENTS: Sitter and soft restraints PN p4 10/07 Ceftriaxone/Rocephin IV 1 gm OCT 10 IVF OCT 10 Levetiracetam 1000mg PO OCT 10 Propylthiouracil 25mg PO OCT 10 (This form is maintained as a part of the permanent medical record) 2014 [employer]. All Rights Reserved [email or web address]
== END 2019-10-10 11:59 | disposition home or self-care (01) | DRG 689 ==
LOC: ERS 07:05 → ERHOLD 10:01 → OBSVTOIN 10:01 → 2NO 17:05 → T4-A 10-09 10:55
PROVIDERS: ADMIT Internal Medicine; ATTEND Internal Medicine
DX: N39.0 Urinary tract infection, site not specified (principal); G93.41 Metabolic encephalopathy; F02.81 Dementia in other diseases classified elsewhere, unspecified severity, with behavioral disturbance; I13.0 Hypertensive heart and chronic kidney disease with heart failure and stage 1 through stage 4 chronic kidney disease, or unspecified chronic kidney disease; I50.42 Chronic combined systolic (congestive) and diastolic (congestive) heart failure; G30.9 Alzheimer's disease, unspecified; D63.1 Anemia in chronic kidney disease; N18.3 Chronic kidney disease, stage 3 (moderate); E55.9 Vitamin D deficiency, unspecified; R29.6 Repeated falls; I95.9 Hypotension, unspecified; E04.2 Nontoxic multinodular goiter; Z79.899 Other long term (current) drug therapy; Z78.1 Physical restraint status
CPT/HCPCS: 36415; 36416; 51701; 70450; 71045; 72125; 76536; 80053; 81003; 81015; 82306; 82330; 82550; 82607; 82746; 82803; 83605; 83735; 84439; 84443; 84484; 85025; 87040; 87086; 93005; 96365; J0696; J1630; J2060; J3490

== ENCOUNTER 2020-09-27 09:36 | Emergency (ER) | payer MEDICARE ==
--- NOTE | 2020-09-27 10:16 | RAD ---
Exam: Chest one view HISTORY:Altered mental status and seizure Comparison: 10/05/2019 FINDINGS: Cardiac silhouette:Cardiomegaly Aorta: Atherosclerosis Pulmonary vessels: Normal Costophrenic angles: Clear LUNGS: Chronic lung parenchymal changes, without consolidation or mass. Pneumothorax: None Osseous abnormalities: None IMPRESSION: 1. Chronic lung parenchymal changes. 2. Atherosclerosis.
[2020-09-27 10:32] LABS: Bilirubin Negative (Negative); Blood, Urine Negative (Negative); Clarity Clear (Clear); Glucose, Urine (Dipstick) Normal (Negative); Ketone, Urine Negative (Negative); Leukocyte Negative Leu/uL (Negative); Nitrite Negative (Negative); Protein, Urine (Dipstick) 10 mg/dL (Neg-Trace); Specific Gravity, Urine 1.018 (1.002-1.036); Urobilinogen Normal mg/dL (Less than 2)
[2020-09-27 10:42] LABS: #Eosinphils 0.1 thou/uL (0.0-0.7); #Lymphocytes 1.1 thou/uL (1.20-3.40); #Monocytes 0.4 thou/uL (0.11-0.59); #Neutrophils 6.4 thou/uL (1.40-6.50); %Basophils 0.5 % (0.0-1.0); %Eosinophils 0.9 % (0.0-10.0); %Lymphocytes 13.4 % (21.0-51.0); %Monocytes 5.4 % (0.0-10.0); %Neutrophils 79.8 % (42.0-75.0); Hemoglobin 12.2 g/dL (12.0-16.0); Mean Corpuscular HGB CONC 32.4 g/dL (32.0-36.0); Mean Corpuscular Hemoglobin 26.7 pg (27.0-31.0); Mean Corpuscular Volume 82.6 fL (78.0-98.0); Mean Platelet Volume 8.7 fL (7.4-10.4); Platelet Count 178 thou/uL (130-400); RBC Distribution Width 14.3 % (11.5-14.5); Red Blood Cell (RBC) Count 4.57 mill/uL (4.20-5.40)
[2020-09-27 10:56] LABS: ALT (SGPT) 26 U/L (8-55); AST (SGOT) 21 U/L (5-34); Albumin 3.7 g/dL (3.4-4.8); Alkaline Phosphatase 100 U/L (40-110); Anion Gap 14 mmol/L (10-20); BUN (Urea Nitrogen) 30 mg/dL (9.8-20.1); Bilirubin, Total 0.6 mg/dL (0.2-1.2); CK (CPK) 66 U/L (29-168); Calc. Creatinine Clearance 0 mL/min (70-130); Calcium 8.8 mg/dL (7.8-10.44); Carbon Dioxide 27 mmol/L (23-31); Chloride 102 mmol/L (98-107); Globulin 3.5 g/dL (2.4-3.5); Glucose 86 mg/dL (83-110); Magnesium 2.4 mg/dL (1.6-2.6); Protein, Total 7.2 g/dL (5.8-8.1); Sodium 139 mmol/L (136-145)
[2020-09-27] MEDS ORDERED: Sterile Water 10 ML ONE (11:08)
[2020-09-27] MEDS ORDERED: Ziprasidone 20 MG VIAL ONE (11:08)
--- NOTE | 2020-09-27 11:20 | CT ---
CT BRAIN WITHOUT CONTRAST: HISTORY: Altered mental status. COMPARISON: CT brain 10/05/2019. 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 NO acute hemorrhage or infarct. NO midline shift or mas s effect. Moderate vascular calcifications. The calvarium is intact. Paranasal sinuses and mastoids are relatively clear. IMPRESSION: No acute intracranial abnormality. POS: HOME
--- NOTE | 2020-09-30 18:12 | EKG ---
Test Reason : Blood Pressure : / mmHG Vent. Rate : 058 BPM Atrial Rate : 058 BPM P-R Int : 194 ms QRS Dur : 092 ms QT Int : 500 ms P-R-T Axes : 092 -27 046 degrees QTc Int : 490 ms Sinus bradycardia Minimal voltage criteria for LVH, may be normal variant Nonspecific T wave abnormality Abnormal ECG Confirmed by RADHA Gruber, FERNANDA ([id number]), web editor ODESSA AGUIRRE ([id number]) on 09/30/2020 6:12:15 PM Referred By: Confirmed By:FERNANDA GARCIA M.D.
== END 2020-09-27 14:08 | disposition home or self-care (01) ==
LOC: ERS 09:36
DX: G40.909 Epilepsy, unspecified, not intractable, without status epilepticus (principal); F03.90 Unspecified dementia, unspecified severity, without behavioral disturbance, psychotic disturbance, mood disturbance, and anxiety; E78.5 Hyperlipidemia, unspecified; E78.00 Pure hypercholesterolemia, unspecified; I10 Essential (primary) hypertension; J44.9 Chronic obstructive pulmonary disease, unspecified; Z87.891 Personal history of nicotine dependence; Z79.899 Other long term (current) drug therapy
CPT/HCPCS: 36415; 51701; 70450; 71045; 80053; 80177; 81003; 82140; 82550; 83735; 84443; 84484; 85025; 93005; 96372; J3486

== ENCOUNTER 2021-02-11 19:56 | Inpatient (IN) | payer MEDICARE ==
[2021-02-11 20:52] LABS: Hemoglobin 11.2 g/dL (12.0-16.0); Mean Corpuscular HGB CONC 30.7 g/dL (32.0-36.0); Mean Corpuscular Hemoglobin 24.1 pg (27.0-31.0); Mean Corpuscular Volume 78.6 fL (78.0-98.0); Mean Platelet Volume 10.2 fL (7.4-10.4); Platelet Count 175 thou/uL (130-400); RBC Distribution Width 15.6 % (11.5-14.5); Red Blood Cell (RBC) Count 4.65 mill/uL (4.20-5.40)
[2021-02-11 20:57] LABS: ALT (SGPT) 78 U/L (8-55); AST (SGOT) 46 U/L (5-34); Albumin 3.4 g/dL (3.4-4.8); Alkaline Phosphatase 91 U/L (40-110); Anion Gap 16 mmol/L (10-20); BUN (Urea Nitrogen) 19 mg/dL (9.8-20.1); Bilirubin, Total 1.6 mg/dL (0.2-1.2); Calc. Creatinine Clearance 0 mL/min (70-130); Calcium 8.7 mg/dL (7.8-10.44); Carbon Dioxide 24 mmol/L (23-31); Chloride 100 mmol/L (98-107); Globulin 4.1 g/dL (2.4-3.5); Glucose 110 mg/dL (83-110); Potassium 3.2 mmol/L (3.5-5.1); Protein, Total 7.5 g/dL (5.8-8.1); Sodium 137 mmol/L (136-145)
[2021-02-11 20:58] LABS: Band 10 % (5-11); Lymphocytes 9 % (21-51); MDiff Complete? YES; Monocytes 7 % (0-10); Neutrophil 73 % (42-75); Vacuoles SLIGHT
[2021-02-11 21:13] LABS: Bacteria/HPF 4+ HPF (None Seen); Bilirubin Negative (Negative); Blood, Urine 1+ (Negative); Clarity Clear (Clear); Glucose, Urine (Dipstick) Normal (Negative); Ketone, Urine Negative (Negative); Leukocyte 500 Leu/uL (Negative); Nitrite Negative (Negative); Protein, Urine (Dipstick) 10 mg/dL (Neg-Trace); Specific Gravity, Urine 1.015 (1.002-1.036); Squamous Epithelial 0-3 HPF (0-3); Urobilinogen Normal mg/dL (Less than 2)
[2021-02-11] MEDS ORDERED: cefTRIAXone\\ROCEPHIN 2 GM VIAL ONE (21:31)
[2021-02-11] MEDS ORDERED: Vancomycin 1 GM/200 ML BAG ONE (22:47)
[2021-02-11] MEDS ORDERED: Acetaminophen 325 MG TAB PO PRN (23:04)
[2021-02-11] MEDS ORDERED: Ondansetron PF 4 MG/2 ML Vial IVP PRN (23:04)
[2021-02-11] MEDS ORDERED: Ziprasidone 20 MG VIAL IM PRN (23:24)
[2021-02-11] MEDS ORDERED: Sterile Water 10 ML VIAL FS PRN (23:30)
[2021-02-12] MEDS: Gentamicin Ophth Ointment 0.3% 3.5 gm Tube EA EYE SCH ×6 (01:13→20:32)
[2021-02-12] MEDS: Dextrose 5% w/ 20 mEq KCl 1,000 ML IV SCH (01:13)
[2021-02-12] MEDS: Morphine 2 MG/ML VIAL SLOW IVP PRN ×2 (01:18→09:49)
[2021-02-12 05:05] LABS: Hemoglobin 11.9 g/dL (12.0-16.0); Mean Corpuscular HGB CONC 30.8 g/dL (32.0-36.0); Mean Corpuscular Hemoglobin 24.5 pg (27.0-31.0); Mean Corpuscular Volume 79.7 fL (78.0-98.0); Mean Platelet Volume 10.7 fL (7.4-10.4); Platelet Count 126 thou/uL (130-400); RBC Distribution Width 15.7 % (11.5-14.5); Red Blood Cell (RBC) Count 4.84 mill/uL (4.20-5.40)
[2021-02-12 05:23] LABS: ALT (SGPT) 61 U/L (8-55); AST (SGOT) 32 U/L (5-34); Albumin 2.9 g/dL (3.4-4.8); Alkaline Phosphatase 79 U/L (40-110); Anion Gap 17 mmol/L (10-20); BUN (Urea Nitrogen) 14 mg/dL (9.8-20.1); Bilirubin, Total 1.5 mg/dL (0.2-1.2); Calc. Creatinine Clearance 52 mL/min (70-130); Calcium 8.1 mg/dL (7.8-10.44); Carbon Dioxide 19 mmol/L (23-31); Chloride 103 mmol/L (98-107); Globulin 3.5 g/dL (2.4-3.5); Glucose 100 mg/dL (83-110); Protein, Total 6.4 g/dL (5.8-8.1); Sodium 136 mmol/L (136-145)
[2021-02-12 05:30] LABS: Band 12 % (5-11); Lymphocytes 8 % (21-51); MDiff Complete? YES; Monocytes 19 % (0-10); Neutrophil 61 % (42-75)
[2021-02-12] MEDS ORDERED: Potassium Chloride 20 MEQ TAB PO SCH (07:00)
[2021-02-12] MEDS ORDERED: Potassium Chloride 40 MEQ in Sodium Chloride 0.9% 250 ML 250 ML IVPB SCH (07:45)
[2021-02-12] MEDS ORDERED: Magnesium 2 GM/50 ML 2 GM in Premix Bag 1 BAG IVPB SCH (08:45)
[2021-02-12] MEDS ORDERED: Enoxaparin Sodium 30 MG/0.3 ML SYRINGE SC SCH (09:00)
[2021-02-12] MEDS: levETIRAcetam 500 mg/5 ml Oral Solution PO SCH ×2 (09:13→20:32)
[2021-02-12] MEDS: Famotidine 20 MG TAB PO SCH ×2 (09:13→20:31)
[2021-02-12] MEDS: Amiodarone 200 MG TAB PO SCH (09:13)
[2021-02-12] MEDS: Propylthiouracil 50 MG TAB PO SCH (09:13)
[2021-02-12] MEDS: Losartan 25 MG TAB PO SCH ×2 (09:16→20:32)
[2021-02-12] MEDS: Spironolactone 25 MG TAB PO SCH (09:16)
[2021-02-12 12:32] VITALS: BMI 21.7
[2021-02-12 18:32] LABS: SARS-CoV-2 PCR by NAA Not Detected (NotDetected)
[2021-02-12] MEDS: cefTRIAXone\\ROCEPHIN 1 GM in Sodium Chloride 0.9% 100 ML IVPB SCH (20:32)
[2021-02-13] MEDS: Gentamicin Ophth Ointment 0.3% 3.5 gm Tube EA EYE SCH ×5 (03:34→22:04)
[2021-02-13 07:51] LABS: #Eosinphils 0.1 thou/uL (0.0-0.7); #Monocytes 0.9 thou/uL (0.11-0.59); #Neutrophils 12.6 thou/uL (1.40-6.50); %Basophils 0.1 % (0.0-1.0); %Lymphocytes 6.5 % (21.0-51.0); %Monocytes 6.4 % (0.0-10.0); Hemoglobin 9.6 g/dL (12.0-16.0); Mean Corpuscular HGB CONC 31.7 g/dL (32.0-36.0); Mean Corpuscular Volume 78.7 fL (78.0-98.0); Mean Platelet Volume 9.3 fL (7.4-10.4); Platelet Count 178 thou/uL (130-400); RBC Distribution Width 15.6 % (11.5-14.5); Red Blood Cell (RBC) Count 3.86 mill/uL (4.20-5.40); White Blood Cell (WBC) Count 14.6 thou/uL (4.8-10.8)
[2021-02-13 08:10] LABS: Anion Gap 13 mmol/L (10-20); BUN (Urea Nitrogen) 10 mg/dL (9.8-20.1); Calc. Creatinine Clearance 57 mL/min (70-130); Calcium 8.1 mg/dL (7.8-10.44); Carbon Dioxide 21 mmol/L (23-31); Chloride 105 mmol/L (98-107); Glucose 115 mg/dL (83-110); Sodium 135 mmol/L (136-145)
[2021-02-13] MEDS: Propylthiouracil 50 MG TAB PO SCH (08:34)
[2021-02-13] MEDS: levETIRAcetam 500 mg/5 ml Oral Solution PO SCH ×2 (08:34→22:03)
[2021-02-13] MEDS: Spironolactone 25 MG TAB PO SCH (08:35)
[2021-02-13] MEDS: Amiodarone 200 MG TAB PO SCH (08:35)
[2021-02-13] MEDS: Losartan 25 MG TAB PO SCH ×2 (08:35→21:26)
[2021-02-13] MEDS: Famotidine 20 MG TAB PO SCH ×2 (08:35→21:26)
[2021-02-13] MEDS: hydrALAZINE 20 MG/ML VIAL SLOW IVP PRN ×2 (08:41→22:12)
[2021-02-13] MEDS: Dextrose 5% w/ 20 mEq KCl 1,000 ML IV SCH ×3 (21:25→21:29)
[2021-02-13] MEDS: cefTRIAXone\\ROCEPHIN 1 GM in Sodium Chloride 0.9% 100 ML IVPB SCH (21:35)
[2021-02-14] MEDS: Gentamicin Ophth Ointment 0.3% 3.5 gm Tube EA EYE SCH ×6 (02:19→21:52)
[2021-02-14 05:58] LABS: #Basophils 0.1 thou/uL (0.0-0.2); #Eosinphils 0.1 thou/uL (0.0-0.7); #Lymphocytes 0.9 thou/uL (1.20-3.40); #Neutrophils 10.4 thou/uL (1.40-6.50); %Basophils 0.7 % (0.0-1.0); %Eosinophils 1.2 % (0.0-10.0); %Monocytes 7.7 % (0.0-10.0); %Neutrophils 83.4 % (42.0-75.0); Hemoglobin 9.4 g/dL (12.0-16.0); Mean Corpuscular HGB CONC 31.5 g/dL (32.0-36.0); Mean Corpuscular Hemoglobin 24.4 pg (27.0-31.0); Mean Corpuscular Volume 77.3 fL (78.0-98.0); Mean Platelet Volume 9.3 fL (7.4-10.4); Platelet Count 200 thou/uL (130-400); RBC Distribution Width 15.7 % (11.5-14.5); Red Blood Cell (RBC) Count 3.86 mill/uL (4.20-5.40); White Blood Cell (WBC) Count 12.5 thou/uL (4.8-10.8)
[2021-02-14 06:17] LABS: Anion Gap 14 mmol/L (10-20); BUN (Urea Nitrogen) 8 mg/dL (9.8-20.1); Calc. Creatinine Clearance 57 mL/min (70-130); Carbon Dioxide 22 mmol/L (23-31); Chloride 102 mmol/L (98-107); Glucose 115 mg/dL (83-110); Potassium 3.7 mmol/L (3.5-5.1); Sodium 134 mmol/L (136-145)
[2021-02-14 06:37] LABS: Free T4 (Free Thyroxine) 1.76 ng/dL (0.70-1.48)
[2021-02-14] MEDS: Dextrose 5% w/ 20 mEq KCl 1,000 ML IV SCH ×2 (06:41→19:26)
[2021-02-14] MEDS: Amiodarone 200 MG TAB PO SCH (10:44)
[2021-02-14] MEDS: Famotidine 20 MG TAB PO SCH ×2 (10:44→21:52)
[2021-02-14] MEDS: levETIRAcetam 500 mg/5 ml Oral Solution PO SCH ×2 (10:45→21:52)
[2021-02-14] MEDS: Spironolactone 25 MG TAB PO SCH (10:45)
[2021-02-14] MEDS: Losartan 25 MG TAB PO SCH ×2 (10:45→21:52)
[2021-02-14] MEDS: Propylthiouracil 50 MG TAB PO SCH (10:45)
[2021-02-14] MEDS: cefTRIAXone\\ROCEPHIN 1 GM in Sodium Chloride 0.9% 100 ML IVPB SCH (21:57)
[2021-02-15] MEDS: Gentamicin Ophth Ointment 0.3% 3.5 gm Tube EA EYE SCH ×6 (01:06→21:18)
[2021-02-15 05:08] LABS: Hemoglobin 9.5 g/dL (12.0-16.0); Mean Corpuscular HGB CONC 31.3 g/dL (32.0-36.0); Mean Corpuscular Hemoglobin 24.5 pg (27.0-31.0); Mean Corpuscular Volume 78.2 fL (78.0-98.0); Mean Platelet Volume 8.9 fL (7.4-10.4); Platelet Count 225 thou/uL (130-400); RBC Distribution Width 15.7 % (11.5-14.5); Red Blood Cell (RBC) Count 3.88 mill/uL (4.20-5.40); White Blood Cell (WBC) Count 11.2 thou/uL (4.8-10.8)
[2021-02-15 05:19] LABS: Anion Gap 14 mmol/L (10-20); BUN (Urea Nitrogen) 8 mg/dL (9.8-20.1); Calc. Creatinine Clearance 59 mL/min (70-130); Calcium 8.3 mg/dL (7.8-10.44); Carbon Dioxide 21 mmol/L (23-31); Chloride 106 mmol/L (98-107); Glucose 83 mg/dL (83-110); Potassium 3.9 mmol/L (3.5-5.1); Sodium 137 mmol/L (136-145)
[2021-02-15 05:30] LABS: Band 3 % (5-11); Eosinophils 3 % (0-10); Lymphocytes 16 % (21-51); MDiff Complete? YES; Monocytes 8 % (0-10); Neutrophil 70 % (42-75)
[2021-02-15] MEDS: Dextrose 5% w/ 20 mEq KCl 1,000 ML IV SCH (08:40)
[2021-02-15] MEDS: Famotidine 20 MG TAB PO SCH ×2 (08:44→21:18)
[2021-02-15] MEDS: Losartan 25 MG TAB PO SCH ×2 (08:44→21:17)
[2021-02-15] MEDS: Spironolactone 25 MG TAB PO SCH (08:44)
[2021-02-15] MEDS: levETIRAcetam 500 mg/5 ml Oral Solution PO SCH ×2 (10:50→21:17)
[2021-02-15] MEDS ORDERED: Famotidine/PF 20 mg/2ml Vial ONE (10:53)
[2021-02-15] MEDS: hydrALAZINE 20 MG/ML VIAL SLOW IVP PRN (11:39)
[2021-02-15] MEDS: Propylthiouracil 50 MG TAB PO SCH (11:40)
[2021-02-15] MEDS: Amiodarone 200 MG TAB PO SCH (11:40)
[2021-02-15] MEDS: cefTRIAXone\\ROCEPHIN 1 GM in Sodium Chloride 0.9% 100 ML IVPB SCH (21:18)
[2021-02-16] MEDS: Gentamicin Ophth Ointment 0.3% 3.5 gm Tube EA EYE SCH ×7 (01:10→21:42)
[2021-02-16] MEDS: hydrALAZINE 20 MG/ML VIAL SLOW IVP PRN (05:46)
[2021-02-16] MEDS: Propylthiouracil 50 MG TAB PO SCH (08:51)
[2021-02-16] MEDS: Famotidine 20 MG TAB PO SCH ×2 (08:52→20:21)
[2021-02-16] MEDS: Amiodarone 200 MG TAB PO SCH (08:52)
[2021-02-16] MEDS: levETIRAcetam 500 mg/5 ml Oral Solution PO SCH ×2 (08:52→20:21)
[2021-02-16] MEDS: Losartan 25 MG TAB PO SCH ×2 (08:52→20:21)
[2021-02-16] MEDS: Spironolactone 25 MG TAB PO SCH (08:52)
[2021-02-16] MEDS: cefTRIAXone\\ROCEPHIN 1 GM in Sodium Chloride 0.9% 100 ML IVPB SCH (20:16)
[2021-02-17] MEDS: levETIRAcetam 500 mg/5 ml Oral Solution PO SCH (09:03)
[2021-02-17] MEDS: Propylthiouracil 50 MG TAB PO SCH (09:04)
[2021-02-17] MEDS: Famotidine 20 MG TAB PO SCH (09:05)
[2021-02-17] MEDS: Amiodarone 200 MG TAB PO SCH (09:05)
[2021-02-17] MEDS: Spironolactone 25 MG TAB PO SCH (09:05)
[2021-02-17] MEDS: Losartan 25 MG TAB PO SCH (09:05)
[2021-02-17] MEDS: Gentamicin Ophth Ointment 0.3% 3.5 gm Tube EA EYE SCH (09:35)
[2021-02-17 12:01] VITALS: BP 126/66; TEMP 97.8
== END 2021-02-17 12:00 | disposition home or self-care (01) | DRG 871 ==
LOC: ERS 19:56 → SURG A 22:27 → SURG B 02-13 13:30
PROVIDERS: ADMIT Internal Medicine; ATTEND Internal Medicine
DX: A41.9 Sepsis, unspecified organism (principal); G93.41 Metabolic encephalopathy; I13.0 Hypertensive heart and chronic kidney disease with heart failure and stage 1 through stage 4 chronic kidney disease, or unspecified chronic kidney disease; I50.42 Chronic combined systolic (congestive) and diastolic (congestive) heart failure; N39.0 Urinary tract infection, site not specified; E78.5 Hyperlipidemia, unspecified; S42.031A Displaced fracture of lateral end of right clavicle, initial encounter for closed fracture; N18.30 Chronic kidney disease, stage 3 unspecified; G30.9 Alzheimer's disease, unspecified; I48.0 Paroxysmal atrial fibrillation; G40.909 Epilepsy, unspecified, not intractable, without status epilepticus; R31.9 Hematuria, unspecified; I07.1 Rheumatic tricuspid insufficiency; E04.2 Nontoxic multinodular goiter; F02.80 Dementia in other diseases classified elsewhere, unspecified severity, without behavioral disturbance, psychotic disturbance, mood disturbance, and anxiety; E87.6 Hypokalemia; Z20.822 Contact with and (suspected) exposure to COVID-19; W19.XXXA Unspecified fall, initial encounter; Z88.5 Allergy status to narcotic agent; Z88.8 Allergy status to other drugs, medicaments and biological substances; Z79.899 Other long term (current) drug therapy; Z90.13 Acquired absence of bilateral breasts and nipples; Z85.3 Personal history of malignant neoplasm of breast
CPT/HCPCS: 36415; 51701; 70450; 72125; 72170; 80048; 80053; 81003; 81015; 83605; 83735; 84439; 84443; 84481; 85025; 87040; 87086; 90471; 90732; 96365; 96374; G0009; J0360; J0696; J2270; J2405; J3370; J3475; J3480; J3490; J7050; U0003; U0005

== ENCOUNTER 2021-04-02 15:53 | Emergency (ER) | payer MEDICARE ==
[2021-04-02 17:23] LABS: #Eosinphils 0.2 thou/uL (0.0-0.7); #Lymphocytes 1.2 thou/uL (1.20-3.40); #Monocytes 0.6 thou/uL (0.11-0.59); #Neutrophils 7.8 thou/uL (1.40-6.50); %Basophils 0.2 % (0.0-1.0); %Lymphocytes 11.7 % (21.0-51.0); %Monocytes 6.5 % (0.0-10.0); %Neutrophils 79.6 % (42.0-75.0); Hemoglobin 10.5 g/dL (12.0-16.0); Mean Corpuscular HGB CONC 29.3 g/dL (32.0-36.0); Mean Corpuscular Hemoglobin 22.3 pg (27.0-31.0); Mean Corpuscular Volume 76.1 fL (78.0-98.0); Mean Platelet Volume 11.4 fL (7.4-10.4); Platelet Count 190 thou/uL (130-400); RBC Distribution Width 17.2 % (11.5-14.5); White Blood Cell (WBC) Count 9.8 thou/uL (4.8-10.8)
[2021-04-02 17:45] LABS: Hypochromia SLIGHT = 6-15 cells (100X) (0-5/hpf); MDiff Complete? YES; Platelet Morphology Comment Appears Adequate
[2021-04-02 19:11] LABS: ALT (SGPT) 11 U/L (8-55); AST (SGOT) 14 U/L (5-34); Albumin 3.5 g/dL (3.4-4.8); Alkaline Phosphatase 131 U/L (40-110); Anion Gap 20 mmol/L (10-20); BUN (Urea Nitrogen) 28 mg/dL (9.8-20.1); Bilirubin, Total 0.6 mg/dL (0.2-1.2); Calc. Creatinine Clearance 0 mL/min (70-130); Calcium 9.3 mg/dL (7.8-10.44); Carbon Dioxide 21 mmol/L (23-31); Chloride 109 mmol/L (98-107); Globulin 4.3 g/dL (2.4-3.5); Glucose 90 mg/dL (83-110); Potassium 3.5 mmol/L (3.5-5.1); Protein, Total 7.8 g/dL (5.8-8.1); Sodium 146 mmol/L (136-145)
== END 2021-04-02 19:20 | disposition home or self-care (01) ==
LOC: ERS 15:53
DX: R55 Syncope and collapse (principal); I48.91 Unspecified atrial fibrillation; K21.9 Gastro-esophageal reflux disease without esophagitis; E78.5 Hyperlipidemia, unspecified; E78.00 Pure hypercholesterolemia, unspecified; I10 Essential (primary) hypertension; J44.9 Chronic obstructive pulmonary disease, unspecified; Z87.891 Personal history of nicotine dependence; W18.30XA Fall on same level, unspecified, initial encounter; Z79.899 Other long term (current) drug therapy; Z79.82 Long term (current) use of aspirin
CPT/HCPCS: 36415; 70450; 80053; 83880; 84146; 84484; 85025; 93005; 94760

== ENCOUNTER 2021-04-24 11:19 | Emergency (ER) | payer MEDICARE ==
[2021-04-24 14:48] LABS: Hemoglobin 10.1 g/dL (12.0-16.0); Mean Corpuscular HGB CONC 30.6 g/dL (32.0-36.0); Mean Corpuscular Volume 71.8 fL (78.0-98.0); Mean Platelet Volume 5.7 fL (7.4-10.4); Platelet Count 154 thou/uL (130-400); RBC Distribution Width 17.3 % (11.5-14.5); White Blood Cell (WBC) Count 9.1 thou/uL (4.8-10.8)
[2021-04-24 14:49] LABS: #Eosinphils 0.1 thou/uL (0.0-0.7); #Lymphocytes 1.3 thou/uL (1.20-3.40); #Monocytes 0.9 thou/uL (0.11-0.59); #Neutrophils 6.7 thou/uL (1.40-6.50); %Basophils 0.1 % (0.0-1.0); %Eosinophils 0.8 % (0.0-10.0); %Lymphocytes 14.5 % (21.0-51.0); %Monocytes 10.3 % (0.0-10.0); %Neutrophils 74.2 % (42.0-75.0)
[2021-04-24 15:06] LABS: ALT (SGPT) 12 U/L (8-55); AST (SGOT) 14 U/L (5-34); Albumin 3.2 g/dL (3.4-4.8); Alkaline Phosphatase 109 U/L (40-110); Anion Gap 15 mmol/L (10-20); BUN (Urea Nitrogen) 20 mg/dL (9.8-20.1); Bilirubin, Total 0.5 mg/dL (0.2-1.2); CK (CPK) 46 U/L (29-168); Calc. Creatinine Clearance 0 mL/min (70-130); Carbon Dioxide 26 mmol/L (23-31); Chloride 103 mmol/L (98-107); Globulin 3.5 g/dL (2.4-3.5); Glucose 96 mg/dL (83-110); Potassium 4.8 mmol/L (3.5-5.1); Protein, Total 6.7 g/dL (5.8-8.1); Sodium 139 mmol/L (136-145)
[2021-04-24 15:17] LABS: Helmet Cells SLIGHT = 2-5 cells (100X) (0-1/hpf); Hypochromia SLIGHT = 6-15 cells (100X) (0-5/hpf); MDiff Complete? YES; Microcytosis SLIGHT = 6-15 cells (100X) (0-5/hpf); Platelet Morphology Comment Appears Adequate; Polychromasia SLIGHT = 2-3 cells (100X) (0-2/hpf); Schistocytes SLIGHT = 2-5 cells (100X) (0-1/hpf); Target Cells MODERATE= 6-15 cells (100X) (0-1/hpf)
== END 2021-04-24 18:30 | disposition home or self-care (01) ==
LOC: ERS 11:19
DX: F03.90 Unspecified dementia, unspecified severity, without behavioral disturbance, psychotic disturbance, mood disturbance, and anxiety (principal); W19.XXXA Unspecified fall, initial encounter; Z79.899 Other long term (current) drug therapy; Z79.82 Long term (current) use of aspirin; I48.91 Unspecified atrial fibrillation; E78.00 Pure hypercholesterolemia, unspecified; K21.9 Gastro-esophageal reflux disease without esophagitis; I10 Essential (primary) hypertension; J44.9 Chronic obstructive pulmonary disease, unspecified; Z87.891 Personal history of nicotine dependence
CPT/HCPCS: 70450; 80053; 82550; 85025; 85379; 93005

== ENCOUNTER 2021-06-25 19:26 | Inpatient (IN) | payer MEDICARE ==
[2021-06-25 21:51] LABS: AST (SGOT) 23 U/L (5-34); Albumin 3.5 g/dL (3.4-4.8); Anion Gap 17 mmol/L (10-20); Bilirubin, Total 0.4 mg/dL (0.2-1.2); Calc. Creatinine Clearance 0 mL/min (70-130); Calcium 8.9 mg/dL (7.8-10.44); Carbon Dioxide 20 mmol/L (23-31); Chloride 100 mmol/L (98-107); Potassium 5.4 mmol/L (3.5-5.1); Protein, Total 7.5 g/dL (5.8-8.1); Sodium 132 mmol/L (136-145)
[2021-06-25 22:04] LABS: Glucose 92 mg/dL (83-110)
[2021-06-25 22:07] LABS: Alkaline Phosphatase 115 U/L (40-110)
[2021-06-25 22:08] LABS: BUN (Urea Nitrogen) 31 mg/dL (9.8-20.1)
[2021-06-25 22:10] LABS: ALT (SGPT) 19 U/L (8-55)
[2021-06-25 22:54] LABS: #Eosinphils 0.1 thou/uL (0.0-0.7); #Monocytes 0.4 thou/uL (0.11-0.59); #Neutrophils 7.7 thou/uL (1.40-6.50); %Basophils 0.1 % (0.0-1.0); %Eosinophils 0.8 % (0.0-10.0); %Lymphocytes 10.2 % (21.0-51.0); %Monocytes 5.3 % (0.0-10.0); %Neutrophils 83.6 % (42.0-75.0); Bite Cells SLIGHT = 2-5 cells (100X) (0-1/hpf); Hemoglobin 10.5 g/dL (12.0-16.0); Hypochromia SLIGHT = 6-15 cells (100X) (0-5/hpf); MDiff Complete? YES; Mean Corpuscular HGB CONC 29.8 g/dL (32.0-36.0); Mean Corpuscular Hemoglobin 20.7 pg (27.0-31.0); Mean Corpuscular Volume 69.6 fL (78.0-98.0); Mean Platelet Volume 6.1 fL (7.4-10.4); Platelet Count 154 thou/uL (130-400); Platelet Morphology Comment Appears Adequate; RBC Distribution Width 19.5 % (11.5-14.5); Red Blood Cell (RBC) Count 5.08 mill/uL (4.20-5.40); Schistocytes SLIGHT = 2-5 cells (100X) (0-1/hpf); White Blood Cell (WBC) Count 9.3 thou/uL (4.8-10.8)
[2021-06-25 23:39] LABS: Magnesium 2.2 mg/dL (1.6-2.6)
[2021-06-26 01:21] LABS: Troponin I Less than 0.010 ng/mL (< 0.028)
[2021-06-26] MEDS: Sodium Chloride 0.9% 1,000 ML IV SCH ×2 (01:50→16:21)
[2021-06-26 05:37] LABS: Troponin I Less than 0.010 ng/mL (< 0.028)
[2021-06-26 08:59] LABS: #Lymphocytes 1.2 thou/uL (1.20-3.40); #Monocytes 0.6 thou/uL (0.11-0.59); #Neutrophils 5.8 thou/uL (1.40-6.50); %Eosinophils 0.6 % (0.0-10.0); %Lymphocytes 15.8 % (21.0-51.0); %Neutrophils 75.5 % (42.0-75.0); Hemoglobin 9.4 g/dL (12.0-16.0); Mean Corpuscular HGB CONC 30.8 g/dL (32.0-36.0); Mean Corpuscular Hemoglobin 21.2 pg (27.0-31.0); Mean Corpuscular Volume 68.7 fL (78.0-98.0); Mean Platelet Volume 6.5 fL (7.4-10.4); Platelet Count 203 thou/uL (130-400); Red Blood Cell (RBC) Count 4.45 mill/uL (4.20-5.40); White Blood Cell (WBC) Count 7.7 thou/uL (4.8-10.8)
[2021-06-26 09:07] LABS: Anion Gap 15 mmol/L (10-20); BUN (Urea Nitrogen) 28 mg/dL (9.8-20.1); Calc. Creatinine Clearance 31 mL/min (70-130); Carbon Dioxide 22 mmol/L (23-31); Chloride 102 mmol/L (98-107); Glucose 78 mg/dL (83-110); Potassium 4.6 mmol/L (3.5-5.1); Sodium 134 mmol/L (136-145)
[2021-06-26 09:24] LABS: Hypochromia SLIGHT = 6-15 cells (100X) (0-5/hpf); MDiff Complete? YES; Microcytosis SLIGHT = 6-15 cells (100X) (0-5/hpf); Ovalocytes SLIGHT = 2-5 cells (100X) (0-1/hpf); Platelet Morphology Comment Appears Adequate; Polychromasia SLIGHT = 2-3 cells (100X) (0-2/hpf)
[2021-06-26] MEDS ORDERED: FLU VACC QS2021-22(65YR UP)/PF 240 MCG/0.7 ML SYRINGE IM ONE (12:00)
[2021-06-26 14:21] LABS: SARS-CoV-2 PCR by NAA Not Detected (NotDetected)
[2021-06-26 14:38] LABS: Bilirubin Negative (Negative); Blood, Urine Negative (Negative); Clarity Turbid (Clear); Glucose, Urine (Dipstick) Normal (Negative); Ketone, Urine Negative (Negative); Leukocyte 500 Leu/uL (Negative); Nitrite 2+ (Negative); Protein, Urine (Dipstick) Negative (Neg-Trace); Specific Gravity, Urine 1.011 (1.002-1.036); Squamous Epithelial 0-3 HPF (0-3); Urobilinogen Normal mg/dL (Less than 2)
[2021-06-26 14:40] LABS: Bacteria/HPF 1+ HPF (None Seen); WBC/HPF 21-50 HPF (0-3)
[2021-06-26] MEDS: cefTRIAXone\\ROCEPHIN 1 GM in Sodium Chloride 0.9% 100 ML IVPB SCH (16:22)
[2021-06-27 05:07] LABS: #Eosinphils 0.1 thou/uL (0.0-0.7); #Lymphocytes 1.6 thou/uL (1.20-3.40); %Basophils 0.4 % (0.0-1.0); %Eosinophils 1.3 % (0.0-10.0); %Lymphocytes 18.4 % (21.0-51.0); %Monocytes 11.8 % (0.0-10.0); %Neutrophils 68.2 % (42.0-75.0); Hemoglobin 9.6 g/dL (12.0-16.0); Mean Corpuscular HGB CONC 31.1 g/dL (32.0-36.0); Mean Corpuscular Hemoglobin 21.4 pg (27.0-31.0); Mean Corpuscular Volume 68.8 fL (78.0-98.0); Mean Platelet Volume 5.4 fL (7.4-10.4); Platelet Count 188 thou/uL (130-400); RBC Distribution Width 19.2 % (11.5-14.5); White Blood Cell (WBC) Count 8.8 thou/uL (4.8-10.8)
[2021-06-27 05:35] LABS: Anion Gap 14 mmol/L (10-20); BUN (Urea Nitrogen) 20 mg/dL (9.8-20.1); Calc. Creatinine Clearance 43 mL/min (70-130); Calcium 8.8 mg/dL (7.8-10.44); Carbon Dioxide 22 mmol/L (23-31); Chloride 104 mmol/L (98-107); Glucose 70 mg/dL (83-110); Potassium 4.1 mmol/L (3.5-5.1); Sodium 136 mmol/L (136-145)
[2021-06-27] MEDS: Sodium Chloride 0.9% 1,000 ML IV SCH (06:39)
[2021-06-27] MEDS: Ferrous Sulfate 325 MG TAB PO SCH ×2 (09:24→17:56)
[2021-06-27] MEDS: Losartan 25 MG TAB PO SCH (09:24)
[2021-06-27] MEDS: Folic Acid 1 MG TAB PO SCH (09:25)
[2021-06-27] MEDS: levETIRAcetam 500 mg/5 ml Oral Solution PO SCH ×2 (09:25→21:51)
[2021-06-27] MEDS: Cyanocobalamin (Vitamin B-12) 1,000 MCG TAB PO SCH (09:25)
[2021-06-27] MEDS: Amiodarone 200 MG TAB PO SCH (09:25)
[2021-06-27] MEDS: cefTRIAXone\\ROCEPHIN 1 GM in Sodium Chloride 0.9% 100 ML IVPB SCH (15:00)
[2021-06-28 06:51] LABS: Anion Gap 11 mmol/L (10-20); BUN (Urea Nitrogen) 17 mg/dL (9.8-20.1); Calc. Creatinine Clearance 42 mL/min (70-130); Calcium 8.8 mg/dL (7.8-10.44); Carbon Dioxide 21 mmol/L (23-31); Chloride 107 mmol/L (98-107); Glucose 78 mg/dL (83-110); Potassium 4.4 mmol/L (3.5-5.1); Sodium 135 mmol/L (136-145)
[2021-06-28] MEDS: Ferrous Sulfate 325 MG TAB PO SCH ×2 (08:30→17:38)
[2021-06-28] MEDS: Losartan 25 MG TAB PO SCH (08:30)
[2021-06-28] MEDS: Amiodarone 200 MG TAB PO SCH (08:30)
[2021-06-28] MEDS: Cyanocobalamin (Vitamin B-12) 1,000 MCG TAB PO SCH (08:30)
[2021-06-28] MEDS: Folic Acid 1 MG TAB PO SCH (08:30)
[2021-06-28] MEDS: levETIRAcetam 500 mg/5 ml Oral Solution PO SCH (10:15)
[2021-06-28] MEDS: cefTRIAXone\\ROCEPHIN 1 GM in Sodium Chloride 0.9% 100 ML IVPB SCH (15:30)
[2021-06-28 19:28] VITALS: BP 150/77; TEMP 98.2
== END 2021-06-28 19:01 | disposition home health service (06) | DRG 640 ==
LOC: ERS 19:26 → 2NO 23:13 → OBSVTOIN 06-27 10:38 → T4-A 06-27 13:18
PROVIDERS: ADMIT Internal Medicine; ATTEND Internal Medicine
DX: E86.0 Dehydration (principal); G93.41 Metabolic encephalopathy; N17.9 Acute kidney failure, unspecified; N30.00 Acute cystitis without hematuria; R55 Syncope and collapse; E87.1 Hypo-osmolality and hyponatremia; Z20.822 Contact with and (suspected) exposure to COVID-19; I48.0 Paroxysmal atrial fibrillation; I10 Essential (primary) hypertension; J44.9 Chronic obstructive pulmonary disease, unspecified; D50.9 Iron deficiency anemia, unspecified; N18.9 Chronic kidney disease, unspecified; E87.5 Hyperkalemia; E78.00 Pure hypercholesterolemia, unspecified; E78.5 Hyperlipidemia, unspecified; G30.9 Alzheimer's disease, unspecified; F02.80 Dementia in other diseases classified elsewhere, unspecified severity, without behavioral disturbance, psychotic disturbance, mood disturbance, and anxiety; G40.909 Epilepsy, unspecified, not intractable, without status epilepticus; Z28.21 Immunization not carried out because of patient refusal; Z88.5 Allergy status to narcotic agent; Z88.8 Allergy status to other drugs, medicaments and biological substances; Z79.899 Other long term (current) drug therapy; Z86.718 Personal history of other venous thrombosis and embolism; Z90.11 Acquired absence of right breast and nipple; Z90.710 Acquired absence of both cervix and uterus; Z87.891 Personal history of nicotine dependence; Z85.3 Personal history of malignant neoplasm of breast
CPT/HCPCS: 36415; 70450; 71045; 72125; 80048; 80053; 80177; 81001; 83735; 84484; 85025; 87077; 87086; 87186; 93005; 96374; G0378; J0696; J3490; J7050; U0003; U0005

== ENCOUNTER 2021-08-21 10:47 | Inpatient (IN) | payer MEDICARE ==
[2021-08-21 11:44] LABS: #Eosinphils 0.2 thou/uL (0.0-0.7); #Lymphocytes 1.1 thou/uL (1.20-3.40); #Monocytes 0.9 thou/uL (0.11-0.59); #Neutrophils 8.3 thou/uL (1.40-6.50); %Basophils 0.2 % (0.0-1.0); %Eosinophils 1.6 % (0.0-10.0); %Lymphocytes 10.7 % (21.0-51.0); %Monocytes 8.2 % (0.0-10.0); %Neutrophils 79.3 % (42.0-75.0); Hemoglobin 11.4 g/dL (12.0-16.0); Mean Corpuscular HGB CONC 30.6 g/dL (32.0-36.0); Mean Corpuscular Hemoglobin 23.8 pg (27.0-31.0); Mean Corpuscular Volume 77.8 fL (78.0-98.0); Platelet Count 216 thou/uL (130-400); RBC Distribution Width 19.5 % (11.5-14.5); Red Blood Cell (RBC) Count 4.78 mill/uL (4.20-5.40); White Blood Cell (WBC) Count 10.5 thou/uL (4.8-10.8)
[2021-08-21 12:05] LABS: ALT (SGPT) 17 U/L (8-55); AST (SGOT) 20 U/L (5-34); Albumin 3.4 g/dL (3.4-4.8); Alkaline Phosphatase 100 U/L (40-110); Anion Gap 15 mmol/L (10-20); BUN (Urea Nitrogen) 16 mg/dL (9.8-20.1); Bilirubin, Total 0.9 mg/dL (0.2-1.2); Calc. Creatinine Clearance 0 mL/min (70-130); Calcium 8.8 mg/dL (7.8-10.44); Carbon Dioxide 25 mmol/L (23-31); Chloride 107 mmol/L (98-107); Globulin 3.7 g/dL (2.4-3.5); Glucose 87 mg/dL (83-110); Potassium 4.2 mmol/L (3.5-5.1); Protein, Total 7.1 g/dL (5.8-8.1); Sodium 143 mmol/L (136-145)
[2021-08-21 12:11] LABS: Hypochromia SLIGHT = 6-15 cells (100X) (0-5/hpf); MDiff Complete? YES; Microcytosis SLIGHT = 6-15 cells (100X) (0-5/hpf); Platelet Morphology Comment Appears Adequate; Polychromasia SLIGHT = 2-3 cells (100X) (0-2/hpf); Small Platelets SLIGHT
[2021-08-21] MEDS ORDERED: Nitroglycerin 2% Ointment 1 INCH/1 GM Packet ONE (12:37)
[2021-08-21] MEDS ORDERED: Furosemide 40 MG/4 ML VIAL ONE (12:37)
[2021-08-21 15:09] VITALS: BMI 21.5
[2021-08-21] MEDS ORDERED: Labetalol HCl 100 MG/20 ML VIAL SLOW IVP PRN (17:57)
[2021-08-21] MEDS ORDERED: hydrALAZINE 20 MG/ML VIAL SLOW IVP PRN (17:57)
[2021-08-21] MEDS: levETIRAcetam 500 mg/5 ml Oral Solution PO SCH (20:55)
[2021-08-22 05:13] LABS: #Eosinphils 0.1 thou/uL (0.0-0.7); #Lymphocytes 0.9 thou/uL (1.20-3.40); #Monocytes 0.6 thou/uL (0.11-0.59); #Neutrophils 4.6 thou/uL (1.40-6.50); %Basophils 0.4 % (0.0-1.0); %Eosinophils 1.3 % (0.0-10.0); %Lymphocytes 13.8 % (21.0-51.0); %Monocytes 9.7 % (0.0-10.0); %Neutrophils 74.8 % (42.0-75.0); Mean Corpuscular Hemoglobin 24.1 pg (27.0-31.0); Mean Corpuscular Volume 75.4 fL (78.0-98.0); Mean Platelet Volume 5.1 fL (7.4-10.4); Platelet Count 182 thou/uL (130-400); RBC Distribution Width 19.2 % (11.5-14.5); Red Blood Cell (RBC) Count 3.74 mill/uL (4.20-5.40); White Blood Cell (WBC) Count 6.2 thou/uL (4.8-10.8)
[2021-08-22 05:25] LABS: Anion Gap 12 mmol/L (10-20); BUN (Urea Nitrogen) 16 mg/dL (9.8-20.1); Calc. Creatinine Clearance 55 mL/min (70-130); Calcium 8.3 mg/dL (7.8-10.44); Carbon Dioxide 27 mmol/L (23-31); Chloride 103 mmol/L (98-107); Glucose 90 mg/dL (83-110); Potassium 3.4 mmol/L (3.5-5.1); Sodium 139 mmol/L (136-145)
[2021-08-22] MEDS ORDERED: Enoxaparin Sodium 40 MG/0.4 ML SYRINGE SC SCH ×2 (09:00→11:45)
[2021-08-22 10:53] LABS: SARS-CoV-2 PCR by NAA Not Detected (NotDetected)
[2021-08-22] MEDS ORDERED: Piperacillin/Tazobactam 3.375 GM in Sodium Chloride 0.9% 100 ML IVPB SCH (12:00)
[2021-08-22] MEDS ORDERED: Potassium Chloride 10 MEQ in Premix Bag 1 BAG IVPB SCH ×2 (12:00→14:00)
[2021-08-22] MEDS: Ferrous Sulfate 325 MG TAB PO SCH ×2 (14:01→16:46)
[2021-08-22] MEDS: Furosemide 20 MG/2 ML VIAL SLOW IVP SCH (14:53)
[2021-08-22] MEDS: Piperacillin/Tazobactam 3.375 GM in Sodium Chloride 0.9% 100 ML IVPB SCH (14:53)
[2021-08-22] MEDS: levETIRAcetam 500 mg/5 ml Oral Solution PO SCH ×2 (16:38→21:28)
[2021-08-22] MEDS: Losartan 25 MG TAB PO SCH (16:47)
[2021-08-22] MEDS: Cyanocobalamin (Vitamin B-12) 1,000 MCG TAB PO SCH (16:47)
[2021-08-22] MEDS: Folic Acid 1 MG TAB PO SCH (16:47)
[2021-08-22] MEDS: Amiodarone 200 MG TAB PO SCH (16:47)
[2021-08-22] MEDS ORDERED: Cefepime 1 GM in Sodium Chloride 0.9% 100 ML IVPB SCH (21:00)
[2021-08-22] MEDS ORDERED: levETIRAcetam in NS 1,000 MG in Premix Bag 1 BAG IVPB SCH (21:15)
[2021-08-23] MEDS: Piperacillin/Tazobactam 3.375 GM in Sodium Chloride 0.9% 100 ML IVPB SCH ×3 (00:36→16:23)
[2021-08-23] MEDS ORDERED: Hydrocerin (Eucerin) Cream 120 gm Jar TOP PRN (05:48)
[2021-08-23] MEDS ORDERED: Ondansetron PF 4 MG/2 ML Vial IVP PRN (05:48)
[2021-08-23] MEDS ORDERED: Acetaminophen 500 MG TAB PO PRN (05:48)
[2021-08-23] MEDS ORDERED: Cepastat Lozenges 1 LOZ PO PRN (05:48)
[2021-08-23] MEDS ORDERED: Acetaminophen 650 MG Suppository PR PRN (05:48)
[2021-08-23] MEDS ORDERED: Bisacodyl 10 MG SUPP PR PRN (05:48)
[2021-08-23] MEDS ORDERED: Metoclopramide HCl 10 MG/2 ML VIAL IVP PRN (05:48)
[2021-08-23] MEDS ORDERED: Nitroglycerin 0.4 MG TAB (25 Tab Bottle) SL PRN (05:48)
[2021-08-23] MEDS ORDERED: Sodium Chloride 0.65% Nasal 44 ML BOT EA NARE PRN (05:48)
[2021-08-23] MEDS ORDERED: Artificial Tear Sol 15 ML BOT EA EYE PRN (05:48)
[2021-08-23] MEDS: Furosemide 20 MG/2 ML VIAL SLOW IVP SCH ×2 (05:58→15:33)
[2021-08-23] MEDS ORDERED: levETIRAcetam 500 mg/5 ml Oral Solution PO SCH (09:00)
[2021-08-23] MEDS ORDERED: Enoxaparin Sodium 40 MG/0.4 ML SYRINGE ONE (09:41)
[2021-08-23] MEDS ORDERED: Pantoprazole 40 MG VIAL ONE (09:42)
[2021-08-23] MEDS: Enoxaparin Sodium 40 MG/0.4 ML SYRINGE SC SCH (09:47)
[2021-08-23] MEDS: Pantoprazole 40 MG VIAL IVP SCH (09:48)
[2021-08-23] MEDS: levETIRAcetam in NS 1,000 MG in Premix Bag 1 BAG IVPB SCH ×2 (11:42→19:58)
[2021-08-23] MEDS: Ferrous Sulfate 325 MG TAB PO SCH ×2 (13:57→16:23)
[2021-08-23] MEDS: Losartan 25 MG TAB PO SCH (14:13)
[2021-08-23] MEDS: Folic Acid 1 MG TAB PO SCH (14:13)
[2021-08-23] MEDS: Amiodarone 200 MG TAB PO SCH (14:13)
[2021-08-23] MEDS: Cyanocobalamin (Vitamin B-12) 1,000 MCG TAB PO SCH (14:13)
[2021-08-24] MEDS: Piperacillin/Tazobactam 3.375 GM in Sodium Chloride 0.9% 100 ML IVPB SCH ×3 (00:14→16:38)
[2021-08-24 05:02] LABS: Anion Gap 13 mmol/L (10-20); BUN (Urea Nitrogen) 13 mg/dL (9.8-20.1); Calc. Creatinine Clearance 47 mL/min (70-130); Carbon Dioxide 29 mmol/L (23-31); Chloride 101 mmol/L (98-107); Glucose 90 mg/dL (83-110); Phosphorus 3.3 mg/dL (2.3-4.7); Sodium 140 mmol/L (136-145)
[2021-08-24 05:07] LABS: Potassium 2.9 mmol/L (3.5-5.1)
[2021-08-24] MEDS: Furosemide 20 MG/2 ML VIAL SLOW IVP SCH ×2 (05:20→14:28)
[2021-08-24] MEDS ORDERED: Potassium Chloride 20 MEQ TAB PO SCH (05:30)
[2021-08-24 06:09] LABS: #Eosinphils 0.1 thou/uL (0.0-0.7); #Lymphocytes 0.8 thou/uL (1.20-3.40); #Monocytes 0.6 thou/uL (0.11-0.59); #Neutrophils 3.3 thou/uL (1.40-6.50); %Basophils 0.3 % (0.0-1.0); %Eosinophils 1.6 % (0.0-10.0); %Lymphocytes 17.1 % (21.0-51.0); %Monocytes 13.1 % (0.0-10.0); %Neutrophils 67.9 % (42.0-75.0); Anisocytosis SLIGHT = 6-15 cells (100X) (0-5/hpf); Hemoglobin 9.6 g/dL (12.0-16.0); MDiff Complete? YES; Mean Corpuscular HGB CONC 29.7 g/dL (32.0-36.0); Mean Corpuscular Hemoglobin 22.6 pg (27.0-31.0); Mean Corpuscular Volume 76.2 fL (78.0-98.0); Platelet Count 191 thou/uL (130-400); RBC Distribution Width 18.7 % (11.5-14.5); Red Blood Cell (RBC) Count 4.25 mill/uL (4.20-5.40); White Blood Cell (WBC) Count 4.9 thou/uL (4.8-10.8)
[2021-08-24 08:57] LABS: Free T4 (Free Thyroxine) 1.48 ng/dL (0.70-1.48); Thyroid Stimulating Hormone 0.0064 uIU/mL (0.35-4.94)
[2021-08-24] MEDS: levETIRAcetam in NS 1,000 MG in Premix Bag 1 BAG IVPB SCH (09:38)
[2021-08-24] MEDS: Cyanocobalamin (Vitamin B-12) 1,000 MCG TAB PO SCH (09:44)
[2021-08-24] MEDS: Folic Acid 1 MG TAB PO SCH (09:44)
[2021-08-24] MEDS: Losartan 25 MG TAB PO SCH (09:44)
[2021-08-24] MEDS: Enoxaparin Sodium 40 MG/0.4 ML SYRINGE SC SCH ×2 (09:44→09:54)
[2021-08-24] MEDS: Ferrous Sulfate 325 MG TAB PO SCH ×2 (09:44→16:38)
[2021-08-24] MEDS: Amiodarone 200 MG TAB PO SCH (09:44)
[2021-08-24] MEDS: Pantoprazole 40 MG VIAL IVP SCH (09:45)
[2021-08-24] MEDS ORDERED: levETIRAcetam 500 MG TAB PO SCH (21:00)
[2021-08-24] MEDS: levETIRAcetam 500 mg/5 ml Oral Solution PO SCH (22:13)
[2021-08-25] MEDS: Piperacillin/Tazobactam 3.375 GM in Sodium Chloride 0.9% 100 ML IVPB SCH ×3 (00:38→16:11)
[2021-08-25 05:07] LABS: #Eosinphils 0.2 thou/uL (0.0-0.7); #Lymphocytes 1.1 thou/uL (1.20-3.40); #Monocytes 0.6 thou/uL (0.11-0.59); #Neutrophils 4.3 thou/uL (1.40-6.50); %Basophils 0.2 % (0.0-1.0); %Lymphocytes 17.5 % (21.0-51.0); %Monocytes 9.8 % (0.0-10.0); %Neutrophils 69.5 % (42.0-75.0); Hemoglobin 10.1 g/dL (12.0-16.0); Mean Corpuscular HGB CONC 30.7 g/dL (32.0-36.0); Mean Corpuscular Hemoglobin 23.5 pg (27.0-31.0); Mean Corpuscular Volume 76.5 fL (78.0-98.0); Mean Platelet Volume 10.7 fL (7.4-10.4); Platelet Count 204 thou/uL (130-400); RBC Distribution Width 18.5 % (11.5-14.5); Red Blood Cell (RBC) Count 4.29 mill/uL (4.20-5.40); White Blood Cell (WBC) Count 6.2 thou/uL (4.8-10.8)
[2021-08-25 05:30] LABS: Anion Gap 16 mmol/L (10-20); BUN (Urea Nitrogen) 16 mg/dL (9.8-20.1); Calc. Creatinine Clearance 47 mL/min (70-130); Calcium 8.2 mg/dL (7.8-10.44); Carbon Dioxide 25 mmol/L (23-31); Chloride 102 mmol/L (98-107); Glucose 84 mg/dL (83-110); Potassium 3.4 mmol/L (3.5-5.1); Sodium 140 mmol/L (136-145)
[2021-08-25] MEDS: Furosemide 20 MG/2 ML VIAL SLOW IVP SCH (05:47)
[2021-08-25] MEDS: Potassium Chloride 20 MEQ TAB PO SCH ×2 (08:41→16:10)
[2021-08-25] MEDS: Folic Acid 1 MG TAB PO SCH (08:41)
[2021-08-25] MEDS: Cyanocobalamin (Vitamin B-12) 1,000 MCG TAB PO SCH (08:41)
[2021-08-25] MEDS: Amiodarone 200 MG TAB PO SCH (08:41)
[2021-08-25] MEDS: Ferrous Sulfate 325 MG TAB PO SCH ×2 (08:41→16:10)
[2021-08-25] MEDS: Enoxaparin Sodium 40 MG/0.4 ML SYRINGE SC SCH (08:41)
[2021-08-25] MEDS: Losartan 25 MG TAB PO SCH (08:41)
[2021-08-25] MEDS: Pantoprazole 40 MG VIAL IVP SCH (08:42)
[2021-08-25] MEDS: levETIRAcetam 500 mg/5 ml Oral Solution PO SCH ×2 (08:42→20:31)
[2021-08-25] MEDS ORDERED: Carvedilol 3.125 MG TAB PO SCH (09:15)
[2021-08-25] MEDS ORDERED: Spironolactone 25 MG TAB PO SCH (09:15)
[2021-08-25] MEDS: Carvedilol 3.125 MG TAB PO SCH (16:11)
[2021-08-26] MEDS: Piperacillin/Tazobactam 3.375 GM in Sodium Chloride 0.9% 100 ML IVPB SCH ×3 (00:37→16:08)
[2021-08-26 05:17] LABS: Anion Gap 15 mmol/L (10-20); BUN (Urea Nitrogen) 18 mg/dL (9.8-20.1); Calc. Creatinine Clearance 48 mL/min (70-130); Calcium 8.3 mg/dL (7.8-10.44); Carbon Dioxide 26 mmol/L (23-31); Chloride 103 mmol/L (98-107); Glucose 89 mg/dL (83-110); Potassium 3.9 mmol/L (3.5-5.1); Sodium 140 mmol/L (136-145)
[2021-08-26 05:26] LABS: #Eosinphils 0.3 thou/uL (0.0-0.7); #Lymphocytes 1.2 thou/uL (1.20-3.40); #Monocytes 0.5 thou/uL (0.11-0.59); #Neutrophils 3.7 thou/uL (1.40-6.50); %Basophils 0.2 % (0.0-1.0); %Eosinophils 5.6 % (0.0-10.0); %Lymphocytes 20.7 % (21.0-51.0); %Neutrophils 65.5 % (42.0-75.0); Hemoglobin 9.7 g/dL (12.0-16.0); Mean Corpuscular HGB CONC 29.7 g/dL (32.0-36.0); Mean Corpuscular Volume 77.3 fL (78.0-98.0); Mean Platelet Volume 10.2 fL (7.4-10.4); Platelet Count 217 thou/uL (130-400); RBC Distribution Width 18.3 % (11.5-14.5); White Blood Cell (WBC) Count 5.7 thou/uL (4.8-10.8)
[2021-08-26] MEDS: Ferrous Sulfate 325 MG TAB PO SCH ×2 (08:56→16:08)
[2021-08-26] MEDS: Folic Acid 1 MG TAB PO SCH (08:56)
[2021-08-26] MEDS: Carvedilol 3.125 MG TAB PO SCH ×2 (08:56→16:08)
[2021-08-26] MEDS: Potassium Chloride 20 MEQ TAB PO SCH ×2 (08:56→16:08)
[2021-08-26] MEDS: Amiodarone 200 MG TAB PO SCH (08:56)
[2021-08-26] MEDS: Spironolactone 25 MG TAB PO SCH (08:56)
[2021-08-26] MEDS: Losartan 25 MG TAB PO SCH (08:56)
[2021-08-26] MEDS: Pantoprazole 40 MG VIAL IVP SCH (08:57)
[2021-08-26] MEDS: Cyanocobalamin (Vitamin B-12) 1,000 MCG TAB PO SCH (08:57)
[2021-08-26] MEDS: Enoxaparin Sodium 40 MG/0.4 ML SYRINGE SC SCH (08:57)
[2021-08-26] MEDS: levETIRAcetam 500 mg/5 ml Oral Solution PO SCH ×2 (08:57→20:46)
[2021-08-27] MEDS: Piperacillin/Tazobactam 3.375 GM in Sodium Chloride 0.9% 100 ML IVPB SCH ×4 (00:10→16:43)
[2021-08-27] MEDS: Enoxaparin Sodium 40 MG/0.4 ML SYRINGE SC SCH (08:28)
[2021-08-27] MEDS: Losartan 25 MG TAB PO SCH (08:29)
[2021-08-27] MEDS: Ferrous Sulfate 325 MG TAB PO SCH ×2 (08:29→16:40)
[2021-08-27] MEDS: Cyanocobalamin (Vitamin B-12) 1,000 MCG TAB PO SCH (08:29)
[2021-08-27] MEDS: Folic Acid 1 MG TAB PO SCH (08:30)
[2021-08-27] MEDS: Carvedilol 3.125 MG TAB PO SCH ×2 (08:30→16:42)
[2021-08-27] MEDS: Amiodarone 200 MG TAB PO SCH (08:30)
[2021-08-27] MEDS: Spironolactone 25 MG TAB PO SCH (08:32)
[2021-08-27] MEDS: Potassium Chloride 20 MEQ TAB PO SCH ×2 (08:32→16:41)
[2021-08-27] MEDS: levETIRAcetam 500 mg/5 ml Oral Solution PO SCH ×2 (08:33→21:54)
[2021-08-27] MEDS ORDERED: Losartan 25 MG TAB PO SCH (15:45)
[2021-08-27] MEDS: Senokot S 8.6-50 MG TAB PO SCH (21:53)
[2021-08-28] MEDS: Piperacillin/Tazobactam 3.375 GM in Sodium Chloride 0.9% 100 ML IVPB SCH ×2 (00:37→10:37)
[2021-08-28 08:51] VITALS: BP 152/83; TEMP 97.6
[2021-08-28] MEDS ORDERED: Losartan 25 MG TAB PO SCH (09:00)
[2021-08-28] MEDS ORDERED: Carvedilol 6.25 MG TAB PO SCH ×2 (09:30→17:00)
[2021-08-28] MEDS: levETIRAcetam 500 mg/5 ml Oral Solution PO SCH (10:16)
[2021-08-28] MEDS: Potassium Chloride 20 MEQ TAB PO SCH ×2 (10:16→18:40)
[2021-08-28] MEDS: Spironolactone 25 MG TAB PO SCH (10:17)
[2021-08-28] MEDS: Senokot S 8.6-50 MG TAB PO SCH (10:17)
[2021-08-28] MEDS: Amiodarone 200 MG TAB PO SCH (10:17)
[2021-08-28] MEDS: Cyanocobalamin (Vitamin B-12) 1,000 MCG TAB PO SCH (10:18)
[2021-08-28] MEDS: Enoxaparin Sodium 40 MG/0.4 ML SYRINGE SC SCH (10:18)
[2021-08-28] MEDS: Ferrous Sulfate 325 MG TAB PO SCH ×2 (10:18→18:40)
[2021-08-28] MEDS: Folic Acid 1 MG TAB PO SCH (10:19)
[2021-08-28] MEDS: Carvedilol 3.125 MG TAB PO SCH (10:20)
== END 2021-08-28 18:45 | DRG 177 ==
LOC: ERS 10:47 → 2NO 13:04 → MSONC 08-26 17:45
PROVIDERS: ADMIT Family Medicine; ATTEND Internal Medicine
DX: J69.0 Pneumonitis due to inhalation of food and vomit (principal); I50.43 Acute on chronic combined systolic (congestive) and diastolic (congestive) heart failure; I42.8 Other cardiomyopathies; I11.0 Hypertensive heart disease with heart failure; I16.0 Hypertensive urgency; Z20.822 Contact with and (suspected) exposure to COVID-19; E87.6 Hypokalemia; I08.3 Combined rheumatic disorders of mitral, aortic and tricuspid valves; G40.409 Other generalized epilepsy and epileptic syndromes, not intractable, without status epilepticus; E78.5 Hyperlipidemia, unspecified; E78.00 Pure hypercholesterolemia, unspecified; J44.9 Chronic obstructive pulmonary disease, unspecified; G30.9 Alzheimer's disease, unspecified; F02.80 Dementia in other diseases classified elsewhere, unspecified severity, without behavioral disturbance, psychotic disturbance, mood disturbance, and anxiety; I48.0 Paroxysmal atrial fibrillation; D53.9 Nutritional anemia, unspecified; R13.12 Dysphagia, oropharyngeal phase; D50.9 Iron deficiency anemia, unspecified; Z88.5 Allergy status to narcotic agent; Z88.8 Allergy status to other drugs, medicaments and biological substances; Z85.3 Personal history of malignant neoplasm of breast; Z90.11 Acquired absence of right breast and nipple; Z90.710 Acquired absence of both cervix and uterus; Z87.891 Personal history of nicotine dependence; Z86.74 Personal history of sudden cardiac arrest
CPT/HCPCS: 36415; 71045; 74230; 80048; 80053; 83735; 83880; 84100; 84145; 84439; 84443; 84481; 84484; 85025; 93005; 93306; 94640; 96374; C9113; J1650; J1940; J1953; J2543; J3480; J3490; J7620; U0003; U0005

== ENCOUNTER 2021-09-17 12:24 | Inpatient (IN) | payer MEDICARE ==
[2021-09-17 14:41] LABS: Bilirubin Negative (Negative); Blood, Urine 1+ (Negative); Clarity Turbid (Clear); Glucose, Urine (Dipstick) Normal (Negative); Ketone, Urine Negative (Negative); Leukocyte 500 Leu/uL (Negative); Nitrite 2+ (Negative); Protein, Urine (Dipstick) 50 mg/dL (Neg-Trace); Specific Gravity, Urine 1.015 (1.002-1.036); Squamous Epithelial 0-3 HPF (0-3); WBC/HPF Greater than 50 HPF (0-3)
[2021-09-17 14:46] LABS: Bacteria/HPF 3+ HPF (None Seen)
[2021-09-17] MEDS ORDERED: Lorazepam 2 MG/ML VIAL ONE (16:08)
[2021-09-17] MEDS ORDERED: cefTRIAXone\\ROCEPHIN 1 GM VIAL ONE (16:24)
[2021-09-17 17:01] LABS: #Lymphocytes 1.1 thou/uL (1.20-3.40); #Monocytes 0.5 thou/uL (0.11-0.59); #Neutrophils 7.5 thou/uL (1.40-6.50); %Basophils 0.5 % (0.0-1.0); %Eosinophils 0.4 % (0.0-10.0); %Monocytes 5.6 % (0.0-10.0); %Neutrophils 81.7 % (42.0-75.0); Hemoglobin 12.8 g/dL (12.0-16.0); Mean Corpuscular Hemoglobin 23.6 pg (27.0-31.0); Mean Corpuscular Volume 76.3 fL (78.0-98.0); Mean Platelet Volume 11.1 fL (7.4-10.4); Platelet Count 198 thou/uL (130-400); RBC Distribution Width 18.1 % (11.5-14.5); Red Blood Cell (RBC) Count 5.41 mill/uL (4.20-5.40); White Blood Cell (WBC) Count 9.2 thou/uL (4.8-10.8)
[2021-09-17 17:40] LABS: ALT (SGPT) 12 U/L (8-55); AST (SGOT) 14 U/L (5-34); Albumin 3.6 g/dL (3.4-4.8); Alkaline Phosphatase 117 U/L (40-110); Anion Gap 14 mmol/L (10-20); BUN (Urea Nitrogen) 23 mg/dL (9.8-20.1); Bilirubin, Total 0.8 mg/dL (0.2-1.2); Calc. Creatinine Clearance 0 mL/min (70-130); Calcium 9.4 mg/dL (7.8-10.44); Carbon Dioxide 26 mmol/L (23-31); Chloride 104 mmol/L (98-107); Globulin 4.4 g/dL (2.4-3.5); Glucose 120 mg/dL (83-110); Potassium 4.9 mmol/L (3.5-5.1); Sodium 139 mmol/L (136-145)
[2021-09-17] MEDS ORDERED: Sodium Chloride 0.9% 1,000 ML IV SCH (20:30)
[2021-09-17] MEDS ORDERED: Acetaminophen 325 MG TAB PO PRN (20:30)
[2021-09-17] MEDS ORDERED: Ondansetron PF 4 MG/2 ML Vial IVP PRN (20:30)
[2021-09-17] MEDS ORDERED: Ondansetron ODT 4 MG TAB SL PRN (20:30)
[2021-09-17 21:06] LABS: Lactic Acid 2.8 mmol/L (0.5-2.2)
[2021-09-17] MEDS: Sodium Chloride 0.9% 1,000 ML IV SCH (23:15)
[2021-09-17] MEDS ORDERED: Acetaminophen 650 MG Suppository PR PRN (23:15)
[2021-09-17] MEDS ORDERED: Melatonin 3 MG TAB PO PRN (23:24)
[2021-09-17] MEDS ORDERED: Vancomycin 1 GM in Premix Bag 1 BAG IVPB SCH (23:59)
[2021-09-18 01:17] LABS: Lactic Acid 1.8 mmol/L (0.5-2.2)
[2021-09-18] MEDS ORDERED: Enoxaparin Sodium 40 MG/0.4 ML SYRINGE SC SCH (01:30)
[2021-09-18] MEDS ORDERED: Meropenem 1 GM in Sodium Chloride 0.9% 100 ML IVPB SCH ×2 (02:00→10:00)
[2021-09-18] MEDS: Vancomycin 1 GM in Premix Bag 1 BAG IVPB SCH (05:38)
[2021-09-18 05:45] LABS: ALT (SGPT) 12 U/L (8-55); AST (SGOT) 13 U/L (5-34); Albumin 3.1 g/dL (3.4-4.8); Alkaline Phosphatase 93 U/L (40-110); Anion Gap 13 mmol/L (10-20); BUN (Urea Nitrogen) 19 mg/dL (9.8-20.1); Bilirubin, Total 0.6 mg/dL (0.2-1.2); Calc. Creatinine Clearance 56 mL/min (70-130); Calcium 8.8 mg/dL (7.8-10.44); Carbon Dioxide 22 mmol/L (23-31); Chloride 106 mmol/L (98-107); Globulin 3.8 g/dL (2.4-3.5); Glucose 68 mg/dL (83-110); Potassium 4.1 mmol/L (3.5-5.1); Protein, Total 6.9 g/dL (5.8-8.1); Sodium 137 mmol/L (136-145)
[2021-09-18 05:47] LABS: Band 2 % (5-11); Eosinophils 1 % (0-10); Lymphocytes 21 % (21-51); MDiff Complete? YES; Mean Corpuscular HGB CONC 29.8 g/dL (32.0-36.0); Mean Corpuscular Hemoglobin 23.8 pg (27.0-31.0); Mean Corpuscular Volume 79.8 fL (78.0-98.0); Mean Platelet Volume 6.4 fL (7.4-10.4); Monocytes 12 % (0-10); Neutrophil 64 % (42-75); Platelet Count 148 thou/uL (130-400); Platelet Morphology Comment Appears Adequate; RBC Distribution Width 18.3 % (11.5-14.5); Red Blood Cell (RBC) Count 5.06 mill/uL (4.20-5.40); White Blood Cell (WBC) Count 8.1 thou/uL (4.8-10.8)
[2021-09-18] MEDS: levETIRAcetam 500 mg/5 ml Oral Solution PO SCH ×2 (08:29→21:14)
[2021-09-18] MEDS: Enoxaparin Sodium 40 MG/0.4 ML SYRINGE SC SCH ×2 (08:29→21:14)
[2021-09-18] MEDS: Folic Acid 1 MG TAB PO SCH (08:30)
[2021-09-18] MEDS: Amiodarone 200 MG TAB PO SCH (08:30)
[2021-09-18] MEDS: Ferrous Sulfate 325 MG TAB PO SCH ×2 (08:30→16:55)
[2021-09-18] MEDS: Carvedilol 6.25 MG TAB PO SCH ×2 (08:30→16:55)
[2021-09-18] MEDS: Spironolactone 25 MG TAB PO SCH (08:30)
[2021-09-18] MEDS: Famotidine/PF 20 mg/2ml Vial SLOW IVP SCH (08:31)
[2021-09-18] MEDS: Cyanocobalamin (Vitamin B-12) 1,000 MCG TAB PO SCH (08:31)
[2021-09-18] MEDS: Meropenem 1 GM in Sodium Chloride 0.9% 100 ML IVPB SCH (16:56)
[2021-09-18] MEDS ORDERED: cefTRIAXone\\ROCEPHIN 1 GM in Sodium Chloride 0.9% 100 ML IVPB SCH (17:00)
[2021-09-18] MEDS: Sodium Chloride 0.9% 1,000 ML IV SCH (21:14)
[2021-09-19] MEDS: Meropenem 1 GM in Sodium Chloride 0.9% 100 ML IVPB SCH ×3 (00:46→18:28)
[2021-09-19] MEDS: Vancomycin 1 GM in Premix Bag 1 BAG IVPB SCH (07:27)
[2021-09-19] MEDS: levETIRAcetam 500 mg/5 ml Oral Solution PO SCH ×2 (09:13→20:40)
[2021-09-19] MEDS: Spironolactone 25 MG TAB PO SCH (09:13)
[2021-09-19] MEDS: Carvedilol 6.25 MG TAB PO SCH ×2 (09:13→16:09)
[2021-09-19] MEDS: Folic Acid 1 MG TAB PO SCH (09:13)
[2021-09-19] MEDS: Ferrous Sulfate 325 MG TAB PO SCH ×2 (09:13→16:09)
[2021-09-19] MEDS: Cyanocobalamin (Vitamin B-12) 1,000 MCG TAB PO SCH (09:13)
[2021-09-19] MEDS: Enoxaparin Sodium 40 MG/0.4 ML SYRINGE SC SCH ×3 (09:14→20:40)
[2021-09-19] MEDS: Famotidine/PF 20 mg/2ml Vial SLOW IVP SCH (09:14)
[2021-09-19] MEDS: Amiodarone 200 MG TAB PO SCH (09:14)
[2021-09-19 14:23] LABS: #Eosinphils 0.1 thou/uL (0.0-0.7); #Lymphocytes 0.5 thou/uL (1.20-3.40); #Monocytes 0.5 thou/uL (0.11-0.59); #Neutrophils 4.7 thou/uL (1.40-6.50); %Basophils 0.2 % (0.0-1.0); %Eosinophils 1.2 % (0.0-10.0); %Lymphocytes 8.9 % (21.0-51.0); %Monocytes 8.4 % (0.0-10.0); %Neutrophils 81.4 % (42.0-75.0); Hemoglobin 12.2 g/dL (12.0-16.0); Mean Corpuscular HGB CONC 30.4 g/dL (32.0-36.0); Mean Corpuscular Hemoglobin 23.7 pg (27.0-31.0); Mean Platelet Volume 5.4 fL (7.4-10.4); Platelet Count 119 thou/uL (130-400); RBC Distribution Width 18.3 % (11.5-14.5); Red Blood Cell (RBC) Count 5.13 mill/uL (4.20-5.40); White Blood Cell (WBC) Count 5.8 thou/uL (4.8-10.8)
[2021-09-19 14:57] LABS: Anisocytosis SLIGHT = 6-15 cells (100X) (0-5/hpf); Burr Cells SLIGHT = 2-5 cells (100X) (0-1/hpf); Hypochromia SLIGHT = 6-15 cells (100X) (0-5/hpf); Large Platelets SLIGHT; MDiff Complete? YES; Platelet Morphology Comment Appears Decreased; Target Cells SLIGHT = 2-5 cells (100X) (0-1/hpf)
[2021-09-19 14:58] LABS: ALT (SGPT) 13 U/L (8-55); AST (SGOT) 14 U/L (5-34); Albumin 3.2 g/dL (3.4-4.8); Alkaline Phosphatase 91 U/L (40-110); Anion Gap 14 mmol/L (10-20); BUN (Urea Nitrogen) 18 mg/dL (9.8-20.1); Bilirubin, Total 0.6 mg/dL (0.2-1.2); Calc. Creatinine Clearance 54 mL/min (70-130); Calcium 8.6 mg/dL (7.8-10.44); Carbon Dioxide 20 mmol/L (23-31); Chloride 107 mmol/L (98-107); Globulin 3.8 g/dL (2.4-3.5); Glucose 74 mg/dL (83-110); Potassium 4.1 mmol/L (3.5-5.1); Sodium 137 mmol/L (136-145)
[2021-09-19] MEDS: Sodium Chloride 0.9% 1,000 ML IV SCH (16:10)
[2021-09-19] MEDS: hydrALAZINE 20 MG/ML VIAL SLOW IVP PRN (21:19)
[2021-09-20] MEDS: Meropenem 1 GM in Sodium Chloride 0.9% 100 ML IVPB SCH ×2 (01:30→09:18)
[2021-09-20] MEDS: Vancomycin 1 GM in Premix Bag 1 BAG IVPB SCH (05:34)
[2021-09-20] MEDS: Spironolactone 25 MG TAB PO SCH (08:18)
[2021-09-20] MEDS: Carvedilol 6.25 MG TAB PO SCH ×2 (08:18→16:25)
[2021-09-20] MEDS: Folic Acid 1 MG TAB PO SCH (08:18)
[2021-09-20] MEDS: Ferrous Sulfate 325 MG TAB PO SCH ×2 (08:18→16:25)
[2021-09-20] MEDS: Cyanocobalamin (Vitamin B-12) 1,000 MCG TAB PO SCH (08:18)
[2021-09-20] MEDS: levETIRAcetam 500 mg/5 ml Oral Solution PO SCH (08:18)
[2021-09-20] MEDS: Famotidine/PF 20 mg/2ml Vial SLOW IVP SCH (08:19)
[2021-09-20] MEDS: Enoxaparin Sodium 40 MG/0.4 ML SYRINGE SC SCH ×2 (08:19→08:37)
[2021-09-20] MEDS: Amiodarone 200 MG TAB PO SCH (08:19)
[2021-09-20 08:50] VITALS: TEMP 97.7
[2021-09-20] MEDS: Sodium Chloride 0.9% 1,000 ML IV SCH (09:18)
[2021-09-20] MEDS: hydrALAZINE 20 MG/ML VIAL SLOW IVP PRN (16:28)
[2021-09-20 16:53] VITALS: BP 174/74
== END 2021-09-20 17:28 | disposition home health service (06) | DRG 689 ==
LOC: ERS 12:24 → T4-B 18:11
PROVIDERS: ADMIT Internal Medicine; ATTEND Internal Medicine
DX: N30.00 Acute cystitis without hematuria (principal); G93.41 Metabolic encephalopathy; I50.42 Chronic combined systolic (congestive) and diastolic (congestive) heart failure; K21.9 Gastro-esophageal reflux disease without esophagitis; E78.5 Hyperlipidemia, unspecified; E78.00 Pure hypercholesterolemia, unspecified; I10 Essential (primary) hypertension; G40.909 Epilepsy, unspecified, not intractable, without status epilepticus; G30.9 Alzheimer's disease, unspecified; F02.80 Dementia in other diseases classified elsewhere, unspecified severity, without behavioral disturbance, psychotic disturbance, mood disturbance, and anxiety; J43.2 Centrilobular emphysema; I48.0 Paroxysmal atrial fibrillation; Z90.710 Acquired absence of both cervix and uterus; Z87.891 Personal history of nicotine dependence; Z88.2 Allergy status to sulfonamides; Z88.8 Allergy status to other drugs, medicaments and biological substances; Z85.3 Personal history of malignant neoplasm of breast; Z88.5 Allergy status to narcotic agent; Z79.899 Other long term (current) drug therapy
CPT/HCPCS: 36415; 51701; 70450; 71045; 71260; 80053; 81003; 81015; 83605; 84484; 85025; 87040; 87077; 87086; 87149; 87186; 93005; 94760; 96365; 96372; J0360; J0696; J1650; J2060; J2185; J3370; J3490; J7050; S0028

== ENCOUNTER 2021-09-28 19:18 | Emergency (ER) | payer MEDICARE ==
[2021-09-28 20:11] LABS: Hemoglobin 12.3 g/dL (12.0-16.0); Mean Corpuscular HGB CONC 29.3 g/dL (32.0-36.0); Mean Corpuscular Volume 78.4 fL (78.0-98.0); Mean Platelet Volume 10.8 fL (7.4-10.4); Platelet Count 184 thou/uL (130-400); RBC Distribution Width 17.9 % (11.5-14.5); Red Blood Cell (RBC) Count 5.35 mill/uL (4.20-5.40); White Blood Cell (WBC) Count 6.8 thou/uL (4.8-10.8)
[2021-09-28 20:19] LABS: ALT (SGPT) 71 U/L (8-55); AST (SGOT) 55 U/L (5-34); Albumin 3.4 g/dL (3.4-4.8); Alkaline Phosphatase 96 U/L (40-110); Anion Gap 18 mmol/L (10-20); BUN (Urea Nitrogen) 18 mg/dL (9.8-20.1); CK (CPK) 121 U/L (29-168); Calc. Creatinine Clearance 0 mL/min (70-130); Calcium 8.7 mg/dL (7.8-10.44); Carbon Dioxide 22 mmol/L (23-31); Chloride 105 mmol/L (98-107); Globulin 3.9 g/dL (2.4-3.5); Glucose 125 mg/dL (83-110); Magnesium 1.9 mg/dL (1.6-2.6); Potassium 4.8 mmol/L (3.5-5.1); Protein, Total 7.3 g/dL (5.8-8.1); Sodium 140 mmol/L (136-145)
[2021-09-28 20:26] LABS: Anisocytosis SLIGHT = 6-15 cells (100X) (0-5/hpf); Band 5 % (5-11); Burr Cells SLIGHT = 2-5 cells (100X) (0-1/hpf); Hypochromia SLIGHT = 6-15 cells (100X) (0-5/hpf); Lymphocytes 8 % (21-51); MDiff Complete? YES; Monocytes 5 % (0-10); Neutrophil 81 % (42-75); Ovalocytes SLIGHT = 2-5 cells (100X) (0-1/hpf); Platelet Morphology Comment Appears Adequate; Poikilocytosis SLIGHT = 6-15 cells (100X) (0-5/hpf); Polychromasia SLIGHT = 2-3 cells (100X) (0-2/hpf); Reactive Lymphocytes 1 % (0-10); Schistocytes SLIGHT = 2-5 cells (100X) (0-1/hpf)
[2021-09-28 21:06] LABS: Bacteria/HPF 3+ HPF (None Seen); Bilirubin Negative (Negative); Blood, Urine 3+ (Negative); Clarity Extra Turbid (Clear); Glucose, Urine (Dipstick) Normal (Negative); Ketone, Urine Negative (Negative); Leukocyte 500 Leu/uL (Negative); Mucous/LPF 1+ LPF (<2+); Nitrite Negative (Negative); Protein, Urine (Dipstick) 100 mg/dL (Neg-Trace); Specific Gravity, Urine 1.025 (1.002-1.036); Squamous Epithelial 0-3 HPF (0-3); Urobilinogen Normal mg/dL (Less than 2); WBC/HPF Greater than 50 HPF (0-3); Yeast-Budding 2+ HPF (None Seen); Yeast-Hyphae 1+ HPF (None Seen); pH, Urine 5.5 (5.0-9.0)
[2021-09-28 21:14] LABS: RBC/HPF 21-50 HPF (0-3)
[2021-09-28] MEDS ORDERED: Cephalexin 250 MG/5 ML Oral Suspension PO SCH (23:15)
== END 2021-09-29 01:44 | disposition home or self-care (01) ==
LOC: ERS 19:18
DX: R56.9 Unspecified convulsions (principal); N39.0 Urinary tract infection, site not specified; I48.91 Unspecified atrial fibrillation; K21.9 Gastro-esophageal reflux disease without esophagitis; I10 Essential (primary) hypertension; E78.5 Hyperlipidemia, unspecified; E78.00 Pure hypercholesterolemia, unspecified; J44.9 Chronic obstructive pulmonary disease, unspecified; G30.9 Alzheimer's disease, unspecified; F02.80 Dementia in other diseases classified elsewhere, unspecified severity, without behavioral disturbance, psychotic disturbance, mood disturbance, and anxiety; W18.30XA Fall on same level, unspecified, initial encounter; Z87.891 Personal history of nicotine dependence; Z85.3 Personal history of malignant neoplasm of breast
CPT/HCPCS: 36415; 51701; 70450; 71045; 80053; 81003; 81015; 82550; 83735; 84484; 85025; 93005

== ENCOUNTER 2021-10-02 14:07 | Inpatient (IN) | payer MEDICARE ==
[~2021-10-02 14:07] MED LIST: Iopamidol 370 76% 100 ML VIAL ONE
[2021-10-02 15:07] LABS: Hemoglobin 13.1 g/dL (12.0-16.0); Mean Corpuscular Hemoglobin 23.3 pg (27.0-31.0); Mean Corpuscular Volume 77.7 fL (78.0-98.0); Mean Platelet Volume 5.5 fL (7.4-10.4); Platelet Count 193 thou/uL (130-400); Red Blood Cell (RBC) Count 5.62 mill/uL (4.20-5.40); White Blood Cell (WBC) Count 5.9 thou/uL (4.8-10.8)
[2021-10-02 15:20] LABS: Anisocytosis SLIGHT = 6-15 cells (100X) (0-5/hpf); Band 1 % (5-11); Hypochromia SLIGHT = 6-15 cells (100X) (0-5/hpf); Lymphocytes 21 % (21-51); MDiff Complete? YES; Microcytosis SLIGHT = 6-15 cells (100X) (0-5/hpf); Monocytes 6 % (0-10); Neutrophil 71 % (42-75); Platelet Morphology Comment Appears Adequate
[2021-10-02 15:39] LABS: ALT (SGPT) 38 U/L (8-55); AST (SGOT) 23 U/L (5-34); Albumin 3.1 g/dL (3.4-4.8); Alkaline Phosphatase 75 U/L (40-110); Anion Gap 18 mmol/L (10-20); BUN (Urea Nitrogen) 25 mg/dL (9.8-20.1); Bilirubin, Total 2.3 mg/dL (0.2-1.2); Calc. Creatinine Clearance 0 mL/min (70-130); Calcium 8.8 mg/dL (7.8-10.44); Carbon Dioxide 19 mmol/L (23-31); Chloride 106 mmol/L (98-107); Globulin 3.9 g/dL (2.4-3.5); Glucose 80 mg/dL (83-110); Potassium 4.1 mmol/L (3.5-5.1); Sodium 139 mmol/L (136-145)
[2021-10-02] MEDS ORDERED: Lorazepam 2 MG/ML VIAL ONE (16:24)
[2021-10-02 17:25] LABS: SARS-CoV-2 NAA Rapid Test DETECTED (NotDetected)
[2021-10-02 17:38] LABS: Bilirubin Small (Negative); Blood, Urine Large (Negative); Glucose, Urine (Dipstick) Negative (Negative); Ketone, Urine 15 mg/dL (Negative); Leukocyte Moderate (Negative); Nitrite Negative (Negative); Protein, Urine (Dipstick) 100 mg/dL (Neg-Trace)
[2021-10-02 17:43] LABS: Clarity Cloudy (Clear); Specific Gravity, Urine 1.025 (1.002-1.036)
[2021-10-02 17:44] LABS: Bacteria/HPF 1+ HPF (None Seen); RBC/HPF 21-50 HPF (0-3); Squamous Epithelial 0-3 HPF (0-3); Yeast-Budding 1+ HPF (None Seen); Yeast-Hyphae 2+ HPF (None Seen)
[2021-10-02] MEDS ORDERED: Meropenem 1 GM in Sodium Chloride 0.9% 100 ML IVPB SCH (20:00)
[2021-10-02] MEDS ORDERED: Acetaminophen 325 MG TAB PO PRN (20:36)
[2021-10-02] MEDS ORDERED: Acetaminophen 650 MG Suppository PR PRN (20:36)
[2021-10-02] MEDS ORDERED: Ondansetron PF 4 MG/2 ML Vial IVP PRN (20:36)
[2021-10-02] MEDS ORDERED: Dextrose 5% in Water 1,000 ML IV PRN (20:45)
[2021-10-02] MEDS ORDERED: Dextrose 50% Abboject 50 ML SYRINGE SLOW IVP PRN (20:45)
[2021-10-02] MEDS ORDERED: Sodium Chloride 0.9% 1,000 ML IV SCH (20:45)
[2021-10-02] MEDS ORDERED: levETIRAcetam in NS 100 ML ONE (21:01)
[2021-10-02] MEDS ORDERED: Lidocaine Viscous Sol 2% 15 ml UD Cup ONE (21:01)
[2021-10-02] MEDS: levETIRAcetam in NS 1,000 MG in Premix Bag 1 BAG IVPB SCH (21:21)
[2021-10-03] MEDS ORDERED: Dextrose 50% Abboject 50 ML SYRINGE ONE (00:41)
[2021-10-03] MEDS: Dextrose 5 %-0.45 % NaCl 1,000 ML IV SCH ×2 (00:50→14:00)
[2021-10-03] MEDS ORDERED: Meropenem 1 GM in Sodium Chloride 0.9% 100 ML IVPB SCH (05:00)
[2021-10-03] MEDS: Meropenem 1 GM in Sodium Chloride 0.9% 100 ML IVPB SCH ×2 (05:12→13:06)
[2021-10-03] MEDS ORDERED: Albuterol Sulfate 2.5 mg/3 ml Neb NEB PRN (05:59)
[2021-10-03 07:10] LABS: Hemoglobin 12.9 g/dL (12.0-16.0); Mean Corpuscular HGB CONC 30.2 g/dL (32.0-36.0); Mean Corpuscular Hemoglobin 23.8 pg (27.0-31.0); Mean Corpuscular Volume 78.7 fL (78.0-98.0); Mean Platelet Volume 5.8 fL (7.4-10.4); Platelet Count 183 thou/uL (130-400); RBC Distribution Width 17.7 % (11.5-14.5); Red Blood Cell (RBC) Count 5.44 mill/uL (4.20-5.40); White Blood Cell (WBC) Count 6.4 thou/uL (4.8-10.8)
[2021-10-03 07:24] LABS: Anion Gap 15 mmol/L (10-20); BUN (Urea Nitrogen) 25 mg/dL (9.8-20.1); Calc. Creatinine Clearance 0 mL/min (70-130); Calcium 8.5 mg/dL (7.8-10.44); Carbon Dioxide 22 mmol/L (23-31); Chloride 106 mmol/L (98-107); Glucose 111 mg/dL (83-110); Potassium 3.8 mmol/L (3.5-5.1); Sodium 139 mmol/L (136-145)
[2021-10-03 07:37] LABS: Hypochromia SLIGHT = 6-15 cells (100X) (0-5/hpf); Lymphocytes 14 % (21-51); MDiff Complete? YES; Microcytosis SLIGHT = 6-15 cells (100X) (0-5/hpf); Monocytes 8 % (0-10); Neutrophil 78 % (42-75); Platelet Morphology Comment Appears Adequate; Polychromasia SLIGHT = 2-3 cells (100X) (0-2/hpf)
[2021-10-03] MEDS ORDERED: Enoxaparin Sodium 30 MG/0.3 ML SYRINGE SC SCH (09:00)
[2021-10-03] MEDS ORDERED: Pantoprazole 40 MG VIAL IVP SCH (09:00)
[2021-10-03] MEDS ORDERED: Pantoprazole 40 MG VIAL ONE (09:01)
[2021-10-03] MEDS ORDERED: levETIRAcetam in NS 100 ML ONE (09:01)
[2021-10-03] MEDS ORDERED: Enoxaparin Sodium 30 MG/0.3 ML SYRINGE ONE (09:01)
[2021-10-03] MEDS: levETIRAcetam in NS 1,000 MG in Premix Bag 1 BAG IVPB SCH (09:08)
[2021-10-03 16:09] VITALS: BP 169/81; TEMP 98.1
== END 2021-10-03 16:36 | disposition hospice, inpatient (51) | DRG 388 ==
LOC: ERS 14:07 → ERHOLD 19:59 → T4-A 10-03 15:24
PROVIDERS: ADMIT Internal Medicine; ATTEND Physician Assistant Medical
PROC: 8E0ZXY6 Isolation (ICD-10-PCS; principal; 2021-10-02)
DX: K56.609 Unspecified intestinal obstruction, unspecified as to partial versus complete obstruction (principal); U07.1 COVID-19; N39.0 Urinary tract infection, site not specified; Z16.24 Resistance to multiple antibiotics; G93.40 Encephalopathy, unspecified; I50.42 Chronic combined systolic (congestive) and diastolic (congestive) heart failure; Z51.5 Encounter for palliative care; Z66 Do not resuscitate; E16.2 Hypoglycemia, unspecified; J44.9 Chronic obstructive pulmonary disease, unspecified; I11.0 Hypertensive heart disease with heart failure; E78.5 Hyperlipidemia, unspecified; G40.909 Epilepsy, unspecified, not intractable, without status epilepticus; G30.9 Alzheimer's disease, unspecified; F02.80 Dementia in other diseases classified elsewhere, unspecified severity, without behavioral disturbance, psychotic disturbance, mood disturbance, and anxiety; I48.91 Unspecified atrial fibrillation; Z88.5 Allergy status to narcotic agent; Z88.8 Allergy status to other drugs, medicaments and biological substances; Z79.899 Other long term (current) drug therapy; Z85.3 Personal history of malignant neoplasm of breast; Z86.718 Personal history of other venous thrombosis and embolism; Z90.710 Acquired absence of both cervix and uterus; Z90.11 Acquired absence of right breast and nipple; Z87.891 Personal history of nicotine dependence; K21.9 Gastro-esophageal reflux disease without esophagitis; E78.00 Pure hypercholesterolemia, unspecified; W18.30XA Fall on same level, unspecified, initial encounter
CPT/HCPCS: 36415; 36416; 51701; 70450; 71045; 71260; 74018; 74177; 80048; 80053; 81003; 81015; 82550; 83605; 83735; 84484; 85025; 87040; 87086; 93005; 96365; 96366; 96368; 96375; C9113; J1650; J1953; J1956; J2060; J2185; J3490; J7042; J7050; Q9967; U0002

== ENCOUNTER 2021-10-03 16:53 | Inpatient (IN) | payer OTHER ==
[2021-10-03 17:15] VITALS: BMI 21.1
[2021-10-03] MEDS ORDERED: Morphine 4 MG/ML VIAL SLOW IVP PRN (17:50)
[2021-10-03] MEDS ORDERED: Lorazepam 2 MG/ML VIAL SLOW IVP PRN (17:51)
[2021-10-03] MEDS ORDERED: Scopolamine 1.5 mg/72 hour Patch TOP SCH (18:00)
[2021-10-03] MEDS: Morphine 4 MG/ML VIAL SLOW IVP SCH ×2 (18:03→20:33)
[2021-10-03] MEDS: Lorazepam 2 MG/ML VIAL SLOW IVP SCH (20:34)
[2021-10-03 21:16] VITALS: TEMP 97.8
[2021-10-04] MEDS: Lorazepam 2 MG/ML VIAL SLOW IVP SCH ×2 (01:09→04:12)
[2021-10-04] MEDS: Morphine 4 MG/ML VIAL SLOW IVP SCH ×3 (01:09→06:16)
[2021-10-04 08:14] VITALS: BP 99/67
== END 2021-10-04 08:45 | disposition expired | DRG 951 ==
LOC: T4-A 16:53
PROVIDERS: ADMIT Family Medicine; ATTEND Family Medicine
DX: Z51.5 Encounter for palliative care (principal); U07.1 COVID-19; K56.609 Unspecified intestinal obstruction, unspecified as to partial versus complete obstruction; N39.0 Urinary tract infection, site not specified; I50.42 Chronic combined systolic (congestive) and diastolic (congestive) heart failure; G93.40 Encephalopathy, unspecified; B96.20 Unspecified Escherichia coli [E. coli] as the cause of diseases classified elsewhere; I11.0 Hypertensive heart disease with heart failure; E78.5 Hyperlipidemia, unspecified; E16.2 Hypoglycemia, unspecified; J44.9 Chronic obstructive pulmonary disease, unspecified; F03.90 Unspecified dementia, unspecified severity, without behavioral disturbance, psychotic disturbance, mood disturbance, and anxiety; I48.91 Unspecified atrial fibrillation; G40.909 Epilepsy, unspecified, not intractable, without status epilepticus; Z88.5 Allergy status to narcotic agent; Z88.8 Allergy status to other drugs, medicaments and biological substances; Z79.899 Other long term (current) drug therapy; Z90.710 Acquired absence of both cervix and uterus; Z90.11 Acquired absence of right breast and nipple; Z87.891 Personal history of nicotine dependence
CPT/HCPCS: J2060; J2270